=== PATIENT | female | born 1965 | race Caucasian/White ===

== ENCOUNTER 2019-11-21 16:14 | Emergency (ER) | payer OTHER, SELFPAY ==
[2019-11-21 16:34] VITALS: BP 125/73; PULSE 86; RESP 19; TEMP 37.4; O2SAT 100
[2019-11-21 17:02] LABS: Basophils Percent Auto 0.5 % (0.2-1.2); Eosinophils Absolute Auto 0.1 K/mm3 (0-0.3); Eosinophils Percent Auto 1.5 % (0-4.4); Hematocrit 43.3 % (37.0-47.0); Hemoglobin 13.9 g/dL (12.0-15.0); Immature Granulocyte Absolute 0.03 K/mm3 (0.00-0.031); Immature Granulocyte Percent A 0.4 % (0-0.5); Lymphocytes Absolute Auto 2.52 K/mm3 (0.9-3.2); Lymphocytes Percent Auto 33.6 % (18.3-44.2); Mean Corpuscular HGB Conc 32.1 g/dl (32-36); Mean Corpuscular Hemoglobin 29.7 pg (26-34); Mean Corpuscular Volume 92.5 fl (80-100); Mean Platelet Volume 11.5 fl (7.4-10.4); Monocytes Absolute Auto 0.5 K/mm3 (0.1-0.6); Monocytes Percent Auto 6.4 % (2.6-8.5); Neutrophils Absolute Auto 4.3 K/mm3 (1.3-6.7); Neutrophils Percent Auto 57.6 % (45.5-73.1); Platelet Count Result 196 k/mm3 (150-375); Red Blood Count 4.68 M/mm3 (4.2-5.4); White Blood Count 7.5 K/mm3 (4.5-10.0)
--- NOTE | 2019-11-21 17:03 | PC.NURSE ---
Patient left waiting room to smoke outside of ER
[2019-11-21 17:12] LABS: Alanine Aminotransferase 20 U/L (4-35); Albumin Level 4.5 g/dL (3.5-5.1); Alkaline Phosphatase 100 U/L (38-126); Aspartate Amino Transferase 26 U/L (14-36); Bilirubin,Total 0.3 mg/dL (0.2-1.3); Blood Urea Nitrogen 12 mg/dL (7-17); Calcium 9.4 mg/dL (8.4-10.2); Carbon Dioxide 20 mmol/L (22-30); Chloride 106 mmol/L (98-107); Estimated Glomerular Filt Rate > 60; Glucose 88 mg/dL (65-105); Lipase 314 U/L (23-300); Potassium 3.8 mmol/L (3.4-5.0); Sodium 142 mmol/L (137-145)
--- NOTE | 2019-11-21 17:54 | PC.NURSE ---
patient was called for vitals, no answer x 2
== END 2019-11-21 18:01 | disposition left against medical advice (07) ==
LOC: ANHED 17:59
PROVIDERS: Emergency Provider Emergency Medicine; PCP Family Medicine
DX: R51 Headache (principal)
CPT/HCPCS: 36415; 80053; 83690; 85025; 99199

== ENCOUNTER 2020-06-29 13:04 | Outpatient (CLI) | payer OTHER, SELFPAY ==
--- NOTE | 2020-06-29 14:04 | ECG_ITS ---
Measurements Intervals [place] Rate: 79 P: 70 IA: 135 QRS: 78 QRSD: 86 T: 51 QT: 369 QTc: 424 Interpretive Statements SINUS RHYTHM NORMAL ECG Electronically Signed On 06-29-2020 14:27:05 CDT by Sabas Longo D.O.
[2020-06-29 14:25] LABS: Anion Gap 7 mmol/L (8-16); Blood Urea Nitrogen 12 mg/dL (7-17); Calcium 9.2 mg/dL (8.4-10.2); Carbon Dioxide 28 mmol/L (22-30); Chloride 104 mmol/L (98-107); Estimated Glomerular Filt Rate > 60; Glucose 99 mg/dL (65-105); Potassium 3.6 mmol/L (3.4-5.0); Sodium 139 mmol/L (137-145)
== END 2020-06-29 13:05 | disposition home or self-care (01) ==
DX: Z01.818 Encounter for other preprocedural examination (principal)
CPT/HCPCS: 36415; 80048; 93005

== ENCOUNTER 2020-12-18 14:38 | Outpatient (CLI) | payer OTHER, SELFPAY | END 2020-12-18 14:39 | disposition home or self-care (01) | LOC: ANHCOVIDVC 14:38 | DX: Z23 Encounter for immunization (principal) | CPT/HCPCS: 0001A; 91300 ==

== ENCOUNTER 2021-01-08 14:15 | Outpatient (CLI) | payer OTHER, SELFPAY | END 2021-01-08 14:16 | disposition home or self-care (01) | LOC: ANHCOVIDVC 14:15 | DX: Z23 Encounter for immunization (principal) | CPT/HCPCS: 0002A; 91300 ==

== ENCOUNTER 2021-02-24 12:21 | Outpatient (CLI) | payer OTHER, SELFPAY ==
--- NOTE | ~2021-02-24 | MM_ITS ---
EXAMINATION: MM screening [facility] BI w anthony HISTORY: Screening TECHNIQUE: Craniocaudal and mediolateral oblique 3-D tomosynthesis images were obtained and synthetic 2-D images were generated. CAD analysis was submitted and interpreted. COMPARISON: Comparison to multiple prior studies sequentially, with oldest reviewed study dated 12/06. BREAST PARENCHYMAL COMPOSITION: There are scattered areas of fibroglandular density. FINDINGS: There is no evidence of suspicious mass, calcification, or architectural distortion to sugg est malignancy in either breast. There has been no suspicious interval change. IMPRESSION: 1. No mammographic evidence of malignancy. 2. Recommend routine screening mammography in one year. BI-RADS Category 1: Negative Reviewed, dictated and finalized at location A.
== END 2021-02-24 12:22 | disposition home or self-care (01) ==
LOC: ANHIMG 12:23
PROVIDERS: PCP Family Medicine; Visit Provider Advanced Practice Midwife
DX: Z12.31 Encounter for screening mammogram for malignant neoplasm of breast (principal); Z78.0 Asymptomatic menopausal state
CPT/HCPCS: 77063; 77067

== ENCOUNTER 2021-08-25 23:36 | Emergency (ER) | payer OTHER, SELFPAY ==
--- NOTE | ~2021-08-25 | XR_ITS ---
EXAMINATION: XR ribs RT 2V w CXR 2V DATE: 08/26/2021 00:36 INDICATION: Right anterior lower rib pain. Fall. TECHNIQUE: Frontal and lateral views of the chest and 2 views on 3 radiographs of the right ribs were obtained. COMPARISON: Chest single view 08/22/2017, chest CT 08/24/2018 FINDINGS: CHEST TWO VIEWS: There is a moderate-sized right pneumothorax. There is mild atelectasis in the lower lung zones. There is a trace right pleural effusion. The heart size is normal. There is a compressio n fracture of T9. Surgical clips in the right upper quadrant are likely from cholecystectomy. RIGHT RIBS: There are fractures of right fourth-eighth ribs. IMPRESSION: 1. Moderate-sized right pneumothorax. 2. Acute fractures of right fourth-eighth ribs. 3. Age-indeterminate compression fracture of T9. Reviewed, dictated and finalized at location A. 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
--- NOTE | ~2021-08-25 | XR_ITS ---
EXAMINATION: XR chest-chest tube insert/pos DATE: 08/26/2021 02:31 INDICATION: Right pneumothorax status post chest tube placement. TECHNIQUE: A single frontal view of the chest was obtained. COMPARISON: Chest 2 views 08/26/2021 FINDINGS: There is a moderate-sized right pneumothorax. A chest tube overlies right upper lung zone. There is soft tissue gas in right chest wall and axilla. There are airspace opacities in right perihi lar region and right lower lung zone, likely atelectasis. No pleural effusion. The heart size is norm al. There is a fracture of right sixth rib. IMPRESSION: 1. Moderate-sized right pneumothorax with chest tube overlying right upper lung zone. 2. Acute fracture of right sixth rib. Reviewed, dictated and finalized at location A. 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
[2021-08-25 23:41] VITALS: BP 149/76; PULSE 84; RESP 24; TEMP 36.3; O2SAT 100
[2021-08-25 23:47] VITALS: O2SAT 97
[2021-08-26] VITALS (10 sets, daily range): BP systolic 125–183; BP diastolic 76–99; PULSE 79–103; RESP 14–22; O2SAT 91–100
[2021-08-26] MEDS: MORPHINE SULFATE INJ (*CRX) 10 MG/ML AMP 4 MG IM (00:08)
[2021-08-26 01:02] LABS: Basophils Absolute Auto 0.1 K/mm3 (0.0-0.1); Basophils Percent Auto 0.4 % (0.2-1.2); Eosinophils Absolute Auto 0.1 K/mm3 (0-0.3); Eosinophils Percent Auto 0.7 % (0-4.4); Hematocrit 39.6 % (37.0-47.0); Hemoglobin 13.4 g/dL (12.0-15.0); Immature Granulocyte Absolute 0.06 K/mm3 (0.00-0.031); Immature Granulocyte Percent A 0.4 % (0-0.5); Lymphocytes Absolute Auto 2.51 K/mm3 (0.9-3.2); Lymphocytes Percent Auto 18.7 % (18.3-44.2); Mean Corpuscular HGB Conc 33.8 g/dl (32-36); Mean Corpuscular Hemoglobin 31.8 pg (26-34); Mean Corpuscular Volume 93.8 fl (80-100); Mean Platelet Volume 10.9 fl (7.4-10.4); Monocytes Absolute Auto 0.6 K/mm3 (0.1-0.6); Monocytes Percent Auto 4.6 % (2.6-8.5); Neutrophils Absolute Auto 10.1 K/mm3 (1.3-6.7); Neutrophils Percent Auto 75.2 % (45.5-73.1); Platelet Count Result 198 k/mm3 (150-375); Red Blood Count 4.22 M/mm3 (4.2-5.4); White Blood Count 13.4 K/mm3 (4.5-10.0)
[2021-08-26] MEDS: MORPHINE SULFATE (*CRX) 4 MG/ML INJ IV PUSH (01:03)
[2021-08-26 01:14] LABS: Anion Gap 11 mmol/L (8-16); Blood Urea Nitrogen 19 mg/dL (7-17); Calcium 9.4 mg/dL (8.4-10.2); Carbon Dioxide 24 mmol/L (22-30); Chloride 104 mmol/L (98-107); Estimated CRCL calculation 55 ml/min; Estimated Glomerular Filt Rate > 60; Glucose 97 mg/dL (65-110); Potassium 3.4 mmol/L (3.4-5.0); Sodium 139 mmol/L (137-145)
[2021-08-26 01:15] LABS: Prothrombin Time 12.7 Seconds (11.1-14.7)
[2021-08-26] MEDS: HYDROmorphone HCL INJ (*CRX) 1 MG/ML SYR IV PUSH ×2 (01:43→03:31)
--- NOTE | 2021-08-26 01:49 | PC.NURSE ---
0145 - pt placed on 2L NC for comfort. 0147 - EDP at bedside for Chest Tube placement
--- NOTE | 2021-08-26 02:35 | ED.FALL ---
HPI - Fall General Chief Complaint: Fall Stated Complaint: rib pain Time Seen by Provider: 08/25/21 23:41 Source: patient Mode of arrival: ambulatory Limitations: no limitations History of Present Illness HPI Narrative: 56-year-old with history of migraines, here with complaints of fall. Patient states that she fell on the right side of her chest having severe pain and difficulty in breathing. She denies head and neck injuries. complaint: fall Onset (ago): hour(s) (2) Fall from: standing Fall witnessed: yes, by family Place fall occurred: home Prolonged down time: no Symptoms prior to fall: none Location of injury: chest Severity: moderate Associated symptoms (after fall): denies Related Data Allergies Allergy/AdvReac Type Severity Reaction Status Date / Time dihydroergotamine Allergy Intermediate Unknown Verified 08/25/21 23:58 codeine Allergy Mild gets red, Verified 08/25/21 23:58 hives, itchy latex Allergy Mild Unknown Verified 08/25/21 23:58 Sulfa (Sulfonamide Allergy Mild Unknown Verified 08/25/21 23:58 Antibiotics) chlorpromazine Allergy Unknown Dyspnea / Verified 08/25/21 23:58 SOB nickel Allergy Unknown Unknown Verified 08/25/21 23:58 prochlorperazine Allergy Unknown Unknown Verified 08/25/21 23:58 metoclopramide [From Reglan] AdvReac Unknown Verified 08/25/21 23:58 METOCLOPRAMIDE HCL Allergy Unknown DYSTONIC Uncoded 08/25/21 23:58 REACTION PROPRANOLOL HCL AdvReac Unknown CHEST Uncoded 08/25/21 23:58 TIGHTNESS Review of Systems Review of Systems: All systems reviewed & are unremarkable except as noted in HPI and below Constitutional: Constitutional: Reports no additional constitutional complaints Eyes: Eyes: Reports no additional eye complaints ENT: Reports system reviewed and no additional complaints, except as documented Respiratory: Respiratory: Reports as per HPI Musculoskeletal: Musculoskeletal: Reports no additional musculoskeletal complaints PMFSH Past Medical History Medical History Migraine Family History Family History Father Acute myocardial infarction Sibling Patient's sister is in good health Patient's brother is in good health Patient's sister is Mother Family history of malignant neoplasm of breast in first degree relative Patient's mother is Social History Social History Smoking status: Current every day smoker Alcohol intake: never Gender identity (if verbalized by the patient): Female Exam Narrative: GENERAL: Well-appearing, well-nourished, and in moderate distresssec to pain HEAD: Normocephalic, atraumatic. EYES: PERRLA and EOMI. NECK: Supple. CHEST: Tender on the right side of her chest no obvious bruising noted decreased air entry, left normal air entry HEART: Regular rate and rhythm. No murmur heard. Normal peripheral pulses. ABDOMEN: Soft, nontender, nondistended, normal active bowel sounds. EXTREMITIES: Normal range of motion. No edema. SKIN: Warm, dry, no rash. NEURO: No focal deficits. Alert and oriented x3. PSYCH: Normal mood and affect. Course Course Emergency Course: informed pt about her CXR finding with pt having SOB opted to place chest pain and transfer to [facility] , discussed with Dr. Marks agreed to accept pt. Vital Signs Vital signs: Vital Signs Temperature 36.3 C L 08/25/21 23:41 Pulse Rate 84 08/25/21 23:41 Respiratory Rate 24 H 08/25/21 23:41 Blood Pressure 149/76 H 08/25/21 23:41 Pulse Oximetry 100 08/25/21 23:41 Temperature 36.3 C L 08/25/21 23:41 Pulse Rate 85 08/26/21 01:31 Respiratory Rate 16 08/26/21 01:31 Blood Pressure 141/96 H 08/26/21 01:31 Pulse Oximetry 97 08/26/21 01:31 Procedures Chest Tube Chest Tube 1: Chest Tube Date: 08/26/21 Chest Tube Time: 02:41 Chest Tube Location: r
--- NOTE | 2021-08-26 03:56 | PC.NURSE ---
Procedure start: 0147 0153: Pt awake and verbalizing pain. 25mg IV Ketamine given per [facility] EDP Kanumuri. VSS. 0205: Pt awake and verbalizing pain. 50mg IV Ketamine given per [facility] EDP Kanumuri. VSS. 0210: Pt awake and verbalizing pain. 25mg IV Ketamine given per [facility] EDP Kanumuri. VSS. 202: Pt awake and verbalizing pain. 25mg IV Ketamine given per [facility] EDP Kanumuri. VSS. 0220: EDP Arzola at bedside for assist. 0227: 1mg IV Dilaudid given per [facility] EDP Arzola. Procedure end: 227
== END 2021-08-26 03:35 | disposition short-term general hospital (02) ==
PROVIDERS: Emergency Provider Family Medicine
DX: S27.0XXA Traumatic pneumothorax, initial encounter (principal); S22.41XA Multiple fractures of ribs, right side, initial encounter for closed fracture; F17.210 Nicotine dependence, cigarettes, uncomplicated; W19.XXXA Unspecified fall, initial encounter
CPT/HCPCS: 32551; 36415; 71046; 71100; 80048; 85025; 85610; 96372; 96374; 96375; 96376; 99291; C1729; J1170; J2270

== ENCOUNTER 2022-04-06 18:23 | Emergency (ER) | payer OTHER, SELFPAY ==
--- NOTE | ~2022-04-06 | XR_ITS ---
EXAMINATION: XR chest 2V Exam Date/Time: 04/06/2022 21:15 CDT HISTORY: dyspnea Comparison: None available. RESULT: Lines, tubes, and devices: None. Lungs and pleura: Minimal subsegmental bibasilar opacities and subtle bilateral lower lobe reticular opacities. Cardiomediastinal silhouette: Stable cardiomediastinal silhouette. Other: No acute osseous or upper abdominal finding. IMPRESSION: Pulmonary findings may reflect mild interstitial edema with bibasilar atelectasis. Reviewed, dictated and finalized at location K. IMPRESSION: Pulmonary findings may reflect mild interstitial edema with bibasilar atelectas is.
--- NOTE | ~2022-04-06 | CT_ITS ---
EXAMINATION: CT brain wo con DATE: 04/06/2022 21:13 INDICATION: headache, cataplexy, speech difficulty . TECHNIQUE: Computed tomography (CT) of the head was performed without intravenous contrast. The mA wa s adjusted according to patient size. Iterative reconstruction technique was employed. The dose-lengt h product was 605.33 mGy-cm. COMPARISON: 08/24/2018. FINDINGS: No acute intracranial hemorrhage or extra-axial fluid collection. No hydrocephalus, mass, or herniation. No acute ischemic infarct. Unremarkable dural venous sinus attenuation. No acute osseous abnormality. The aerated spaces are clear. Mild atrophy. Mild chronic white matter change Prominent CSF density bifrontal extra-axial spaces, un changed, likely related to atrophy with settling, or chronic bilateral subdural hematomas. IMPRESSION: No acute intracranial process. Reviewed, dictated and finalized at location K.
[2022-04-06 18:38] VITALS: BP 132/70; PULSE 76; RESP 20; TEMP 36.6; O2SAT 100
--- NOTE | 2022-04-06 20:45 | ED.GENADULT ---
HPI - General Adult General Chief complaint: Unspecified <Kayleigh Trujillo MD - Last Filed: 04/06/22 21:56> Stated complaint: cataplexy attack , headache <Kayleigh Trujillo MD - Last Filed: 04/06/22 21:56> Time Seen by Provider: 04/06/22 20:45 <Kayleigh Trujillo MD - Last Filed: 04/06/22 21:56> History of Present Illness HPI narrative: Patient is a 56-year-old female with a history of migraine headache, cataplexy following with [facility], presenting to the emergency department for evaluation of headache, shortness of breath. Patient reports that she has had difficulty breathing over the past 72 hours. She reports associated headache. Patient with a history of cataplexy, follows with neurology at [facility]. Patient denies any recent medication changes. She denies cough, hemoptysis or chest pain. No pleuritic pain. Patient reports shortness of breath at the time of assessment but oxygen saturation is 100% on room air and patient has no difficulty speaking in full sentences, no tachypnea or evidence of obvious respiratory distress. Patient without recent long car or air travel. No recent hospitalizations, immobility, or history of DVT or coagulopathy. Patient states that this headache is different than previous migraine headaches. She has had headache for approximately 3 days, no recent fall or trauma. Denies vision changes or photophobia. Reports nausea without vomiting. Patient denies neck pain. She denies unilateral weakness or numbness. She does report mild right arm pain. No difficulty moving her right upper extremity. Patient without vision changes. She has taken Tylenol and ibuprofen without much improvement in her pain. <Kayleigh Trujlilo MD - Last Filed: 04/06/22 21:56> Related Data Allergies/adverse reactions: Allergies Allergy/AdvReac Type Severity Reaction Status Date / Time dihydroergotamine Allergy Intermediate Unknown Verified 08/25/21 23:58 codeine Allergy Mild gets red, Verified 08/25/21 23:58 hives, itchy latex Allergy Mild Unknown Verified 08/25/21 23:58 Sulfa (Sulfonamide Allergy Mild Unknown Verified 08/25/21 23:58 Antibiotics) chlorpromazine Allergy Unknown Dyspnea / Verified 11/17/21 23:58 SOB nickel Allergy Unknown Unknown Verified 08/25/21 23:58 prochlorperazine Allergy Unknown Unknown Verified 08/25/21 23:58 propranolol AdvReac Unknown chest Verified 04/06/22 21:04 tightness metoclopramide [From Reglan] AdvReac Dystonic Verified 04/06/22 21:04 reaction <Kayleigh Trujillo MD - Last Filed: 04/06/22 21:56> Review of Systems Review of Systems: CONSTITUTIONAL: Denies fever, chills, or sweats. EYES: Denies visual changes, redness, or discharge. ENT: Denies rhinorrhea, congestion, sore throat, or otalgia. CARDIOVASCULAR: Denies chest pain, palpitations, or edema. RESPIRATORY: Denies cough, reports difficulty breathing GASTROINTESTINAL: Denies abdominal pain, reports nausea, no vomiting today or diarrhea GENITOURINARY: Denies dysuria or hematuria. SKIN: Denies rash or itching. MUSCULOSKELETAL: Denies back pain, joint pain, or myalgia. NEUROLOGIC: Reports headache without numbness, or weakness. <Kayleigh Trujillo MD - Last Filed: 04/06/22 21:56> [facility] Past Medical History Medical History: Medical History (Updated 04/06/22 @ 21:56 by Kayleigh Trujillo MD) Cataplexy Migraine Pneumothorax <Kayleigh Trujillo MD - Last Filed: 04/06/22 21:56> Family History Family History: Family History Father Acute myocardial infarction Sibling Patient's sister is in good health Patient's brother is in good health Patient's sister is Mother Family history of malignant neoplasm of breast in first degree relative Patient's mother is <Kayleigh Trujillo MD - Last Filed: 04/06/22 21:56> Social History Social History:
--- NOTE | 2022-04-06 20:56 | ECG_ITS ---
Measurements Intervals [place] Rate: 71 P: 56 MS: 140 QRS: 75 QRSD: 88 T: 59 QT: 405 QTc: 441 Interpretive Statements SINUS RHYTHM COMPARED TO ECG 06/29/2020 14:18:12 NO SIGNIFICANT CHANGES Electronically Signed On 04-06-2022 22:54:18 CDT by Joan Lewis M.D.
[2022-04-06 22:00] VITALS: BP 135/87; PULSE 71; RESP 13; O2SAT 99
[2022-04-06] MEDS: SODIUM CHLORIDE 0.9% IV 1,000 ML 999 ML IV CONT (22:03)
[2022-04-06 22:12] LABS: Basophils Absolute Auto 0.1 K/mm3 (0.0-0.1); Basophils Percent Auto 0.9 % (0.2-1.2); Eosinophils Absolute Auto 0.1 K/mm3 (0-0.3); Eosinophils Percent Auto 1.5 % (0-4.4); Hematocrit 39.4 % (37.0-47.0); Immature Granulocyte Absolute 0.03 K/mm3 (0.00-0.031); Immature Granulocyte Percent A 0.5 % (0-0.5); Lymphocytes Absolute Auto 2.35 K/mm3 (0.9-3.2); Lymphocytes Percent Auto 35.3 % (18.3-44.2); Mean Corpuscular Hemoglobin 30.5 pg (26-34); Mean Corpuscular Volume 92.5 fl (80-100); Mean Platelet Volume 10.8 fl (7.4-10.4); Monocytes Absolute Auto 0.4 K/mm3 (0.1-0.6); Monocytes Percent Auto 5.3 % (2.6-8.5); Neutrophils Absolute Auto 3.8 K/mm3 (1.3-6.7); Neutrophils Percent Auto 56.5 % (45.5-73.1); Platelet Count Result 191 k/mm3 (150-375); Red Blood Count 4.26 M/mm3 (4.2-5.4); Red Cell Distribution Width 13.2 % (11.5-14.5); White Blood Count 6.7 K/mm3 (4.5-10.0)
[2022-04-06] MEDS: ONDANSETRON INJ 4 MG/2 ML VIAL IV PUSH (22:12)
[2022-04-06 22:17] LABS: Alanine Aminotransferase 16 U/L (6-35); Albumin Level 4.3 g/dL (3.5-5.1); Alkaline Phosphatase 72 U/L (38-126); Anion Gap 5 mmol/L (8-16); Aspartate Amino Transferase 26 U/L (14-36); Bilirubin,Total 0.3 mg/dL (0.2-1.3); Blood Urea Nitrogen 12 mg/dL (7-17); Calcium 8.8 mg/dL (8.4-10.2); Carbon Dioxide 24 mmol/L (22-30); Chloride 107 mmol/L (98-107); Estimated CRCL calculation 54 ml/min; Estimated Glomerular Filt Rate > 60; Glucose 102 mg/dL (65-110); Lipase 128 U/L (23-300); Potassium 3.6 mmol/L (3.4-5.0); Sodium 136 mmol/L (137-145)
[2022-04-06] MEDS: KETOROLAC 15 MG/ML VIAL (*BKC) IV PUSH (22:20)
[2022-04-06] MEDS: FAMOTIDINE 20 MG/2 ML VIAL IV PUSH (22:21)
[2022-04-06] MEDS: diphenhydrAMINE HCl INJ 50 MG/ML VIAL IV PUSH (22:21)
[2022-04-06 22:24] LABS: D Dimer 0.54 ug/mL (<0.48)
[2022-04-06] MEDS: MAGNESIUM SULF 2 GM/WATER 50ML 2 GM/50 ML BAG IVPB (22:24)
[2022-04-06 22:29] LABS: NT Pro B Type Natriuretic Pept 137 pg/mL (5-100); Troponin I < 0.012 ng/mL (0.000-0.034)
[2022-04-06 22:43] LABS: SARS-CoV-2 RNA PCR Negative
[2022-04-06 22:57] LABS: Appearance Urine Clear (Clear); Bilirubin Urine Negative (Negative); Blood Urine Negative (Negative); Color Urine Yellow (Yellow); Glucose Urine UA Negative (Negative); Ketones Urine Negative (Negative); Leukocyte Esterase Ur Negative LEU/UL (Negative); Nitrate Urine Negative (Negative); Protein Urine Negative (Negative); Specific Grav Ur 1.015 (1.001-1.035); Urobilinogen Urine 0.2 mg/dL (<2.0); pH Urine 5.5 (5.0-9.0)
[2022-04-06 23:06] LABS: Bacteria Urine Trace /hpf; Mucus Urine Rare /lpf; RBC Urine 0-2 /hpf (0-2); Squamous Epithelial Cell Urine Occasional /hpf (Few); WBC Urine 0-3 /hpf
[2022-04-06 23:17] LABS: Add Urine Microscopic? NO
[2022-04-06] MEDS: FLUTICASONE PROPIONATE 0.05% NA SPR 16 GM BTL (*BKC) 1 SPRAY NASAL (23:23)
[2022-04-06 23:24] VITALS: BP 147/74; PULSE 73; RESP 19; O2SAT 99
== END 2022-04-07 03:08 | disposition home or self-care (01) ==
PROVIDERS: Emergency Provider Emergency Medicine
DX: G43.909 Migraine, unspecified, not intractable, without status migrainosus (principal); G47.411 Narcolepsy with cataplexy; Z20.822 Contact with and (suspected) exposure to COVID-19; R06.02 Shortness of breath
CPT/HCPCS: 36415; 70450; 71046; 80053; 81003; 83690; 83880; 84484; 85025; 85380; 93005; 96365; 96367; 96375; 99284; A9270; C9803; J0131; J1100; J1200; J1885; J2405; J3475; J7030; U0003; U0005

== ENCOUNTER 2022-10-22 09:12 | Emergency (ER) | payer OTHER, SELFPAY ==
[2022-10-22 09:26] VITALS: BP 155/95; PULSE 85; RESP 16; TEMP 36.3; O2SAT 99
--- NOTE | 2022-10-22 10:19 | ED.EYEPROB ---
HPI - Eye Problem General Chief complaint: Eye Problems Stated complaint: left eye pain, watery eye Time Seen by Provider: 10/22/22 10:21 Source: patient, RN notes reviewed and old records reviewed Mode of arrival: ambulatory Limitations: no limitations History of Present Illness HPI Narrative: 57-year-old female who presents to [facility] accompanied by mother with complaints left eye hurting this morning and her eye watering since this morning around 0600. Patient reports that her vision is not changed and she denies any yellowish or green drainage for her eyes or any crusting on her lashes. Patient denies any known injury to her left eye. Patient states she took Benadryl 50 mg this morning.Patient constantly dabbing at left eye with Kleenex, cautioned patient to not rub her left eye. chief complaint: eye redness Onset (ago): hour(s) (This morning at 6:00 a.m.) Severity scale (1-10): 5 Treatments Prior to Arrival: other (took Benadryl 50 mg this morning) Related Data Home Medications Medication Instructions Recorded Confirmed opulijjjot-oodfgpumuqtzh-hqjtaaev 1 tablet PO DAILY 10/22/22 10/22/22 50 mg-325 mg-40 mg tablet estradiol 2 mg tablet 2 mg PO DAILY 10/22/22 10/22/22 metoprolol succinate 100 mg 100 mg PO DAILY 10/22/22 10/22/22 tablet,extended release 24 hr progesterone micronized 100 mg 100 mg PO DAILY 10/22/22 10/22/22 capsule quetiapine 300 mg tablet 300 mg PO DAILY 10/22/22 10/22/22 rizatriptan 10 mg tablet 10 mg PO DAILY 10/22/22 10/22/22 temazepam 30 mg capsule 30 mg PO DAILY 10/22/22 10/22/22 Allergies Allergy/AdvReac Type Severity Reaction Status Date / Time dihydroergotamine Allergy Intermediate Unknown Verified 10/22/22 09:36 codeine Allergy Mild gets red, Verified 10/22/22 09:36 hives, itchy latex Allergy Mild Unknown Verified 10/22/22 09:36 Sulfa (Sulfonamide Allergy Mild Unknown Verified 10/22/22 09:36 Antibiotics) chlorpromazine Allergy Unknown Dyspnea / Verified 10/22/22 09:36 SOB nickel Allergy Unknown Unknown Verified 10/22/22 09:36 prochlorperazine Allergy Unknown Unknown Verified 10/22/22 09:36 propranolol AdvReac Unknown chest Verified 10/22/22 09:36 tightness metoclopramide [From Reglan] AdvReac Dystonic Verified 10/22/22 09:36 reaction Review of Systems Review of Systems: CONSTITUTIONAL: Denies fever, chills, or sweats. EYES: Denies visual changes. Reports redness, irritation, watery discharge. ENT: Denies rhinorrhea, congestion, sore throat, or otalgia. CARDIOVASCULAR: Denies chest pain, palpitations, or edema. RESPIRATORY: Denies cough or dyspnea. SKIN: Denies rash or itching. NEUROLOGIC: Denies headache All systems reviewed & are unremarkable except as noted in HPI and below PMFSH Past Medical History Medical History (Updated 10/22/22 @ 10:34 by Kayleigh Babb NP) Cataplexy Migraine Pneumothorax Family History Family History Father Acute myocardial infarction Sibling Patient's sister is in good health Patient's brother is in good health Patient's sister is Mother Family history of malignant neoplasm of breast in first degree relative Patient's mother is Social History Social History Smoking status: Current every day smoker Alcohol intake: never Gender identity (if verbalized by the patient): Female Comments At time of signature, agree with nursing past medical, surgical, social and family history. There is no relevant family history pertinent to the presenting complaint Exam Narrative: GENERAL: Well-appearing, well-nourished, and in no acute distress. HEAD: Normocephalic, atraumatic. EYES: PERRLA and EOMI. Upper and lower eyelids unremarkable left. No periorbital cellulitis noted. Sclera and conjunctivae injected left eye. ENT: Nares clear, no rhinorrhea or ep
== END 2022-10-22 10:42 | disposition home or self-care (01) ==
PROVIDERS: Emergency Provider Registered Nurse
DX: H10.9 Unspecified conjunctivitis (principal); F17.200 Nicotine dependence, unspecified, uncomplicated
CPT/HCPCS: 99213; G0463

== ENCOUNTER 2022-12-06 08:06 | Emergency (ER) | payer OTHER, SELFPAY ==
[2022-12-06 08:25] VITALS: BP 128/84; PULSE 105; RESP 12; TEMP 36.6; O2SAT 100
[2022-12-06 08:29] VITALS: BP 128/84; PULSE 105; RESP 12; TEMP 36.6; O2SAT 100
--- NOTE | 2022-12-06 08:33 | ED.GENADULT ---
HPI - General Adult General Chief complaint: Eye Problems Stated complaint: Eyes Irritation Time Seen by Provider: 12/06/22 08:09 Source: patient Mode of arrival: ambulatory Limitations: no limitations History of Present Illness HPI narrative: Patient presents for evaluation of left eye irritation since 0200 this morning. She reports pain, tearing, redness, and blurred vision in the left eye. She has not were glasses or contacts. Her symptoms caused her to wake from sleep. She had some ofloxacin at home that she tried once without considerable improvement in her symptoms thereafter. She is not diabetic. No additional complaints or concerns. Related Data Home Medications Medication Instructions Recorded Confirmed oaresloqzo-esfomaboqsgjf-qfcmgbfm 1 tablet PO DAILY 10/22/22 10/22/22 50 mg-325 mg-40 mg tablet estradiol 2 mg tablet 2 mg PO DAILY 10/22/22 10/22/22 metoprolol succinate 100 mg 100 mg PO DAILY 10/22/22 10/22/22 tablet,extended release 24 hr progesterone micronized 100 mg 100 mg PO DAILY 10/22/22 10/22/22 capsule quetiapine 300 mg tablet 300 mg PO DAILY 10/22/22 10/22/22 rizatriptan 10 mg tablet 10 mg PO DAILY 10/22/22 10/22/22 Allergies Allergy/AdvReac Type Severity Reaction Status Date / Time dihydroergotamine Allergy Intermediate Unknown Verified 12/06/22 08:26 codeine Allergy Mild gets red, Verified 12/06/22 08:26 hives, itchy latex Allergy Mild Unknown Verified 12/06/22 08:26 Sulfa (Sulfonamide Allergy Mild Unknown Verified 12/06/22 08:26 Antibiotics) chlorpromazine Allergy Unknown Dyspnea / Verified 12/06/22 08:26 SOB nickel Allergy Unknown Unknown Verified 12/06/22 08:26 prochlorperazine Allergy Unknown Unknown Verified 12/06/22 08:26 propranolol AdvReac Unknown chest Verified 12/06/22 08:26 tightness metoclopramide [From Reglan] AdvReac Dystonic Verified 12/06/22 08:26 reaction Review of Systems Review of Systems: CONSTITUTIONAL: Denies fever, chills, or sweats. EYES: Reports redness, tearing, irritation, pain, and blurred vision in the left eye. ENT: Denies rhinorrhea, congestion, sore throat, or otalgia. CARDIOVASCULAR: Denies chest pain, palpitations, or edema. RESPIRATORY: Denies cough or dyspnea. GASTROINTESTINAL: Denies abdominal pain, nausea, vomiting, or diarrhea. GENITOURINARY: Denies dysuria or hematuria. SKIN: Denies rash or itching. MUSCULOSKELETAL: Denies back pain, joint pain, or myalgia. NEUROLOGIC: Denies headache, numbness, dizziness, or weakness. PSYCHIATRIC: Denies anxiety or depression. PMFSH Past Medical History Medical History Cataplexy Migraine Pneumothorax Surgical History Surgical History History of History of cholecystectomy Family History Family History Father Acute myocardial infarction Sibling Patient's sister is in good health Patient's brother is in good health Patient's sister is Mother Family history of malignant neoplasm of breast in first degree relative Patient's mother is Social History Social History Smoking packs per day: 0.5 Smoking cigarettes per day: 10.0 Smoking status: Current every day smoker Alcohol intake: never Substance use: never Living arrangements: with family Gender identity (if verbalized by the patient): Female Sexual Orientation (if Verbalized by the Patient): Straight or Heterosexual Spiritual care concerns: No Exam Narrative: GENERAL: Well-appearing, well-nourished, and in no acute distress. HEAD: Normocephalic, atraumatic. EYES: PERRLA and EOMI. left conjunctival injection and tearing. There is a in area of dye uptake at the 9 o'clock position of the left eye when riddhi
== END 2022-12-06 09:05 | disposition home or self-care (01) ==
PROVIDERS: Emergency Provider Nurse Practitioner
DX: S05.02XA Injury of conjunctiva and corneal abrasion without foreign body, left eye, initial encounter (principal); F17.210 Nicotine dependence, cigarettes, uncomplicated; X58.XXXA Exposure to other specified factors, initial encounter
CPT/HCPCS: 99213; A9270; G0463

== ENCOUNTER 2023-07-12 14:55 | Outpatient (CLI) | payer OTHER, SELFPAY ==
--- NOTE | ~2023-07-12 | MM_ITS ---
EXAMINATION: MM screening [place] BI w anthony HISTORY: Screening mammogram, family history of breast cancer in her mother and sister. TECHNIQUE: Craniocaudal and mediolateral oblique 3-D tomosynthesis images were obtained and synthetic 2-D images were generated. CAD analysis was submitted and interpreted. COMPARISON: 02/24/2021, 07/03/2015, 12/06/2012 BREAST PARENCHYMAL COMPOSITION: There are scattered areas of fibroglandular density. FINDINGS: No suspicious mass, calcification, or architectural distortion are identified in either alvaro ast to suggest malignancy. There has been no suspicious interval change. IMPRESSION: 1. No mammographic evidence of malignancy. 2. Recommend routine screening mammography in one year. BI-RADS Category 1: Negative Reviewed, dictated and finalized at location A.
== END 2023-07-12 14:56 | disposition home or self-care (01) ==
LOC: ANHIMG 14:58
PROVIDERS: PCP Family Medicine; Visit Provider Obstetrics & Gynecology
DX: Z12.31 Encounter for screening mammogram for malignant neoplasm of breast (principal)
CPT/HCPCS: 77063; 77067

== ENCOUNTER 2023-10-06 09:26 | Emergency (ER) | payer OTHER, SELFPAY ==
[2023-10-06 09:39] VITALS: BP 122/83; PULSE 100; RESP 16; TEMP 37.3; O2SAT 98
--- NOTE | 2023-10-06 10:00 | ED.EYEPROB ---
HPI - Eye Problem General Chief complaint: Eye Problems Stated complaint: fell Wed. and hit left eye,decreased vision Source: patient and RN notes reviewed Mode of arrival: ambulatory Limitations: no limitations History of Present Illness HPI Narrative: 58 y/o female with hx migraines, ALLEN, cataplexy, presented for c/o right eye swelling and bruising with blurred vision after a fall 2 days ago. States she struck her head on something but unsure how. States she falls often due to her hx cataplexy. Denies neck pain, decreased ROM, numbness, tingling or weakness of the arms. Pt tested positive for COVID 4 days ago, taking paxlovid. No other complaints at this time. Related Data Home Medications Medication Instructions Recorded Confirmed [id number]-[id number]-onpnllkn 1 tablet PO DAILY 10/22/22 10/06/23 50 mg-325 mg-40 mg tablet estradiol 2 mg tablet 2 mg PO DAILY 10/22/22 10/06/23 metoprolol succinate 100 mg 100 mg PO DAILY 10/22/22 10/06/23 tablet,extended release 24 hr progesterone micronized 100 mg 100 mg PO DAILY 10/22/22 10/06/23 capsule quetiapine 300 mg tablet 300 mg PO DAILY 10/22/22 10/06/23 rizatriptan 10 mg tablet 10 mg PO DAILY 10/22/22 10/06/23 alprazolam 0.25 mg tablet 0.25 mg PO DAILY 05/17/23 10/06/23 fluoxetine 40 mg capsule 40 mg PO DAILY 05/17/23 10/06/23 temazepam 30 mg capsule 30 mg PO QHS 05/17/23 10/06/23 Allergies Allergy/AdvReac Type Severity Reaction Status Date / Time dihydroergotamine Allergy Intermediate Unknown Verified 10/06/23 11:14 codeine Allergy Mild gets red, Verified 10/06/23 11:14 hives, itchy latex Allergy Mild Unknown Verified 10/06/23 11:14 Sulfa (Sulfonamide Allergy Mild Unknown Verified 10/06/23 11:14 Antibiotics) chlorpromazine Allergy Unknown Dyspnea / Verified 10/06/23 11:14 SOB nickel Allergy Unknown Unknown Verified 10/06/23 11:14 prochlorperazine Allergy Unknown Unknown Verified 10/06/23 11:14 propranolol AdvReac Unknown chest Verified 10/06/23 11:14 tightness metoclopramide [From Reglan] AdvReac Dystonic Verified 10/06/23 11:14 reaction Review of Systems Review of Systems: CONSTITUTIONAL: Denies body aches, fever, chills, or sweats. EYES: reports right eye visual changes, swelling, bruising ENT: Denies rhinorrhea, congestion, epistaxis CARDIOVASCULAR: Denies chest pain, palpitations, or edema. RESPIRATORY: Denies cough or dyspnea. SKIN: Denies rash, itching, or wounds. MUSCULOSKELETAL: Denies back pain, joint pain, or myalgia. NEUROLOGIC: Endorses mild headache, denies numbness, tingling, or weakness, dizziness All systems reviewed & are unremarkable except as noted in HPI and below PMFSH Past Medical History Medical History Cataplexy IBS (irritable bowel syndrome) Migraine Pneumothorax Positive colorectal cancer screening using Cologuard test Sleep apnea Surgical History Surgical History History of History of cholecystectomy Family History Family History Father Acute myocardial infarction Sibling Patient's sister is in good health Patient's brother is in good health Patient's sister is Mother Family history of malignant neoplasm of breast in first degree relative Patient's mother is Social History Social History Smoking packs per day: 0.5 Smoking cigarettes per day: 10.0 Smoking status: Current every day smoker Alcohol intake: never Substance use: never Lack of Transportation: No Lack of Food: Never True Current Housing: I Have Housing Concerned About Future Housing: No Difficulty Paying Gas/Electric Bills: No Difficulty Paying for Meds: No Currently Unemployed: No Education: Trade/Vocational Certificate Dif
== END 2023-10-06 10:31 | disposition short-term general hospital (02) ==
PROVIDERS: Emergency Provider Nurse Practitioner Family; PCP Nurse Practitioner Family
DX: S05.11XA Contusion of eyeball and orbital tissues, right eye, initial encounter (principal); W19.XXXA Unspecified fall, initial encounter; F17.210 Nicotine dependence, cigarettes, uncomplicated; G47.419 Narcolepsy without cataplexy
CPT/HCPCS: 99212; G0463

== ENCOUNTER 2023-10-06 10:57 | Emergency (ER) | payer OTHER, SELFPAY ==
--- NOTE | ~2023-10-06 | CT_ITS ---
EXAMINATION: CT facial & cervical spine wo DATE: 10/06/2023 11:48 INDICATION: Head injury. TECHNIQUE: Computed tomography (CT) of the maxillofacial region and cervical spine was performed with out intravenous contrast. Automated exposure control and iterative reconstruction technique were empl oyed. The dose-length product was 192.26 mGy-cm. COMPARISON: CT cervical spine 08/24/2018 FINDINGS: MAXILLOFACIAL CT: There is right periorbital soft tissue swelling. The orbits are normal. There is mild mucosal thicken ing in the paranasal sinuses. There is leftward deviation of the nasal septum. There is extensive den lor disease. There are fracture deformities of the nasal bones. CERVICAL SPINE CT: There is mild emphysema. There is mild kyphosis of cervical spine. Vertebral body heights are normal. There is severely decreased disc height at C3-C4 and C4-C5 and moderately decreased disc height at C 5-C6. The following disc levels are specifically discussed: C2-C3: There is no uncovertebral joint osteoarthritis. There is severe left facet joint osteoarthriti s. There is mild left neural foraminal stenosis. There is no central canal stenosis. C3-C4: There is mild bilateral uncovertebral joint osteoarthritis. There is no facet joint osteoarthr itis. There is no neural foraminal stenosis. There is no central canal stenosis. C4-C5: There is moderate bilateral uncovertebral joint osteoarthritis. There is no facet joint osteoa rthritis. There is mild left neural foraminal stenosis. There is no central canal stenosis. C5-C6: There is mild bilateral uncovertebral joint osteoarthritis. There is no facet joint osteoarthr itis. There is no neural foraminal stenosis. There is no central canal stenosis. C6-C7: There is no uncovertebral joint osteoarthritis. There is no facet joint osteoarthritis. There is no neural foraminal stenosis. There is no central canal stenosis. C7-T1: There is no uncovertebral joint osteoarthritis. There is moderate right and severe left facet joint osteoarthritis. There is no neural foraminal stenosis. There is no central canal stenosis. IMPRESSION: 1. Age-indeterminate fracture deformities of the nasal bones. 2. Moderate cervical spondylosis. Reviewed, dictated and finalized at location A. HER HAND
--- NOTE | ~2023-10-06 | CT_ITS ---
EXAMINATION: CT brain wo con DATE: 10/06/2023 11:48 INDICATION: Head injury. TECHNIQUE: Computed tomography (CT) of the head was performed without intravenous contrast. The mA wa s adjusted according to patient size. Iterative reconstruction technique was employed. The dose-lengt h product was 605.33 mGy-cm. COMPARISON: Head CT 04/06/2022 FINDINGS: There is no intracranial hemorrhage, acute infarction, or abnormal intracranial mass lesion . There are scattered areas of low attenuation in the cerebral white matter, which is within normal l imits for the patient's age. The ventricles are normal in size. There is right periorbital soft tissu e swelling. The orbits are normal. The mastoid air cells are normal. There is mild mucosal thickening in the paranasal sinuses. IMPRESSION: 1. Normal aging brain. Reviewed, dictated and finalized at location A. CASER IMPRESSION: 1. Normal aging brain.
--- NOTE | ~2023-10-06 | XR_ITS ---
XR hand LT min 3V 10/06/2023 11:51 INDICATION: Left hand pain after fall PROCEDURE: 3 views left hand COMPARISON: No prior studies for comparison. FINDINGS: Fracture, dislocation or subluxation is not identified. The soft tissues appear within norm al limits. No foreign bodies are identified. IMPRESSION: 1: NO ACUTE BONE OR JOINT ABNORMALITY IDENTIFIED. Reviewed, dictated and finalized at location A. HT ENGINEER
[2023-10-06 11:01] VITALS: BP 157/97; PULSE 97; RESP 20; TEMP 37.1; O2SAT 100
--- NOTE | 2023-10-06 11:31 | ED.GENADULT ---
HPI - General Adult General Chief complaint: Trauma Stated complaint: sent from for right eye injury Time Seen by Provider: 10/06/23 11:07 History of Present Illness HPI narrative: 58-year-old female presenting to emergency department for evaluation after having a ground level fall approximately 2 days ago. Patient did strike her right eye does have ecchymosis and swelling to the right eye. Patient states she does have some blurred vision out of that right eye but this could be secondary to her inability to fully open the eye. The patient also complains of left thumb pain. Patient is COVID positive per the patient. Related Data Home Medications Medication Instructions Recorded Confirmed zxauoswzqp-uiuuibvjvfvdo-wmtjqprv 1 tablet PO DAILY 10/22/22 10/06/23 50 mg-325 mg-40 mg tablet estradiol 2 mg tablet 2 mg PO DAILY 10/22/22 10/06/23 metoprolol succinate 100 mg 100 mg PO DAILY 10/22/22 10/06/23 tablet,extended release 24 hr progesterone micronized 100 mg 100 mg PO DAILY 10/22/22 10/06/23 capsule quetiapine 300 mg tablet 300 mg PO DAILY 10/22/22 10/06/23 rizatriptan 10 mg tablet 10 mg PO DAILY 10/22/22 10/06/23 alprazolam 0.25 mg tablet 0.25 mg PO DAILY 05/17/23 10/06/23 fluoxetine 40 mg capsule 40 mg PO DAILY 05/17/23 10/06/23 temazepam 30 mg capsule 30 mg PO QHS 05/17/23 10/06/23 Allergies Allergy/AdvReac Type Severity Reaction Status Date / Time dihydroergotamine Allergy Intermediate Unknown Verified 10/06/23 11:14 codeine Allergy Mild gets red, Verified 10/06/23 11:14 hives, itchy latex Allergy Mild Unknown Verified 10/06/23 11:14 Sulfa (Sulfonamide Allergy Mild Unknown Verified 10/06/23 11:14 Antibiotics) chlorpromazine Allergy Unknown Dyspnea / Verified 10/06/23 11:14 SOB nickel Allergy Unknown Unknown Verified 10/06/23 11:14 prochlorperazine Allergy Unknown Unknown Verified 10/06/23 11:14 propranolol AdvReac Unknown chest Verified 10/06/23 11:14 tightness metoclopramide [From Reglan] AdvReac Dystonic Verified 10/06/23 11:14 reaction Review of Systems Review of Systems: All systems reviewed & are unremarkable except as noted in HPI and below PMFSH Past Medical History Medical History Cataplexy IBS (irritable bowel syndrome) Migraine Pneumothorax Positive colorectal cancer screening using Cologuard test Sleep apnea Surgical History Surgical History History of History of cholecystectomy Family History Family History Father Acute myocardial infarction Sibling Patient's sister is in good health Patient's brother is in good health Patient's sister is Mother Family history of malignant neoplasm of breast in first degree relative Patient's mother is Social History Social History Smoking packs per day: 0.5 Smoking cigarettes per day: 10.0 Smoking status: Current every day smoker Alcohol intake: never Substance use: never Lack of Transportation: No Lack of Food: Never True Current Housing: I Have Housing Concerned About Future Housing: No Difficulty Paying Gas/Electric Bills: No Difficulty Paying for Meds: No Currently Unemployed: No Education: Trade/Vocational Certificate Difficulty w/ Childcare or Family Care: No Living arrangements: with family Gender identity (if verbalized by the patient): Female Sexual Orientation (if Verbalized by the Patient): Straight or Heterosexual Spiritual care concerns: No Exam Narrative: APPEARANCE: Well appearing, no pain, no distress, well-nourished. HEAD: normocephalic, ecchymosis to right eye and right side of face. EYES: PERRLA/EOMI, conjunctivae clear. Normal visual gonzalez of the eyes bilaterally, normal bilateral
[2023-10-06 12:00] VITALS: BP 148/98; PULSE 86; RESP 16; TEMP 36.6; O2SAT 100
[2023-10-06 12:41] LABS: Influenza A QL RT-PCR Negative (Negative); Influenza B QL RT-PCR Negative (Negative); RSV RNA, RT-PCR Negative (Negative); SARS-CoV-2 RNA PCR Positive (Negative)
[2023-10-06 12:43] LABS: Basophils Percent Auto 0.7 % (0.2-1.2); Hematocrit 42.6 % (37.0-47.0); Hemoglobin 13.2 g/dL (12.0-15.0); Immature Granulocyte Absolute 0.02 K/mm3 (0.00-0.031); Immature Granulocyte Percent A 0.5 % (0-0.5); Immature Platelet Fraction Pct 8.2 % (0.9-11.2); Lymphocytes Absolute Auto 1.44 K/mm3 (0.9-3.2); Mean Corpuscular Hemoglobin 30.1 pg (26-34); Mean Corpuscular Volume 97.3 fl (80-100); Mean Platelet Volume 11.1 fl (7.4-10.4); Monocytes Absolute Auto 0.4 K/mm3 (0.1-0.6); Monocytes Percent Auto 9.2 % (2.6-8.5); Neutrophils Absolute Auto 2.2 K/mm3 (1.3-6.7); Neutrophils Percent Auto 53.6 % (45.5-73.1); Platelet Count Result 79 k/mm3 (150-375); Red Blood Count 4.38 M/mm3 (4.2-5.4); Red Cell Distribution Width 14.1 % (11.5-14.5); White Blood Count 4.1 K/mm3 (4.5-10.0)
[2023-10-06 12:52] LABS: Alanine Aminotransferase 53 U/L (6-35); Albumin Level 4.1 g/dL (3.5-5.1); Alkaline Phosphatase 92 U/L (38-126); Anion Gap 7 mmol/L (8-16); Aspartate Amino Transferase 67 U/L (14-36); Bilirubin,Total 0.4 mg/dL (0.2-1.3); Blood Urea Nitrogen 18 mg/dL (7-17); Calcium 8.5 mg/dL (8.4-10.2); Carbon Dioxide 25 mmol/L (22-30); Chloride 108 mmol/L (98-107); Estimated CRCL calculation 47 ml/min; Estimated Glomerular Filt Rate > 60; Glucose 92 mg/dL (65-110); Potassium 3.4 mmol/L (3.4-5.0); Sodium 140 mmol/L (137-145)
[2023-10-06 12:55] LABS: INR 0.9; Prothrombin Time 12.2 Seconds (11.1-14.7)
[2023-10-06 12:56] LABS: Partial Thromboplastin Time 23.7 SECONDS (22.3-36.8)
[2023-10-06 12:59] VITALS: BP 145/79; PULSE 77; RESP 16; TEMP 36.6; O2SAT 98
[2023-10-06 13:00] LABS: Platelet Estimate Decreased (Adequate); Schistocytes None Seen (NORMAL)
== END 2023-10-06 13:01 | disposition home or self-care (01) ==
PROVIDERS: Emergency Provider Emergency Medicine; PCP Nurse Practitioner Family
DX: S05.11XA Contusion of eyeball and orbital tissues, right eye, initial encounter (principal); M79.645 Pain in left finger(s); U07.1 COVID-19; K58.9 Irritable bowel syndrome, unspecified; G47.30 Sleep apnea, unspecified; Z90.49 Acquired absence of other specified parts of digestive tract; F17.210 Nicotine dependence, cigarettes, uncomplicated; M47.812 Spondylosis without myelopathy or radiculopathy, cervical region; W19.XXXA Unspecified fall, initial encounter
CPT/HCPCS: 36415; 70450; 70486; 72125; 73130; 80053; 85025; 85055; 85610; 85730; 87637; 99284

== ENCOUNTER 2024-01-01 14:16 | Outpatient (CLI) | payer OTHER, SELFPAY ==
--- NOTE | ~2024-01-01 | XR_ITS ---
EXAMINATION: XR ribs BI 3V w CXR 2V DATE: 01/01/2024 14:28 INDICATION: Chest pain. Fall. TECHNIQUE: Frontal and lateral views of the chest and 2 views on 3 radiographs of the right ribs and 2 views on 3 radiographs of the left ribs were obtained. COMPARISON: Chest 2 views 04/06/2022 FINDINGS: CHEST TWO VIEWS: There is no pneumonia, pleural effusion, or pneumothorax. The heart size is normal. There is a chronic compression fracture in mid thoracic spine. BILATERAL RIBS: There are old healed bilateral rib fractures. Surgical clips in the right upper quadr ant are likely from cholecystectomy. IMPRESSION: 1. No acute rib fracture. Reviewed, dictated and finalized at location E. IMPRESSION: 1. No acute rib fracture.
== END 2024-01-01 14:17 ==
PROVIDERS: PCP Family Medicine; Visit Provider Family Medicine
DX: R07.89 Other chest pain (principal); S29.8XXA Other specified injuries of thorax, initial encounter
CPT/HCPCS: 71046; 71110

== ENCOUNTER 2025-02-20 22:05 | Emergency (ER) | payer OTHER, SELFPAY ==
--- OUTSIDE RECORDS SUMMARY | 2025-02-20 22:13 | XMS_ITS | Clinical Summary ---
Author Organization [facility] Address [address] [place] [address] Phone Care Team Providers Care Rug Weaver Name Role Phone Unavailable Primary Care Provider Unavailabl e Allergies Active Allergy Reactions Criticality Noted Date Comments Adhesive Tape-Silicones Rash Low 12/08/2014 Chlorpromazine Anaphylaxis High 02/06/2016 Codeine Rash Low 01/15/2016 Dhe Shortness of Breath/Wheezing High 12/08/2014 Latex Rash Low 12/08/2014 Metoclopramide Hcl Other (See Comments) 015 Dystonic reaction Propranolol Shortness of Breath/Wheezing High 12/08/2014 Sulfa (Sulfonamide Antibiotics) Rash Low 12/08/2014 Medications ZOLMitriptan (ZOMIG) Fourmile, Non-Aerosol 1 Fourmile 2 times daily as needed for Migraine may repeat in 2 hours; max dose 10mg in 24 hours . Active ketorolac (TORADOL) 60 mg/2 mL Solution Inject 60 mg by intramuscular injection every 6 hours as needed (No more then 3 doses per week.). Active amitriptyline (ELAVIL) 50 mg tablet Take 50 mg by mouth daily at bedtime. Active topiramate (TOPAMAX) 100 mg tablet Take 100 mg by mouth daily. Active metoprolol succinate (TOPROL XL) 50 mg Extended Release 24 hour tablet Take 50 mg by mouth daily. Active PARoxetine HCl (PAXIL) 40 mg tablet Take 40 mg by mouth daily. Active clonazePAM (KLONOPIN) 0.5 mg Tablet Take 0.5 mg by mouth daily at bedtime. Active clonazePAM (KLONOPIN) 0.5 mg Tablet Take 0.25 mg by mouth daily rn obgyn. Active ondansetron (ZOFRAN) 4 mg Tablet Take 4 mg by mouth every 8 hours as needed for Nausea/Emesis. Active QUEtiapine (SEROQUEL) 200 mg tablet Take 200 mg by mouth 2 times daily. Active rizatriptan (MAXALT) 10 mg Tablet Take 10 mg by mouth every 2 hours as needed for Migraine may repeat in 2 hours; max dose 30mg in 24 hours . Active butalbital-cod -acetaminop-ca f (FIORICET #3) 61-88-913-40 mg capsule Take 1 Capsule by mouth every 4 hours as needed for Migraine. Active oxyCODONE-acet aminophen (PERCOCET) 5-325 mg tablet Take 1 Tablet by mouth every 4 hours as needed for Pain, Moderate. Max Daily Amount: 6 Tablet 20 Tablet None 6 Active ondansetron (ZOFRAN ODT) 4 mg Tablet, Rapid Dissolve Place 1 Tablet (4 mg) under tongue every 6 hours as needed for Nausea/Emesis. 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 Gender Identity Not on file Sexual Orientation Not on file Last Filed Vital Signs Vital Sign Reading Time Taken Comments Blood Pressure 133/77 02/06/2016 3:00 PM CDT Pulse 83 02/06/2016 3:00 PM CDT Temperature 36.7 C (98 F) 02/06/2016 1:37 PM CDT Respiratory Rate 18 02/06/2016 3:00 PM CDT Oxygen Saturation 97% 02/06/2016 3:00 PM CDT Inhaled Oxygen Concentration - - Weight 68 kg (150 lb) 02/06/2016 1:20 PM CDT Height 157.5 cm (5' 2 ) 02/06/2016 1:20 PM CDT Body Mass Index 27.44 02/06/2016 1:20 PM CDT Plan of Treatment Health Maintenance Due Date Last Done Comments DTAP/TDAP/TD VACCINES (1 - Tdap) 1984 HEPATITIS B VACCINES (1 of 3 - 19+ 3-dose series) 04/10 HPV/Cotest (21-29) 1986 CERVICAL CANCER SCREENING 1995 HPV/Cotest (30-65) 1995 PAP SMEAR 1995 BREAST CANCER SCREENING 2005 COLORECTAL SCREENING 2010 Colorectal Cancer Screening 2010 FIT-DNA Q 3 years 2010 FIT/FOBT Q 1 year 2010 Flex Sig/CT Colonography Q 5 years 2010 ZOSTER VACCINE (1 of 2) 2015 INFLUENZA VACCINE (#1) 2024
--- OUTSIDE RECORDS SUMMARY | 2025-02-20 22:13 | XMS_ITS | Clinical Summary ---
Author Organization [facility] Address [facility] [place] [address] Care Team Providers Care Production Recorder Name Role Phone None, Provider MD Primary Care Provider Unavaila ble Allergies Active Allergy Reactions Criticality Noted Date Comments Aspirin Nausea and Vomiting Low 03/26/2019 *FIORINAL* Chlorpromazine Anaphylaxis,Swelling , Unknown High 09/25/2015 I can' breathe Swelling Codeine Rash Low 11/15/2019 Dhea Anaphylaxis,Shortnes s of Breath,Unknown High 09/02/2014 Dihydroergotamine Chest pressure,Shortness of Breath High 01/27/2015 Chest pain Chest pain Breathing Difficulty Ergotamine Unknown 09/02/2014 Latex Rash Low 11/15/2019 Nickel Rash,Swelling Medium 11/01/2015 Phenylpropanolamine Unknown 02/21/2024 Promethazine Unknown 12/28/2022 Propranolol Anaphylaxis,Other (see comment),Shortness of Breath High 09/02/2014 Chest pain Chest pain Breathing Difficulty Metoclopramide Other (see comment) High 11/15/2019 Her jaw shifts to one side and cannot talk Sulfa Antibiotics Rash Low 09/02/2014 Yellow Dye Unknown 12/04/2019 Medications metoprolol succinate ER 100 MG Capsule ER 24 Hour Sprinkle 24 hr sprinkle capsule TK 1 T PO QD 09/21/2019 Active QUEtiapine 200 MG tablet Take 200 mg by mouth daily. 01/26/2018 Active fluoxetine 40 MG capsule 10/23/2019 Active aspirin-caffein e-butalbital 50-325-40 MG Cap capsule Take 1 capsule by mouth. 10/25/2019 Active ondansetron 4 MG tablet TAKE 1 TABLET BY MOUTH EVERY 8 HOURS NEEDED FOR NAUSEA 03/05/2015 Active ALPRAZolam 0.25 MG tablet Hasn't taken any recently 10/23/2019 Active aspirin-acetami nophen-caffeine (EXCEDRIN MIGRAINE) 250-250-65 MG tablet take 1 tablet by oral route every day 06/20/2016 Active frovatriptan 2.5 MG tablet Hasn't taken in months 07/15/2019 Active rizatriptan 10 MG tablet TAKE 1 TABLET BY MOUTH ONCE NEEDED FOR MIGRAINE; MAY REPEAT IN 2 HOURS. DO NOT EXCEED 3 TABLETS IN 24 HOURS 02/06/2015 Active temazepam 15 MG capsule Take 15 mg by mouth daily. 09/30/2019 Active pantoprazole EC (PROTONIX) 40 MG tablet Take 1 tablet (40 mg total) by mouth daily. 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[employer] Gender Identity Not on file Sexual Orientation Not on file Last Filed Vital Signs Vital Sign Reading Time Taken Comments Blood Pressure 175/89 02/21/2024 9:30 PM CDT Pulse 82 02/21/2024 9:30 PM CDT Temperature 36.6 C (97.9 F) 02/21/2024 8:13 PM CDT Respiratory Rate 23 02/21/2024 9:30 PM CDT Oxygen Saturation 98% 02/21/2024 9:30 PM CDT Inhaled Oxygen Concentration - - Weight 58.1 kg (128 lb) 02/21/2024 8:13 PM CDT Height 157.5 cm (5' 2 ) 02/21/2024 8:13 PM CDT Body Mass Index 23.41 02/21/2024 8:13 PM CDT Plan of Treatment Health Maintenance Due Date Last Done Comments Colorectal Cancer Screening Colonoscopy (10 Years) 1965 Annual Physical 1968 Hepatitis C 1983 DTaP, Tdap and Td Vaccines ( 1 - Tdap) 1984 Pneumococcal Vaccine: 50+ Years (1 of 2 - PCV) 1984 Cervical Cancer Screening Pa p with HPV Testing (Age 30 to 64) Every 5 Years 1995 Mammogram Screening 2005 Zoster Vaccines (1 of 2) 2015 COVID-19 Vaccine (3 - 2023-2 5 season) 2024 01/08/2021, 12/18/2020 Cervical Cancer Screening Pa p Smear (Age 30 to 64) Every 3 Years 03/28/2025 03/28/2022 Cervical Cancer Screening wi th HPV 03/28/2025 Meningococcal B Vaccine Aged Out No l onger eligible based on patient's age to complete this topic Meningococcal Vaccine Aged Out No galileo sabi eligible based on patient's age to complete this topic RSV Immunizations Under 20 Months Aged Out No longer eligible b ased on patient's age to complete this topic Additional Health Concerns Infection Onset Date Last Indicated 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
--- OUTSIDE RECORDS SUMMARY | 2025-02-20 22:14 | XMS_ITS | Data Portability ---
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 Lab noninvasiv e colorectal cancer DNA + occult blood screening, stool 2020 021 [facility] (Cologuard Orders Only), [address], [address], [place], [address], 06:51:14 lipid panel, serum 2018 019 [facility], [address], [address], [place], [address], 9 12:23:45 CMP, serum or plasma 2018 019 [facility], [address], [address], [place], [address], 9 12:23:45 TSH, ultra-sens itive, serum 2018 019 [facility], [address], [address], [place], [address], 9 12:23:29 Referral colonoscop y referral 2018 019 ivonne Cabrera MD, [address], [address], [place], [address], 9 17:37:14 Procedures None recorded. Surgeries None recorded. Imaging MAMMO, screening, bilateral 2019 [facility], [address], [address], [place], [address], 1 14:06:55 US, duplex, abdomen, complete 2019 [facility] ([facility]), [address], [place], [address], 0 13:25:27 MAMMO, screening, bilateral 2018 019 [facility], [address], [address], [place], [address], 9 17:45:13 Medication Orders metoprolol succinate ER 100 mg tablet,ext ended release 24 hr 2020 021 [id number], [address], [place], [place], [phone], 1 11:28:56 metoprolol succinate ER 100 mg tablet,ext ended release 24 hr 2018 019 [id number], [address], [place], [place], [phone], 9 12:23:36 Patient TargetsNo targets recorded. Patient Instructions Encounter Date Encounter Id Patient Instructions Last Modified By Organization Details Last Modified Time 02/06/2019 [id number] heart valve disease: care instructions [email or web address] Not available 02/06/2019 12:23:27 mitral valve prolapse: care instructions [email or web address] Not available 02/06/2019 12:23:28 mammogram: about this test [email or web address] Not available 02/06/2019 12:26:22 learning about high blood pressure [email or web address] Not available 02/06/2019 12:23:28 09/02/2020 [id number] mammogram: about this test [email or web address] Not available 09/02/2020 15:03:37 abdominal pain: care instructions [email or web address] Not available 09/02/2020 14:52:43 broken ankle: care instructions [email or web address] Not available 09/06/2020 00:30:11 03/17/2021 [id number] learning about high blood pressure [email or web address] Not available 03/17/2021 11:28:50 Reason for Referral Colonoscopy Referral for Scr eening colonoscopy Referring Physician: Jazzy Finch, Family Medicine, Encounter Date: 02/06/2019 Results Created Date Observation Date Name Description Value Unit Range Abnormal Flag Note LastModifiedBy Organization Detail LastModifiedTime 03/17/20 22 03/17/2022 COLOG UARD cologuard result Cancel led - Order d not applic able Not Available [facility] (Cologuard Orders Only) [address], [place], [address], 03/17/2022 06:51:14 02/25/20 21 02/24/2021 MAMMO , scree chapin, bilat eral No observ ation record ed. [email or web address] [facility] [address], [place], [address], 03/22/2021 00:36:41 Result Notes None recorded. Problems Name Problem SNOMED Code Status Onset Date Resolution Date Notes Provider Name and Address Organization Details Recorded Time Hypertensive disorder 23700464 Active 2019 Daphney Ordonez RN null, [facility] 0 14:38:38 Problem Notes None recorded. Procedures Surgical History Date Name Laterality Status Provider Name and Address Organization Details Recorded Time delivery completed Aure Aguirre MA [facility] 02/06/2019 11:52:04 cholecystectomy completed Aure Aguirre MA [facility] 02/06/2019 11:52:14 procedure on ankle completed Wally Ordonez RN [facility] 09/02/2020 14:40:13 Imaging Results Imaging Date Name Status LastModified by Organiz ation Details LastModified Time 02/24/2021 MAMMO, screening, bilateral completed [address], [place], [address], 03/22/2021 00:36:41 Procedure Notes None recorded. Medical Equipment None Reported. Allergies Allergen ID Allergen Name Allergen Category Reaction Reaction Severity Criticality Documentation Date Start Date Code Code System Note Provider Name and Address Organization Details Recorded Time 957993 Substance with sulfonami de structure and antibacte rial mechanism of action (substanc e) medicatio n Not available Not available Not available 02/06/2019 41645 8003 SNOMED JOVITA Swain, [facility] 9 11:44:58 [id number] Reglan medicatio n Not available Not available Not available 02/06/2019 9230 RxNorm JOVITA Swain, [facility] 9 11:45:10 695856 latex environme nt,medica tion Not available Not available Not available 02/06/2019 00476 91 RxNorm JuniorJOVITA Bradshaw, [facility] 9 11:45:19 Medications Name Sig Start Date Stop Date Status Note LastModified by Organization Details LastModified Time fluoxetine 40 mg capsule TAKE 1 CAPSULE BY MOUTH EVERY MORNING active Not Available Not Available No t Available amoxicillin 500 mg capsule TAKE ONE CAPSULE BY MOUTH THREE TIMES DAILY UNTIL ALL TAKEN active Not Available Not Available No t Available butalbital- acetaminoph en-caffeine 50 mg-325 mg-40 mg capsule 02/06 completed Not Available Not Available Not Available quetiapine 300 mg tablet TAKE 1 TABLET BY MOUTH EVERY DAY AT BEDTIME active Not Available Not Available No t Available ibuprofen 800 mg tablet Take 1 tablet 3 times a day by oral route as needed for 30 days. active Not Available Not Available No t Available fluconazole 150 mg tablet TAKE 1 TABLET BY MOUTH ONCE FOR 1 DOSE active Not Available Not Available No t Available hydrocodone 5 mg-acetamin ophen 325 mg tablet 02/06 completed Not Available Not Available Not Available meloxicam 15 mg tablet 09/02 completed Not Available Not Available Not Available ondansetron HCl 4 mg tablet TK 1 T PO Q 6 H PRF NAUSEA 09/02 completed Not Available Not Available Not Available rizatriptan 10 mg tablet active Not Available Not Available Not Available metoprolol succinate ER 100 mg tablet,exte nded release 24 hr TAKE 1 TABLET BY MOUTH EVERY DAY active Not Available Not Available No t Available quetiapine 200 mg tablet TAKE 1 TABLET BY MOUTH AT BEDTIME 03/17 completed Not Available Not Available Not Available tramadol 50 mg tablet TK 1 T Q 6 H PRN P 09/02 completed Not Available Not Available Not Available butalbital- acetaminoph en-caffeine 50 mg-325 mg-40 mg tablet TAKE 1 TABLET BY MOUTH EVERY 6 HOURS NEEDED FOR HEADACHE active Not Available Not Available No t Available ketorolac 10 mg tablet active Not Available Not Available Not Available alprazolam 0.5 mg tablet TAKE 1 TABLET BY MOUTH AT NIGHT active Not Available Not Available No t Available amoxicillin 875 mg tablet Take 1 tablet every 12 hours by oral route for 10 days. active Not Available Not Available No t Available alprazolam 0.25 mg tablet TAKE 1 TABLET BY MOUTH EVERY DAY NEEDED FOR ANXIETY active Not Available Not Available No t Available estradiol 1 mg tablet TAKE 1 TABLET BY MOUTH EVERY DAY 03/17 completed Not Available Not Available Not Available temazepam 15 mg capsule TAKE 2 CAPSULES BY MOUTH EVERY NIGHT AT BEDTIME active Not Available Not Available No t Available temazepam 30 mg capsule 09/02 completed Not Available Not Available Not Available cephalexin 500 mg capsule 09/02 completed Not Available Not Available Not Available paroxetine 30 mg tablet 02/06 completed Not Available Not Available Not Available paroxetine 20 mg tablet 02/06 completed Not Available Not Available Not Available pantoprazol e 40 mg tablet,hawa yed release 09/02 completed Not Available Not Available Not Available fluoxetine 20 mg tablet Take 1 tablet every day by oral route. active Not Available Not Available No t Available clotrimazol e-betametha sone 1 %-0.05 % topical cream APPLY TOPICALLY TO THE AFFECTED AND SURROUNDI NG AREAS TWICE DAILY IN THE MORNING AND IN THE EVENING FOR 2 WEEKS active Not Available Not Available No t Available frovatripta n 2.5 mg tablet 03/17 completed Not Available Not Available Not Available butalbital- aspirin-caf feine 50 mg-325 mg-40 mg capsule 09/02 completed Not Available Not Available Not Available estradiol 2 mg tablet TAKE 1 TABLET BY MOUTH EVERY DAY active Not Available Not Available No t Available nadolol 40 mg tablet 02/09 completed Not Available Not Available Not Available gabapentin 100 mg capsule 09/02 completed Not Available Not Available Not Available estradiol 0.01% (0.1 mg/gram) vaginal cream INSERT 1 GRAM VAGINALLY EVERY DAY AT BEDTIME active Not Available Not Available No t Available ondansetron 4 mg disintegrat ing tablet 09/02 completed Not Available Not Available Not Available fluoxetine 20 mg capsule TAKE 1 CAPSULE BY MOUTH EVERY MORNING 03/17 completed Not Available Not Available Not Available progesteron e micronized 100 mg capsule TAKE 1 CAPSULE BY MOUTH EVERY DAY active Not Available Not Available No t Available quetiapine 50 mg tablet TAKE 1 TABLET BY MOUTH AT BEDTIME 03/17 completed Not Available Not Available Not Available Viibryd 20 mg tablet 09/02 completed Not Available Not Available Not Available fluoxetine 60 mg tablet Take 1 tablet every day by oral route. active Not Available Not Available No t Available Rexulti 0.5 mg tablet 02/06 completed Not Available Not Available Not Available Vitals Date Recorded Body weight Body height Body mass index (BMI) Oxygen saturation Oxygen saturation in Arterial blood by Pulse oximetry Heart rate Body temperature Systolic blood pressure Diastolic blood pressure Provider Name and Address Organization Details Last Updated DateTime 9 11043.6 6 g 157.48 cm 27.5 kg/m2 97 % 97 % 83 /min 98.2 [degF] 148 mm[Hg] 90 mm[Hg] Aure Aguirre MA [facility] 9 12:04:24 Date Recorded Body weight Oxygen saturation Oxygen saturation in Arterial blood by Pulse oximetry Heart rate Body temperature Systolic blood pressure Diastolic blood pressure Provider Name and Address Organization Details Last Updated DateTime 1 341790. 04 g 97 % 97 % 81 /min 97.2 [degF] 132 mm[Hg] 82 mm[Hg] Daphney Ordonez RN [facility] 1 11:10:23 Social History Question Answer Notes LastModified by Organizat ion Details LastModified Time Tobacco Smoking Status Current Every Day Smoker Aure Aguirre MA null, [facility] 02/06/2019 11:50:01 Do You Have An Advance Directive? No Information not available 03/17/2021 Are You Blind Or Do You Have Difficulty Seeing? No Information not available 03/17/2021 What Is Your Level Of Caffeine Consumption? Occasional Information not available 03/17/2021 In The 14 Days Before Symptom Onset, Have You Had Close Contact With A Laboratory-confir med COVID-19 While That Case Was Ill? No Information not available 03/17/2021 In The 14 Days Before Symptom Onset, Have You Had Close Contact With A Person Who Is Under Investigation For COVID-19 While That Person Was Ill? No Information not available 03/17/2021 Have You Been To An Area Known To Be High Risk For COVID-19? No Information not available 03/17/2021 Are You Deaf Or Do You Have Serious Difficulty Hearing? No Information not available 03/17/2021 What Type Of Diet Are You Following? REGULAR Information not available 03/17/2021 Are There Any Guns Present In Your Home? No Information not available 03/17/2021 What Was The Date Of Your Most Recent Tobacco Screening? 02/06/2019 Information not available 05/02/2019 Do You Use Protection During Sex? Always Information not available 03/17/2021 What Is Your Relationship Status? Information not available 03/17/2021 Do You Use Your Seat Belt Or Car Seat Routinely? Yes Information not available 03/17/2021 Are You Sexually Active? Yes Information not available 03/17/2021 Do You Have Smoke And Carbon Monoxide Detectors In Your Home? Yes Information not available 03/17/2021 At What Age Did You Start Smoking Tobacco? 20 Information not available 03/17/2021 Are You Passively Exposed To Smoke? Yes Information no t available 03/17/2021 How Much Tobacco Do You Smoke? 0.5 PPD Information not available 02/06/2019 Do You Use Sunscreen Routinely? Yes Information not available 03/17/2021 Has Tobacco Cessation Counseling Been Provided? Yes Information not available 03/17/2021 On What Date Was Tobacco Cessation Counseling Provided? 03/17/2021 Information not available 03/17/2021 How Many Years Have You Smoked Tobacco? 20 Information not available 02/06/2019 Sex: Unknown Functional Status Question Answer Note LastModified by Organizat ion Details LastModified Time Do you use any illicit or recreational drugs? No Information not available 03/17/2021 Do you or have you ever used any other forms of tobacco or nicotine? No Information not available 03/17/2021 What is your level of alcohol consumption? None Information not available 03/17/2021 Are you currently employed? No Information not available 03/17/2021 Are you able to care for yourself? Yes Information n ot available 03/17/2021 What is your exercise level? Occasional Information not available 03/17/2021 Mental Status Question Answer Note LastModified by Organization D etails LastModified Time Do you feel stressed (tense, restless, nervous, or anxious, or unable to sleep at night)? [id number] Information not available 03/17/2021 Family History Relationship Description Onset Age of this Age Resolved Age Notes LastModified by Organization Details LastModified Time Father Harmful pattern of use of alcohol [email or web address] Not available 10/2018 11:49:17 Father Heart disease [email or web address] Not available 10/2018 11:49:55 Mother Malignant tumor of breast [email or web address] Not available 10/2018 11:49:30 Mother Diabetes mellitus [email or web address] Not available 10/2018 11:49:44 Brother Diabetes mellitus [email or web address] Not available 10/2018 11:49:44 Medical History Condition Response Coronary Artery Disease N Other Y High Blood Pressure N Atrial Fibrillation N Kidney or Bladder Problems N Thyroid Problems N GI Problems N Depression Y COPD N Blood Clots N Skin Problems Y Anemia N Heart Attack (MA) N Anxiety Disorder Y Diabetes N Muscle, Joint, or Bone Problems N Seizures/Epilepsy N Acid Reflux (GERD) N Cancer N Stroke N Asthma N Allergies Y High Cholesterol N Hepatitis N Liver Disease N Headaches Y Heart Failure N Osteoporosis N Gynecological History Statement/Question Response Date of LMP Obstetrics History GPAL:G 1 P 1 0 0 1 Type Value Multiple Births 0 Full Term 1 Induced 0 Spontaneous 0 Premature 0 Living 1 Ectopics 0 Total 1 Immunizations Vaccine Type Date Status Note Provider Nam e and Address Organization Details Recorded Time COVID-19, mRNA, LNP-S, PF, 100 mcg/0.5mL dose or 50 mcg/0.25mL dose 12/18/2020 completed Daphney Ordonez RN null, [facility] 03/17/2021 11:14:24 COVID-19, mRNA, LNP-S, PF, 100 mcg/0.5mL dose or 50 mcg/0.25mL dose 01/08/2021 completed Daphney Ordonez RN null, [facility] 03/17/2021 11:14:50 Past Encounters Encounter ID Performer Location Encounter Start Date Encounter Closed Date Diagnosis/Indication Diagnosis SNOMED-CT Code Diagnosis ICD10 Code Diagnosis Note [id number] Jazzy Finch MD [facility] [address] [place] [address] 02/06/2019 11:23:16 02/11/2019 09:14:41 Migraine 77194390 G43.909 sees neurologis t for cataplexy and narcolepsy ; takes botox for migraines- -Purnima Patel at [place]. Moderate r ecurrent major depression 50283665 F33.[address]; takes seroquel, viibryd, and prozac. Goes to [place].- -Ely Solorio Essential hypertension 56227106 I10 Patient advised to limit salt and caffeine intake to maintain good blood pressure. Will switch from nadolol to metoprolol . Hyperlipid emia screening 391292736 Z13.220 discussed low fat, low carb diet, and encouraged exercise. Mitral valve prolapse 40 8869051 I34.1 Lipoma of lateral chest wall 650089764 D17.1 2x3 cm soft tissue mass posterior and inferior to the right axilla. Looks and feels like a lipoma. Screening mammography 24 954514 Z12.31 Screening colonoscopy [address] Cabrera for colonoscop y in 2002 [id number] Jazzy Finch MD [facility] [address] [place] [address] 09/02/2020 14:33:38 09/07/2020 06:39:16 Abdominal pain 04076900 R10.9 GB is out. Crampy midline abdominal pain for 2 weeks, no NVADC, no gross melena or hematuria. no fever, but constant pain in the epigastriu m. Screening mammography 24 863886 Z12.31 Fracture of ankle 062766 01 S82.90XG broken ankle in 2 places--hua d to have plates and screws put in--[facility] Doing better now and using walking boot for support. Moderate r ecurrent major depression 80010823 F33.[address]; takes seroquel, viibryd, and prozac. Goes to [place].- -Ely Solorio [id number] Jazzy Finch MD [facility] [address] [place] [address] 03/17/2021 10:55:13 03/23/2021 13:25:20 Essential hypertension 20134517 I10 Patient advised to limit salt and caffeine intake to maintain good blood pressure. Will continue metoprolol . Screening for malignant neoplasm of colon 701802142 Z12.11 Patient preferred to avoid a colonoscop y at this time; she is aware she will need a colonoscop y if the cologuard test shows blood. Moderate r ecurrent major depression 22059644 F33.1 continue current medication s. Health Concerns Section Related Observation LastModified by Organization Detai ls LastModified Time None Recorded Concern Status LastModified by Organization Details LastModified Time None Recorded Advance Directives Directive N: Payers Encounter Date Sequence Insurance Name Policy Number Policy [place] Covered Member ID [place] Member ID Guarantor Name 02/06/2019 1 [facility] (PPO) [id number] Don T Lefty [id number] Monica Joaquinymer 09/02/2020 1 [facility] (PPO) [id number] Don T Lefty [id number] Monica Olea 03/17/2021 1 [facility] [id number] Monica Ferrarier [id number] Monica Olea Notes Date Note Type Note Provider Name and Address Organization Details Recorded Time 9 text/html Hypertension F/UReported bypatient.Associated Symptoms:no dizziness; no lightheadedness; no chest pain; no shortness of breath; no edema; no calf pain with exertion;palpitations; Patient has a history of mitral valve prolapse, for which she takes metoprolol succinate. Lifestyle:regular exercise; limiting/avoiding salt Medications:taking medications as directed; no side effects from medication Jazzy Finch MD Attn: Accounting,[address] [address], [place], [address], [facility] 02/10/2019 00:05:43 0 text/html Abdominal PainReported bypatient.Location:epigastr ic Quality:bloating;cramping;s harp;stabbing;fullness;tend er Severity:moderate Duration:2 weeks ago Onset/Timing:wax/wane Context:has had cholecystectomy Modifying Factors:eating; drinking; moving bowels; sleep Associated Symptoms:no fever; no blood in the urine; GB is out. Crampy midline abdominal pain for 2 weeks, no NVADC, no gross melena or hematuria. no fever, but constant pain in the epigastrium. Other:denies possible pregnancyAnkleReported bypatient.Quality:aching; frequent; improving Severity:moderate Timing:acute Alleviating Factors:sitting; lying down; position change; heat; rest; elevation; limited weight bearing; NSAIDs; brace Aggravating Factors:standing; walking; lifting; carrying; bending/squatting; weightbearing; exercise; getting out of bed; going from sit to stand; upstairs; downstairs; cold weather; damp weather Associated Symptoms:no drainage; no fever; no chills; no weight loss; no change in bowel/bladder habits;weakness;swelling;re dness;catching/locking;jean-pierre ing/clicking;buckling;grind ing;instability Previous Surgery:surgical procedure:Notes:broken ankle in 2 places--had to have plates and screws put in--[facility] Jazzy Finch MD Attn: Accounting,[address] [facility], [place], [address], [facility] 09/06/2020 00:30:50 text/html Anxiety/DepressionReported bypatient.Quality:symptoms improved Severity:denies suicidal ideations; does not interfere with activities of daily living Duration:stablizing Onset/Timing:gradual Context:family problems;trouble at work Modifying Factors:counselling; medications as directed Associated Symptoms:denies homicidal ideations; mood good; no crying spells; sleeping wellHypertension F/UReported bypatient.Associated Symptoms:no dizziness; no lightheadedness; no chest pain; no shortness of breath; no palpitations; no edema; no calf pain with exertion Lifestyle:regular exercise; limiting/avoiding salt Medications:taking medications as directed; no side effects from medicationNotes:continue metoprolol 100 mg daily. Jazzy Finch MD Attn: Accounting,[address] [facility], [place], [address], [facility] 03/22/2021 00:42:24 OBGyn Episode No OBEpisode recorded.
--- OUTSIDE RECORDS SUMMARY | 2025-02-20 22:14 | XMS_ITS | Clinical Summary ---
Author Organization [facility] [place] [address] Address [address] [place] [address] Care Team Providers Care District Court Administrator Name Role Phone MidlandSary han Kelly SCALDER Primary Care Provider + Allergies Active Allergy Reactions Criticality Noted Date Comments Adhesive Other (See comments) Low Reaction: Adhesive Tape-Silicones Rash Medium 12/08/2014 Aspirin Nausea & Vomiting,Nausea And Vomiting Low 03/26/2019 *FIORINAL* Calcium Carbonate Unknown Calcium Phosphate,Dibasic Unknown Chlorpheniramine Unknown Chlorpromazine Unknown,Swelling, Anaphylaxis High 09/25/2015 Swelling Codeine Unknown,Rash Medium 01/27/2015 Rash Prasterone (Dhea) Anaphylaxis,Unkno wn High 09/25/2015 Dihydroergotamine Chest tightness,Shortne ss of breath,Other (See comments) High 01/27/2015 Chest pain Breathing Difficulty Chest pain Chest pain Breathing Difficulty Ergotamine Unknown 09/02/2014 Latex Unknown,Rash,Othe r (See comments),Hives Medium 12/08/2014 Reaction: Hives Metoclopramide Unknown,Other (See comments),Swellin g Medium 01/27/2015 Pushes side of face over. Cant swallow or talk Swelling Metoclopramide Hcl Other (See comments) Low 12/08/2014 Dystonic reaction Nickel Rash,Swelling Medium 11/01/2015 Promethazine Unknown 12/28/2022 Phenylephrine Unknown Phenylpropanolamine Unknown Prochlorperazine Swelling Medium 02/11/2017 Swelling Propranolol Shortness of breath,Other (See comments),Anaphyl axis High 12/08/2014 Chest pain Breathing Difficulty Sulfa (Sulfonamide Antibiotics) Unknown,Other (See comments),Rash Medium 12/08/2014 Reaction: Sulfamethoxazole-Trimethopr im Rash Medium 12/04/2019 Unclassified Drug Rash,Unknown Medium 09/02/2014 Yellow Dye Unknown 12/04/2019 Medications acetaminophen-a spirin-caffeine (EXCEDRIN MIGRAINE) 250-250-65 mg per tablet take 1 tablet by oral route every day 0 0 06/20/20 16 Active QUEtiapine (SEROquel) 200 mg tablet Take 1 tablet (200 mg total) by mouth nightly. 30 tablet 01/27/20 18 Active Additional Information Patient taking differently:200 mg oral Nightly,Pt taking 300mg at hs, Reported on 02/10/2025 progesterone (PROMETRIUM) 100 mg capsule progesterone micronized 100 mg capsule TAKE 1 CAPSULE BY MOUTH EVERY DAY Active estradioL (ESTRACE) 2 mg tablet 12/27/19 23 Active metoprolol XL (TOPROL-XL) 100 mg 24 hr tablet TAKE 1 TABLET(100 MG) BY MOUTH DAILY 30 tablet 11 09/12/20 24 Active butalbital-acet aminophen-caffe ine (ESGIC) 50-325-40 mg per tablet TAKE 1 TABLET BY MOUTH EVERY 4 HOURS NEEDED FOR HEADACHE. NO MORE THAN 5 TABLETS PER DAY, 10 TABLETS PER WEEK, AND 40 TABLETS PER MONTH 40 tablet 10/30/19 25 Active rizatriptan (MAXALT) 10 mg tabletIndicatio ns:Chronic migraine without aura with status migrainosus, not intractable Take 1 tablet (10 mg total) by mouth once as needed for migraine for up to 1 dose May repeat in 2 hours if unresolved. Do not exceed 30 mg in 24 hours. 9 tablet 10/31/19 25 Active sertraline (ZOLOFT) 50 mg tablet Take 1 tablet (50 mg total) by mouth daily Active ALPRAZolam (XANAX) 0.25 mg tablet Take 1 tablet (0.25 mg total) by mouth daily 02/04/20 25 Active ALPRAZolam (XANAX) 0.5 mg tablet Take 1 tablet (0.5 mg total) by mouth 2 (two) times a day 02/04/20 25 Active temazepam (RESTORIL) 30 mg capsule Take 1 capsule (30 mg total) by mouth nightly as needed for sleep 30 capsule 5 02/20/20 25 Active temazepam (RESTORIL) 30 mg capsule TAKE 1 CAPSULE(30 MG) BY MOUTH EVERY NIGHT NEEDED FOR SLEEP 30 capsule 5 09/30/20 24 025 Discontin ued(Reord er) Active Problems Problem Noted Date Diagnosed Date Obstructive sleep apnea 01/31/2023 Fall 08/26/2021 Head trauma 03/10/2021 Mental disorder 12/03/2020 Generalized anxiety disorder 12/03/2020 Hypertensive disorder 09/02/2020 Vivid dream 12/05/2019 Depressive disorder 07/26/2017 Overview (12/28/2022): Depression Heart murmur 07/05/2017 Palpitations 07/05/2017 Persistent disorder of initiating or maintaining sleep 10/12/2016 Cataplexy 06/20/2016 Overview (03/07/2024): She was diagnosed with cataplexy, but this diagnosis is questionable 1) no trigger. It may happen anytime anywhere 2) she does not have recollection of the event 03/07/2024 Luqi Chi Mood insomnia 06/20/2016 Overview (01/12/2017): Insomnia due to anxiety and fear Dilaudid use disorder, moderate 02/06/2016 At risk for elopement from healthcare setting Mitral valve prolapse 12/31/2015 Migraine 12/31/2015 Opiate dependence 03/17/2015 Intractable chronic migraine without aura and with status migrainosus 01/27/2015 Overview (12/05/2019): Intractable migraine without aura and without status migrainosus Myofascial pain syndrome 01/27/2015 Medication overuse headache 01/27/2015 Drug-seeking behavior 10/10/2014 Overview (12/28/2022): Overview: Patient insists that only Dilaudid helps her headaches. She has no confidence in her neurologist and works at [employer] and lives in [place]. She denies being on Percocet currently and doesn't want to try steroids. Her drug screen is positive for opiates. Lisa Villatoro MD Patient insists that only Dilaudid helps her headaches. She has no confidence in her neurologist and works at [employer] and lives in [place]. She denies being on Percocet currently and doesn't want to try steroids. Her drug screen is positive for opiates. Lisa Villatoro MD Closed Colles' fracture 11/04/2010 Encounters Date Type Department Care Team Description 02/10/2025 9:30 AM CDT Office Visit [facility] Neurology at [address] [place] [address] Ting Andre, Intractable chronic migraine without aura and with status migrainosus (Primary Dx); Mood insomnia 01/28/2025 Orders Only [facility] [address] [place] [address] Ting Andre DO Obstructive sleep apnea (Primary Dx); Cataplexy 01/27/2025 Telephone [facility] at [place] [address] [place] [address] Ting Andre, Narcolepsy 12/12/2024 10:30 AM BUILD MASTER Procedure visit [facility] [address] [place] [address] Intractable chronic migraine without aura and with status migrainosus (Primary Dx) from Last 3 Months Immunizations Immunization Administration Dates Next Due Influenza, Quadrivalent, Spl it, Preservative Free, Intramuscular 08/28/2021 Surgical History Surgery Date Site/Laterality Comments SECTION CHOLECYSTECTOMY gall bladder surgery Medical History Medical History Date Comments Hx Other Medical Anxiety Hx Other Medical Headache, migra ine Depression Depression Panic attack Cataplexy Family History Medical History Relation Name Comments Heart attack Father Myocardial infa rction; Hypertension Father Hypertension; Bone cancer Mother Cancer, bone; Breast cancer Mother Cancer, breast ; Diabetes Mother Diabetes mellit us; Hypertension Mother Hypertension; Headache Other sibling Headaches; Relation Name Status Comments Father Mother Other sibling Social History Tobacco Use Types Packs/Day Years Used Date Smoking Tobacco: Heavy Smoker Smokeless Tobacco: Never Tobacco Cessation:Ready to Q uit: Not Asked; Counseling Given: Not Answered Comments:Smoking History Packs/day: Half aPacks Alcohol Use Standard Drinks/Week Comments No 0 (1 standard drink = 0.6 oz pur e alcohol) AUDIT-C Answer Date Recorded Q1: How often do you have a drink containing alcohol? Never 02/10/2025 Q2: How many drinks containi ng alcohol do you have on a typical day when you are drinking? Patient does not drink Q3: How often do you have si x or more drinks on one occasion? Never 02/10/2025 Comments No Sex and Gender Information Value Date Recorded Sex Assigned at Not on file Legal Sex Female 11:32 PM BUILD MASTER Gender Identity Not on file Sexual Orientation Not on file Obstetrics History Last Filed Vital Signs Vital Sign Reading Time Taken Comments Blood Pressure 138/74 03/07/2024 9:21 AM CDT Pulse 76 03/07/2024 9:21 AM CDT Temperature 36.2 C (97.2 F) 03/07/2024 9:21 AM CDT Respiratory Rate 12 12/28/2022 2:17 PM CDT Oxygen Saturation 98% 03/07/2024 9:21 AM CDT Inhaled Oxygen Concentration - - Weight 60.6 kg (133 lb 9.6 oz) 02/10/2025 9:27 A M CDT Height 157.5 cm (5' 2 ) 02/10/2025 9:27 AM CDT Body Mass Index 24.44 02/10/2025 9:27 AM CDT Plan of Treatment Health Maintenance Due Date Last Done Comments Cervical Cancer Screening 1965 Colon Cancer Screening-Colonoscopy 1965 Depression Screening 1965 Hepatitis C Screening 1965 DTaP/Tdap/Td Vaccine (1 - Tdap) 1976 Hepatitis B Screening 1983 Regular Well Visit/Exam 18-64 1983 Pneumococcal vaccine <65 (1 of 2 - PCV) 1984 Zoster Vaccine (1 of 2) 2015 Breast Cancer Screening-Mammogram 07/12/2024 023, 02/24/2021 Influenza Vaccine (Season Ended) 2025 08/28/20 21, 07/23/2012 Insurance [facility]PPO Address: [place] [address] [facility]PPO Address: [place] [address] [facility]/PPO Address: [facility] [id number] [place] [id number] Advance Directives For more information, please contact: [phone] * Full Code (Latest Code Status on File) Date Activated Date Inactivated Comments 08/26/2021 5:38 PM 08/28/2021 7:[address] Administrator Relationship Specialty Start Date End Date Sary Leon NP [address] [place] [address] [address] PCP - General Nurse Practitioner 11/21/23
--- OUTSIDE RECORDS SUMMARY | 2025-02-20 22:14 | XMS_ITS | Patient Health Record ---
Author Organization [facility] Address [address] [place] [address] Care Team Providers Care Time Clock Repairer Name Role Phone Ashley Stringer Primary Care Provider [phone] [facility], Adult MATT Unavailabl e [phone] Saturnino, Madisyn Unavailable [phone] Allergies Allergen (clinical drug ingredient) Drug/Non Drug Allergy documented on EMR Reaction Allergy Type Onset Date Status codeine Codeine Sulfate rash Drug Allergy A ctive propranolol Inderal LA anaphylaxis Drug Allergy Ac tive metoclopramide Reglan unk. Drug Allergy Ac tive Thorazine anaphylaxis Drug Allergy Activ e propranolol Inderal XL anaphylaxis Drug Allergy Ac tive SULFA rash Drug Allergy Active Latex rash Drug Allergy Active Reason For Referral No Information Medications Medication SIG (Take, Route, Frequency, Duration) Notes Start Date End Date Status Metoprolol Succinate ER 100 MG Oral for 30 Days Active Atorvastatin Calcium 10 MG 1 tablet Oral ly Once a day Active ALPRAZolam 0.5 MG 1 tablet Orally Twic e a day for 30 days 12/06/2024 Active ALPRAZolam 0.25 MG 1 tablet Orally once a day for 30 days 12/06/2024 Active SEROquel 300 MG 1 tablet at bedtime Orally Once a day for 30 days Active Temazepam 30 MG Oral for 30 Days Active Sertraline HCl 100 MG 1 tablet Orally On ce a day for 30 days 04/16/2024 Active Social History Tobacco Use: Social History Observation Description Date Details (start date - stop date) Current Smoker NA - NA Sex Assigned At : Social History Observation Description Sex Assigned At Female Dont use, Tobacco Use/Smoking Question Answer Notes Are you a current smoker How often do you smoke cigarettes? every day How many cigarettes a day do you smoke? 11-20 Alcohol Screen (Audit-C) Question Answer Notes Did you have a drink containing alcohol in the p ast year? 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.2) Active confirmed Problem 71082401 Tobacco dependen cy (F17.200) Active confirmed Problem 70281310 Depression (F32.9) Active confirmed Problem 19866733 Anxiety (F41.9) Active confirmed Encounters Encounter Location Date Provider Diagnosis [facility] [address] [place] [address] 04/16/2024 Ashley Stringer Major depressive disorder, recurrent severe without psychotic features F33.2 and Anxiety F41.[address] [address] 06/14/2024 Ashley Stringer Major depressive disorder, recurrent severe without psychotic features F33.2 ; Anxiety F41.9 and Nicotine dependence, unspecified, uncomplicated F17.200 [facility] [address] [address] [place] [address] 09/12/2024 Ashley Stringer Major depressive disorder, recurrent severe without psychotic features F33.2 ; Anxiety F41.9 and Nicotine dependence, unspecified, uncomplicated F17.[address] [place] [address] 12/06/2024 Ashley Stringer Major depressive disorder, recurrent severe without psychotic features F33.2 and Anxiety F41.9 [facility] [address] [place] [address] 02/22/2024 Ashley Stirnger Major depressive disorder, recurrent severe without psychotic features F33.2 [facility] [address] [place] [address] 02/07/2025 Ashley Stringer Anxiety F41.9 Assessments Encounter Date Diagnosis (ICD Code) Assessment Notes Treatment Notes Treatment Clinical Notes Section Notes 02/07/2025 Anxiety (ICD-10 - F41.9) 09/12/2024 Major depressive disorder, 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-10 - F33.2) Continue current medications. Reviewed Prescription Monitoring program. Continue services as scheduled. Labs completed recently. May self-administer medications or be administered own oral medications per [facility] protocols. Provided informed consent with understanding of side effects, adverse effects, risks and benefits as well as alternative treatments as previously discussed and with the above recommended medications & other aspects of the treatment program. Agrees to return sooner if symptoms worsen or suicidal or homicidal ideations occur. 06/14/2024 Major depressive disorder, 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-10 - F33.2) Continue current medications. Continue services as scheduled. Labs completed recently. May self-administer medications or be administered own oral medications per [facility] protocols. Provided informed consent with understanding of side effects, adverse effects, risks and benefits as well as alternative treatments as previously discussed and with the above recommended medications & other aspects of the treatment program. Agrees to return sooner if symptoms worsen or suicidal or homicidal ideations occur. 04/16/2024 Major depressive disorder, 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-10 - F33.2) Continue current medications. Continue services as scheduled. Labs completed recently. May self-administer medications or be administered own oral medications per [facility] protocols. Provided informed consent with understanding of side effects, adverse effects, risks and benefits as well as alternative treatments as previously discussed and with the above recommended medications & other aspects of the treatment program. Agrees to return sooner if symptoms worsen or suicidal or homicidal ideations occur. 12/06/2024 Major depressive disorder, 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-10 - F33.2) 02/22/2024 Major depressive disorder, 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-10 - F33.2) 12/06/2024 Anxiety (ICD-10 - F41.9) 04/16/2024 Anxiety (ICD-10 - F41.9) 06/14/2024 Anxiety (ICD-10 - F41.9) 09/12/2024 Anxiety (ICD-10 - F41.9) 06/14/2024 Nicotine dependence, unspecified, uncomplicated (ICD-10 - F17.200) 09/12/2024 Nicotine dependence, unspecified, uncomplicated (ICD-10 - F17.200) 12/06/2024 Other Continue curren t medications. Reviewed Prescription Monitoring program. Continue services as scheduled. Labs completed recently. May self-administer medications or be administered own oral medications per [facility] protocols. Provided informed consent with understanding of side effects, adverse effects, risks and benefits as well as alternative treatments as previously discussed and with the above recommended medications & other aspects of the treatment program. Agrees to return sooner if symptoms worsen or suicidal or homicidal ideations occur. Plan Of Treatment Pending Test Test Name Order Date Pap IG HPV Age Gdln ACOG +CtNg 5 Future Test Test Name Order Date Urinalysis In-House, Routine 03/25/2016 Hemoglobin A1c* 03/25/2016 Vitamin B12* 03/25/2016 CBC With Differential/Platelet* 03/25/20 16 Vitamin D, 25-Hydroxy* 03/25/2016 CMP13 03/25/2016 Lipid Panel* 03/25/2016 TSH reflex to T4F 03/25/2016 Next Appt Details Provider Name:Ashley vaughan, 03/05/2025 10:40:00 AM, [address], [place], [address], Insurance Providers Payer Name Payer Address Payer Phone Subscriber Number Group Number Insured Name Patient Relationship to Insured Coverage Start Date Coverage End Date R [address] [address] [place] [address] [id number] Monica Olea Self - patient is the insured 3 3 [facility] [address] [place] [address] [id number] [phone] Monica Olea Self - patient is the insured 6 1 [facility] [address] [address] [place] [address] [id number] Monica Olea Self - patient is the insured 1 1 JAIME [address] [place] [address] [id number] Davidson Self - patient is the insured 1 2 Medical (General) History Medical History History ICD Code Migraines MVP Depression Panic Attacks cataplexy high cholesterol HTN Surgical History Surgery Date(Month/Year) 1993 cholyecystectomy 2002 Hospitalization History Reason Date(Month/Year) [facility] (I&D) 10/2015
--- OUTSIDE RECORDS SUMMARY | 2025-02-20 22:14 | XMS_ITS | Clinical Summary ---
Author Organization [facility] Address [address] [place] [address] Care Team Providers Care Granite Sandblaster Apprentice Name Role Phone Hector Sylvester MD Primary Care Provider [phone] [facility],non-owned Affiliates and Associated Physician Practices is amultiple site organization consisting of ambulatory clinics and hospital sitesin [place], [place], [place] and [place]. This disclosure is being madepursuant to the Care Everywhere program and may not contain all information available regarding this patient. Last updated 18.[facility] Allergies Active Allergy Reactions Criticality Noted Date Comments Codeine Rash Medium 10/03/2014 Dhea Shortness of Breath,Anaphylaxis High 09/02/2014 Dihydroergotamine 01/27/2015 Chest pain Ergotamine 09/02/2014 Propranolol Anaphylaxis,Shortnes s of Breath High 09/02/2014 Latex Rash Low 09/02/2014 Nickel Rash,Swelling Medium 11/01/2015 Metoclopramide Numbness 09/02/2014 Sulfa Drugs Rash Low 09/02/2014 Chlorpromazine 02/06/2016 I can' breathe Medications * Be aware that medications may not be up to date on this document. Alwaysverify current medications with the patient. PARoxetine (PAXIL) 40 MG tablet Take 40 mg by mouth once daily. Active rizatriptan (MAXALT) 10 MG tablet Take 10 mg by mouth 2 times daily as needed for Migraine Active nadolol (CORGARD) 40 MG tablet Take 40 mg by mouth once daily Active METHYLPREDNISOL ONE, LILIBETH, PO Active ALPRAZolam (XANAX) 0.5 MG tablet Take by mouth 2 times daily Active Butalbital-APAP -Caffeine (FIORICET PO) Active aspirin-acetami nophen-caffeine 250-250-65 MG tablet Take 2 Tabs by mouth every 4 hours as needed for Headache Active QUEtiapine (SEROQUEL) 200 MG tablet Take 200 mg by mouth at bedtime Active temazepam (RESTORIL) 15 MG capsule Take 15 mg by mouth nightly as needed for Insomnia Active Active Problems Problem Noted Date Diagnosed Date Insomnia 10/12/2016 At risk for elopement from healthcare setting Dilaudid use disorder, moderate 02/06/2016 Drug-seeking behavior 10/10/2014 Overview (10/10/2014): Patient insists that only Dilaudid helps her headaches. She has no confidence in her neurologist and works at [employer] and lives in [place]. She denies being on Percocet currently and doesn't want to try steroids. Her drug screen is positive for opiates. Lisa Villatoro MD Family History Medical History Relation Name Comments Diabetes Brother [place] Father Breast Cancer after age 50 or unknown Mother Cancer - Other Mother Bone High Blood Pressure Mother Relation Name Status Comments Brother Alive Father Mother Social History Tobacco Use Types Packs/Day Years Used Date Smoking Tobacco: Every Day Cigarettes 0.3 30 Smokeless Tobacco: Never Alcohol Use Standard Drinks/Week Comments No 0 (1 standard drink = 0.6 oz pur e alcohol) Comments No Sex and Gender Information Value Date Recorded Sex Assigned at Not on file Legal Sex Female 6:52 AM CLIENT SERVICE COORDINATOR Gender Identity Not on file Sexual Orientation Not on file Occupation Industry Job Start Date Job End Date unemployed Not on file Not on file Not on file Last Filed Vital Signs Vital Sign Reading Time Taken Comments Blood Pressure 129/77 01/24/2018 1:15 AM CDT Pulse 62 01/24/2018 1:15 AM CDT Temperature 36.7 C (98 F) 01/23/2018 6:37 PM CDT Respiratory Rate 16 01/24/2018 1:15 AM CDT Oxygen Saturation 100% 01/24/2018 1:15 AM CDT Inhaled Oxygen Concentration - - Weight 68 kg (150 lb) 01/23/2018 4:25 PM CDT Height 157.5 cm (5' 2 ) 01/23/2018 4:25 PM CDT Body Mass Index 27.44 01/23/2018 4:25 PM CDT Plan of Treatment Health Maintenance Due Date Last Done Comments COLOGUARD (AGES 45-75) - COL ON CA SCREENING 1965 COLON MONITORING 1965 COLONOSCOPY - COLON CA SCREENING 1965 CT COLONOGRAPHY - COLON CA SCREENING 1965 Colorectal Cancer Screening 1965 FIT - COLON CA SCREENING 1965 FLEX SIG - COLON CA SCREENING 1965 LIPID TESTING 1965 MAMMOGRAM 1965 HIV SCREENING 1980 HEPATITIS C SCREENING 05/04/1983 DTAP/TDAP/TD VACCINES (1 - Tdap) 1984 HEPATITIS B VACCINE (1 of 3 - 19+ 3-dose series) 1984 PNEUMOCOCCAL VACCINE 50+ (1 of 2 - PCV) 1984 ZOSTER VACCINE (1 of 2) 2015 COVID-19 VACCINE (1 - 2023-2 5 season) 2024 DEPRESSION SCREENING 10/09/2024 INFLUENZA VACCINE (Season Ended) 2025 HIB VACCINE Aged Out No longer eligi ble based on patient's age to complete this topic HPV VACCINE Aged Out No longer eligi ble based on patient's age to complete this topic MENINGOCOCCAL (Group B) VACC INE SHARED DECISION-MAKING Aged Out No longer eligibl e based on patient's age to complete this topic MENINGOCOCCAL GROUPS A/C/Y/W VACCINE Aged Out No longer eligible b ased on patient's age to complete this topic Insurance [facility] [employer] [facility] Member Subscriber Plan / Payer (Ef fective 2015-Present) Name:Ely Olea Member ID:Not on file Relation to Subscriber:Spouse Name:Lefty Ely Date of :1961 (Home) [address]: [address] [place] [id number] Payer ID:Not on file Type:PPO Address: [address] [place] [id number] [place] [address] Care Teams Granite Sandblaster Apprentice Relationship Specialty Start Date End Date Hector Sylvester MD [address] [place] [address] PCP - General Family Medicine 01/23/18
--- OUTSIDE RECORDS SUMMARY | 2025-02-20 22:14 | XMS_ITS | Encounter Summary ---
Author Organization [facility] Address Formerly [facility] [place] [address] Care Team Providers Care Fleet Coordinator Name Role Phone None, Provider Primary Care Provider Unavaila ble None, Provider Primary Care Provider Unavaila ble Encounter Details Date Type Department Care Team (Late st Contact Info) Description 03/16/2019 Abstract SFL CONVERSION [address] [place] [address] , Generic Conversion, Social History Tobacco Use Types Packs/Day Years Used Date Smoking Tobacco: Never Assessed Comments Unknown Sex and Gender Information Value Date Recorded Sex Assigned at Not on file Legal Sex Female 9:19 AM [employer]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
--- OUTSIDE RECORDS SUMMARY | 2025-02-20 22:14 | XMS_ITS | Clinical Summary ---
Author Organization [facility] Address [address] [place] [address] Phone Care Team Providers Care Heel Sewer Name Role Phone Jennifer Vaca MD Primary Care Provider [phone] Allergies Active Allergy Reactions Criticality Noted Date Comments Codeine Rash 09/25/2015 Dhea Anaphylaxis 09/25/2015 Propranolol Shortness of Breath 09/25/2015 Latex Rash 09/25/2015 Nickel Rash,Swelling 11/01/2015 Metoclopramide Hcl Other (see Comments) 015 Pushes side of face over. Cant swallow or talk Sulfa Antibiotics Rash 09/25/2015 Chlorpromazine Swelling 09/25/2015 Medications ketorolac (TORADOL) 60 MG/2ML SolutionIndica tions:Migraine 60 mg by Intramuscular route three times a week. Indications: Migraine Headache Active SUMAtriptan (IMITREX) 100 MG Tablet Take 100 mg by mouth daily as needed for Migraine. Use as directed. May repeat dose in 2 hours if headache recurs. Active oxyCODONE-acet aminophen (PERCOCET) 5-325 MG Tablet Take 1 Tab by mouth every 6 hours as needed for Pain. Active metoprolol Succinate (TOPROL XL) 50 MG TABLET SR 24 HR Take 50 mg by mouth daily. Active PARoxetine (PAXIL) 40 MG Tablet Take 40 mg by mouth daily. Active QUEtiapine Fumarate (SEROQUEL) 400 MG Tablet Take 400 mg by mouth nightly. Active carBAMazepine (TEGRETOL) 200 MG Tablet Take 200 mg by mouth 2 times daily (with meals). Active clonazePAM (KLONOPIN) 0.5 MG Tablet Take 0.5 mg by mouth 3 times daily. Active ondansetron (ZOFRAN) 4 MG Tablet Take 1 Tab by mouth every 8 hours as needed for Nausea. 10 Tab 0 5 Active Rizatriptan Benzoate (MAXALT) 10 MG TabletIndicati ons:MAY REPEAT IN 2 HOURS ONE TIME Take 10 mg by mouth once as needed for Headaches. May repeat in 2 hours in needed Indications: MAY REPEAT IN 2 HOURS ONE TIME Active ALPRAZolam (XANAX) 0.5 MG Tablet Take 0.5 mg by mouth 2 times daily as needed. Active butalbital-radha taminophen-caf feine (FIORICET, ESGIC) 50-325-40 MG Tablet Take 1 Tab by mouth 2 times daily as needed for Headaches. Active Social History Tobacco Use Types Packs/Day Years Used Date Smoking Tobacco: Every Day Cigarettes Smokeless Tobacco: Never Alcohol Use Standard Drinks/Week Comments No 0 (1 standard drink = 0.6 oz pur e alcohol) Comments No Sex and Gender Information Value Date Recorded Sex Assigned at Not on file Legal Sex Female 8:04 PM CDT Gender Identity Not on file Sexual Orientation Not on file Last Filed Vital Signs Vital Sign Reading Time Taken Comments Blood Pressure 127/98 01/24/2016 4:49 PM CDT Pulse 115 01/24/2016 4:49 PM CDT Temperature 37.8 C (100 F) 01/24/2016 4:49 PM CDT Respiratory Rate 16 01/24/2016 4:49 PM CDT Oxygen Saturation 96% 01/24/2016 4:49 PM CDT Inhaled Oxygen Concentration - - Weight 68 kg (150 lb) 01/24/2016 4:49 PM CDT Height 157.5 cm (5' 2 ) 01/24/2016 4:49 PM CDT Body Mass Index 27.44 01/24/2016 4:49 PM CDT Plan of Treatment Not on file Care Teams Heel Sewer Relationship Specialty Start Date End Date Jennifer Vaca MD [address] [place] [address] PCP - General Family Medicine 09/25/15
--- OUTSIDE RECORDS SUMMARY | 2025-02-20 22:14 | XMS_ITS | Data Portability ---
Author Organization [facility] Address [address] [place] [address] Assessment Encounter Date Assessment Date Assessment LastModified by Organization Details LastModified Time 03/28/2022 03/28/2022 Annual gynecological exam performed. Patient will come back in a year unless there are new symptoms. Not available 03/28/2022 11:13:04 12/17/2024 12/17/2024 Annual gynecological exam performed. Patient will come back in a year unless there are new symptoms. [email or web address] Not available 11/28/2024 12:53:43 Plan of Treatment Reminders Order Date Submit Date Provider Last Modified By Organization Details Last Modified Time Details Appointments None recorded. Lab pap, IG + HR HPV - HPV regardless but if HPV is positive need subtyping 16,18/45 2024 025 [facility] (Lab), [address], [place], [address], 5 11:45:57 CBC w/ auto diff 2021 022 [facility] (Lab), [address], [place], [address], 2 04:11:46 CMP, serum or plasma 2021 022 [facility] (Lab), [address], [place], [address], 2 04:11:45 lipid panel, blood 2021 022 [facility] (Lab), [address] [facility], [place], [address], 2 04:11:44 TSH, serum or plasma 2021 022 [facility] (Lab), [address] [facility], [place], [address], 2 04:11:45 vitamin D, 25-hydroxy, total, serum 2021 022 [facility] (Lab), [address] [facility], [place], [address], 2 04:11:46 pap, LB + HR HPV 2020 021 [facility] (Centralized Electronic Ordering - All Locations), Patient Can Go To The Location Of Their Choice, [address] 09:01:51 Referral None recorded. Procedures None recorded. Surgeries None recorded. Imaging MAMMO, screening, digital, bilateral 2024 025 [facility], [address], [place], [address], 5 04:09:58 DEXA, axial skeleton + vertebral fracture assessment 2024 025 [facility], [address], [place], [address], 5 04:09:58 bone density 2020 021 [facility], [address], [place], [address], 18:16:04 Medication Orders estradiol 2 mg tablet 2024 025 [facility], [address], [place], [place], [id number], 5 11:24:04 progesteron e micronized 100 mg capsule 2024 025 [email or web address] [facility] #08477, [address], [place], [place], [id number], 5 11:24:04 estradiol 2 mg tablet 2021 022 [facility] #90044, [address], [place], [place], [id number], 2 11:46:44 progesteron e micronized 100 mg capsule 2021 022 [facility] #99614, [address], [place], [place], [id number], 2 11:46:51 triamcinolo ne acetonide 0.5 % topical cream [email or web address] [facility] #55241, [address], [place], [place], [id number], 5 10:57:48 estradiol 2 mg tablet 2020 021 [facility], [address], [place], [place], [id number], 1 16:24:35 estradiol 1 mg tablet 2020 021 [facility] #53269, [address], [place], [place], [id number], 2 11:16:22 Prometrium 100 mg capsule 2020 021 [facility], [address], [place], [place], [id number], 1 12:57:52 estradiol 0.01% (0.1 mg/gram) vaginal cream [email or web address] [place] [address] [facility], [address], [place], [place], [id number], 5 10:56:35 Patient TargetsNo targets recorded. Patient InstructionsNo instructions recorded. Reason for Referral None Reported. Results Created Date Observation Date Name Description Value Unit Range Abnormal Flag Note LastModifiedBy Organization Detail LastModifiedTime 03/28/20 22 03/28/2022 LIPID PANEL ,AMA (LDL- CALC) total cholesterol 241 mg/dL 0-199 high Not Available [facility] (Lab) [address] [facility], [place], [address], 03/29/2022 04:11:44 03/28/20 22 03/28/2022 LIPID PANEL ,AMA (LDL- CALC) triglyceride s 86 mg/dL 0.00-1 50.00 NCEP Refer ence Value s for Trigl yceri adair: Nadja l: <150 mg/dL Borde rline High: 150 - 199 mg/dL High: 200 - 499 mg/dL Very High: >/= 500 mg/dL Not Available [facility] (Lab) [address] [facility], [place], [address], 03/29/2022 04:11:44 03/28/20 22 03/28/2022 LIPID PANEL ,AMA (LDL- CALC) HDL cholesterol 55 mg/dL >40 Not Available [facility] (Lab) [address] [place], [address], 03/29/2022 04:11:44 03/28/20 22 03/28/2022 LIPID PANEL ,AMA (LDL- CALC) LDL cholesterol 169 mg/dL 0-99 high Cutof f value s recom michelle d by the Natio nal [employer] st[employer]ca tion Progr am: MOE ABLE: Genesis stero l <200 mg/dL LDL <100 mg/dL BORDE RLINE : Genesis stero l 200-2 39 mg/dL LDL 101-1 59 mg/dL HIGHE R RISK: Genesis stero l >240 mg/dL LDL >160 mg/dL , HDL <40 mg/dL Not Available [facility] (Lab) [address] [facility], [place], [address], 03/29/2022 04:11:44 03/28/20 22 03/28/2022 LIPID PANEL ,AMA (LDL- CALC) non-HDL cholesterol 186 mg/dL no refere nce range A reaso nable goal for non-H DL genesis stero l is one that is 30 mg/dL highe r than the LDL genesis stero l goal. Not Available [facility] (Lab) [address] [facility], [place], [address], 03/29/2022 04:11:44 03/28/20 22 03/28/2022 LIPID PANEL ,AMA (LDL- CALC) chol/HDL ratio 4.4 . 0.0-5. 0 Not Available [facility] (Lab) [address] [facility], [place], [address], 03/29/2022 04:11:44 03/28/20 22 03/28/2022 CMP(C OMPRE HENSI VE METAB OLIC PANEL ) sodium 140 mmol/ L 133-14 6 Not Available [facility] (Lab) [address] [facility], [place], [address], 03/29/2022 04:11:45 03/28/20 22 03/28/2022 CMP(C OMPRE HENSI VE METAB OLIC PANEL ) potassium 3.8 mmol/ L 3.5-5. 1 Not Available [facility] (Lab) [address] [place], [address], 03/29/2022 04:11:45 03/28/20 22 03/28/2022 CMP(C OMPRE HENSI VE METAB OLIC PANEL ) chloride 106 mmol/ L 98-107 Not Available [facility] (Lab) [address] [place], [address], 03/29/2022 04:11:45 03/28/20 22 03/28/2022 CMP(C OMPRE HENSI VE METAB OLIC PANEL ) carbon dioxide 24 mmol/ L 21-31 Not Available [facility] (Lab) [address] [facility], [place], [address], 03/29/2022 04:11:45 03/28/20 22 03/28/2022 CMP(C OMPRE HENSI VE METAB OLIC PANEL ) anion gap 10 mmol/ L 4-13 Not Available [facility] (Lab) [address] [facility], [place], [address], 03/29/2022 04:11:45 03/28/20 22 03/28/2022 CMP(C OMPRE HENSI VE METAB OLIC PANEL ) blood urea nitrogen 16 mg/dL 7-25 Not Available [facility] (Lab) [address] [facility], [place], [address], 03/29/2022 04:11:45 03/28/20 22 03/28/2022 CMP(C OMPRE HENSI VE METAB OLIC PANEL ) creatinine 0.79 mg/dL 0.60-1 .30 Not Available [facility] (Lab) [address] [facility], [place], [address], 03/29/2022 04:11:45 03/28/20 22 03/28/2022 CMP(C OMPRE HENSI VE METAB OLIC PANEL ) egfrcr (CKD-epi 2020) 88 mL/mi n/1.7 3_m2 >=60 Not Available [facility] (Lab) [address] [facility], [place], [address], 03/29/2022 04:11:45 03/28/20 22 03/28/2022 CMP(C OMPRE HENSI VE METAB OLIC PANEL ) calcium 9.3 mg/dL 8.3-10 .5 Not Available [facility] (Lab) [address] [facility], [place], [address], 03/29/2022 04:11:45 03/28/20 22 03/28/2022 CMP(C OMPRE HENSI VE METAB OLIC PANEL ) glucose 79 mg/dL 70-100 Not Available [facility] (Lab) [address] [facility], [place], [address], 03/29/2022 04:11:45 03/28/20 22 03/28/2022 CMP(C OMPRE HENSI VE METAB OLIC PANEL ) protein, total 7.1 g/dL 6.4-8. 3 Not Available [facility] (Lab) [address] [facility], [place], [address], 03/29/2022 04:11:45 03/28/20 22 03/28/2022 CMP(C OMPRE HENSI VE METAB OLIC PANEL ) albumin 4.2 g/dL 3.5-5. 0 Not Available [facility] (Lab) [address] [facility], [place], [address], 03/29/2022 04:11:45 03/28/20 22 03/28/2022 CMP(C OMPRE HENSI VE METAB OLIC PANEL ) ALT 10 units /L 9-43 Not Available [facility] (Lab) [address] [facility], [place], [address], 03/29/2022 04:11:45 03/28/20 22 03/28/2022 CMP(C OMPRE HENSI VE METAB OLIC PANEL ) alkaline phosphatase 58 units /L 34-104 Not Available [facility] (Lab) [address] [facility], [place], [address], 03/29/2022 04:11:45 03/28/20 22 03/28/2022 CMP(C OMPRE HENSI VE METAB OLIC PANEL ) AST 15 units /L 13-39 Not Available [facility] (Lab) [address] [facility], [place], [address], 03/29/2022 04:11:45 03/28/20 22 03/28/2022 CMP(C OMPRE HENSI VE METAB OLIC PANEL ) bilirubin, total 0.4 mg/dL 0.2-1. 2 Not Available [facility] (Lab) [address] [place], [address], 03/29/2022 04:11:45 03/28/20 22 03/28/2022 TSH, REFLE X FREE T4 TSH 1.49 uIU/m L 0.30-5 .33 Not Available [facility] (Lab) [address], [place], [address], 03/29/2022 04:11:45 03/28/20 22 03/28/2022 CBC W/DIF F WBC 7.0 10'3/ uL 3.6-10 .2 Not Available [facility] (Lab) [address] [facility], [place], [address], 03/29/2022 04:11:46 03/28/20 22 03/28/2022 CBC W/DIF F RBC 4.20 10'6/ uL (based on docume nted legal sex) 4.10-5 .30 Not Available [facility] (Lab) [address] [facility], [place], [address], 03/29/2022 04:11:46 03/28/20 22 03/28/2022 CBC W/DIF F HGB 13.4 g/dL (based on docume nted legal sex) 11.9-1 5.8 Not Available [facility] (Lab) [address] [facility], [place], [address], 03/29/2022 04:11:46 03/28/20 22 03/28/2022 CBC W/DIF F HCT 40.3 % (based on docume nted legal sex) 37.4-4 8.3 Not Available [facility] (Lab) [address] [facility], [place], [address], 03/29/2022 04:11:46 03/28/20 22 03/28/2022 CBC W/DIF F MCV 96.0 fL 82.0-9 9.0 Not Available [facility] (Lab) [address] [facility], [place], [address], 03/29/2022 04:11:46 03/28/20 22 03/28/2022 CBC W/DIF F MCH 32.0 pg 27.0-3 3.0 Not Available [facility] (Lab) [address], [place], [address], 03/29/2022 04:11:46 03/28/20 22 03/28/2022 CBC W/DIF F MCHC 33.0 g/dL 32.0-3 6.0 Not Available [facility] (Lab) [address], [place], [address], 03/29/2022 04:11:46 03/28/20 22 03/28/2022 CBC W/DIF F RDW 14.0 % 11.0-1 5.0 Not Available [facility] (Lab) [address], [place], [address], 03/29/2022 04:11:46 03/28/20 22 03/28/2022 CBC W/DIF F plt 177 10'3/ uL 150-45 0 Not Available [facility] (Lab) [address], [place], [address], 03/29/2022 04:11:46 03/28/20 22 03/28/2022 CBC W/DIF F MPV 11.8 fL 9.8-12 .7 Not Available [facility] (Lab) [address], [place], [address], 03/29/2022 04:11:46 03/28/20 22 03/28/2022 CBC W/DIF F NRBC's 0.00 % 0 Not Available [facility] (Lab) [address], [place], [address], 03/29/2022 04:11:46 03/28/20 22 03/28/2022 CBC W/DIF F absolute NRBCs 0.0 10'3/ uL 0 Not Available [facility] (Lab) [address], [place], [address], 03/29/2022 04:11:46 03/28/20 22 03/28/2022 CBC W/DIF F neutrophils 67.0 % 37.0-7 2.0 Not Available [facility] (Lab) [address] [place], [address], 03/29/2022 04:11:46 03/28/20 22 03/28/2022 CBC W/DIF F lymphocytes 24.0 % 16.0-4 8.0 Not Available [facility] (Lab) [address] [facility], [place], [address], 03/29/2022 04:11:46 03/28/20 22 03/28/2022 CBC W/DIF F monocytes 6.0 % 4.0-14 .0 Not Available [facility] (Lab) [address], [place], [address], 03/29/2022 04:11:46 03/28/20 22 03/28/2022 CBC W/DIF F eosinophils 2.0 % 0.0-9. 0 Not Available [facility] (Lab) [address] [facility], [place], [address], 03/29/2022 04:11:46 03/28/20 22 03/28/2022 CBC W/DIF F basophils 1.0 % 0.0-2. 0 Not Available [facility] (Lab) [address] [place], [address], 03/29/2022 04:11:46 03/28/20 22 03/28/2022 CBC W/DIF F immature granulocytes 0.0 % no define d refere nce range Not Available [facility] (Lab) [address] [place], [address], 03/29/2022 04:11:46 03/28/20 22 03/28/2022 CBC W/DIF F absolute neutrophils 4.7 10'3/ uL 1.1-6. 0 Not Available [facility] (Lab) [address] [place], [address], 03/29/2022 04:11:46 03/28/20 22 03/28/2022 CBC W/DIF F absolute lymphocytes 1.7 10'3/ uL 0.7-3. 4 Not Available [facility] (Lab) [address] [facility], [place], [address], 03/29/2022 04:11:46 03/28/20 22 03/28/2022 CBC W/DIF F absolute monocytes 0.4 10'3/ uL 0.3-1. 0 Not Available [facility] (Lab) [address] [facility], [place], [address], 03/29/2022 04:11:46 03/28/20 22 03/28/2022 CBC W/DIF F absolute eosinophils 0.1 10'3/ uL 0.0-0. 6 Not Available [facility] (Lab) [address] [facility], [place], [address], 03/29/2022 04:11:46 03/28/20 22 03/28/2022 CBC W/DIF F absolute basophils 0.1 10'3/ uL 0.0-0. 1 Not Available [facility] (Lab) [address] [facility], [place], [address], 03/29/2022 04:11:46 03/28/20 22 03/28/2022 CBC W/DIF F absolute immature granulocytes 0.00 10'3/ uL 0.00-0 .10 2021 2:05 AM: P indic ates parti al resul ts on a panel have been relea sed. Addit ional resul ts will follo w. 2021 2:05 AM: This resul t has been final verif ied. No addit ional or reese ed resul ts are expec keisha. Not Available [facility] (Lab) [address] [facility], [place], [address], 03/29/2022 04:11:46 03/28/20 22 03/28/2022 VITAM IN D, 25-OH (TOTA L D2/D3 ) vitamin D, 25-hydroxy, total 38.6 NG/mL 30-80 NOTE: Defic iency : <20 ng/mL Insuf ficie ncy: 20-29 ng/mL Optim um Level : 30-80 ng/mL Possi ble Toxic ity: >80 ng/mL Most patie nts with toxic ity have level s >150 ng/mL . Not Available [facility] (Lab) [address] [facility], [place], [address], 03/29/2022 04:11:46 03/28/20 22 03/28/2022 IMAGE GUIDE D PAP AND HPV REGAR DLESS image guided Pap, HPV regardless of Pap result SEE RESULT S BELOW CASE REPOR T: Cytol ogy Gynec ologi aniya Repor t Case: [id number] Autho jareth g Provi shaw: Donell Root MD Colle cted: 03/28 1348 Order ing Locat ion: [place] [facility] Recei julia: 03/29 0132 First Scree n: Boone Carrion , [place] Rescr een: Isauro Ferguson Speci men: Scree chapin Pap - Image d, Cervi x STATE MENT OF ADEQU ACY: Satis facto ry for evalu ation Trans forma tion zone compo nent absen t. The absen ce of an endoc ervic al compo nent was confi rmed by an addit ional scree ner. FINAL DIAGN OSIS: Negat aurora for Intra epith elial Erin zarate or Flora mathias (NIL) . Elect marielle etienne echo d by Isauro Ferguson on 2021 at 12:08 PM ----- ----- ----- ----- ----- ----- ----- ----- ----- ----- ----- ----- ----- ----- ----- ----- ----- ---- HPV RESUL TS: HPV mRNA E6/E7 : No HPV mRNA Detec keisha NOTE: This high risk HPV mRNA assay detec ts fourt een high- risk HPV types (16, 18, 31, 33, 35, 39, 45, 51, 52, 56, 58, 59, 66, 68) witho ut diffe renti ation . COMME NT: Note: This speci men was revie wed by a Cytot echno logis t and/o r Patho logis t (as indic ated in this repor t) after evalu ation using the Thinp rep Imagi ng Syste m. CLINI ANIYA INFOR MATIO N: Menst rual Statu s: LMP (if appli cable ): Clini aniya Histo ry/Pr eviou s Pap: Type of Neopl pretty (if appli cable ): Signi fican t Clini aniya Findi ngs: Other Histo ry: Hormo joss (if appli cable ): PAP EDUCA DANNIE L NOTE: The Pap Test is a scree chapin test with an inher ent false negat aurora rate. Liqui d-bas ed sampl ing may decre ase, but will not elimi franklin, false negat aurora resul ts. A negat aurora resul t does not precl ude the prese nce and/o r devel opmen t of disea se, since the prese nce of abnor mal cells in the sampl e depen ds on the locat ion of the lesio n and sampl ing techn ique. Rosemarie nued regul ar scree chapin is the best metho d of cance r preve ntion . If repor keisha cytol ogic findi ng do not corre late with physi aniya and/o r histo rical findi ngs, furth er inves tigat ion is recom michelle d, as clini hari mejia nted. Not Available [facility] (Lab) [address], [place], [address], 03/31/2022 13:11:04 12/18/19 25 12/17/2024 IMAGE GUIDE D PAP AND HPV REGAR DLESS image guided Pap, HPV regardless of Pap result SEE RESULT S BELOW CASE REPOR T: Cytol ogy Gynec ologi aniya Repor t Case: [id number] Autho rizin g Provi shaw: Dermo dy, Rima , ANP, RESIDENCE MANAGER Colle cted: 12/17 1321 Order ing Locat ion: [place] Patho leonel Recei julia: 12/18 0751 First Navae n: Renetta Hurtado, CT Speci men: Jeannie samson Pap - Image d, Cervi x STATE MENT OF ADEQU ACY: Satis facto ry for evalu ation Trans forma tion zone compo nent prese nt ----- ----- ----- ----- ----- ----- ----- ----- ----- ----- ----- ----- ----- ----- ----- ----- ----- ---- FINAL DIAGN OSIS: Negat aurora for Intra epith elial Erin zarate or Flora mathias (NIL) . Elect marielle red by Renetta Hurtado , CT on 2024 at 1040 CDT ----- ----- ----- ----- ----- ----- ----- ----- ----- ----- ----- ----- ----- ----- ----- ----- ----- ---- HPV RESUL TS: HPV mRNA E6/E7 : No HPV mRNA Detec keisha NOTE: This high risk HPV mRNA assay detec ts fourt een high- risk HPV types (16, 18, 31, 33, 35, 39, 45, 51, 52, 56, 58, 59, 66, 68) witho ut diffe renti ation . COMME NT: This speci men was revie wed by a Cytot echno logis t and/o r Patho logis t (as indic ated in this repor t) after evalu ation using the Thinp rep Imagi ng Syste m. CLINI ANIYA INFOR MATIO N: Menst rual Statu s: LMP (if appli cable ): Clini aniya Histo ry/Pr eviou s Pap: Type of Neopl pretty (if appli cable ): Signi fican t Clini aniya Findi ngs: Other Histo ry: Hormo joss (if appli cable ): PAP EDUCA DANNIE L NOTE: The Pap Test is a scree chapin test with an inher ent false negat aurora rate. Liqui d-bas ed sampl ing may decre ase, but will not elimi franklin, false negat aurora resul ts. A negat aurora resul t does not precl ude the prese nce and/o r devel opmen t of disea se, since the prese nce of abnor mal cells in the sampl e depen ds on the locat ion of the lesio n and sampl ing techn ique. Rosemarie nued regul ar scree chapin is the best metho d of cance r preve ntion . If repor keisha cytol ogic findi ng do not corre late with physi aniya and/o r histo rical findi ngs, furth er inves tigat ion is recom michelle d, as clini hari warra nted. Not Available [facility] (Lab) [address] [facility], [place], [address], 12/20/2024 11:45:57 02/25/20 21 02/24/2021 MAMMO , scree chapin, bilat eral No observ ation record ed. [address], [place], [address], 03/01/2021 16:30:21 07/12/20 23 07/12/2023 MAMMO , scree chapin, bilat eral No observ ation record ed. [place] [id number] [facility] [address], [place], [address], 07/13/2023 11:20:32 Result Notes None recorded. Problems Name Problem SNOMED Code Status Onset Date Resolution Date Notes Provider Name and Address Organization Details Recorded Time Insomnia 022650231 Active 2020 Lynette kemp [place] - [facility] 15:13:49 Depressive disorder 44203345 Active 2020 Lynette Mirza [facility] 15:13:54 Generalized anxiety disorder 82557847 Active 2020 Lynette Mirza [facility] 15:13:57 Cataplexy 77595529 Active 2020 Lynette Mirza [facility] 15:14:05 Migraine 61477086 Active 2020 Lynetteda Mirza [facility] 15:14:21 Heart murmur 79833869 Active 2020 Lynetteda Mirza [facility] 15:14:56 Hypertensive disorder 58998545 Active 2020 Lynetteda Mirza [facility] 15:17:18 Mental disorder 36791686 Active 2020 Lynette Mirza [facility] 15:17:25 Notes:hbp and mvp for palpit ations Problem Notes None recorded. Procedures Surgical History Date Name Laterality Status Provider Name and Address Organization Details Recorded Time 07/12/20 23 Date of Last Mammogram completed [facility] 08/19/2024 11:24:59 06/06/20 23 Date of Last Colonoscopy completed [facility] 12/25/2024 10:54:22 03/28/20 22 Date of Last Pap Smear completed [facility] 08/19/2024 11:25:19 10/09/19 03 cholecystectomy completed [facility] 12/03/2020 15:17:57 10/09/18 94 section completed Lynette Mirza [facility] 12/03/2020 15:18:08 Other completed [facility] 01/07/2021 12:26:09 Colonoscopy completed [facility] 01/07/2021 12:26:09 Caesarean Section completed [facility] 01/07/2021 12:26:09 Orthopedic Surgery completed [facility] 01/07/2021 12:26:09 Imaging Results Imaging Date Name Status LastModified by Organiz ation Details LastModified Time 02/24/2021 MAMMO, screening, bilateral completed [address] [place] [address], [address], 03/01/2021 16:30:21 07/12/2023 MAMMO, screening, bilateral completed [address] [place] [address], [address], 07/13/2023 11:20:32 Procedure Notes None recorded. Medical Equipment None Reported. Allergies Allergen ID Allergen Name Allergen Category Reaction Reaction Severity Criticality Documentation Date Start Date Code Code System Note Provider Name and Address Organization Details Recorded Time 38148 Substance with sulfonami de structure and antibacte rial mechanism of action (substanc e) medicatio n Not available Not available Not available 12/03/2020 34570 8003 SNOMED Lynette Mirza [facility] 15:10:27 02628 codeine medicatio n Not available Not available Not available 12/03/2020 2670 RxNorm Lynette Mirza [facility] 15:10:33 57788 latex environme nt,medica tion Not available Not available Not available 12/03/2020 56841 91 RxNorm Lynette Mirza [facility] 15:11:17 56014 nickel environme nt Not available Not available Not available 12/03/2020 08826 29 RxNorm Lynette Mirza justo [facility] 1 15:11:22 07444 yellow dye medicatio n Not available Not available Not available 12/03/2020 16587 UNK Lynette Mirza justo [facility] 1 15:12:07 Medications Name Sig Start Date Stop Date Status Note LastModified by Organization Details LastModified Time fluoxetine 40 mg capsule TAKE 2 CAPSULES BY MOUTH DAILY 12/17 completed Not Available Not Available Not Available amoxicilli n 500 mg capsule TAKE ONE CAPSULE BY MOUTH THREE TIMES DAILY 11/28 completed Not Available Not Available Not Available venlafaxin e ER 75 mg capsule,ex tended release 24 hr 12/17 completed Not Available Not Available Not Available quetiapine 300 mg tablet TAKE 1 TABLET BY MOUTH DAILY AT BEDTIME 2024 active Not Available Not Available Not Avai lable triamcinol one acetonide 0.5 % topical cream APPLY THIN LAYER TOPICALL Y TO THE AFFECTED AREA TWICE DAILY 12/17 completed Not Available Not Available Not Available atorvastat in 10 mg tablet TAKE 1 TABLET BY MOUTH EVERY DAY AT BEDTIME active Not Available Not Available No t Available ofloxacin 0.3 % eye drops 12/17 completed Not Available Not Available Not Available fluconazol e 150 mg tablet TAKE 1 TABLET BY MOUTH ONCE FOR 1 DOSE 03/28 completed Not Available Not Available Not Available hydrocodon e 5 mg-acetami nophen 325 mg tablet TAKE 1 TABLET BY MOUTH EVERY 8 HOURS NEEDED FOR PAIN active Not Available Not Available No t Available meloxicam 15 mg tablet 01/07 completed Not Available Not Available Not Available ondansetro n HCl 4 mg tablet TK 1 T PO Q 6 H PRF NAUSEA 01/07 completed Not Available Not Available Not Available rizatripta n 10 mg tablet TAKE 1 TABLET BY MOUTH NEEDED FOR MIGRAINE . MAY REPEAT IN 2 HOURS IF UNRESOLV ED 12/17 completed Not Available Not Available Not Available metoprolol succinate ER 100 mg tablet,ext ended release 24 hr TAKE 1 TABLET BY MOUTH EVERY DAY active Not Available Not Available No t Available quetiapine 200 mg tablet TAKE 1 TABLET BY MOUTH AT BEDTIME 03/28 completed Not Available Not Available Not Available tramadol 50 mg tablet TAKE 1 TABLET BY MOUTH EVERY 6 HOURS NEEDED FOR PAIN 12/17 completed Not Available Not Available Not Available butalbital -acetamino phen-caffe ine 50 mg-325 mg-40 mg tablet TAKE 1 TABLET BY MOUTH EVERY 6 HOURS NEEDED FOR HEADACHE . MAX OF 10 EVERY WEEK active Not Available Not Available No t Available amoxicilli n 500 mg tablet TAKE 1 TABLET BY MOUTH EVERY 8 HOURS 11/28 completed Not Available Not Available Not Available ketorolac 10 mg tablet TK 1 T PO Q 6 H UPTO 5 DAYS AFTER SURGERY 01/07 completed Not Available Not Available Not Available oxycodone- acetaminop hen 5 mg-325 mg tablet TAKE 1 TABLET BY MOUTH EVERY 6 HOURS 12/17 completed Not Available Not Available Not Available alprazolam 0.5 mg tablet TAKE 1 TABLET BY MOUTH TWICE DAILY active Not Available Not Available No t Available amoxicilli n 875 mg tablet TAKE 1 TABLET BY MOUTH EVERY 12 HOURS 08/19 completed Not Available Not Available Not Available alprazolam 0.25 mg tablet TAKE 1 [id number]||2025-02-20 23:31:00|CT_ITS|ELZIMMILIZ|Imaging|[id number]|"CT brain wo con Ordering provider: Shoaib Mendosa MD History: 59 years Female with . cataplexy . Comparison: October 06, 2023 Technique: CT of the head without contrast. Radiation reduction technique utilized.The dose-length product was 605.33 mGy-cm. FINDINGS: BRAIN PARENCHYMA AND CSF SPACES: Mild leukoaraiosis and diffuse cortical atrophy. Mild atheromatous d isease. No midline shift, mass effect or hemorrhage. The brain parenchyma and CSF spaces are otherwi se normal. VISUALIZED PARANASAL SINUSES: Well aerated. MASTOIDS: Well aerated. BONES: The bones appear intact. SOFT TISSUES: Visualized nasopharynx is normal. Superficial soft tissues are normal. IMPRESSION: No acute intracranial findings. Reviewed, dictated and finalized at location A. IMPRESSION: No acute intracranial findings. "
--- OUTSIDE RECORDS SUMMARY | 2025-02-20 22:14 | XMS_ITS | Referral Summary ---
Author Organization [facility] [address] Address [address] [place] [address] Care Team Providers Care Senior Commissions Analyst Name Role Phone Sary Leon NP Primary Care Provider + Encounters Date Type Department Care Team Description 02/10/2025 9:30 AM CDT Office Visit [facility] Neurology [address] [address] Ting Andre DO Intractable chronic migraine without aura and with status migrainosus (Primary Dx); Mood insomnia 01/28/2025 Orders Only [facility] Neurology [facility] at [address] [address] Ting Andre DO Obstructive sleep apnea (Primary Dx); Cataplexy 01/27/2025 Telephone [facility] Neurology [address] [address] Ting Andre DO Narcolepsy 12/12/2024 10:30 AM CONFIDENTIAL 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 Do not exceed 30 mg in 24 hours. 9 tablet 11 10/31/19 25 Active sertraline (ZOLOFT) 50 mg [...] confidence in her neurologist and works at [employer] and lives in [place]. She denies being on Percocet currently and doesn't want to try steroids. Her drug screen is positive for opiates. Lisa Villatoro MD Patient insists that only Dilaudid helps her headaches. She has no confidence in her neurologist and works at [employer] and lives in [place]. She denies being on Percocet currently and doesn't want to try steroids. Her drug screen is positive for opiates. 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 Gender Identity Not on file Sexual Orientation [...] 02/10/2025 9:27 AM CDT Plan of Treatment Not on file Insurance [facility] [place] [place] [address] [facility] [place] [address] [address] Advance Directives For more information, please contact: [phone] * Full Code (Latest Code Status on File) Date Activated Date Inactivated Comments 08/26/2021 5:38 PM 08/28/2021 7:25 PM Care Teams Senior Commissions Analyst Relationship Specialty Start Date End Date Sary Leon NP [address] [place] [address] [place] [address] PCP - General Nurse Practitioner 11/21/23
--- OUTSIDE RECORDS SUMMARY | 2025-02-20 22:15 | XMS_ITS ---
Author Organization [facility] Address [address] [place] [address] Care Team Providers Care Medical Staff Coordinator Name Role Phone Ashley Stringer Primary Care Provider [phone] [facility], SR Adult MATT Unavailabl e [phone] Madisyn Matamoros Unavailable [phone] REASON FOR VISIT Schedule error-mlr 3 Month Psych F/U & Med Refill Medications Medication SIG (Take, Route, Frequency, Duration) Notes Start Date End Date Status ALPRAZolam 0.5 MG 1 tablet Orally Twic e a day for 30 days 09/12/2024 Active Sertraline HCl 50 MG 1 tablet Orally Onc e a day for 30 days 04/16/2024 Active SEROquel 300 MG 1 tablet at bedtime Orally Once a day for 30 days Active ALPRAZolam 0.25 MG 1 tablet Orally once a day for 30 days 09/12/2024 Active Temazepam 30 MG Oral for 30 Days Active Atorvastatin Calcium 10 MG 1 tablet Oral ly Once a day Active Metoprolol Succinate ER 100 MG Oral for 30 Days Active Social History Sex Assigned At : Social History Observation Description Sex Assigned At Female Encounters Encounter Location Date Provider Diagnosis [facility] [address] [place] [address] 12/02/2024 Madisyn Matamoros Plan Of Treatment Next Appt Details Provider Name:Ashley vaughan, 03/05/2025 10:40:00 AM, [address], [place], [address], Progress Notes * German OLEA:1965 (59 yo F)Acc No.[id number]:12/02/2024 UNLOCKED PROGRESS NOTE Patient: Monica MCCARTHY Provider: KAYLEIGH Davis :1965 A ge:59 Y S ex:Female Date:12/02/2024 Address:[address] [place], [place] [address] Pcp:Ashley Stringer Subjective: * Chief Complaints: * [...] * Electronic signature of Madisyn Matamoros , [id number] on 02/20/2025 at 10:14 PM CDT Sign off status: Pending * Provider: KAYLEIGH Davis Date: 12/02/2024 Generated for Carola cotton/Clark/Doris on: 02/20/2025 10:14 PM CDT
[2025-02-20 22:57] VITALS: BP 178/83; PULSE 70; RESP 16; TEMP 36.6; O2SAT 96
--- NOTE | 2025-02-20 23:46 | PC.NURSE ---
Called pt's name in waiting room 2x and no answer. gut snatcher notified.
[2025-02-20 23:58] VITALS: BP 154/82; BP 155/84; PULSE 66
[2025-02-21] VITALS: BP 159/83; PULSE 70
[2025-02-21 00:26] VITALS: BP 165/82; PULSE 65; RESP 14; O2SAT 100
[2025-02-21 00:30] LABS: Add Urine Microscopic? YES; Appearance Urine Turbid (Clear); Bacteria Urine 1+ /hpf; Bilirubin Urine Negative (Negative); Blood Urine Negative (Negative); Color Urine Yellow (Yellow); Glucose Urine UA Negative (Negative); Ketones Urine Negative (Negative); Leukocyte Esterase Ur Negative LEU/UL (Negative); Nitrate Urine Negative (Negative); Non Pathogenic Casts 0-2; Protein Urine Negative (Negative); RBC Urine 0-2 /hpf (0-2); Squamous Epithelial Cell Urine Occasional /hpf (Few); Urobilinogen Urine 0.2 mg/dL (<2.0); WBC Urine 0-5 /hpf (0-3); pH Urine 6.5 (5.0-9.0)
[2025-02-21 00:30] LABS: Basophils Absolute Auto 0.1 K/mm3 (0.0-0.1); Basophils Percent Auto 0.8 % (0.2-1.2); Eosinophils Absolute Auto 0.2 K/mm3 (0-0.3); Eosinophils Percent Auto 2.6 % (0-4.4); Hematocrit 41.7 % (37.0-47.0); Hemoglobin 13.1 g/dL (12.0-15.0); Immature Granulocyte Absolute 0.03 K/mm3 (0.00-0.031); Immature Granulocyte Percent A 0.4 % (0-0.5); Lymphocytes Absolute Auto 2.19 K/mm3 (0.9-3.2); Lymphocytes Percent Auto 29.4 % (18.3-44.2); Mean Corpuscular HGB Conc 31.4 g/dl (32-36); Mean Corpuscular Hemoglobin 29.8 pg (26-34); Mean Platelet Volume 11.5 fl (7.4-10.4); Monocytes Absolute Auto 0.6 K/mm3 (0.1-0.6); Monocytes Percent Auto 7.5 % (2.6-8.5); Neutrophils Absolute Auto 4.4 K/mm3 (1.3-6.7); Neutrophils Percent Auto 59.3 % (45.5-73.1); Platelet Count Result 176 k/mm3 (150-375); Red Blood Count 4.39 M/mm3 (4.2-5.4); Red Cell Distribution Width 13.5 % (11.5-14.5); White Blood Count 7.5 K/mm3 (4.5-10.0)
[2025-02-21 00:31] LABS: Alanine Aminotransferase 16 U/L (6-35); Albumin Level 4.4 g/dL (3.5-5.1); Alkaline Phosphatase 77 U/L (38-126); Anion Gap 10 mmol/L (4-12); Aspartate Amino Transferase 22 U/L (14-36); Bilirubin,Total 0.3 mg/dL (0.2-1.3); Blood Urea Nitrogen 15 mg/dL (7-17); Calcium 8.9 mg/dL (8.4-10.2); Carbon Dioxide 23 mmol/L (22-30); Chloride 106 mmol/L (98-107); Estimated CRCL calculation 58 ml/min; Estimated Glomerular Filt Rate > 60; Glucose 94 mg/dL (65-110); Lipase 181 U/L (23-300); Potassium 3.4 mmol/L (3.4-5.0); Sodium 139 mmol/L (137-145)
--- OUTSIDE RECORDS SUMMARY | 2025-02-21 00:59 | XMS_ITS | Clinical Summary ---
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 Advance Directives Documents on File Type Date Recorded Patient Patch Setter Expl anation Advance Directives and Living Will 09/20/2012 12:00 AM ADVANCED DIRECTIVES Care Teams Diamond Sawer Relationship Specialty Start Date End Date None, Provider, MD PCP - General UNKNOWN PHYSICIAN SPECIALTY 02/21/24
--- OUTSIDE RECORDS SUMMARY | 2025-02-21 00:59 | XMS_ITS | Clinical Summary ---
Author Organization [facility] Address [address] [place] [address] Phone Care Team Providers Care Agency Appointments Supervisor Name Role Phone Unavailable Primary Care Provider Unavailabl e Allergies Active Allergy Reactions Criticality Noted Date Comments Adhesive Tape-Silicones Rash Low 12/08/2014 Chlorpromazine Anaphylaxis High 02/06/2016 Codeine Rash Low 01/15/2016 Dhe Shortness of Breath/Wheezing High 12/08/2014 Latex Rash Low 12/08/2014 Metoclopramide Hcl Other (See Comments) 015 Dystonic reaction Propranolol Shortness of Breath/Wheezing High 12/08/2014 Sulfa (Sulfonamide Antibiotics) Rash Low 12/08/2014 Medications ZOLMitriptan (ZOMIG) [place], Non-Aerosol 1 [place] 2 times daily as needed for Migraine [...] Tablet Take 0.25 mg by mouth daily 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 Active ondansetron (ZOFRAN) 4 mg Tablet Take [...] . Active butalbital-cod -acetaminop-ca f (FIORICET #3) 95-27-369-40 mg capsule Take 1 Capsule by mouth [...] on file Legal Sex Female 11:12 AM DEXTRINE MIXER Gender Identity Not on file Sexual Orientation [...]
--- OUTSIDE RECORDS SUMMARY | 2025-02-21 01:00 | XMS_ITS | Encounter Summary ---
Author Organization [facility] Address [facility] [place] [address] Care Team Providers Care Global Expansion Sales Director Name Role Phone None, Provider Primary Care Provider Unavaila ble None, Provider Primary Care Provider Unavaila ble Encounter Details Date Type Department Care Team (Late st Contact Info) Description 03/16/2019 Abstract [facility] CONVERSION [address] [place] [address] , Generic Conversion, Social History Tobacco Use Types Packs/Day Years Used Date Smoking Tobacco: Never Assessed Comments Unknown Sex and Gender Information Value Date Recorded Sex Assigned at Not on file Legal Sex Female 9:19 AM PARALEGAL INTERNSHIP Gender Identity Not on file Sexual Orientation Not on file documented as of this encounter Plan of Treatment Not on file documented as of this encounter Visit Diagnoses Not on filedocumented in this encounter Additional Health Concerns Infection Onset Date Last Indicated Resolved Time MRSA 05/17/2017 05/17/2017 documented as of this encounter Care Teams Global Expansion Sales Director Relationship Specialty Start Date End Date None, ProviderMD PCP - General 11/15/19 02/20/24 None, ProviderMD PCP - General UNKNOWN PHYSICIAN SPECIALTY 02/21/24 documented as of this encounter
--- OUTSIDE RECORDS SUMMARY | 2025-02-21 01:00 | XMS_ITS | Patient Health Record ---
[facility] Organization [facility] Address [address] [place] [address] Care Team Providers Care Assistant Shift Supervisor Name Role Phone Ashley Stringer Primary Care Provider [employer], Adult MATT Unavailabl e [phone] Saturnino, Madisyn Unavailable [phone] Allergies Allergen (clinical drug ingredient) Drug/Non Drug [...] W/U Status Risk Notes Problem Tobacco user (716353552) Nicotine dependence, unspecified, uncomplicated (F17.200) Active confirmed Problem 21984303 Major depressive disorder, recurrent severe without psychotic features (F33.2) Active confirmed Problem 60771377 Tobacco dependen cy (F17.200) Active confirmed Problem 40438479 Depression (F32.9) Active confirmed Problem 53300573 Anxiety (F41.9) Active confirmed Encounters Encounter Location Date Provider Diagnosis [facility] [address] [facility] [place] [address] 04/16/2024 Ashley Stringer Major depressive disorder, recurrent severe without psychotic features F33.2 and Anxiety F41.[address] [address] 06/14/2024 Ashley Stringer Major depressive disorder, recurrent severe without psychotic features F33.2 ; Anxiety F41.9 and Nicotine dependence, unspecified, uncomplicated F17.200 [facility] [address] [address] 09/12/2024 Ashley Stringer Major depressive disorder, recurrent severe without psychotic features F33.2 ; Anxiety F41.9 and Nicotine dependence, unspecified, uncomplicated F17.[address] [place] [address] 12/06/2024 Ashley Stringer Major depressive disorder, recurrent severe without psychotic features F33.2 and Anxiety F41.9 [facility] [address] [place] [address] 02/22/2024 Ashley Stringer Major depressive disorder, recurrent severe without psychotic features F33.2 [facility] [address] [place] [address] 02/07/2025 Ashley Stringer Anxiety F41.9 Assessments Encounter Date Diagnosis (ICD Code) Assessment Notes Treatment Notes Treatment Clinical Notes Section Notes 02/07/2025 Anxiety (ICD-10 - F41.9) 06/14/2024 Major depressive disorder, 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-10 - F33.2) Continue current medications. Continue services as scheduled. Labs completed recently. May self-administer medications or be administered own oral medications per [facility] protocols. Provided informed consent with understanding of [...] or be administered own oral medications per [facility] protocols. Provided informed consent with understanding of side effects, adverse effects, risks and benefits as well as alternative treatments as previously discussed and with the above recommended medications & other aspects of the treatment program. Agrees to return sooner if symptoms worsen or suicidal or homicidal ideations occur. 02/22/2024 Major depressive disorder, 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-10 - F33.2) 12/06/2024 Major depressive disorder, 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-10 - F33.2) 09/12/2024 Major depressive disorder, 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-10 - F33.2) Continue current medications. Reviewed Prescription Monitoring program. Continue services as scheduled. Labs completed recently. May self-administer medications or be administered own oral medications per [facility] protocols. Provided informed consent with understanding of side effects, adverse effects, risks and benefits as well as alternative treatments as previously discussed and with the above recommended medications & other aspects of the treatment program. Agrees to return sooner if symptoms worsen or suicidal or homicidal ideations occur. 09/12/2024 Anxiety (ICD-10 - F41.9) 12/06/2024 Anxiety (ICD-10 - F41.9) 04/16/2024 Anxiety (ICD-10 - F41.9) 06/14/2024 Anxiety (ICD-10 - F41.9) 06/14/2024 Nicotine dependence, unspecified, uncomplicated (ICD-10 - F17.200) 09/12/2024 Nicotine dependence, unspecified, uncomplicated (ICD-10 - F17.200) 12/06/2024 Other Continue curren t medications. Reviewed Prescription Monitoring program. Continue services as scheduled. Labs completed recently. May self-administer medications or be administered own oral medications per [facility] protocols. Provided informed consent with understanding of [...] Details Provider Name:Ashley vaughan, 03/05/2025 10:40:00 AM, [address], [place], [address], Insurance Providers Payer Name Payer Address Payer Phone Subscriber Number Group Number Insured Name Patient Relationship to Insured Coverage Start Date Coverage End Date R [address] [address] [place] [address] [id number] Monica Olea Self - patient is the insured 3 3 [facility] [address] [place] [address] [id number] [phone] Monica Olea Self - patient is the insured 6 1 [facility] [address] [address] [place] [address] [id number] Monica Olea Self - patient is the insured 1 1 [employer] [address] [place] [phone] [id number] Davidson Self - patient is the insured 1 2 Medical (General) History Medical History History ICD Code Migraines MVP Depression Panic Attacks cataplexy high cholesterol HTN Surgical History Surgery Date(Month/Year) 1993 cholyecystectomy 2002 Hospitalization History Reason Date(Month/Year) [facility] ([facility]&D) 10/2015
--- OUTSIDE RECORDS SUMMARY | 2025-02-21 01:00 | XMS_ITS | Clinical Summary ---
Author Organization [facility] [address] Address [address] [place] [address] Care Team Providers Care Balance Sheet Analyst Name Role Phone AlzadaSary han Kelly FLOOR COVERING PRINTER ASSISTANT Primary Care Provider + Allergies Active Allergy [...] confidence in her neurologist and works at [employer] and lives in [place]. She denies being on Percocet currently and doesn't want to try steroids. Her drug screen is positive for opiates. Lisa Villatoro MD Patient insists that only Dilaudid helps her headaches. She has no confidence in her neurologist and works at [employer] and lives in [place]. She denies being on Percocet currently and doesn't want to try steroids. Her drug screen is positive for opiates. Lisa Villatoro MD Closed Colles' fracture 11/04/2010 Encounters Date Type Department Care Team Description 02/10/2025 9:30 AM CDT Office Visit [facility] Neurology at [address] [place] [address] Ting Andre, Intractable chronic migraine without aura and with status migrainosus (Primary Dx); Mood insomnia 01/28/2025 Orders Only 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 [address] [facility] [address] [place] [address] Intractable chronic migraine without aura and with [...] on file Legal Sex Female 11:32 PM EXECUTIVE MEETING MANAGER Gender Identity Not on file Sexual Orientation [...] (Season Ended) 2025 08/28/20 21, 07/23/2012 Insurance [facility] Advance Directives For more information, please contact: [phone] * Full Code (Latest Code Status on File) Date Activated Date Inactivated Comments 08/26/2021 5:38 PM 08/28/2021 7:25 PM Care Teams Balance Sheet Analyst Relationship Specialty Start Date End Date Sary Leon NP [address] [place] [address] [address] PCP - General Nurse Practitioner 11/21/23
--- OUTSIDE RECORDS SUMMARY | 2025-02-21 01:00 | XMS_ITS | Clinical Summary ---
Author Organization [facility] Address [address] [facility] [place] [address] Care Team Providers Care Mold Sprayer Name Role Phone Hector Sylvester MD Primary Care Provider [phone] Source Comments [facility],non-owned Affiliates and Associated Physician Practices is amultiple site organization consisting of ambulatory clinics and hospital sitesin [place], [place], [place] and [place]. This disclosure is being madepursuant to the Care Everywhere program and may not contain all information available regarding this patient. Last updated 18.[facility] Allergies Active Allergy Reactions Criticality Noted Date [...] confidence in her neurologist and works at [employer] and lives in [place]. She denies being on Percocet currently and doesn't want to try steroids. Her drug screen is positive for opiates. 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 Gender Identity Not on file Sexual Orientation [...] patient's age to complete this topic Insurance [facility] [employer]ETNA [facility] Member Subscriber Plan / Payer (Ef fective 2015-Present) Name:Ely Olea Member ID:Not on file Relation to Subscriber:Spouse Name:Lefty Ely Date of :1961 (Home) [address]: [address] [place] [address] Payer ID:Not on file Type:PPO Address: [address] [place] [id number] [place] [address] Care Teams Mold Sprayer Relationship Specialty Start Date End Date Hector Sylvester MD [address] [place] [address] PCP - General Family Medicine 01/23/18
--- OUTSIDE RECORDS SUMMARY | 2025-02-21 01:00 | XMS_ITS | Clinical Summary ---
Author Organization [facility] Address [address] [place] [address] Phone Care Team Providers Care Electrical Contacts Adjuster Name Role Phone Jennifer Vaca MD Primary Care Provider [phone] Allergies Active Allergy Reactions Criticality Noted Date [...] of Treatment Not on file Care Teams Electrical Contacts Adjuster Relationship Specialty Start Date End Date Jennifer Vaca MD [address] [place] [address] PCP - General Family Medicine 09/25/15
--- OUTSIDE RECORDS SUMMARY | 2025-02-21 01:00 | XMS_ITS ---
Author Organization [facility] Address [address] [place] [address] Care Team Providers Care Certified Flight Instructor Name Role Phone Ashley Stringer Primary Care Provider [facility], SR Adult MATT Unavailabl e [phone] Madisyn Matamoros Unavailable [phone] REASON FOR VISIT Schedule error-mlr 3 Month [...] Female Encounters Encounter Location Date Provider Diagnosis [facility] [address] [place] [address] 12/02/2024 Madisyn Matamoros Plan Of Treatment Next Appt Details Provider Name:Ashley vaughan, 03/05/2025 10:40:00 AM, [address], [place], [address], Progress Notes * German OLEA:1965 (59 yo F)Acc No.[id number]:12/02/2024 UNLOCKED PROGRESS NOTE Patient: Monica MCCARTHY Provider: KAYLEIGH Davis :1965 A ge:59 Y S ex:Female Date:12/02/2024 Address:[address] [place], [place] [address] Pcp:Ashley Stringer Subjective: * Chief Complaints: * [...] * Electronic signature of Madisyn Matamoros , [id number] on 02/21/2025 at 01:00 AM CDT Sign off status: Pending * Provider: KAYLEIGH Davis Date: 12/02/2024 Generated for Carola cotton/Clark/Doris on: 02/21/2025 01:00 AM CDT
--- OUTSIDE RECORDS SUMMARY | 2025-02-21 01:00 | XMS_ITS | Referral Summary ---
Author Organization [facility] [place] [address] Address [address] [place] [address] Care Team Providers Care Frit Burner Name Role Phone Sary Leon NP Primary Care Provider + Encounters Date Type Department Care Team Description 02/10/2025 9:30 AM CDT Office Visit [facility] Medical [facility] Neurology [address] [phone] Ting Andre DO Intractable chronic migraine without aura and with status migrainosus (Primary Dx); Mood insomnia 01/28/2025 Orders Only [facility] Neurology [facility] at [address] [phone] Ting Andre DO Obstructive sleep apnea (Primary Dx); Cataplexy 01/27/2025 Telephone [facility] Neurology [address] [phone] Ting Andre DO Narcolepsy 12/12/2024 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 She denies being on Percocet currently and doesn't want to try steroids. Her drug screen is positive for opiates. Lisa Villatoro MD Patient insists that only Dilaudid helps her headaches. She has no confidence in her neurologist and works at [employer] and lives in [place]. 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 [place] [address] [place] [id number] PCP - General Nurse Practitioner 11/21/23
[2025-02-21] MEDS: dexAMETHasone SOD PHOS INJ 10 MG/ML 1 ML VIAL (01:38)
[2025-02-21] MEDS: KETOROLAC 15 MG/ML VIAL (*BKC) (01:38)
[2025-02-21] MEDS: diphenhydrAMINE HCl INJ 50 MG/ML VIAL (01:38)
[2025-02-21] MEDS: PROCHLORPERAZINE EDISYLATE 10 MG/2 ML VIAL (01:38)
[2025-02-21] MEDS: SODIUM CHLORIDE 0.9% IV 1,000 ML 999 ML (01:38)
[2025-02-21 02:52] LABS: BEDSIDEPREGUCG Negative (Negative)
[2025-02-21 04:00] VITALS: BP 147/79; PULSE 68; RESP 19; O2SAT 98
--- NOTE | 2025-02-21 12:00 | ED_ITS ---
HPI - Headache General Chief Complaint: Nausea/Vomiting/Diarrhea Stated Complaint: N/V- Cataplexy -headache, vomiting blood Time Seen by Provider: 02/21/25 00:57 History of Present Illness HPI Narrative: Pt is a 59-year-old female who presents to the ER with a migraine headache. She reports she has a history of cataplexy and migraines, for which she has been receiving Botox injections over the past 2-3 years. Pt reports today her migraine became so bad she started experiencing photophobia, increasing symptoms of her cataplexy, nausea and vomiting. She also endorses some spots of blood in her vomit. Pt reports she has a neurologist who follows her for her chronic conditions. She denies any recent fevers, neck stiffness, thunderclap headache, congestion, numbness/tingling, or cough. Related Data Home Medications Medication Instructions Recorded Confirmed Last Taken Type estradiol 2 mg tablet 2 mg PO DAILY 10/22/22 02/22/25 Unknown History metoprolol succinate 100 mg 100 mg PO DAILY 10/22/22 02/22/25 Unknown History tablet,extended release 24 hr progesterone micronized 100 mg 100 mg PO DAILY 10/22/22 02/22/25 Unknown History capsule quetiapine 300 mg tablet 300 mg PO DAILY 10/22/22 02/22/25 Unknown History rizatriptan 10 mg tablet 10 mg PO DAILY 10/22/22 02/22/25 Unknown History alprazolam 0.25 mg tablet 0.25 mg PO DAILY 05/17/23 02/22/25 Unknown History temazepam 30 mg capsule 30 mg PO QHS 05/17/23 02/22/25 Unknown History rcpwhevnnk-ijetbbbslzkzn-txxctvnq 1 tablet PO DAILY PRN pain 01/01/24 02/22/25 Unknown History 50 mg-325 mg-40 mg tablet fluoxetine 60 mg tablet 60 mg PO DAILY 01/01/24 02/22/25 Unknown History Allergies Allergy/AdvReac Type Severity Reaction Status Date / Time dihydroergotamine Allergy Intermediate Unknown Verified 02/22/25 14:40 codeine Allergy Mild gets red, Verified 02/22/25 14:40 hives, itchy latex Allergy Mild Unknown Verified 02/22/25 14:40 Sulfa (Sulfonamide Allergy Mild Unknown Verified 02/22/25 14:40 Antibiotics) chlorpromazine Allergy Unknown Dyspnea / Verified 02/22/25 14:40 SOB nickel Allergy Unknown Unknown Verified 02/22/25 14:40 prochlorperazine Allergy Unknown Unknown Verified 02/22/25 14:40 propranolol AdvReac Unknown chest Verified 02/22/25 14:40 tightness metoclopramide (From Reglan) AdvReac Dystonic Verified 02/22/25 14:40 reaction PMFSH Past Medical History Medical History Hyperlipidemia, unspecified Positive colorectal cancer screening using Cologuard test Sleep apnea IBS (irritable bowel syndrome) Pneumothorax Cataplexy Migraine Surgical History Surgical History History of cholecystectomy History of Family History Family History Father Acute myocardial infarction Sibling Patient's sister is in good health Patient's brother is in good health Patient's sister is Mother Family history of malignant neoplasm of breast in first degree relative Patient's mother is Social History Social History Smoking packs per day: 0.5 Smoking cigarettes per day: 10.0 Smoking status: Current every day smoker Alcohol intake: never Substance use: never Lack of Transportation: No Lack of Food: Never True Current Housing: I Have Housing Concerned About Future Housing: No Difficulty Paying Gas/Electric Bills: No Difficulty Paying for Meds: No Currently Unemployed: No Education: Trade/Vocational Certificate Difficulty w/ Childcare or Family Care: No Living arrangements: with family Gender identity (if verbalized by the patient): Female Sexual Orientation (if Verbalized by the Patient): Straight or Heterosexual Spiritual care concerns: No Exam 2 Narrative: GENERAL: Well appearing, well-nourished, non-toxic, in no acute distress. HEAD: Normocephalic, atraumatic NECK: Supple. No adenopathy, no masses. RESPIRATORY: Airway patent, respirations nonlabored. Clear to auscultation bilaterally, no rales, rhonchi, wheezing. CARDIOVASCULAR: Regular rate and rhythm without murmurs, rubs, or gallops. Peripheral pulses 2+ and equal bilaterally. ABDOMINAL: Soft, nontender, nondistended, no hepatosplenomegaly. Normoactive BS. MUSCULOSKELETAL: Moves all extremities. Strength/ROM intact without gross deformities. SKIN: Warm, dry, normal color. No rashes. NEURO: A&O X3. Speech clear but slow. Cranial nerves II-XII intact. PSYCHIATRIC: Flat affect. Normal interaction. Course Vital Signs Vital signs: Vital Signs Temperature 36.6 C 02/20/25 22:57 Pulse Rate 70 02/20/25 22:57 Respiratory Rate 16 02/20/25 22:57 Blood Pressure 178/83 H 02/20/25 22:57 Pulse Oximetry 96 02/20/25 22:57 Oxygen Delivery Room Air 02/20/25 22:57 Temperature 36.6 C 02/20/25 22:57 Pulse Rate 68 02/21/25 04:00 Respiratory Rate 19 02/21/25 04:00 Blood Pressure 147/79 H 02/21/25 04:00 Pulse Oximetry 98 02/21/25 04:00 Oxygen Delivery Room Air 02/20/25 22:57 MDM - Headache MDM Narrative Medical decision making narrative: Pt is a 59-year-old female who presents to the ER with a migraine headache. She reports she has a history of cataplexy and migraines, for which she has been receiving Botox injections over the past 2-3 years. Pt reports today her migraine became so bad she started experiencing photophobia, increasing symptoms of her cataplexy, nausea and vomiting. She also endorses some spots of blood in her vomit. Pt reports she has a neurologist who follows her for her chronic conditions. She denies any recent fevers, neck stiffness, thunderclap headache, congestion, numbness/tingling, or cough. Labs: CBC, CMP, UA Imaging: head CT scan Medications given: Benadryl IV, Compazine IV, Decadron IV, 1L NS IV bolus, Zofran IV Results: CT scan indicates No acute intracranial findings. Pt's hgb and hct are stable, which is reassuring regarding pt's report for vomiting blood prior to arrival.. Shared MDM/Plan: Pt verbalizes relief of symptoms following medication administration. She had no episodes of emesis during her ER visit. Results of CT scan shared with pt. She verbalizes understanding and is in agreement with plan for discharge. Pt should follow-up with her neurologist as soon as possible. She will not be discharged home with any new prescriptions. All questions answered. Vital signs stable at time of discharge. Strict return precautions advised. Differential Diagnosis Differential diagnosis: Likely migraine, tension headache and headache Lab Data Attestation: I reviewed the patient's lab results. 02/20/25 23:57 02/20/25 23:57 Labs: Lab Results 02/20/25 02/21/25 Range/Units 23:57 00:11 WBC 7.5 (4.5-10.0) K/mm3 RBC 4.39 (4.2-5.4) M/mm3 Hgb 13.1 (12.0-15.0) g/dL Hct 41.7 (37.0-47.0) % MCV 95.0 (80-100) fl MCH 29.8 (26-34) pg MCHC 31.4 L (32-36) g/dl RDW 13.5 (11.5-14.5) % Plt Count 176 D (150-375) k/mm3 MPV 11.5 H (7.4-10.4) fl Immature Gran % (Auto) 0.4 (0-0.5) % Neut % (Auto) 59.3 (45.5-73.1) % Lymph % (Auto) 29.4 (18.3-44.2) % Richardson % (Auto) 7.5 (2.6-8.5) % Eos % (Auto) 2.6 (0-4.4) % Baso % (Auto) 0.8 (0.2-1.2) % Lymph # (Auto) 2.19 (0.9-3.2) K/mm3 Richardson # (Auto) 0.6 (0.1-0.6) K/mm3 Eos # (Auto) 0.2 (0-0.3) K/mm3 Baso # (Auto) 0.1 (0.0-0.1) K/mm3 Abs Immat Gran (auto) 0.03 (0.00-0.031) K/mm3 Absolute Neuts (auto) 4.4 (1.3-6.7) K/mm3 Absolute Nucleated RBC 0.000 (0.0-0.012) K/mm3 Nucleated RBC % 0.0 (0.0-0.2) % Sodium 139 (137-145) mmol/L Potassium 3.4 (3.4-5.0) mmol/L Chloride 106 (98-107) mmol/L Carbon Dioxide 23 (22-30) mmol/L Anion Gap 10 (4-12) mmol/L BUN 15 (7-17) mg/dL Creatinine 0.71 (0.7-1.0) mg/dL Estim Creat Clear Calc 58 ml/min Estimated GFR > 60 (59 - ) Glucose 94 (65-110) mg/dL Calcium 8.9 (8.4-10.2) mg/dL Total Bilirubin 0.3 (0.2-1.3) mg/dL AST 22 (14-36) U/L ALT 16 (6-35) U/L Alkaline Phosphatase 77 (38-126) U/L Total Protein 8.0 (6.3-8.2) g/dL Albumin 4.4 (3.5-5.1) g/dL Lipase 181 (23-300) U/L Urine Color Yellow (Yellow) Urine Appearance Turbid H (Clear) Urine pH 6.5 (5.0-9.0) Ur Specific [place] 1.020 (1.001-1.035) Urine Protein Negative (Negative) mg/dL Urine Glucose (UA) Negative (Negative) mg/dL Urine Ketones Negative (Negative) mg/dL Ur Blood (Man) Negative (Negative) Urine Nitrate Negative (Negative) Urine Bilirubin Negative (Negative) Urine Urobilinogen 0.2 (<2.0) mg/dL Leukocyte Esterase Rfl Negative (Negative) LUIZ/UL Urine RBC 0-2 (0-2) /hpf Urine WBC 0-5 (0-3) /hpf Ur Squamous Epith Cells Occasional (Few) /hpf Urine Bacteria 1+ H /hpf Urine Casts 0-2 POC Urine HCG, Qual Negative (Negative) Imaging Data Attestation: I personally reviewed and interpreted this imaging study as follows: Radiologist's impression: CT scan indicates No acute intracranial findings. Discharge Plan Discharge Clinical Impression: Migraine, Cataplexy, Nausea & vomiting Patient Disposition: Home Condition: Improved Instructions: Antibiotic Form, Acute Nausea and Vomiting (ED) Additional Instructions: Please return to the ER with any worsening symptoms. Follow-up with your primary care provider and/or neurologist tomorrow. Please take all regularly scheduled medications as prescribed. Patient Language: French Prescriptions: No Action quetiapine 300 mg tablet 300 mg PO DAILY rizatriptan 10 mg tablet 10 mg PO DAILY metoprolol succinate 100 mg tablet extended release 24 hr 100 mg PO DAILY estradiol 2 mg tablet 2 mg PO DAILY progesterone micronized 100 mg capsule 100 mg PO DAILY ociniqipjz-iazssnwzaviio-xaqa 50-325-40 mg tablet 1 tablet PO DAILY PRN (Reason: pain) atorvastatin 10 mg tablet 10 mg PO QHS Qty: 90 0RF alprazolam 0.25 mg tablet 0.25 mg PO DAILY temazepam 30 mg capsule 30 mg PO QHS fluoxetine 60 mg tablet 60 mg PO DAILY tramadol 50 mg tablet 50 mg PO Q6H PRN (Reason: pain) Qty: 20 0RF Follow-up/Referrals: Sheng Kruger MD [Primary Care Provider] - Time of Disposition: 19:17
== END 2025-02-21 04:00 | disposition home or self-care (01) ==
PROVIDERS: Student in an Organized Health Care Education/Training Program; Emergency Provider Registered Nurse; PCP Family Medicine
DX: G43.909 Migraine, unspecified, not intractable, without status migrainosus (principal); G47.411 Narcolepsy with cataplexy; R11.2 Nausea with vomiting, unspecified; E78.5 Hyperlipidemia, unspecified; K58.9 Irritable bowel syndrome, unspecified; G47.30 Sleep apnea, unspecified; F17.210 Nicotine dependence, cigarettes, uncomplicated; Z90.49 Acquired absence of other specified parts of digestive tract
CPT/HCPCS: 36415; 70450; 80053; 81001; 81025; 83690; 85025; 96374; 96375; 99284; J0780; J1100; J1200; J1885; J7030

== ENCOUNTER 2025-02-22 14:11 | Emergency (ER) | payer OTHER, SELFPAY ==
[2025-02-22 14:15] VITALS: BP 154/80; PULSE 92; RESP 12; TEMP 37.1; O2SAT 98
--- NOTE | 2025-02-22 15:00 | ED.UPPEXIN ---
HPI - Extremity Injury (Upper) General Chief Complaint: Extremity Injury, Upper Stated Complaint: Right Shoulder/Arm Pain Source: patient, RN notes reviewed and old records reviewed Related Data Home Medications Medication Instructions Recorded Confirmed Last Taken Type estradiol 2 mg tablet 2 mg PO DAILY 10/22/22 02/22/25 Unknown History metoprolol succinate 100 mg 100 mg PO DAILY 10/22/22 02/22/25 Unknown History tablet,extended release 24 hr progesterone micronized 100 mg 100 mg PO DAILY 10/22/22 02/22/25 Unknown History capsule quetiapine 300 mg tablet 300 mg PO DAILY 10/22/22 02/22/25 Unknown History rizatriptan 10 mg tablet 10 mg PO DAILY 10/22/22 02/22/25 Unknown History alprazolam 0.25 mg tablet 0.25 mg PO DAILY 05/17/23 02/22/25 Unknown History temazepam 30 mg capsule 30 mg PO QHS 05/17/23 02/22/25 Unknown History ugdzghsjdy-werqtwrcjicvw-ikajumoy 1 tablet PO DAILY PRN pain 01/01/24 02/22/25 Unknown History 50 mg-325 mg-40 mg tablet fluoxetine 60 mg tablet 60 mg PO DAILY 01/01/24 02/22/25 Unknown History Allergies Allergy/AdvReac Type Severity Reaction Status Date / Time dihydroergotamine Allergy Intermediate Unknown Verified 02/22/25 14:40 codeine Allergy Mild gets red, Verified 02/22/25 14:40 hives, itchy latex Allergy Mild Unknown Verified 02/22/25 14:40 Sulfa (Sulfonamide Allergy Mild Unknown Verified 02/22/25 14:40 Antibiotics) chlorpromazine Allergy Unknown Dyspnea / Verified 02/22/25 14:40 SOB nickel Allergy Unknown Unknown Verified 02/22/25 14:40 prochlorperazine Allergy Unknown Unknown Verified 02/22/25 14:40 propranolol AdvReac Unknown chest Verified 02/22/25 14:40 tightness metoclopramide (From Reglan) AdvReac Dystonic Verified 02/22/25 14:40 reaction PMFSH Past Medical History Medical History Cataplexy Hyperlipidemia, unspecified IBS (irritable bowel syndrome) Migraine Pneumothorax Positive colorectal cancer screening using Cologuard test Sleep apnea Surgical History Surgical History History of History of cholecystectomy Family History Family History Father Acute myocardial infarction Sibling Patient's sister is in good health Patient's brother is in good health Patient's sister is Mother Family history of malignant neoplasm of breast in first degree relative Patient's mother is Social History Social History Smoking packs per day: 0.5 Smoking cigarettes per day: 10.0 Smoking status: Current every day smoker Alcohol intake: never Substance use: never Lack of Transportation: No Lack of Food: Never True Current Housing: I Have Housing Concerned About Future Housing: No Difficulty Paying Gas/Electric Bills: No Difficulty Paying for Meds: No Currently Unemployed: No Education: Trade/Vocational Certificate Difficulty w/ Childcare or Family Care: No Living arrangements: with family Gender identity (if verbalized by the patient): Female Sexual Orientation (if Verbalized by the Patient): Straight or Heterosexual Spiritual care concerns: No Discharge Plan Discharge Patient Language: Belarusian Prescriptions: No Action quetiapine 300 mg tablet 300 mg PO DAILY rizatriptan 10 mg tablet 10 mg PO DAILY metoprolol succinate 100 mg tablet extended release 24 hr 100 mg PO DAILY estradiol 2 mg tablet 2 mg PO DAILY progesterone micronized 100 mg capsule 100 mg PO DAILY ozndfrhlne-hqqcxxogkqnfr-yvqp 50-325-40 mg tablet 1 tablet PO DAILY PRN (Reason: pain) atorvastatin 10 mg tablet 10 mg PO QHS Qty: 90 0RF alprazolam 0.25 mg tablet 0.25 mg PO DAILY temazepam 30 mg capsule 30 mg PO QHS fluoxetine 60 mg tablet 60 mg PO DAILY tramadol 50 mg tablet 50 mg PO Q6H PRN (Reason: pain) Qty: 20 0RF Follow-up/Referrals: Sheng Kruger MD [Primary Care Provider] -
--- NOTE | 2025-02-22 15:20 | ED.GENADULT ---
HPI - General Adult General Chief complaint: Extremity Problem,Nontraumatic Stated complaint: Right Shoulder/Arm Pain Source: patient, RN notes reviewed and old records reviewed Related Data Home Medications Medication Instructions Recorded Confirmed Last Taken Type estradiol 2 mg tablet 2 mg PO DAILY 10/22/22 02/22/25 Unknown History metoprolol succinate 100 mg 100 mg PO DAILY 10/22/22 02/22/25 Unknown History tablet,extended release 24 hr progesterone micronized 100 mg 100 mg PO DAILY 10/22/22 02/22/25 Unknown History capsule quetiapine 300 mg tablet 300 mg PO DAILY 10/22/22 02/22/25 Unknown History rizatriptan 10 mg tablet 10 mg PO DAILY 10/22/22 02/22/25 Unknown History alprazolam 0.25 mg tablet 0.25 mg PO DAILY 05/17/23 02/22/25 Unknown History temazepam 30 mg capsule 30 mg PO QHS 05/17/23 02/22/25 Unknown History duxeaqjozg-pzpbcwgwtkilb-xmssknaw 1 tablet PO DAILY PRN pain 01/01/24 02/22/25 Unknown History 50 mg-325 mg-40 mg tablet fluoxetine 60 mg tablet 60 mg PO DAILY 01/01/24 02/22/25 Unknown History Allergies Allergy/AdvReac Type Severity Reaction Status Date / Time dihydroergotamine Allergy Intermediate Unknown Verified 02/22/25 14:40 codeine Allergy Mild gets red, Verified 02/22/25 14:40 hives, itchy latex Allergy Mild Unknown Verified 02/22/25 14:40 Sulfa (Sulfonamide Allergy Mild Unknown Verified 02/22/25 14:40 Antibiotics) chlorpromazine Allergy Unknown Dyspnea / Verified 02/22/25 14:40 SOB nickel Allergy Unknown Unknown Verified 02/22/25 14:40 prochlorperazine Allergy Unknown Unknown Verified 02/22/25 14:40 propranolol AdvReac Unknown chest Verified 02/22/25 14:40 tightness metoclopramide (From Reglan) AdvReac Dystonic Verified 02/22/25 14:40 reaction PMFSH Past Medical History Medical History Cataplexy Hyperlipidemia, unspecified IBS (irritable bowel syndrome) Migraine Pneumothorax Positive colorectal cancer screening using Cologuard test Sleep apnea Surgical History Surgical History History of History of cholecystectomy Family History Family History Father Acute myocardial infarction Sibling Patient's sister is in good health Patient's brother is in good health Patient's sister is Mother Family history of malignant neoplasm of breast in first degree relative Patient's mother is Social History Social History Smoking packs per day: 0.5 Smoking cigarettes per day: 10.0 Smoking status: Current every day smoker Alcohol intake: never Substance use: never Lack of Transportation: No Lack of Food: Never True Current Housing: I Have Housing Concerned About Future Housing: No Difficulty Paying Gas/Electric Bills: No Difficulty Paying for Meds: No Currently Unemployed: No Education: Trade/Vocational Certificate Difficulty w/ Childcare or Family Care: No Living arrangements: with family Gender identity (if verbalized by the patient): Female Sexual Orientation (if Verbalized by the Patient): Straight or Heterosexual Spiritual care concerns: No Course Course Level of Care: Express Care Visit Vital Signs Vital signs: Vital Signs Temperature 37.1 C 02/22/25 14:15 Pulse Rate 92 02/22/25 14:15 Respiratory Rate 02/22/25 14:15 Blood Pressure 154/80 H 02/22/25 14:15 Pulse Oximetry 98 02/22/25 14:15 Temperature 37.1 C 02/22/25 14:15 Pulse Rate 92 02/22/25 14:15 Respiratory Rate 12 02/22/25 14:15 Blood Pressure 154/80 H 02/22/25 14:15 Pulse Oximetry 98 02/22/25 14:15 Medical Decision Making Vital Signs Vital Signs: Vital Signs Temperature 37.1 C 02/22/25 14:15 Pulse Rate 92 02/22/25 14:15 Respiratory Rate 12 02/22/25 14:15 Blood Pressure 154/80 H 02/22/25 14:15 Pulse Oximetry 98 02/22/25 14:15 Temperature 37.1 C 02/22/25 14:15 Pulse Rate 92 02/22/25 14:15 Respiratory Rate 12 02/22/25 14:15 Blood Pressure 154/80 H 02/22/25 14:15 Pulse Oximetry 98 02/22/25 14:15 Discharge Plan Discharge Patient Language: Kinyarwanda Prescriptions: No Action quetiapine 300 mg tablet 300 mg PO DAILY rizatriptan 10 mg tablet 10 mg PO DAILY metoprolol succinate 100 mg tablet extended release 24 hr 100 mg PO DAILY estradiol 2 mg tablet 2 mg PO DAILY progesterone micronized 100 mg capsule 100 mg PO DAILY cypvjmyvao-qpwlgoymvtmgn-ghgd 50-325-40 mg tablet 1 tablet PO DAILY PRN (Reason: pain) atorvastatin 10 mg tablet 10 mg PO QHS Qty: 90 0RF alprazolam 0.25 mg tablet 0.25 mg PO DAILY temazepam 30 mg capsule 30 mg PO QHS fluoxetine 60 mg tablet 60 mg PO DAILY tramadol 50 mg tablet 50 mg PO Q6H PRN (Reason: pain) Qty: 20 0RF Follow-up/Referrals: Sheng Kruger MD [Primary Care Provider] -
--- NOTE | 2025-02-22 17:37 | ED.EXTPRO ---
HPI - Extremity Problem General Chief complaint: Extremity Problem,Nontraumatic Stated complaint: Right Shoulder/Arm Pain Time Seen by Provider: 02/22/25 14:26 Source: patient, RN notes reviewed and old records reviewed Mode of arrival: ambulatory Limitations: no limitations History of Present Illness HPI Narrative: 59 year old female presents to express care with complaints of right shoulder and arm pain since early Monday morning with no known injury. Patient reports that she is unaware of a fall or injury. Patient reports she has taken Tramadol and Ibuprofen and Tylenol and used ice to her shoulder and arm without decrease in her pain.Patient reports that her pain is severe to her right shoulder and arm. Patient reports that she has history of migraine headaches for which she receives Botox injection about every 3 months. Patient reports history of Cataplexy and reports that he does not recall any injury or fall that would of injured her arm. holding her right arm with the left states she can't move her right arm due to pain,will send to ED for further evaluation, patient wants to go to [facility] ED. Patient reports that she went to [place] ED Th night because of nausea and vomiting having some bloody emesis. Patient's speech slurred and she is very anxious but is alert and oriented X3. Patient reports that she follows with neurologist at [facility]. Complaint: extremity pain Onset (ago): day(s) (early monday morning.) Severity scale (1-10): 10 Quality: sharp and constant Exacerbating factors: other (movement) Related Data Home Medications Medication Instructions Recorded Confirmed Last Taken Type estradiol 2 mg tablet 2 mg PO DAILY 10/22/22 02/22/25 Unknown History metoprolol succinate 100 mg 100 mg PO DAILY 10/22/22 02/22/25 Unknown History tablet,extended release 24 hr progesterone micronized 100 mg 100 mg PO DAILY 10/22/22 02/22/25 Unknown History capsule quetiapine 300 mg tablet 300 mg PO DAILY 10/22/22 02/22/25 Unknown History rizatriptan 10 mg tablet 10 mg PO DAILY 10/22/22 02/22/25 Unknown History alprazolam 0.25 mg tablet 0.25 mg PO DAILY 05/17/23 02/22/25 Unknown History temazepam 30 mg capsule 30 mg PO QHS 05/17/23 02/22/25 Unknown History ysityyvwrl-oofxivwluyyia-qpltazdn 1 tablet PO DAILY PRN pain 01/01/24 02/22/25 Unknown History 50 mg-325 mg-40 mg tablet fluoxetine 60 mg tablet 60 mg PO DAILY 01/01/24 02/22/25 Unknown History Allergies Allergy/AdvReac Type Severity Reaction Status Date / Time dihydroergotamine Allergy Intermediate Unknown Verified 02/22/25 14:40 codeine Allergy Mild gets red, Verified 02/22/25 14:40 hives, itchy latex Allergy Mild Unknown Verified 02/22/25 14:40 Sulfa (Sulfonamide Allergy Mild Unknown Verified 02/22/25 14:40 Antibiotics) chlorpromazine Allergy Unknown Dyspnea / Verified 02/22/25 14:40 SOB nickel Allergy Unknown Unknown Verified 02/22/25 14:40 prochlorperazine Allergy Unknown Unknown Verified 02/22/25 14:40 propranolol AdvReac Unknown chest Verified 02/22/25 14:40 tightness metoclopramide (From Reglan) AdvReac Dystonic Verified 02/22/25 14:40 reaction Review of Systems Review of Systems: CONSTITUTIONAL: Denies fever, chills, or sweats. EYES: Denies visual changes, redness, or discharge. ENT: Denies rhinorrhea, congestion, sore throat, or otalgia. CARDIOVASCULAR: Denies chest pain, palpitations, or edema. RESPIRATORY: Denies cough or dyspnea. GASTROINTESTINAL: Denies abdominal pain, nausea, vomiting, or diarrhea. GENITOURINARY: Denies dysuria or hematuria. SKIN: Denies rash or itching. MUSCULOSKELETAL: Denies back pain, positive for right shoulder pain into upper arm and radiating pain down arm or myalgia. NEUROLOGIC: Denies present headache, numbness, or weakness. PSYCHIATRIC: Reports anxiety or depression. All systems reviewed & are unremarkable except as noted in HPI and below PMFSH Past Medical History Medical History Hyperlipidemia, unspecified Positive colorectal cancer screening using Cologuard test Sleep apnea IBS (irritable bowel syndrome) Pneumothorax Cataplexy Migraine Surgical History Surgical History History of cholecystectomy History of Family History Family History Father Acute myocardial infarction Sibling Patient's sister is in good health Patient's brother is in good health Patient's sister is Mother Family history of malignant neoplasm of breast in first degree relative Patient's mother is Social History Social History Smoking packs per day: 0.5 Smoking cigarettes per day: 10.0 Smoking status: Current every day smoker Alcohol intake: never Substance use: never Lack of Transportation: No Lack of Food: Never True Current Housing: I Have Housing Concerned About Future Housing: No Difficulty Paying Gas/Electric Bills: No Difficulty Paying for Meds: No Currently Unemployed: No Education: Trade/Vocational Certificate Difficulty w/ Childcare or Family Care: No Living arrangements: with family Gender identity (if verbalized by the patient): Female Sexual Orientation (if Verbalized by the Patient): Straight or Heterosexual Spiritual care concerns: No Comments At time of signature, agree with nursing past medical, surgical, social and family history. There is no relevant family history pertinent to the presenting complaint Exam Narrative: GENERAL:chronic ill-appearing, well-nourished, and in no acute distress. HEAD: Normocephalic, atraumatic. EYES: PERRLA and EOMI.poor dentition ENT: Nares clear, no rhinorrhea or epistaxis. Mucous membranes moist.TM's normal with good light reflex, throat pink with no lesions NECK: Supple. moves on own power CHEST: Clear to auscultation. No respiratory distress. SAO2 98% on room air HEART: Regular rate and rhythm. No murmur heard. Normal peripheral pulses. ABDOMEN: Soft, nontender, nondistended, normal active bowel sounds. EXTREMITIES: Normal range of motion. No edema. Patient reports severe pain to her righ sholeder into upper arm which then radiates down arm, strong pulses right arm, denies any known injury to her right arm, reports started 0500 early Monday morning. SKIN: Warm, dry, no rash. NEURO: No focal deficits. Alert and oriented x3. Course Course Emergency Course: Patient is aware of diagnosis, understands and agrees to treatment plan. Anticipatory guidance given. Patient agrees to follow-up as directed and is aware of reasons to seek care at the emergency department. Portions of this record may have been created with voice recognition software Level of Care: Express Care Visit Vital Signs Vital signs: Vital Signs Temperature 37.1 C 02/22/25 14:15 Pulse Rate 92 02/22/25 14:15 Respiratory Rate 12 02/22/25 14:15 Blood Pressure 154/80 H 02/22/25 14:15 Pulse Oximetry 98 02/22/25 14:15 Temperature 37.1 C 02/22/25 14:15 Pulse Rate 92 02/22/25 14:15 Respiratory Rate 12 02/22/25 14:15 Blood Pressure 154/80 H 02/22/25 14:15 Pulse Oximetry 98 02/22/25 14:15 Reviewed Transfer Transfered to: Other ([facility]) Transportation: Other (per privae car with spouse) Transfer rationale: Patient having severe pain to right arm and shoulder, no x-ray available at out clinic today and patient may require pain control which is not available in express care. Accepting physician: Sherly Transfer comments: per private car with spouse to ED at [facility] MDM - Extremity (Nontraumatic) MDM Narrative Medical decision making narrative: 1515 Report call to [facility] ED with VS, Condition update and past medical history reviewed with charge nurse Candy with Dr Dubois accepting physician. Differential Diagnosis Differential diagnosis: Likely other (right arm pain, right shoulder strain, injury right arm that patient does not recall) Medical Records Attestation: I reviewed the patient's medical records. Critical Care Time Critical Care Time Critical Care Time: No Discharge Plan Discharge Clinical Impression: Acute pain of right shoulder, Pain of right arm, Pain without known injury Patient Disposition: Acute Care Hospital Condition: Stable Patient Language: Kuwaiti Prescriptions: No Action quetiapine 300 mg tablet 300 mg PO DAILY rizatriptan 10 mg tablet 10 mg PO DAILY metoprolol succinate 100 mg tablet extended release 24 hr 100 mg PO DAILY estradiol 2 mg tablet 2 mg PO DAILY progesterone micronized 100 mg capsule 100 mg PO DAILY mgufedwruv-jujqseaoyrwpc-sfan 50-325-40 mg tablet 1 tablet PO DAILY PRN (Reason: pain) atorvastatin 10 mg tablet 10 mg PO QHS Qty: 90 0RF alprazolam 0.25 mg tablet 0.25 mg PO DAILY temazepam 30 mg capsule 30 mg PO QHS fluoxetine 60 mg tablet 60 mg PO DAILY tramadol 50 mg tablet 50 mg PO Q6H PRN (Reason: pain) Qty: 20 0RF Follow-up/Referrals: Sheng Kruger MD [Primary Care Provider] -
== END 2025-02-22 15:12 | disposition short-term general hospital (02) ==
PROVIDERS: Emergency Provider Registered Nurse; PCP Family Medicine
DX: M25.511 Pain in right shoulder (principal); M79.621 Pain in right upper arm; F17.210 Nicotine dependence, cigarettes, uncomplicated; E78.5 Hyperlipidemia, unspecified
CPT/HCPCS: 99212; G0463

== ENCOUNTER 2025-03-13 08:44 | Outpatient (CLI) | payer OTHER, SELFPAY ==
--- NOTE | ~2025-03-13 | MR_ITS ---
MRI of the right shoulder Technique: Axial proton-density fat-sat images, coronal proton density fat-sat and T2 fat-sat images, and sagittal T1-weighted and T2 fat-sat images were acquired. Clinical History: Pain Findings: There is mild AC joint degenerative change. Coracoclavicular, coracoacromial, and coracohum eral ligaments are probably intact. There is complete, full-thickness tear of the entire supraspinatus tendon. Fluid-filled gap measures approximately 4.0 x 3.5 cm in extent. Infraspinatus tendon is probably intact. Subscapularis tendon i s intact. Tendon of the long head of the biceps is intact. Possible focal tear at the anteroinferior labrum. There is probable degenerative attenuation of the s uperior labrum. Humeral head is somewhat high riding. There is extensive marrow edema with impaction deformity at the posterior superior aspect of the humeral head, compatible with acute Hill-Sachs impaction injury. Inferior glenohumeral ligament is intact. There is a small glenohumeral joint effusion with fluid pas sing through the rotator cuff defect into the subacromial/subdeltoid bursa. No definite muscle atroph y. There is mild edematous change of the supraspinatus muscle belly, nonspecific. There is moderate c hondromalacia the upper aspect of the glenoid. Impression: Large acute Hill-Sachs impaction deformity/fracture deformities of the humeral head, as detailed abov e. This suggests recent shoulder dislocation, versus possibly direct impaction injury. Complete, full-thickness tear of the entire supraspinatus tendon, as detailed above. Possible focal tear of the anteroinferior labrum, which could reflect banker lesion. Minimal edematous change of the supraspinatus muscle belly, which could be posttraumatic in nature. Mild degenerative changes AC joint and glenohumeral joint, as above. Reviewed, dictated and finalized at location . Impression: Large acute Hill-Sachs impaction deformity/fracture deformities of the humeral head, as detailed above. This suggests recent shoulder dislocation, versus poss ibly direct impaction injury. Complete, full-thickness tear of the entire supraspinatus tendon, as detailed a torrey. Possible focal tear of the anteroinferior labrum, which could reflect banker le sulaiman. Minimal edematous change of the supraspinatus muscle belly, which could be post traumatic in nature. Mild degenerative changes AC joint and glenohumeral joint, as above.
== END 2025-03-13 08:45 | disposition home or self-care (01) ==
LOC: GOSHIMG 08:45
PROVIDERS: PCP Family Medicine; Visit Provider Orthopaedic Surgery
DX: S42.291A Other displaced fracture of upper end of right humerus, initial encounter for closed fracture (principal); S46.811A Strain of other muscles, fascia and tendons at shoulder and upper arm level, right arm, initial encounter; X58.XXXA Exposure to other specified factors, initial encounter; M19.011 Primary osteoarthritis, right shoulder
CPT/HCPCS: 73221

== ENCOUNTER 2025-04-04 00:37 | Outpatient (CLI) | payer OTHER, SELFPAY ==
--- NOTE | 2025-04-04 12:50 | ECG_ITS ---
Test Date: 2025-04-04 13:13:00 Measurements Intervals [place] Rate: 76 P: 48 CO: 133 QRS: 57 QRSD: 90 T: 28 QT: 385 QTc: 434 Interpretive Statements SINUS RHYTHM MINIMAL Q WAVES- INFERIOR LEADS BASELINE ARTIFACT- I, II, III, AVR, AVL, AVF BORDERLINE ECG No previous ECG available for comparison Electronically Signed On 04-04-2025 13:24:22 CDT by Sabas Longo D.O.
[2025-04-04 13:48] LABS: CRP. < 0.5 mg/dL (<1.0)
[2025-04-04 14:50] LABS: MRSA (PCR) NOT DETECTED (NOT DETECTE)
== END 2025-04-04 00:38 | disposition home or self-care (01) ==
PROVIDERS: PCP Family Medicine; Visit Provider Orthopaedic Surgery
DX: Z01.818 Encounter for other preprocedural examination (principal); M25.511 Pain in right shoulder; S46.001A Unspecified injury of muscle(s) and tendon(s) of the rotator cuff of right shoulder, initial encounter; X58.XXXA Exposure to other specified factors, initial encounter
CPT/HCPCS: 36415; 86140; 87641; 93005

== ENCOUNTER 2025-04-10 01:22 | Day surgery (SDC) | payer OTHER, SELFPAY ==
[2025-04-04 12:18] VITALS: BP 155/83; PULSE 82; RESP 16; TEMP 36.8; O2SAT 98; BMI 24.6
--- NOTE | 2025-04-04 12:33 | PC.NURSE ---
Addendum entered by Ely Dunn RN 04/04/25 12:49: Per Dr Ang, pt is able to take ibuprofen as needed for pain in the preop setting, no need to hold. Pt aware JRRN Original Note: Report to the Outpatient Waiting Room, entrance under the green pavilion located off [facility], at time __06:00am on date __04/10/25 . Planned Procedure Time: ___07:30am .? Time changes happen often and if your time is changed the preop area will call you the afternoon before. - You and your visitor will be asked to self-screen and do not enter if you have any COVID symptoms. Please call surgeon if you need to reschedule. - A mask is optional within the hospital at this time. Patients may have clear liquids (water, carbonated beverages, clear teas, apple juice) until 3 hours prior to surgery with a maximum of 20 ounces. - No food from midnight until time of surgery and no smoking, or chewing tobacco (or any form of nicotine). No chewing gum, candy or mints. (04:30am) - Take only the following medications with a SIP of water on the morning of surgery: Alprazolam, Metoprolol, Sertraline, and Tylenol if needed DO NOT STOP ANY OF YOUR OTHER PRESCRIPTION MEDICATIONS PRIOR TO SURGERY EXCEPT THE FOLLOWING: Hold all vitamins and supplements for 3 days per anesthesiologist. Medications to discontinue per physician ____NSAIDS, MOTRIN, ALEVE all [address] Ang Date to take last dose__04/02/25 Please no make-up, nail turkish, hairspray, perfume, deodorant, or body powder the day of surgery.? No jewelry (including any body piercings) or valuables the day of surgery, leave them at home.? Please take a shower or bath the night before, or the morning of, surgery with an antibacterial soap.? Wear comfortable, loose fitting clothing.? HIBICLEANSE PREP - Jewelry must be removed prior to entering the operating room.? Rings and piercings that are not removed may be cut off. - The hospital will not accept responsibility for valuables.? - Please leave all valuables, including medications, at home the day of surgery. If you are going home after surgery, a licensed entry level truck driver must drive you home.? - NO public transportation without another adult if you receive anesthesia. - We recommend that an adult stay with you for 24 hours following discharge. - We also recommend that you do not drive, make important decision, drink alcoholic beverages, or take any drugs that were not prescribed by your health care provider for at least 24 hours after your discharge time. Follow any additional instructions given to you from your surgeon. Telephone instructions given to __Patient and asked if any additional questions and then verbalized understanding. Patient advised to call surgeon office or pre surgery nurse liaison [phone] if any additional questions.
[2025-04-10] VITALS (9 sets, daily range): BP systolic 86–164; BP diastolic 59–96; PULSE 57–81; RESP 9–19; TEMP 36.1–36.8; O2SAT 100; BMI 24.3
--- OUTSIDE RECORDS SUMMARY | 2025-04-10 01:25 | XMS_ITS | Clinical Summary ---
Author Organization [facility] Address [facility] [place] [address] Care Team Providers Care Food Handler Name Role Phone Kailee Kruger MD Primary Care Provider Allergies Active Allergy Reactions Criticality Noted Date [...] sprinkle capsule TK 1 T PO QD 09/21/20 19 Active QUEtiapine 200 MG tablet Take 200 mg by mouth daily. 01/27/20 18 Active fluoxetine 40 MG capsule 10/23/19 20 Active uhznxpe-hjxibdxm-f utalbital 50-325-40 MG Cap capsule Take 1 capsule by mouth. 10/25/19 20 Active ondansetron 4 MG tablet TAKE 1 TABLET BY MOUTH EVERY 8 HOURS NEEDED FOR NAUSEA 03/05/20 15 Active ALPRAZolam 0.25 MG tablet Hasn't taken any recently 10/23/19 20 Active frovatriptan 2.5 MG tablet Hasn't taken in months 07/15/20 19 Active rizatriptan 10 MG tablet TAKE 1 TABLET BY MOUTH ONCE NEEDED FOR MIGRAINE; MAY REPEAT IN 2 HOURS. DO NOT EXCEED 3 TABLETS IN 24 HOURS 02/07/20 15 Active temazepam 15 MG capsule Take 15 mg by mouth daily. 09/30/20 19 Active pantoprazole EC (PROTONIX) 40 MG tablet Take 1 tablet (40 mg total) by mouth daily. 14 tablet 11/28/19 20 Active naloxone (NARCAN) 4 MG/0.1ML nasal spray 1 spray by Nasal route as needed for Opioid reversal. may repeat every 2 to 3 minutes in alternating nostrils until medical assistance becomes available 1 each 02/23/20 25 026 Active ondansetron (ZOFRAN-ODT) 4 MG disintegrating tablet Take 1 tablet (4 mg total) by mouth every 8 (eight) hours as needed for Nausea. 20 tablet 03/07/20 25 Active HYDROcodone-acetam inophen (NORCO) 5-325 MG tabletIndications: Acute Pain < 3 Day Supply Take 1 tablet by mouth every 6 (six) hours as needed for Pain. Indications: Acute Pain < 3 Day Supply 10 tablet 04/04/20 25 Active aspirin-acetaminop hen-caffeine (EXCEDRIN MIGRAINE) 250-250-65 MG tablet take 1 tablet by oral route every day 06/20/20 16 025 Discontin ued(Formu marilin change) HYDROcodone-acetam inophen (NORCO) 5-325 MG tabletIndications: Acute Pain < 7 Day Supply Take 1 tablet by mouth every 6 (six) hours as needed for Pain. Indications: Acute Pain < 7 Day Supply 15 tablet 03/07/20 25 025 Discontin ued(Formu marilin change) Encounters Date Type Department Care Team Description 04/04/2025 6:29 PM CDT - 04/04/2025 7:33 PM CDT Emergency [facility] Emergency Room [address] [place] [address] Jeffry Linares MD Shoulder Pain Discharge Disposition: Home or Self Care (Routine Discharge) 04/04/2025 Travel 03/07/2025 3:32 PM CDT - 03/07/2025 7:26 PM CDT Emergency [facility] Emergency Room [address] [place] [id number] Nj Grier MD Shoulder Pain Discharge Disposition: Home or Self Care (Routine Discharge) 03/07/2025 Travel 02/22/2025 3:46 PM CDT - 02/22/2025 7:09 PM CDT Emergency [facility] Emergency Room [address] [place] [id number] Kalpana Dubois MD Shoulder Pain Discharge Disposition: Home or Self Care (Routine Discharge) 02/22/2025 Travel from Last 3 Months Family History Medical History Relation Comments Heart [...] Information Value Date Recorded Sex Assigned at Female 04/04/2025 7:31 PM CDT 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 Gender Identity Female 04/04/2025 7:31 PM CDT Sexual Orientation Straight 04/04/2025 7: 31 PM CDT Last Filed Vital Signs Vital Sign Reading Time Taken Comments Blood Pressure 130/96 04/04/2025 7:32 PM CDT Pulse 74 04/04/2025 7:32 PM CDT Temperature 36.7 C (98.1 F) 04/04/2025 7:32 PM CDT Respiratory Rate 18 04/04/2025 7:32 PM CDT Oxygen Saturation 100% 04/04/2025 7:32 PM CDT Inhaled Oxygen Concentration - - Weight 60.3 kg (133 lb) 04/04/2025 6:23 PM CDT Height 157.5 cm (5' 2) 04/04/2025 6:23 PM CDT Body Mass Index 24.33 04/04/2025 6:23 PM CDT Plan of Treatment Health Maintenance [...] (Age 30 to 64) Every 3 Years 12/18/2027 12/17/2024, 03/28/2022 Cervical Cancer Screening wi th HPV 12/18/2027 Meningococcal B Vaccine Aged Out No l onger eligible based on patient's age to complete this topic Meningococcal Vaccine Aged Out No galileo sabi eligible based on patient's age to complete this topic RSV Immunizations Under 20 Months Aged Out No longer eligible b ased on patient's age to complete this topic Procedures Procedure Name Priority Date/Time Associated Diagnosis Comments XR SHOULDER RT 3V STAT 04/04/2025 6:5 7 PM CDT XR SHOULDER RT 3V STAT 03/07/2025 6:1 2 PM CDT LIPASE STAT 03/07/2025 5:40 PM CDT COMPREHENSIVE METABOLIC PANEL STAT 03/07/2025 5:40 PM CDT CBC W/DIFF AUTOMATED STAT 03/07/2025 5:40 PM CDT ECG 12-LEAD STAT 03/07/2025 5:32 PM CDT XR SHOULDER RT 3V STAT 02/22/2025 6:1 4 PM CDT ORTHOPEDIC INJURY TREATMENT Routine 02/22/2025 5:25 PM CDT PROCEDURAL SEDATION Routine 02/22/2025 5 :22 PM CDT XR SHOULDER RT 3V STAT 02/22/2025 4:3 9 PM CDT from Last 3 Months Results * XR SHOULDER RT 3V (04/04/2025 6:57 PM CDT) Only the most recent of4 resultswithin the time period is included. Anatomical Region Laterality Modality Shoulder Radiographic Ainsley ging 04/04/2025 7:02 PM CDT Impressions 04/04/2025 7:08 PM CDT IMPRESSION: Stable exam with Hill-Sachs lesion of the humeral head. Referred By: Interpreted By: Ameya Shelton MD, 04/04/2025 7:02 PM Narrative 04/04/2025 7:[address] [place] [address] EXAMINATION: XR SHOULDER RT 3V HISTORY: Pain after fall DATE: 04/04/2025 6:38 PM COMPARISON: March 07, 2025 TECHNIQUE: AP internal rotation, AP external rotation and scapular Y views right shoulder. 3 images. FINDINGS: Stable Hill-Sachs deformity of the humeral head. No new/acute fracture identified. No dislocation. Mild AC joint degenerative change. Procedure Note Ameya Shelton MD - 04/04/2025 [place] [id number] [facility] [place] [address] EXAMINATION: XR SHOULDER RT 3V HISTORY: Pain after fall DATE: 04/04/2025 6:38 PM COMPARISON: March 07, 2025 TECHNIQUE: AP internal rotation, AP external rotation and scapular Y viewsright shoulder. 3 images. FINDINGS: Stable Hill-Sachs deformity of the humeral head. No new/acutefracture identified. No dislocation. Mild AC joint degenerativechange. IMPRESSION: Stable exam with Hill-Sachs lesion of the humeral head. Referred By: Interpreted By: Ameya Shelton MD, 04/04/2025 7:02 PM us Jeffry Linares MD GENERAL IMAGING Final Result * (ABNORMAL) COMPREHENSIVE METABOLIC PANEL (03/07/2025 5:40 PM CDT) GLUCOSE 84 70 - 99 MG/DL 03/07/2025 5:56 PM CDT [facility] BUN 17 7 - 18 MG/DL 03/07/2025 5:56 PM CDT [facility] CREATININE S/P/B 0.80 0.55 - 1.02 MG/DL 03/07/2025 5:56 PM CDT [facility] SODIUM S/P/B 141 136 - 145 MMOL/L 03/07/2025 5:56 PM CDT [facility] POTASSIUM S/P/B 3.5 3.5 - 5.1 MMOL/L 03/07/2025 5:56 PM CDT [facility] CHLORIDE S/P/B 105 100 - 108 MMOL/L 03/07/2025 5:56 PM CDT [facility] CO2 27.1 21 - 32 MMOL/L 03/07/2025 5:56 PM CDT [facility] CALCIUM S/P/B 8.7 8.5 - 10.1 MG/DL 03/07/2025 5:56 PM CDT [facility] BILIRUBIN TOTAL S/P/B 0.3 0.2 - 1.2 MG/DL 03/07/2025 5:56 PM CDT [facility] TOTAL PROTEIN S/P/B 7.3 6.4 - 8.2 G/DL 03/07/2025 5:56 PM CDT [facility] ALBUMIN S/P/B 3.8 3.4 - 5.0 G/DL 03/07/2025 5:56 PM CDT [facility] AST 14(L) 15 - 37 U/L 03/07/2025 5:56 PM CDT [facility] ALT 14 14 - 55 U/L 03/07/2025 5:56 PM CDT [facility] ALKALINE PHOSPHATASE S/P/B 94 50 - 136 U/L 03/07/2025 5:56 PM CDT [facility] ANION GAP 8.9 5 - 15 MMOL/L 03/07/2025 5:56 PM CDT [facility] BUN CREATININE RATIO 21.2 6 - 26 03/07/2025 5:56 PM T [facility] A/G RATIO 1.1 1.0 - 2.0 RATIO 03/07/2025 5:56 PM T [facility] GFR ESTIMATE 85(L) >90 ML/MIN/1.7 3 M2 03/07/2025 5:56 PM CDT [facility] Comment: NOTE: eGFR is not calculated for patients <18 years of age. This is an estimated GFR calculation using the new CKD EPI creatinine equation without race and so does not require a correction factor for race. This estimated GFR should not be used for calculating drug doses. 03/07/2025 5:40 PM CDT Nj Grier MD LABORATORY Final R esult [facility] [address] [place] [address], [place] [phone] * (ABNORMAL) CBC W/DIFF AUTOMATED (03/07/2025 5:40 PM CDT) WBC 8.08 4.4 - 11.0 x10'3/uL 03/07/2025 5:43 PM CDT [facility] RBC 4.25(L) 4.50 - 5.10 x10'6/uL 03/07/2025 5:43 PM CDT [facility] HGB 13.1 12.3 - 15.3 G/DL 03/07/2025 5:43 PM CDT [facility] HCT 39.1 35.9 - 44.6 % 03/07/2025 5:43 PM CDT [facility] MCV 92.0 80.0 - 96.0 FL 03/07/2025 5:43 PM CDT [facility] MCH 30.8 25.3 - 30.9 PG 03/07/2025 5:43 PM CDT [facility] MCHC 33.5 31.0 - 34.1 G/DL 03/07/2025 5:43 PM T [facility] RDW 14.2 12.4 - 15.1 % 03/07/2025 5:43 PM T [facility] PLT 166 151 - 353 x10'3/uL 03/07/2025 5:43 PM T [facility] MPV 11.0 9.6 - 12.0 FL 03/07/2025 5:43 PM T [facility] RBC MORPHOLOGY NORMAL 03/07/2025 5:43 PM T [facility] PLT MORPH. NORMAL 03/07/2025 5:43 PM T [facility] WBC MORPHOLOGY NORMAL 03/07/2025 5:43 PM CDT [facility] LYMPHOCYTES % 23.8 15.8 - 45.0 % 03/07/2025 5:43 PM CDT [facility] NEUTROPHILS % 68.0 42.1 - 71.9 % 03/07/2025 5:43 PM CDT [facility] MONOCYTES % 5.8 5.7 - 12.5 % 03/07/2025 5:43 PM CDT [facility] EOSINOPHILS 1.4 0.0 - 5.6 % 03/07/2025 5:43 PM CDT [facility] BASOPHILS 0.6 0.0 - 1.3 % 03/07/2025 5:43 PM CDT [facility] ABS. NEUTROPHILS 5.50 1.40 - 6.00 x10'3/uL 03/07/2025 5:43 PM CDT [facility] IMMATURE GRANS % 0.4 0.0 - 0.5 % 03/07/2025 5:43 PM CDT [facility] ABS. LYMPHOCYTES 1.92 0.80 - 4.70 x10'3/uL 03/07/2025 5:43 PM CDT [facility] 03/07/2025 5:40 PM CDT Nj Grier MD LABORATORY Final R esult [facility] [address] [place] [address], [place] [phone] * (ABNORMAL) LIPASE (03/07/2025 5:40 PM CDT) LIPASE 89(H) 16 - 77 UNITS/L 03/07/2025 5:56 PM CDT [facility] 03/07/2025 5:40 PM CDT Nj Grier MD LABORATORY Final R esult [facility] [address] [place] [address], [place] [phone] * ECG 12 lead (03/07/2025 5:32 PM CDT) 03/07/2025 5:32 PM CDT Narrative [facility] - 03/08/2025 4:[address] 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1965 Requested By: NJ GRIER Order Number: [id number] Reading : Shelton Velazquez Measurements Intervals Chrisman Rate: 71 P: 57 NV: 148 QRS: 60 QRSD: 87 T: 43 QT: 396 QTc: 432 Interpretive Statements SINUS RHYTHM Compared to ECG 02/21/2024 20:15:47 No significant changes us Nj Grier MD ECG ORDERABLES Final R esult [facility] * Orthopedic Injury (02/22/2025 5:25 PM CDT) Narrative Kalpana Dubois MD - 02/22/2025 5:25 PM CDT Kalpana Dubois MD 02/22/2025 6:49 PM Orthopedic Injury Date/Time: 02/22/2025 5:25 PM Performed by: Kalpana Dubois MD Authorized by: Kalpana Dubois MD Consent: Consent obtained: Written Injury: Injury location: Shoulder (dislocation) Shoulder injury location: R shoulder Hill-Sachs deformity: yes Pre-procedure details: Distal neurologic exam: Normal Distal perfusion: distal pulses strong Range of motion: reduced Sedation: Sedation type: Moderate sedation Procedure details: Manipulation performed: yes X-ray confirmed reduction: yes Immobilization: Sling Post-procedure details: Distal neurologic exam: Normal Distal perfusion: distal pulses strong Range of motion: improved Procedure completion: Tolerated well, no immediate complications us Kalpana Dubois MD PROCEDURE/MINOR SURGICAL O RDERABLES Final Result * Procedural Sedation (02/22/2025 5:22 PM CDT) Kalpana Lerma MD - 02/22/2025 5:22 PM CDT Kalpana Dubois MD 02/22/2025 6:49 PM Procedural Sedation Date/Time: 02/22/2025 5:22 PM Performed by: Kalpana Dubois MD Authorized by: Kalpana Dubois MD Consent: Consent obtained: Written Consent given by: Patient Risks discussed: Respiratory compromise necessitating ventilatory assistance and intubation, inadequate sedation and prolonged hypoxia resulting in organ damage Alternatives discussed: Analgesia without sedation, anxiolysis and regional anesthesia Indications: Procedure performed: Dislocation reduction Procedure necessitating sedation performed by: Physician performing sedation Pre-sedation assessment: NPO status caution: urgency dictates proceeding with non-ideal NPO status ASA classification ([place] Society of Anesthesiologists Classification Aug 04, 2018): Class 2-Pt with mild systemic disease Sedation Plan: Moderate (conscious sedation) Mouth openin or more finger widths Mallampati: II-soft palate, fauces, potion of uvula TM Distance: >3 FB Neck ROM: Normal Pre-sedation assessments completed and reviewed: airway patency, cardiovascular function, mental status and respiratory function History of difficult intubation: no Immediate pre-procedure details: Reassessment: Patient reassessed immediately prior to procedure Reviewed: vital signs Verified: bag valve mask available, emergency equipment available, intubation equipment available, IV patency confirmed, oxygen available and suction available Procedure details (see MAR for exact dosages): Preoxygenation: Room air Sedation: Ketamine and propofol Intra-procedure monitoring: Continuous capnometry, diagnostic cardiac sonographer, continuous pulse oximetry, frequent LOC assessments and frequent vital sign checks Total sedation time (minutes): 10 Post-Sedation Exam:: Recovery: Patient returned to pre-procedure baseline Post-sedation assessments completed and reviewed: airway patency, cardiovascular function, mental status and respiratory function Mental Status AVPU:: Alert Vitals: Vitals: vitals reviewed & stable Post-procedure details: Patient is stable for discharge or admission: yes Patient tolerance: Tolerated well, no immediate complications Sedation Complications: Sedation Complications:: no complications Kalpana Dubois MD PROCEDURE/MINOR SURGICAL O RDERABLES Final Result from Last 3 Months Additional Health Concerns Infection Onset Date Last Indicated MRSA 05/17/2017 05/17/[address] 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
--- OUTSIDE RECORDS SUMMARY | 2025-04-10 01:25 | XMS_ITS | Encounter Summary ---
Author Organization [facility] Address [facility] [place] [address] Care Team Providers Care City Comptroller Name Role Phone None, Provider Primary Care Provider Unavaila ble None, Provider Primary Care Provider Unavaila ble Kailee Kruger MD Primary Care Provider Encounter Details Date Type Department Care Team (Late st Contact Info) Description 03/16/2019 Abstract [facility] CONVERSION [address] [place] [address] , Generic Conversion, Social History Tobacco Use Types Packs/Day Years Used Date Smoking Tobacco: Never Assessed Comments Unknown Sex and Gender Information Value Date Recorded Sex Assigned at Female 04/04/2025 7:31 PM CDT 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 Gender Identity Female 04/04/2025 7:31 PM CDT Sexual Orientation Straight 04/04/2025 7: 31 PM CDT documented as of this encounter Plan of Treatment Not on file documented as of this encounter Visit Diagnoses Not on filedocumented in this encounter Additional Health Concerns Infection Onset Date Last Indicated Resolved Time MRSA 05/17/2017 05/17/2017 documented as of this encounter Care Teams City Comptroller Relationship Specialty Start Date End Date None, ProviderMD PCP - General 11/15/19 02/20/24 None, ProviderMD PCP - General UNKNOWN PHYSICIAN SPECIALTY 02/21/24 02/21/25 Kailee Kruger MD [address] [facility] [address] [place] [address] PCP - General FAMILY PRACTICE 02/22/25 documented as of this encounter
--- OUTSIDE RECORDS SUMMARY | 2025-04-10 01:25 | XMS_ITS | Clinical Summary ---
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.] Tablet 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 Active ondansetron (ZOFRAN) 4 mg Tablet Take [...] . 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
--- OUTSIDE RECORDS SUMMARY | 2025-04-10 01:26 | XMS_ITS | Data Portability ---
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 Lab noninvasiv e colorectal cancer DNA + occult blood screening, stool 2020 021 [facility] (Cologuard Orders Only), [address], [address], [place], [address], 2 06:51:14 lipid panel, serum 2018 019 [facility], [address] [facility], [address], [place], [address], 9 12:23:45 CMP, serum or plasma 2018 019 [facility], [address] [facility], [address], [place], [address], 9 12:23:45 TSH, ultra-sens itive, serum 2018 019 [facility], [address] [facility], [address], [place], [address], 9 12:23:29 Referral colonoscop y referral 2018 019 ivonne Cabrera MD, [address] [facility] [address], [address], [place], [address], 9 17:37:14 Procedures None recorded. Surgeries None recorded. Imaging MAMMO, screening, bilateral 2019 [facility], [address], [address], [place], [address], 1 14:06:55 US, duplex, abdomen, complete 2019 020 [facility] (Imaging), [address] [facility] [address], [place], [address], 0 13:25:27 MAMMO, screening, bilateral 2018 019 [facility], [address], [address], [place], [address], 9 17:45:13 Medication Orders metoprolol succinate ER 100 mg tablet,ext ended release 24 hr 2020 021 [id number], [address], [place], [place], [id number], 1 11:28:56 metoprolol succinate ER 100 mg tablet,ext ended release 24 hr 2018 019 [id number], [address], [place], [place], [id number], 9 12:23:36 Patient TargetsNo targets recorded. Patient Instructions Encounter Date Encounter Id Patient Instructions Last Modified By Organization Details Last Modified Time 02/06/2019 [id number] heart valve disease: care instructions [email or web address] Not available 02/06/2019 12:23:27 mitral valve prolapse: care instructions [email or web address] Not available 02/06/2019 12:23:28 mammogram: about this test [email or web address] Not available 02/06/2019 12:26:22 learning about high blood pressure Not available 02/06/2019 12:23:28 09/02/2020 [id number] mammogram: about this test [email or web address] Not available 09/02/2020 15:03:37 abdominal pain: care instructions [email or web address] Not available 09/02/2020 14:52:43 broken ankle: care instructions [email or web address] Not available 09/06/2020 00:30:11 03/17/2021 [id number] learning about high blood pressure [email or web address] Not available 03/17/2021 11:28:50 Reason for Referral Colonoscopy Referral for Scr eening colonoscopy Referring Physician: Jazzy Finch, Family Medicine, Encounter Date: 02/06/2019 Results Created Date Observation Date Name Description Value Unit Range Abnormal Flag Note LastModifiedBy Organization Detail LastModifiedTime 03/17/20 22 03/17/2022 COLOG UARD cologuard result Cancel led - Order d not applic able Not Available [email or web address] (Cologuard Orders Only) [address], [place], [address], 03/17/2022 06:51:14 02/25/20 21 02/24/2021 MAMMO , scree chapin, bilat eral No observ ation record ed. [email or web address] [facility] [address] [facility] [address], [place], [address], 03/22/2021 00:36:41 Result Notes None recorded. Problems Name Problem SNOMED Code Status Onset Date Resolution Date Notes Provider Name and Address Organization Details Recorded Time Hypertensive disorder 23731433 Active 2019 Daphney Ordonez RN null, [facility] 0 14:38:38 Problem Notes None recorded. Procedures Surgical History Date Name Laterality Status Provider Name and Address Organization Details Recorded Time delivery completed Aure Aguirre MA [facility] 02/06/2019 11:52:04 cholecystectomy completed Aure Aguirre MA [facility] 02/06/2019 11:52:14 procedure on ankle completed Wally Ordonez RN [facility] 09/02/2020 14:40:13 Imaging Results None recorded. Procedure Notes None recorded. Medical Equipment None Reported. Allergies Allergen ID Allergen Name Allergen Category Reaction Reaction Severity Criticality Documentation Date Start Date Code Code System Note Provider Name and Address Organization Details Recorded Time 034489 Substance with sulfonami de structure and antibacte rial mechanism of action (substanc e) medicatio n Not available Not available Not available 02/06/2019 02325 8003 SNOMED JOVITA Swain, [facility] 9 11:44:58 648992 Reglan medicatio n Not available Not available Not available 02/06/2019 9230 RxNorm JOVITA Swain, [facility] 9 11:45:10 441307 latex environme nt,medica tion Not available Not available Not available 02/06/2019 58640 91 RxNorm JOVITA Swain, [facility] 9 11:45:19 Medications Name Sig Start Date [...] Address Organization Details Last Updated DateTime 9 11475.6 6 g 157.48 cm 27.5 kg/m2 97 % 97 % 83 /min 98.2 [degF] 148 mm[Hg] 90 mm[Hg] Aure Aguirre MA [facility] 9 12:04:24 Date Recorded Body weight Oxygen saturation Oxygen saturation in Arterial blood by Pulse oximetry Heart rate Body temperature Systolic blood pressure Diastolic blood pressure Provider Name and Address Organization Details Last Updated DateTime 1 344234. 04 g 97 % 97 % 81 /min 97.2 [degF] 132 mm[Hg] 82 mm[Hg] Daphney Ordonez RN [facility] 1 11:10:23 Social History Question Answer Notes LastModified by Organizat ion Details LastModified Time Tobacco Smoking Status Current Every Day Smoker Aure Aguirre MA [facility], [facility] 02/06/2019 11:50:01 Do You Have An Advance [...] anxious, or unable to sleep at night)? [id number] Information not available 03/17/2021 Family History Relationship [...] Response Coronary Artery Disease N Other Y Atrial Fibrillation N High Blood Pressure N Thyroid Problems N Kidney or Bladder Problems N Depression Y COPD N Blood Clots N GI Problems N Skin Problems Y Anemia N Heart Attack (OK) N Diabetes N Anxiety Disorder Y Muscle, Joint, or Bone Problems N Seizures/Epilepsy N Acid Reflux (GERD) N Cancer N Stroke N Allergies Y Asthma N High Cholesterol N Hepatitis N Liver Disease N Headaches Y Osteoporosis N Heart Failure N Gynecological History Statement/Question Response Date of [...] dose or 50 mcg/0.25mL dose 12/18/2020 completed YASH Diaz, [facility] 03/17/2021 11:14:24 COVID-19, mRNA, LNP-S, PF, 100 mcg/0.5mL dose or 50 mcg/0.25mL dose 01/08/2021 completed Daphney Ordonez RN null, [facility] 03/17/2021 11:14:50 Past Encounters Encounter ID Performer Location Encounter Start Date Encounter Closed Date Diagnosis/Indication Diagnosis SNOMED-CT Code Diagnosis ICD10 Code Diagnosis Note [id number] Jazzy Finch MD [facility] [address] [place] [address] 02/06/2019 11:23:16 02/11/2019 09:14:41 Migraine 07616988 G43.909 sees neurologis t for cataplexy and narcolepsy ; takes botox for migraines- -Purnima Patel at [place]. Moderate r ecurrent major depression 18806209 F33.[address]; takes seroquel, viibryd, and prozac. Goes to [place].- -Ely Solorio Essential hypertension 56571847 I10 Patient advised to limit salt and caffeine intake to maintain good blood pressure. Will switch from nadolol to metoprolol . Hyperlipid emia screening 646287168 Z13.220 discussed low fat, low carb diet, and encouraged exercise. Mitral valve prolapse 40 5919709 I34.1 Lipoma of lateral chest wall 671901290 D17.1 2x3 cm soft tissue mass posterior and inferior to the right axilla. Looks and feels like a lipoma. Screening mammography 24 728416 Z12.31 Screening colonoscopy [address] Cabrera for colonoscop y in 2002 [id number] Jazzy Finch MD [facility] [address] [place] [address] 09/02/2020 14:33:38 09/07/2020 06:39:16 Abdominal pain 46279116 R10.9 GB is out. Crampy midline abdominal pain for 2 weeks, no NVADC, no gross melena or hematuria. no fever, but constant pain in the epigastriu m. Screening mammography 24 714410 Z12.31 Fracture of ankle 760634 01 S82.90XG broken ankle in 2 places--hua d to have plates and screws put in--Signat ure Orthopedic s. Doing better now and using walking boot for support. Moderate r ecurrent major depression 19981894 F33.[address]; takes seroquel, viibryd, and prozac. Goes to [place].- -Ely Solorio [id number] Jazzy Finch MD [facility] [address] [place] [address] 03/17/2021 10:55:13 03/23/2021 13:25:20 Essential hypertension 91567687 I10 Patient advised to limit salt and caffeine intake to maintain good blood pressure. Will continue metoprolol . Screening for malignant neoplasm of colon 135399401 Z12.11 Patient preferred to avoid a colonoscop y at this time; she is aware she will need a colonoscop y if the cologuard test shows blood. Moderate r ecurrent major depression 37248508 F33.1 continue current medication s. Health Concerns Section Related Observation LastModified by Organization Detai ls LastModified Time None Recorded Concern Status LastModified by Organization Details LastModified Time None Recorded Advance Directives Directive N: Payers Insurance Date Sequence Insurance Name Policy Number Policy Machado Covered Member ID Machado Member ID Guarantor Name 03/23/2021 1 [employer] [id number] Monica Joaquinymer [id number] Monica Joaquinymer 06/21/2021 1 [facility] m-spatial (PPO) [id number] Don T Olustee [id number] Monica Joaquinymer 02/18/2019 1 [facility] (PPO) [id number] Don T Lefty [id number] Monica Olea Notes Date Note Type Note [...] from medication Jazzy Finch MD Attn: Accounting,[address] [place] [address], [address], [facility] 02/10/2019 00:05:43 0 text/html Abdominal PainReported bypatient.Location:epigastr [...] in--[facility] Jazzy Finch MD Attn: Accounting,[address] [place] [address], [address], [facility] 09/06/2020 00:30:50 1 text/html Anxiety/DepressionReported bypatient.Quality:symptoms improved Severity:denies suicidal ideations; [...] daily. Jazzy Finch MD Attn: Accounting,[address] [place], [address], [facility] 03/22/2021 00:42:24 OBGyn Episode No OBEpisode recorded.
--- OUTSIDE RECORDS SUMMARY | 2025-04-10 01:26 | XMS_ITS | Patient Health Record ---
Author Organization [facility] Address [address] [place] [address] Care Team Providers Care Professor Of Literature Name Role Phone Ashley Stringer Primary Care Provider [phone] [place], Adult MATT Unavailabl e [phone] Saturnino, Madisyn Unavailable [phone] Allergies Allergen (clinical drug ingredient) Drug/Non Drug [...] Duration) Notes Start Date End Date Status SEROquel 300 MG 1 tablet at bedtime Orally Once a day; Duration: 30 days Active Sertraline HCl 100 MG 1 tablet Orally On ce a day; Duration: 30 days 04/16/2024 Active Temazepam 30 MG Oral; Duration: 30 Days Active ALPRAZolam 0.5 MG 1 tablet Orally Twic e a day; Duration: 30 days 03/05/2025 Active Metoprolol Succinate ER 100 MG Oral; Duration: 30 Days Acti ve ALPRAZolam 0.25 MG 1 tablet Orally once a day; Duration: 30 days 03/05/2025 Active Atorvastatin Calcium 10 MG 1 tablet Oral ly Once a day Active Social History Tobacco Use: Social History Observation Description Date Details (start date - stop date) Current Smoker NA - NA Sex Assigned At : Social History Observation Description Sex Assigned At Female Alcohol Screen (Audit-C) Question Answer Notes Did you have a drink containing alcohol in the p ast year? No Points 0 Interpretation Negative Tobacco Control (Standard) Question Answer Notes Tobacco use: Current smoker How often do you smoke cigarettes? Every day How many cigarettes a day do you smoke? 11-20 Problems Problem Type SNOMED Code ICD Code Onset Dates Problem Status W/U Status Risk Notes Problem Tobacco user (670324187) Nicotine dependence, unspecified, uncomplicated (F17.200) Active confirmed Problem Severe recurrent major depression without psychotic features (06760224) Major depressive disorder, recurrent severe without psychotic features (F33.2) Active confirmed Problem Tobacco dependency (F17.200) Active confirmed Problem Depression (F32.9) Active confirmed Problem Anxiety (36963742) Anxiety (F41.9) Active confirmed Encounters Encounter Location Date Provider Diagnosis [facility] [address] [place] [address] 04/16/2024 Ashley Stringer Major depressive disorder, recurrent severe without psychotic features F33.2 and Anxiety F41.[address] [place] [address] 06/14/2024 Ashley Stringer Major depressive disorder, recurrent severe without psychotic features F33.2 ; Anxiety F41.9 and Nicotine dependence, unspecified, uncomplicated F17.200 [facility] [place] [place] [address] 09/12/2024 Ashley Stringer Major depressive disorder, recurrent severe without psychotic features F33.2 ; Anxiety F41.9 and Nicotine dependence, unspecified, uncomplicated F17.[address] [place] [address] 12/06/2024 Ashley Stringer Major depressive disorder, recurrent severe without psychotic features F33.2 and Anxiety F41.9 [place] [address] [place] [address] 03/05/2025 Ashley Stringer Major depressive disorder, recurrent severe without psychotic features F33.2 and Anxiety F41.[address] [address] 02/07/2025 Ashley Stringer Anxiety F41.9 Assessments Encounter Date Diagnosis (ICD Code) Assessment Notes Treatment Notes Treatment Clinical Notes Section Notes 04/16/2024 Major depressive disorder, 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-10 - F33.2) Continue current medications. Continue services as scheduled. Labs completed recently. May self-administer medications or be administered own oral medications per [facility] protocols. Provided informed consent with understanding of [...] or be administered own oral medications per [facility] protocols. Provided informed consent with understanding of side effects, adverse effects, risks and benefits as well as alternative treatments as previously discussed and with the above recommended medications & other aspects of the treatment program. Agrees to return sooner if symptoms worsen or suicidal or homicidal ideations occur. 09/12/2024 Major depressive disorder, 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-10 - F33.2) Continue current medications. Reviewed Prescription Monitoring program. Continue services as scheduled. Labs completed recently. May self-administer medications or be administered own oral medications per [facility] protocols. Provided informed consent with understanding of side effects, adverse effects, risks and benefits as well as alternative treatments as previously discussed and with the above recommended medications & other aspects of the treatment program. Agrees to return sooner if symptoms worsen or suicidal or homicidal ideations occur. 12/06/2024 Major depressive disorder, 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-10 - F33.2) 02/07/2025 Anxiety (ICD-10 - F41.9) 03/05/2025 Major depressive disorder, 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-10 - F33.2) Continue current medications. Reviewed Prescription Monitoring program. Continue services as scheduled. Labs completed recently. May self-administer medications or be administered own oral medications per [facility] protocols. Provided informed consent with understanding of side effects, adverse effects, risks and benefits as well as alternative treatments as previously discussed and with the above recommended medications & other aspects of the treatment program. Agrees to return sooner if symptoms worsen or suicidal or homicidal ideations occur. 03/05/2025 Anxiety (ICD-10 - F41.9) 12/06/2024 Anxiety (ICD-10 - F41.9) 09/12/2024 Anxiety (ICD-10 - F41.9) 06/14/2024 Anxiety (ICD-10 - F41.9) 04/16/2024 Anxiety (ICD-10 - F41.9) 06/14/2024 Nicotine dependence, unspecified, uncomplicated (ICD-10 - F17.200) 09/12/2024 Nicotine dependence, unspecified, uncomplicated (ICD-10 - F17.200) 12/06/2024 Other Continue curren t medications. Reviewed Prescription Monitoring program. Continue services as scheduled. Labs completed recently. May self-administer medications or be administered own oral medications per [facility] protocols. Provided informed consent with understanding of [...] Panel* 03/25/2016 TSH reflex to T4F 03/25/2016 Insurance Providers Payer Name Payer Address Payer Phone Subscriber Number Group Number Insured Name Patient Relationship to Insured Coverage Start Date Coverage End Date [facility] [address] [address] [place] [address] [id number] Monica Olea Self - patient is the insured 3 3 [employer] [employer] [facility] [address] [place] [address] [phone] [id number] [phone] Monica Olea Self - patient is the insured 6 1 [facility] [address] [address] [place] [address] [id number] Monica Olea Self - patient is the insured 1 1 JAIME [address] [place] [address] [id number] Monica Olea Self - patient is the insured 1 2 Medical (General) History Medical History History ICD Code Migraines MVP Depression Panic Attacks cataplexy high cholesterol HTN Rotator cuff tear Surgical History Surgery Date(Month/Year) 1994 cholyecystectomy 2002 Hospitalization History Reason Date(Month/Year) [facility] (I&D) 10/2015
--- OUTSIDE RECORDS SUMMARY | 2025-04-10 01:26 | XMS_ITS ---
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 Name Role Phone Myke Ashley Primary Care Provider [facility], [facility] Adult MATT Unavailabl e [phone] Madisyn Matamoros Unavailable [phone] REASON FOR VISIT Schedule error-mlr 3 Month [...] Female Encounters Encounter Location Date Provider Diagnosis [facility] [address] [place] [address] 12/02/2024 Madisyn Matamoros Plan Of Treatment No Information Progress Notes * Monica OLEADOB:1965 (59 yo F)Acc No.[id number]:12/02/2024 UNLOCKED PROGRESS NOTE Patient: Monica MCCARTHY Provider: KAYLEIGH Davis :1965 A ge:59 Y S ex:Female Date:12/02/2024 Address:[address] [place], [place] [phone] Pcp:Ashley Stringer Subjective: * Chief Complaints: * [...] * Electronic signature of Madisyn Matamoros , [id number] on 04/10/2025 at 01:25 AM CDT Sign off status: Pending * Provider: KAYLEIGH Davis Date: 12/02/2024 Generated for Carola cotton/Clark/Doris on: 04/10/2025 01:25 AM CDT
--- OUTSIDE RECORDS SUMMARY | 2025-04-10 01:26 | XMS_ITS | Clinical Summary ---
Author Organization [facility] Address [address] [place] [address] Phone Care Team Providers Care Brick Maker Name Role Phone Jennifer Vaca MD Primary Care Provider [phone] Allergies Active Allergy Reactions Criticality Noted Date [...] 4:49 PM CDT Height 157.5 cm (5' 2) 01/24/2016 4:49 PM CDT Body Mass Index 27.44 01/24/2016 4:49 PM CDT Plan of Treatment Not on file Care Teams Brick Maker Relationship Specialty Start Date End Date Jennifer Vaca MD [address] [place] [address] PCP - General Family Medicine 09/25/15
[2025-04-10] MEDS: LACTATED RINGERS 1,000 ML 30 ML IV CONT ×2 (06:40→08:42)
--- NOTE | 2025-04-10 06:57 | P.PNAN_ITS ---
Anes - Initial Pre Proc Eval Procedure: Operation Date: 04/10/25 07:30 Proposed Procedures p Right Shoulder Arthroscopy with Rotator Cuff Repair - Willie Ang MD Date/Time: 04/10/25 06:57 Surgeon: Willie Ang MD Pre Op Diagnosis: Right Shoulder Pain Patient Data Age: 59 Gender: F Height: 1.57 m Weight: 60.2 kg Last Vital Signs Temp 36.8 C 04/04/25 12:18 Pulse 82 04/04/25 12:18 Resp 16 04/04/25 12:18 BP 155/83 H 04/04/25 12:18 Pulse Ox 98 04/04/25 12:18 O2 Del Method Room Air 04/04/25 12:18 Allergies Allergy/AdvReac Type Severity Reaction Status Date / Time dihydroergotamine Allergy Intermediate Unknown Verified 04/04/25 12:14 codeine Allergy Mild gets red, Verified 04/04/25 12:14 hives, itchy latex Allergy Mild Unknown Verified 04/04/25 12:14 Sulfa (Sulfonamide Allergy Mild Unknown Verified 04/04/25 12:14 Antibiotics) chlorpromazine Allergy Unknown Dyspnea / Verified 04/04/25 12:14 SOB nickel Allergy Unknown Unknown Verified 04/04/25 12:14 prochlorperazine Allergy Unknown Unknown Verified 04/04/25 12:14 propranolol AdvReac Unknown chest Verified 04/04/25 12:14 tightness metoclopramide (From Reglan) AdvReac Dystonic Verified 04/04/25 12:14 reaction Home Medications ?Medication ?Instructions ?Recorded ?Confirmed ?Type estradiol 2 mg tablet 2 mg PO DAILY 10/22/22 04/10/25 History metoprolol succinate 100 mg 100 mg PO DAILY 10/22/22 04/10/25 History tablet,extended release 24 hr progesterone micronized 100 mg 100 mg PO DAILY 10/22/22 04/04/25 History capsule quetiapine 300 mg tablet 300 mg PO DAILY 10/22/22 04/10/25 History rizatriptan 10 mg tablet 10 mg PO DAILY 10/22/22 04/10/25 History alprazolam 0.25 mg tablet 0.25 mg PO DAILY 05/17/23 04/10/25 History temazepam 30 mg capsule 30 mg PO QHS 05/17/23 04/10/25 History qlmstufrrq-kektjipocnrft-qudrtfuz 1 tablet PO DAILY PRN pain 01/01/24 04/04/25 History 50 mg-325 mg-40 mg tablet atorvastatin 10 mg tablet 10 mg PO QHS #90 tabs 02/29/24 04/10/25 Rx sertraline 100 mg tablet 100 mg PO DAILY 04/03/25 04/10/25 History tramadol 50 mg tablet 50 mg PO Q8H PRN pain #15 tabs 04/07/25 Rx Patient hx anesthesia problems: none Family hx anesthesia problems: none Results Review: All pre-operative results and documents have been reviewed as part of the pre- operative evaluation. 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, b/l hands and RLE History of ankle surgery (~2014) ORIF right ankle fracture History of chest tube placement (~08/2021) right pneumothorax History of cholecystectomy (~2002) History of (~1993) Family History Family History Father Acute myocardial infarction Sibling Patient's sister is in good health Patient's brother is in good health Patient's sister is Mother Family history of malignant neoplasm of breast in first degree relative Patient's mother is Social History Social History Smoking packs per day: 0.5 Smoking cigarettes per day: 10.0 Years smoked: 41 Smoking pack-years: 20.50 Smoking status: Current every day smoker Tobacco type: cigarettes Alcohol intake: never Substance use: never Lack of Transportation: No Lack of Food: Never True Current Housing: I Have Housing Concerned About Future Housing: No Difficulty Paying Gas/Electric Bills: No Difficulty Paying for Meds: No Currently Unemployed: No Education: Trade/Vocational Certificate Difficulty w/ Childcare or Family Care: No Living arrangements: with family Additional living arrangements comments: Gender identity (if verbalized by the patient): Female Sexual Orientation (if Verbalized by the Patient): Straight or Heterosexual Spiritual care concerns: No Anes - Eval Final PreProcedure Day of Procedure 04/10/25 06:57 Patient weight: normal Heart: regular rate and rhythm Lungs: decreased breath sounds Airway: Mallampati scale class II Neurological: alert and oriented Last oral intake: >/= 8 hours ASA classification: III Emergent: no Anesthetic plan: proceed Anesthesia type and monitoring: general ETT and standard monitoring Results Review: All pre-operative results and documents have been reviewed as part of the pre- operative evaluation. Informed Consent: The patient's anesthetic plan and its attendant risks and benefits were discussed with the patient/family/POA. Questions were solicited and answers provided to the satisfaction of the patient/family/POA.
[2025-04-10] MEDS: ACETAMINOPHEN 500 MG TABLET 1000 MG PO (07:03)
[2025-04-10] MEDS: KETOROLAC 15 MG/ML VIAL (*BKC) IV PUSH (07:05)
[2025-04-10] MEDS: VANCOMYCIN 1,000 MG/NS 250 ML 1,000 MG/250 ML BAG 250 MG IVPB (07:06)
--- NOTE | 2025-04-10 07:19 | PM.IMHP ---
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, b/l hands and RLE History of ankle surgery (~2014) ORIF right ankle fracture History of chest tube placement (~08/2021) right pneumothorax History of cholecystectomy (~2002) History of (~1993) Family History Family History Father Acute myocardial infarction Sibling Patient's sister is in good health Patient's brother is in good health Patient's sister is Mother Family history of malignant neoplasm of breast in first degree relative Patient's mother is Social History Social History Smoking packs per day: 0.5 Smoking cigarettes per day: 10.0 Years smoked: 41 Smoking pack-years: 20.50 Smoking status: Current every day smoker Tobacco type: cigarettes Alcohol intake: never Substance use: never Lack of Transportation: No Lack of Food: Never True Current Housing: I Have Housing Concerned About Future Housing: No Difficulty Paying Gas/Electric Bills: No Difficulty Paying for Meds: No Currently Unemployed: No Education: Trade/Vocational Certificate Difficulty w/ Childcare or Family Care: No Living arrangements: with family Additional living arrangements comments: Gender identity (if verbalized by the patient): Female Sexual Orientation (if Verbalized by the Patient): Straight or Heterosexual Spiritual care concerns: No Meds Home Medications and Allergies Home Medications ?Medication ?Instructions ?Recorded ?Confirmed ?Type estradiol 2 mg tablet 2 mg PO DAILY 10/22/22 04/10/25 History metoprolol succinate 100 mg 100 mg PO DAILY 10/22/22 04/10/25 History tablet,extended release 24 hr progesterone micronized 100 mg 100 mg PO DAILY 10/22/22 04/04/25 History capsule quetiapine 300 mg tablet 300 mg PO DAILY 10/22/22 04/10/25 History rizatriptan 10 mg tablet 10 mg PO DAILY 10/22/22 04/10/25 History alprazolam 0.25 mg tablet 0.25 mg PO DAILY 05/17/23 04/10/25 History temazepam 30 mg capsule 30 mg PO QHS 05/17/23 04/10/25 History gflptdvevm-xdaklblubjwxx-tekdajbe 1 tablet PO DAILY PRN pain 01/01/24 04/04/25 History 50 mg-325 mg-40 mg tablet atorvastatin 10 mg tablet 10 mg PO QHS #90 tabs 02/29/24 04/10/25 Rx sertraline 100 mg tablet 100 mg PO DAILY 04/03/25 04/10/25 History tramadol 50 mg tablet 50 mg PO Q8H PRN pain #15 tabs 04/07/25 Rx Allergies Allergy/AdvReac Type Severity Reaction Status Date / Time dihydroergotamine Allergy Intermediate Unknown Verified 04/04/25 12:14 codeine Allergy Mild gets red, Verified 04/04/25 12:14 hives, itchy latex Allergy Mild Unknown Verified 04/04/25 12:14 Sulfa (Sulfonamide Allergy Mild Unknown Verified 04/04/25 12:14 Antibiotics) chlorpromazine Allergy Unknown Dyspnea / Verified 04/04/25 12:14 SOB nickel Allergy Unknown Unknown Verified 04/04/25 12:14 prochlorperazine Allergy Unknown Unknown Verified 04/04/25 12:14 propranolol AdvReac Unknown chest Verified 04/04/25 12:14 tightness metoclopramide (From Reglan) AdvReac Dystonic Verified 04/04/25 12:14 reaction Vital Signs Vital Signs - 24 hr 04/10/25 06:05 Temperature 36.8 C Pulse Rate 77 Respiratory Rate 18 Blood Pressure 138/77 Pulse Oximetry 100 Oxygen Delivery Room Air Exam Narrative: Right Shoulder with 4/5 ER strength, rom with 80 deg abduction and 70 deg flexion. - negative abdominal compression testing - no ac joint tenderness Assessment and Plan Assessment and plan (1) Right rotator cuff tear: Code(s): M75.101 - Unspecified rotator cuff tear or rupture of right shoulder, not specified as traumatic Status: Acute Plan 59 yr old female with Full Thickness Right Shoulder Rotator Cuff Tear - plan Arthroscopic Rotator Cuff Repair -risks benefits alternatives complications discussed patient include but are limited to infection nerve vessel injury and she agree to proceed
--- NOTE | 2025-04-10 07:25 | WPDHPUPDATE1 ---
History and Physical Update Update Date/Time: 04/10/25 07:25 History and Physical has been reviewed, including an updated exam of the patient. There are NO changes in the patient's condition. Risks, benefits, and alternatives have been discussed and questions answered. Patient agrees to proceed with procedure. 59 yr old female with Full Thickness Right Shoulder Rotator Cuff Tear - plan Arthroscopic Rotator Cuff Repair -risks benefits alternatives complications discussed patient include but are limited to infection nerve vessel injury and she agree to proceed
[2025-04-10] MEDS: ceFAZolin 2 GM/D5W 50 ML 2 GM/50 ML BAG IVPB (07:30)
[2025-04-10] MEDS: LIDO 1%/EPINEPHRINE 1:100,000 20 ML VIAL 30 ML INFILTRATE (08:13)
--- NOTE | 2025-04-10 08:56 | P.OP_ITS ---
Procedure Note - Detailed Date of Procedure 04/10/25 Pre-op Diagnosis Right Shoulder Pain with Rotator Cuff Tear Post-op Diagnosis Other (Right Shoulder Non-repairable Rotator Cuff Tear, Biceps Tendonitis, Subacromial Burstitis) Procedure Performed 1. Right Shoulder Biceps Tenotomy 2. Right Shoulder Extensive debridement of subacromial space with complete bursectomy Surgeon Willie Ang MD Anesthesia General Indications The patient is a 59-year-old female presented to my office after a right shoulder dislocation patient has a significant and the wound history of cataplexy with multiple falls in the past and multiple fractures. Patient stated that prior to her dislocation she did not have any significant right shoulder pain. She also had normal use of the shoulder prior to her fall. Ultrasound evaluation the patient has right shoulder showed a retracted full- thickness rotator cuff tear. Findings Massive right shoulder rotator cuff tear with retraction to beyond the glenoid as well as significant biceps tendinitis and subacromial bursitis Description of Procedure After obtaining consent and marking the correct shoulder which is the right shoulder the patient was then brought to the operating room placed in the supine position which time she underwent general anesthesia. She was then placed in a modified beach chair position. Right shoulder was then prepped and draped in standard sterile fashion. Time-out was performed in order to verify correct patient correct side surgery and correct surgery as well as 2 g of Ancef being administered within 1 hour of the procedure. Standard 3 arthroscopic portals were made of her center into the glenohumeral joint space at which time identified a very large rotator cuff tear that was retracted to beyond the level of the glenoid supraspinatus and infraspinatus. The biceps tendon was subluxating secondary to partial tear of the subscapularis. I then elected to perform a biceps tenotomy using a arthroscopic scissors. This was thoroughly debrided. I then entered into the subacromial space and the noted exuberant subacromial bursitis I then performed a complete bursectomy with an arthroscopic shaver an extensive debridement of the suba cromial space. Extensive debridement was performed over the top of the retracted rotator cuff as well as over the inferior aspect of the rotator cuff tendon in order to attempt to mobilize the tendon. I was barely able to get the tendon to lower the glenohumeral joint. I did extensive debridement anteriorly as well as posteriorly there was significant scar tissue which I released and even despite doing this the rotator cuff tendon was not mobile enough to do even a partial repair. at this point that it was determined that this was a non repairable rotator cuff tear. The right shoulder joint was then completed who was then irrigated copiously and injected 80 mg of lidocaine into the right shoulder. Then closed the arthroscopic portal sites using Monocryl suture and Steri-Strips. The patient was then transferred to the recovery room in stable condition. Estimated Blood Loss 20 Drains No Packing No Pathology None sent Complications None Condition Stable Disposition PACU
[2025-04-10] MEDS: fentaNYL CITRATE INJ (*CRX) 100 MCG/2 ML VIAL 25 MCG IV PUSH ×6 (09:12→09:35)
== END 2025-04-10 10:40 | disposition home or self-care (01) ==
PROVIDERS: PCP Family Medicine; Visit Provider Orthopaedic Surgery
PROC: (CPT 29805; principal; 2025-04-10 07:30)
DX: M75.101 Unspecified rotator cuff tear or rupture of right shoulder, not specified as traumatic (principal); M75.21 Bicipital tendinitis, right shoulder; M75.51 Bursitis of right shoulder; F17.210 Nicotine dependence, cigarettes, uncomplicated
CPT/HCPCS: 29823; A9270; J0690; J1100; J1885; J2004; J2250; J2371; J2405; J2704; J3010; J3301; J3370; J7120

== ENCOUNTER 2025-05-21 02:45 | Day surgery (SDC) | payer OTHER, MEDICARE, SELFPAY ==
--- NOTE | 2025-05-16 16:48 | PC.NURSE ---
Report to the Outpatient Waiting Room, entrance under the green pavilion located off [facility], at time on date . Planned Procedure Time: .? Time changes happen often and if your time is changed the preop area will call you the afternoon before. - You and your visitor will be asked to self-screen and do not enter if you have any COVID symptoms. Please call surgeon if you need to reschedule. - A mask is optional within the hospital at this time. Patients may have clear liquids (water, carbonated beverages, clear teas, apple juice) until 3 hours prior to surgery with a maximum of 20 ounces. - No food from midnight until time of surgery and no smoking, or chewing tobacco (or any form of nicotine). No chewing gum, candy or mints. - Infants may have breast milk until 4 hours before surgery, infant formula 6 hours prior to surgery. - Children will be allowed to drink immediately following surgery.? If applicable, please bring a bottle or sippy cup to assist with drinking. Juice, water, soda, and popsicles are readily available.? For infants on formula, please bring formula the day of surgery.? Pacifiers are allowed. Take only the following medications with a SIP of water on the morning of surgery: none DO NOT STOP ANY OF YOUR OTHER PRESCRIPTION MEDICATIONS PRIOR TO SURGERY EXCEPT THE FOLLOWING Hold all vitamins and supplements for 3 days per anesthesiologist. Medications to discontinue per physician n/a Date to take last dose n/a Please no make-up, nail turkmen, hairspray, perfume, deodorant, or body powder the day of surgery.? No jewelry (including any body piercings) or valuables the day of surgery, leave them at home.? Please take a shower or bath the night before, or the morning of, surgery with an antibacterial soap.? Wear comfortable, loose fitting clothing.? Children are encouraged to wear pajamas. - Jewelry must be removed prior to entering the operating room.? Rings and piercings that are not removed may be cut off. - The hospital will not accept responsibility for valuables.? - Please leave all valuables, including medications, at home the day of surgery. If you are going home after surgery, a licensed wagon driver must drive you home.? - NO public transportation without another adult if you receive anesthesia. - We recommend that an adult stay with you for 24 hours following discharge. - We also recommend that you do not drive, make important decision, drink alcoholic beverages, or take any drugs that were not prescribed by your health care provider for at least 24 hours after your discharge time. For Pediatric surgeries, we recommend two adults accompany the child home. Follow any additional instructions given to you from your surgeon. Telephone instructions given to Patient- Monica Olea and asked if any additional questions and then verbalized understanding. Patient advised to call surgeon office or pre surgery nurse liaison [phone] if any additional questions.
[2025-05-16 16:52] VITALS: BMI 24.7
--- OUTSIDE RECORDS SUMMARY | 2025-05-21 02:49 | XMS_ITS | Clinical Summary ---
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 Active ondansetron (ZOFRAN) 4 mg Tablet Take [...] . 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
--- OUTSIDE RECORDS SUMMARY | 2025-05-21 02:49 | XMS_ITS | Clinical Summary ---
Author Organization [facility] Address [facility] [place] [address] Care Team Providers Care Toe Former Name Role Phone Kailee Kruger MD Primary [...] sprinkle capsule TK 1 T PO QD 019 Active QUEtiapine 200 MG tablet Take 200 mg by mouth daily. 018 Active fluoxetine 40 MG capsule 020 Active aspirin-caffeine- butalbital 50-325-40 MG Cap capsule Take 1 capsule by mouth. 020 Active ondansetron 4 MG tablet TAKE 1 TABLET BY MOUTH EVERY 8 HOURS NEEDED FOR NAUSEA Active ALPRAZolam 0.25 MG tablet Hasn't taken any recently Active frovatriptan 2.5 MG tablet Hasn't taken in months Active rizatriptan 10 MG tablet TAKE 1 TABLET BY MOUTH ONCE NEEDED FOR MIGRAINE; MAY REPEAT IN 2 HOURS. DO NOT EXCEED 3 TABLETS IN 24 HOURS Active temazepam 15 MG capsule Take 15 mg by mouth daily. Active naloxone (NARCAN) 4 MG/0.1ML nasal spray 1 spray by Nasal route as needed for Opioid reversal. may repeat every 2 to 3 minutes in alternating nostrils until medical assistance becomes available 1 each 2025 Active ondansetron (ZOFRAN-ODT) 4 MG disintegrating tablet Take 1 tablet (4 mg total) by mouth every 8 (eight) hours as needed for Nausea. 20 tablet Active pantoprazole EC (PROTONIX) 40 MG tablet Take 1 tablet (40 mg total) by mouth daily. 14 tablet 020 2024 Discontinued ondansetron (ZOFRAN-ODT) 4 MG disintegrating tablet Take 1 tablet (4 mg total) by mouth every 8 (eight) hours as needed for Nausea. 20 tablet 2024 Discontinued HYDROcodone-aceta minophen (NORCO) 5-325 MG tabletIndications :Acute Pain < 3 Day Supply Take 1 tablet by mouth every 6 (six) hours as needed for Pain. Indications: Acute Pain < 3 Day Supply 10 tablet 025 2024 Discontinued Encounters Date Type Department Care Team Description 05/06/2025 4:24 PM CDT - 05/06/2025 6:32 PM CDT Emergency [facility] Emergency Services [address] [place] [address] [place] [address] Harley Albarran MD Vomiting; Shoulder Pain (R shoulder pain from fall ); Fall Discharge Disposition: Home or Self Care (Routine Discharge) 05/06/2025 Travel 04/26/2025 3:51 PM CDT - 04/26/2025 4:59 PM CDT Emergency [facility] Emergency Room [address] [place] [address] Kalpana Dubois MD Shoulder Pain Discharge Disposition: Home or Self Care (Routine Discharge) 04/26/2025 Travel 04/04/2025 6:29 PM CDT - 04/04/2025 7:33 PM CDT Emergency [facility] Emergency Room [address] [place] [address] Jeffry Linares MD Shoulder Pain Discharge Disposition: Home or Self Care (Routine Discharge) 04/04/2025 Travel 03/07/2025 3:32 PM CDT - 03/07/2025 7:26 PM CDT Emergency [facility] Emergency Room [address] [place] [address] Nj Grier MD Shoulder Pain Discharge Disposition: Home or Self Care (Routine Discharge) 03/07/2025 Travel 02/22/2025 3:46 PM CDT - 02/22/2025 7:09 PM CDT Emergency [facility] Emergency Room [address] [place] [address] Kalpana Dubois MD Shoulder Pain Discharge Disposition: [...] PM CDT 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 Gender Identity Female 04/04/2025 7:31 PM CDT Sexual Orientation Straight 04/04/2025 7: 31 PM CDT Last Filed Vital Signs Vital Sign Reading Time Taken Comments Blood Pressure 143/77 05/06/2025 6:20 PM CDT Pulse 80 05/06/2025 4:30 PM CDT Temperature 36.6 C (97.8 F) 05/06/2025 4:30 PM CDT Respiratory Rate 18 05/06/2025 4:30 PM CDT Oxygen Saturation 100% 05/06/2025 6:20 PM CDT Inhaled Oxygen Concentration - - Weight 60.3 kg (133 lb) 05/06/2025 4:30 PM CDT Height 157.5 cm (5' 2) 05/06/2025 4:30 PM CDT Body Mass Index 24.33 05/06/2025 4:30 PM CDT Plan of Treatment Health Maintenance [...] Cervical Cancer Screening wi th HPV 12/18/2027 RSV Immunization or 60+ Years (1 - 1-dose 75+ series) 2040 Meningococcal B Vaccine Aged Out No l [...] Diagnosis Comments XR SHOULDER RT 3V STAT 05/06/2025 5:1 5 PM CDT COMPREHENSIVE METABOLIC PANEL STAT 05/06/2025 5:00 PM CDT CBC W/DIFF AUTOMATED STAT 05/06/2025 5:00 PM CDT XR SHOULDER RT 3V STAT 04/26/2025 4:1 5 PM CDT XR SHOULDER RT 3V STAT 04/04/2025 6:5 [...] Months Results * XR SHOULDER RT 3V (05/06/2025 5:15 PM CDT) Only the most recent of6 resultswithin the time period is included. Anatomical Region Laterality Modality Shoulder Computed Tomogra phy 05/06/2025 5:23 PM CDT Impressions 05/06/2025 5:29 PM CDT IMPRESSION: 1. No evidence of acute fracture or dislocation. 2. 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 Stable mild degenerative narrowing acromioclavicular joint. Referred By: Interpreted By: Nasra Ren DO, 05/06/2025 5:23 PM Narrative 05/06/2025 5:[address] PM [address] [place] [address] CLINICAL INDICATION: 59-year-old female. Reason for examination: Fall, history of Hill-Sachs deformity. 05/06/2025 5:16 PM, Paulette Seymour: patient states she had shoulder surgery earlier this month. multiple falls. fell on right shoulder today TECHNIQUE: Three-view survey right shoulder COMPARISON: Three-view survey right shoulder 04/26/2025 and 04/04/2025 and 03/07/2025 and 02/22/2025 Right shoulder radiographs pre and Post reduction 02/22/2025 FINDINGS: No evidence of acute fracture or dislocation. Stable old Hill-Sachs fracture.. Stable sclerosis without enlargement of the indentation posterior superior portion of the humeral head. No Bankart lesion. Stable mild narrowing of the acromioclavicular joint due to degenerative change. Normal acromiohumeral distance. Included right ribs intact. Right lung is clear. Soft tissues unremarkable Procedure Note Nasra Ren MD - 05/06/[address] [place] [address] CLINICAL INDICATION: 59-year-old female. Reason for examination: Fall, history of Hill-Sachs deformity. 05/06/2025 5:16 PM, Paulette Seymour: patient states she had shouldersurgery earlier this month. multiple falls. fell on right shoulder today TECHNIQUE: Three-view survey right shoulder COMPARISON: Three-view survey right shoulder 04/26/2025 and 04/04/2025 and 03/07/2025 and02/22/2025 Right shoulder radiographs pre and Post reduction 02/22/2025 FINDINGS: No evidence of acute fracture or dislocation. Stable old Hill-Sachsfracture.. Stable sclerosis without enlargement of the indentationposterior superior portion of the humeral head. No Bankart lesion.Stable mild narrowing of the acromioclavicular joint due to degenerativechange. Normal acromiohumeral distance. Included right ribs intact. Right lung is clear. Soft tissues unremarkable IMPRESSION: 1. No evidence of acute fracture or dislocation. 2. 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 Stable mild degenerative narrowing acromioclavicular joint. Referred By: Interpreted By: Nasra Ren DO, 05/06/2025 5:23 PM us Harley Albarran MD GENERAL IMAGING Final Result * (ABNORMAL) COMPREHENSIVE METABOLIC PANEL (05/06/2025 5:00 PM CDT) Only the most recent of2 resultswithin the time period is included. [facility] GLUCOSE 106(H) 70 - 99 MG/DL 05/06/2025 5:28 PM CDT [facility] BUN 13 7 - 18 MG/DL 05/06/2025 5:28 PM CDT [facility] CREATININE S/P/B 0.74 0.50 - 1.20 MG/DL 05/06/2025 5:28 PM CDT [facility] SODIUM S/P/B 137 136 - 145 MMOL/L 05/06/2025 5:28 PM CDT [facility] POTASSIUM S/P/B 3.9 3.5 - 5.1 MMOL/L 05/06/2025 5:28 PM CDT [facility] CHLORIDE S/P/B 104 100 - 108 MMOL/L 05/06/2025 5:28 PM CDT [facility] CO2 23.9 21.0 - 32.0 MMOL/L 05/06/2025 5:28 PM CDT [facility] CALCIUM S/P/B 8.6 8.5 - 10.1 MG/DL 05/06/2025 5:28 PM CDT [facility] BILIRUBIN TOTAL S/P/B 0.4 0.2 - 1.2 MG/DL 05/06/2025 5:28 PM CDT [facility] Comment: THIS ASSAY IS NOT RECOMMENDED FOR PATIENTS UNDERGOING TREATMENT WITH ELTROMBOPAG DUE TO THE POTENTIAL FOR FALSELY ELEVATED RESULTS. TOTAL PROTEIN S/P/B 7.7 6.4 - 8.2 G/DL 05/06/2025 5:28 PM CDT [facility] ALBUMIN S/P/B 4.1 3.4 - 5.0 G/DL 05/06/2025 5:28 PM CDT [facility] AST 20 15 - 37 U/L 05/06/2025 5:28 PM CDT [facility] ALT 51 14 - 55 U/L 05/06/2025 5:28 PM CDT [facility] ALKALINE PHOSPHATASE S/P/B 83 50 - 136 U/L 05/06/2025 5:28 PM CDT [facility] ANION GAP 9.1 5.0 - 15.0 MMOL/L 05/06/2025 5:28 PM CDT [facility] BUN CREATININE RATIO 17.6 6 - 26 05/06/2025 5:28 PM CDT [facility] A/G RATIO 1.1 1.0 - 2.5 RATIO 05/06/2025 5:28 PM CDT [facility] GFR ESTIMATE >90 >90 ML/MIN/1.7 3 M2 05/06/2025 5:28 PM CDT [facility] Comment: NOTE: eGFR is not calculated for patients <18 years of age. This is an estimated GFR calculation using the new CKD EPI creatinine equation without race and so does not require a correction factor for race. This estimated GFR should not be used for calculating drug doses. 05/06/2025 5:00 PM CDT us Harley Albarran MD LABORATORY Final Result [address] [place] [address], * CBC W/DIFF AUTOMATED (05/06/2025 5:00 PM CDT) Only the most recent of2 resultswithin the time period is included. WBC 5.82 4.50 - 11.00 x10'3/uL 05/06/2025 5:14 PM CDT [facility] RBC 4.75 4.00 - 5.20 x10'6/uL 05/06/2025 5:14 PM CDT [facility] HGB 14.5 12.0 - 16.0 G/DL 05/06/2025 5:14 PM CDT [facility] HCT 43.2 38.0 - 48.0 % 05/06/2025 5:14 PM CDT [facility] MCV 90.9 80.0 - 100.0 FL 05/06/2025 5:14 PM CDT [facility] MCH 30.5 26.0 - 34.0 PG 05/06/2025 5:14 PM CDT [facility] MCHC 33.6 31.0 - 37.0 G/DL 05/06/2025 5:14 PM CDT [facility] RDW 13.8 11.6 - 14.8 % 05/06/2025 5:14 PM CDT [facility] PLT 162 130 - 400 x10'3/uL 05/06/2025 5:14 PM CDT [facility] MPV 11.0 7.0 - 12.0 FL 05/06/2025 5:14 PM CDT [facility] CBC COMMENT AUTOMATED RBC MORPHOLOGY AND PLATELET EVALUATION NORMAL 05/06/2025 5:14 PM CDT [facility] NEUTROPHILS % 54.3 40.0 - 74.0 % 05/06/2025 5:14 PM CDT [facility] LYMPHOCYTES % 36.1 14.0 - 46.0 % 05/06/2025 5:14 PM CDT [facility] MONOCYTES % 6.9 4.0 - 13.0 % 05/06/2025 5:14 PM CDT [facility] EOSINOPHILS 1.5 0.0 - 7.0 % 05/06/2025 5:14 PM CDT [facility] BASOPHILS 0.9 0.0 - 3.0 % 05/06/2025 5:14 PM CDT [facility] IMMATURE GRANS % 0.3 0.0 - 0.43 % 05/06/2025 5:14 PM CDT [facility] NRBC % 0.0 % 05/06/2025 5:14 PM CDT [facility] ABS. NEUTROPHILS TOTAL 3.16 1.69 - 7.81 x10'3/uL 05/06/2025 5:14 PM CDT [facility] ABS. LYMPHOCYTES 2.10 0.21 - 5.42 x10'3/uL 05/06/2025 5:14 PM CDT [facility] ABS. MONOCYTES 0.40 0.04 - 1.37 x10'3/uL 05/06/2025 5:14 PM CDT [facility] ABS. EOSINOPHILS 0.09 0.00 - 0.68 x10'3/uL 05/06/2025 5:14 PM CDT [facility] ABS. BASOPHILS 0.05 0.00 - 0.08 x10'3/uL 05/06/2025 5:14 PM CDT [facility] ABS. IMMATURE GRANULOCYTES 0.02 0.00 - 0.06 x10'3/uL 05/06/2025 5:14 PM CDT [facility] ABS. NUCLEATED RBC'S 0.00 0.00 - 0.01 x10'3/uL 05/06/2025 5:14 PM CDT [facility] 05/06/2025 5:00 PM CDT us Harley Albarran MD LABORATORY Final Result [address] [place] [address], * (ABNORMAL) LIPASE (03/07/2025 5:40 PM CDT) LIPASE 89(H) 16 - 77 UNITS/L 03/07/2025 5:56 PM CDT [facility] 03/07/2025 5:40 PM CDT Nj Grier MD LABORATORY Final R esult [facility] [address] [place] [address], * ECG 12 lead (03/07/2025 5:32 PM CDT) 03/07/2025 5:32 PM CDT Narrative [facility] RAD - 03/08/2025 4:58 PM CDT [facility] Test Date: 2025-03-07 Pat Name: ARIANA OLEA Department: 85 Room: EXAM 404 Gender: Female 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: : 1965 Requested By: NJ GRIER Order Number: [id number] Asim BELTRAN: Shelton Velazquez Measurements Intervals Kimberly Rate: 71 P: 57 AZ: 148 QRS: 60 QRSD: 87 T: 43 QT: 396 QTc: 432 Interpretive Statements SINUS RHYTHM Compared to ECG 02/21/2024 20:15:47 No significant changes Procedure Note Shelton Velazquez MD - 03/08/2025 [facility] Test Date: 2025-03-07 Pat Name: ARIANA LEI Department: 85 Room: EXAM 404 Gender: Female 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: : 1965 Requested By: NJ GRIER Order Number: [id number] Asim BELTRAN: Shelton Velazquez Measurements Intervals Kimberly Rate: 71 P: 57 AZ: 148 QRS: 60 QRSD: 87 T: 43 QT: 396 QTc: 432 Interpretive Statements SINUS RHYTHM Compared to ECG 02/21/2024 20:15:47 No significant changes us Nj Grier MD ECG ORDERABLES Final R esult [facility] * Orthopedic Injury (02/22/2025 5:25 PM CDT) Kalpana Lerma MD - 02/22/2025 5:25 PM CDT Kalpana [...] proceeding with non-ideal NPO status ASA classification (Swiss Society of Anesthesiologists Classification Aug 04, 2018): [...] Ketamine and propofol Intra-procedure monitoring: Continuous capnometry, weight guesser, continuous pulse oximetry, frequent LOC assessments and [...] Date Last Indicated MRSA 05/17/2017 05/17/2017 Insurance [facility] Advance Directives Documents on File Type Date 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
--- OUTSIDE RECORDS SUMMARY | 2025-05-21 02:49 | XMS_ITS | Clinical Summary ---
Author Organization [facility] Address [address] [place] [address] Phone Care Team Providers Care Spring Assembler Name Role Phone Jennifer Vaca MD Primary Care Provider [phone] Allergies Active Allergy Reactions Criticality Noted Date [...] of Treatment Not on file Care Teams Spring Assembler Relationship Specialty Start Date End Date Jennifer Vaca MD [address] [place] [address] PCP - General Family Medicine 09/25/15
--- OUTSIDE RECORDS SUMMARY | 2025-05-21 02:49 | XMS_ITS | Encounter Summary ---
Author Organization [facility] Address [address] [place] [address] Care Team Providers Care Stoneworking Belt Sander Name Role Phone None, Provider Primary Care Provider Unavaila ble None, Provider Primary Care Provider Unavaila ble Kailee Kruger MD Primary Care Provider Encounter Details Date Type Department Care Team (Late st Contact Info) Description 03/16/2019 Abstract [facility] CONVERSION [address] [place] [address] , Generic Conversion, Social History Tobacco Use Types Packs/Day Years Used Date Smoking Tobacco: Never Assessed Comments Unknown Sex and Gender Information Value Date Recorded Sex Assigned at Female 04/04/2025 7:31 PM CDT 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 Gender Identity Female 04/04/2025 7:31 PM CDT Sexual Orientation Straight 04/04/2025 7: 31 PM CDT documented as of this encounter Plan of Treatment Not on file documented as of this encounter Visit Diagnoses Not on filedocumented in this encounter Additional Health Concerns Infection Onset Date Last Indicated Resolved Time MRSA 05/17/2017 05/17/2017 documented as of this encounter Care Teams Stoneworking Belt Sander Relationship Specialty Start Date End Date None, ProviderMD PCP - General 11/15/19 02/20/24 None, ProviderMD PCP - General UNKNOWN PHYSICIAN SPECIALTY 02/21/24 02/21/25 Kailee Kruger MD [address] [facility] [address] [place] [address] PCP - General FAMILY PRACTICE 02/22/25 documented as of this encounter
--- OUTSIDE RECORDS SUMMARY | 2025-05-21 02:49 | XMS_ITS ---
Author Organization [facility] Address [address] [place] [address] Care Team Providers Care Hospice Executive Director Name Role Phone Myke Ashley Primary Care Provider [facility], SR Adult MATT Unavailabl e [phone] Madisyn Matamoros Unavailable [phone] REASON FOR VISIT Schedule error-mlr 3 Month [...] Female Encounters Encounter Location Date Provider Diagnosis [facility] [address] [place] [address] 12/02/2024 Madisyn Matamoros Plan Of Treatment No Information Progress Notes * Monica OLEADOB:1965 (60 yo F)Acc No.[id number]:12/02/2024 UNLOCKED PROGRESS NOTE Patient: Monica MCCARTHY Provider: KAYLEIGH Davis :1965 A ge:59 Y S ex:Female Date:12/02/2024 Address:[address] [place], [place] [address] Pcp:Ashley Stringer Subjective: * Chief Complaints: * [...] * Electronic signature of Madisyn Matamoros , [id number] on 05/21/2025 at 02:49 AM CDT Sign off status: Pending * Provider: KAYLEIGH Davis Date: 12/02/2024 Generated for Carola cotton/Clark/Doris on: 05/21/2025 02:49 AM CDT
--- OUTSIDE RECORDS SUMMARY | 2025-05-21 02:49 | XMS_ITS | Patient Health Record ---
Author Organization [facility] Address [address] [place] [address] Care Team Providers Care It Desktop Support Specialist Name Role Phone Ashley Stringer Primary Care Provider [facility], Adult MATT Unavailabl e [phone] Lutts, Madisyn Unavailable [phone] Allergies Allergen (clinical drug ingredient) Drug/Non Drug [...] W/U Status Risk Notes Problem Tobacco user (086604578) Nicotine dependence, unspecified, uncomplicated (F17.200) Active confirmed Problem Severe recurrent major depression without psychotic features (32531378) Major depressive disorder, recurrent severe without psychotic features (F33.2) Active confirmed Problem Tobacco dependency (F17.200) Active confirmed Problem Depression (F32.9) Active confirmed Problem Anxiety (64954842) Anxiety (F41.9) Active confirmed Encounters Encounter Location Date Provider Diagnosis [address] [place] [address] 06/14/2024 Ashley Stringer Major depressive disorder, recurrent severe without psychotic features F33.2 ; Anxiety F41.9 and Nicotine dependence, unspecified, uncomplicated F17.200 [address] [place] [address] 09/12/2024 Ashley Stringer Major depressive disorder, recurrent severe without psychotic features F33.2 ; Anxiety F41.9 and Nicotine dependence, unspecified, uncomplicated F17.[address] [place] [address] 12/06/2024 Ashley Stringer Major depressive disorder, recurrent severe without psychotic features F33.2 and Anxiety F41.9 [place] [address] [place] [address] 03/05/2025 Ashley Stringer Major depressive disorder, recurrent severe without psychotic features F33.2 and Anxiety F41.[address] [address] 02/07/2025 Ashley Stringer Anxiety F41.9 Assessments Encounter Date Diagnosis (ICD Code) Assessment Notes Treatment Notes Treatment Clinical Notes Section Notes 06/14/2024 Major depressive disorder, 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-10 - F33.2) Continue current medications. Continue services as scheduled. Labs completed recently. May self-administer medications or be administered own oral medications per [place] protocols. Provided informed consent with understanding of [...] or be administered own oral medications per [place] protocols. Provided informed consent with understanding of [...] or be administered own oral medications per [place] protocols. Provided informed consent with understanding of [...] or be administered own oral medications per [place] protocols. Provided informed consent with understanding of [...] Insured Coverage Start Date Coverage End Date [facility] [address] [address] [place] [address] [id number] Monica Olea Self - patient is the insured 3 3 [facility] [address] [place] [address] [id number] [phone] Monica Olea Self - patient is the insured 6 1 [employer] [facility] [address] [address] [place] [address] [id number] Monica Olea Self - patient is the insured 1 1 [facility] [address] [place] [address] [id number] Monica Olea Self - patient is the insured 1 2 Medical (General) History Medical History History ICD Code Migraines MVP Depression Panic Attacks cataplexy high cholesterol HTN Rotator cuff tear Surgical History Surgery Date(Month/Year) 1993 cholyecystectomy 2002 Hospitalization History Reason Date(Month/Year) [facility] 10/2015
[2025-05-21 07:40] VITALS: BP 160/73; PULSE 65; RESP 20; TEMP 36.2; O2SAT 99
[2025-05-21] MEDS: LACTATED RINGERS 1,000 ML 30 ML IV CONT (08:20)
--- NOTE | 2025-05-21 09:18 | PM.IMHP ---
H&P: HPI History of Present Illness Date/Time: 05/21/25 09:18 Chief Complaint: Postmenopausal bleeding Narrative: This patient is a 6-year-old female with postmenopausal bleeding and endometrial lesion. We have agreed to perform hysteroscopy D and C with possible polypectomy. She understands the risks, benefits, and alternatives. She has completed informed consent process is ready to proceed. The patient understands the details of the procedure. The procedure has been explained in detail. She understands the risks. She understands that injuries may occur that result in hospitalization, more surgery, and severe illness. She understands risk of hemorrhage and infection. She denies any chest pain or shortness of breath. She denies any nausea, vomiting, fever, chills. Review of Systems Review of Systems: All systems reviewed & are unremarkable except as noted in HPI and below Constitutional: Constitutional: Denies chills, Denies fatigue, Denies fever(s) and Denies weakness Eyes: Eyes: Denies blurry vision, Denies change in vision, Denies loss of peripheral vision, Denies loss of vision, Denies other visual disturbances and Denies eye pain ENT: Denies vertigo, Denies dizziness, Denies hearing loss, Denies mouth pain, Denies nasal obstruction, Denies neck mass and Denies neck pain Cardiovascular: Cardiovascular: Denies chest pain, Denies diaphoresis, Denies syncope, Denies leg edema and Denies dyspnea Respiratory: Respiratory: Denies chest congestion, Denies cough, Denies hemoptysis, Denies dyspnea and Denies wheezing Gastrointestinal: Gastrointestinal: Denies abdominal pain, Denies constipation, Denies diarrhea, Denies nausea and Denies vomiting Genitourinary: Genitourinary: Denies hematuria, Denies change in libido, Denies nocturia, Denies genital lesions, Denies flank pain and Denies urinary urgency Musculoskeletal: Musculoskeletal: Denies abnormal gait, Denies back pain, Denies myalgias, Denies arthralgias, Denies joint swelling, Denies muscle weakness and Denies neck pain Integumentary/Breasts: Skin/Breast: Denies swelling, Denies breast pain, Denies breast mass, Denies dry skin, Denies nipple discharge, Denies unusual bruising and Denies jaundice Neurologic: Denies Neuro-related abnormal movements, Denies Abnormal speech present, Denies abnormal gait, Denies behavioral changes, Denies confusion, Denies vertigo, Denies dizziness, Denies syncope, Denies loss of vision, Denies memory loss, Denies convulsions and Denies weakness Psychiatric: Psychiatric: Denies abnormal sleep pattern, Denies behavioral changes, Denies change in libido, Denies confusion, Denies depression, Denies anhedonia and Denies memory loss Endocrine: Endocrine: Reports no additional endocrine complaints, Denies change in libido and Denies fatigue Hematologic/Lymphatic: Hematologic/Lymphatic: Reports no additional hematologic/lymphatic complaints Allergic/Immunologic: Allergic/Immunologic: Reports no additional allergic/immunologic complaints and Denies wheezing PMFSH Past Medical History Medical History Dislocation of right shoulder joint (~02/2025) Essential (primary) hypertension Depression with anxiety Multiple fractures of ribs of right side (~08/2021) Hyperlipidemia, unspecified Positive colorectal cancer screening using Cologuard test IBS (irritable bowel syndrome) Pneumothorax (~08/2021) Cataplexy Migraine Surgical History Surgical History Status post incision and drainage (~2004) 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, b/l hands and RLE History of ankle surgery (~2014) ORIF right ankle fracture History of chest tube placement (~08/2021) right pneumothorax History of cholecystectomy (~2002) History of (~1993) Family History Family History Father Acute myocardial infarction Sibling Patient's sister is in good health Patient's brother is in good health Patient's sister is Mother Family history of malignant neoplasm of breast in first degree relative Patient's mother is Social History Social History Smoking packs per day: 0.5 Smoking cigarettes per day: 10.0 Years smoked: 40 Smoking pack-years: 20.00 Smoking status: Current every day smoker Tobacco type: cigarettes Alcohol intake: never Substance use: never Lack of Transportation: No Lack of Food: Never True Current Housing: I Have Housing Concerned About Future Housing: No Difficulty Paying Gas/Electric Bills: No Difficulty Paying for Meds: No Currently Unemployed: No Education: Trade/Vocational Certificate Difficulty w/ Childcare or Family Care: No Living arrangements: with family Additional living arrangements comments: Gender identity (if verbalized by the patient): Female Sexual Orientation (if Verbalized by the Patient): Straight or Heterosexual Spiritual care concerns: No Meds Home Medications and Allergies Home Medications ?Medication ?Instructions ?Recorded ?Confirmed ?Type estradiol 2 mg tablet 2 mg PO HS 10/22/22 05/21/25 History metoprolol succinate 100 mg 100 mg PO HS 10/22/22 05/21/25 History tablet,extended release 24 hr progesterone micronized 100 mg 100 mg PO HS 10/22/22 05/21/25 History capsule quetiapine 300 mg tablet 300 mg PO HS 10/22/22 05/21/25 History rizatriptan 10 mg tablet 10 mg PO DAILY PRN migraine 10/22/22 05/16/25 History headache alprazolam 0.25 mg tablet 0.25 mg PO DAILY PRN anxiety 05/17/23 05/16/25 History temazepam 30 mg capsule 30 mg PO QHS 05/17/23 05/21/25 History wefroqvwnh-joxjsipaikpik-iueeevps 1 tablet PO DAILY PRN pain 01/01/24 05/16/25 History 50 mg-325 mg-40 mg tablet atorvastatin 10 mg tablet 10 mg PO QHS #90 tabs 02/29/24 05/21/25 Rx sertraline 100 mg tablet 100 mg PO HS 04/03/25 05/21/25 History Allergies Allergy/AdvReac Type Severity Reaction Status Date / Time dihydroergotamine Allergy Intermediate Unknown Verified 05/21/25 07:46 codeine Allergy Mild gets red, Verified 05/21/25 07:46 hives, itchy latex Allergy Mild Unknown Verified 05/21/25 07:46 Sulfa (Sulfonamide Allergy Mild Unknown Verified 05/21/25 07:46 Antibiotics) chlorpromazine Allergy Unknown Dyspnea / Verified 05/21/25 07:46 SOB nickel Allergy Unknown Unknown Verified 05/21/25 07:46 prochlorperazine Allergy Unknown Unknown Verified 05/21/25 07:46 propranolol AdvReac Unknown chest Verified 05/21/25 07:46 tightness metoclopramide (From Reglan) AdvReac Dystonic Verified 05/21/25 07:46 reaction Vital Signs Vital Signs - 24 hr 05/21/25 07:40 Temperature 97.1 F L Pulse Rate 65 Respiratory Rate 20 Blood Pressure 160/73 H Pulse Oximetry 99 Oxygen Delivery Room Air Exam Const: General: cooperative, healthy appearing, comfortable and no acute distress Orientation/consciousness: oriented to person, oriented to place and oriented to time HENMT: Head: normal to inspection Ears: external ears normal Face/Nose/Sinus: Normal external nose present and normal facial exam Face and sinus: normal facial exam Eyes: General: appearance normal, both eyes and all related structures Neck: Neck: normal visual inspection, trachea midline and supple Resp: Auscultation: clear to auscultation bilaterally, no crackles, no rales, no rhonchi and no wheezes Cardio: Rate: regular rate Rhythm: regular rhythm Heart sounds: no click, no murmurs and no rubs GI: GI Palp: No abdominal tenderness, No Soft to palpation, No Tenderness to palpation present (GI) and No Palpable mass present Auscultation: normal bowel sounds Skin: General skin exam: normal color and no rashes or lesions noted Neuro: General: oriented to person, oriented to place and oriented to time Extrem: General: normal to inspection, no joint enlargement, no clubbing, cyanosis or edema, no pedal edema and no calf tenderness Psych: Appearance: grossly normal Mental Status: mental status grossly normal Speech and movement: Normal speech and movement present Assessment and Plan Assessment and plan (1) Postmenopausal bleeding: Code(s): N95.0 - Postmenopausal bleeding Status: Acute Plan This patient is a 6-year-old female with postmenopausal bleeding and endometrial lesion. We have agreed to perform hysteroscopy D and C with possible polypectomy. She understands the risks, benefits, and alternatives. She has completed informed consent process is ready to proceed.
--- NOTE | 2025-05-21 09:20 | WPDHPUPDATE1 ---
History and Physical Update Update Date/Time: 05/21/25 09:20 History and Physical has been reviewed, including an updated exam of the patient. There are NO changes in the patient's condition. Risks, benefits, and alternatives have been discussed and questions answered. Patient agrees to proceed with procedure.
--- NOTE | 2025-05-21 09:27 | P.PNAN_ITS ---
Anes - Initial Pre Proc Eval Procedure: Operation Date: 05/21/25 09:30 Proposed Procedures p Hysteroscopy with Biopsy Endometrium and /or Polypectomy - Guillermo Root MD Date/Time: 05/21/25 09:27 Surgeon: Guillermo Root MD Pre Op Diagnosis: post menopausal bleeding Patient Data Age: 60 Gender: F Height: 1.57 m Weight: 60.9 kg Last Vital Signs Temp 97.1 F L 05/21/25 07:40 Pulse 65 05/21/25 07:40 Resp 20 05/21/25 07:40 BP 160/73 H 05/21/25 07:40 Pulse Ox 99 05/21/25 07:40 O2 Del Method Room Air 05/21/25 07:40 Allergies Allergy/AdvReac Type Severity Reaction Status Date / Time dihydroergotamine Allergy Intermediate Unknown Verified 05/21/25 07:46 codeine Allergy Mild gets red, Verified 05/21/25 07:46 hives, itchy latex Allergy Mild Unknown Verified 05/21/25 07:46 Sulfa (Sulfonamide Allergy Mild Unknown Verified 05/21/25 07:46 Antibiotics) chlorpromazine Allergy Unknown Dyspnea / Verified 05/21/25 07:46 SOB nickel Allergy Unknown Unknown Verified 05/21/25 07:46 prochlorperazine Allergy Unknown Unknown Verified 05/21/25 07:46 propranolol AdvReac Unknown chest Verified 05/21/25 07:46 tightness metoclopramide (From Reglan) AdvReac Dystonic Verified 05/21/25 07:46 reaction Home Medications ?Medication ?Instructions ?Recorded ?Confirmed ?Type estradiol 2 mg tablet 2 mg PO HS 10/22/22 05/21/25 History metoprolol succinate 100 mg 100 mg PO HS 10/22/22 05/21/25 History tablet,extended release 24 hr progesterone micronized 100 mg 100 mg PO HS 10/22/22 05/21/25 History capsule quetiapine 300 mg tablet 300 mg PO HS 10/22/22 05/21/25 History rizatriptan 10 mg tablet 10 mg PO DAILY PRN migraine 10/22/22 05/16/25 History headache alprazolam 0.25 mg tablet 0.25 mg PO DAILY PRN anxiety 05/17/23 05/16/25 History temazepam 30 mg capsule 30 mg PO QHS 05/17/23 05/21/25 History iossmbdaxg-joetuhhssdvzy-ychqwuue 1 tablet PO DAILY PRN pain 01/01/24 05/16/25 History 50 mg-325 mg-40 mg tablet atorvastatin 10 mg tablet 10 mg PO QHS #90 tabs 02/29/24 05/21/25 Rx sertraline 100 mg tablet 100 mg PO HS 04/03/25 05/21/25 History Patient hx anesthesia problems: none Family hx anesthesia problems: none Results Review: All pre-operative results and documents have been reviewed as part of the pre- operative evaluation. 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, b/l hands and RLE History of ankle surgery (~2014) ORIF right ankle fracture History of chest tube placement (~08/2021) right pneumothorax History of cholecystectomy (~2002) History of (~1993) Family History Family History Father Acute myocardial infarction Sibling Patient's sister is in good health Patient's brother is in good health Patient's sister is Mother Family history of malignant neoplasm of breast in first degree relative Patient's mother is Social History Social History Smoking packs per day: 0.5 Smoking cigarettes per day: 10.0 Years smoked: 40 Smoking pack-years: 20.00 Smoking status: Current every day smoker Tobacco type: cigarettes Alcohol intake: never Substance use: never Lack of Transportation: No Lack of Food: Never True Current Housing: I Have Housing Concerned About Future Housing: No Difficulty Paying Gas/Electric Bills: No Difficulty Paying for Meds: No Currently Unemployed: No Education: Trade/Vocational Certificate Difficulty w/ Childcare or Family Care: No Living arrangements: with family Additional living arrangements comments: Gender identity (if verbalized by the patient): Female Sexual Orientation (if Verbalized by the Patient): Straight or Heterosexual Spiritual care concerns: No Anes - Eval Final PreProcedure Day of Procedure 05/21/25 09:27 Patient weight: normal Lungs: normal air movement Airway: Mallampati scale class II and special considerations (Teeth in poor repair, none loose. ) poor dentition Neurological: alert and oriented Last oral intake: >/= 8 hours ASA classification: III Emergent: no Anesthetic plan: proceed Anesthesia type and monitoring: general GIVS and standard monitoring Results Review: All pre-operative results and documents have been reviewed as part of the pre- operative evaluation. HTN, hyperlipidemia, smoker 1/2 ppd, anxiety/depression. Pt states that she can walk 1-2 fos, no cp but mild dyspnea. Informed Consent: The patient's anesthetic plan and its attendant risks and benefits were discussed with the patient/family/POA. Questions were solicited and answers provided to the satisfaction of the patient/family/POA.
--- NOTE | 2025-05-21 09:53 | S_PTH ---
PATIENT: Monica Olea LOC: [facility] U#:[id number] AGE/SX: 60/F ROOM: RE05/21/[address]: Guillermo Root MD : 1965 BED: DIS: 05/21/2025 SPEC #: [id number] RECD: 05/21/25 10:34 STATUS: PADDY REQ #: [id number] SOHAM: 05/21/25 09:[address]: Guillermo Root DEPT: [facility] Surgical RECD BY: Laura Valera ENTERED: 05/21/25 10:34 SP TYPE: Surgical OTHR DR: Kailee Kruger MD Tissues: A - Endometrial Curettings Procedures: Hematoxylin and Eosin Stain Gross and Microscopic Level 4
[2025-05-21 10:01] VITALS: BP 130/99; PULSE 71; RESP 16; O2SAT 97
--- NOTE | 2025-05-21 10:03 | W.PM.PROC2 ---
Procedure Note - Detailed Date of Procedure 05/21/25 Pre-op Diagnosis post menopausal bleeding Post-op Diagnosis Same (With endometrial polyp) Procedure Performed Hysteroscopy D&C with polypectomy Surgeon Giullermo Root MD Anesthesia MAC Indications abnormal uterine bleeding Findings 1 cm endometrial polyp-right cornua. Normal vulva, vagina, cervix Description of Procedure the patient was taken the operating room. She was prepped and draped in the dorsal lithotomy position after induction of mac anesthesia. A speculum was placed in the vagina. The cervix was grasped with a tenaculum. The cervix was dilated about 1 cm. The hysteroscope was inserted. The intrauterine cavity and endocervix were evaluated. Hysteroscope was withdrawn. A medium-size curette was used to curettage all the surfaces were within the endometrial cavity. the sample was collected on Telfa and sent to pathology. The hysteroscope was reinserted and the above findings were noted. Rotational blade was then used to resect the polyp in the right cornua. Patient tolerated the procedure well. The speculum and tenaculum were removed. She was taken recovery room in stable condition. Sponge lap and needle counts were correct x2. Estimated Blood Loss 40 Drains No Packing No Pathology Yes Complications No immediate complications Condition Stable Disposition PACU
[2025-05-21 10:25] VITALS: BP 184/72; PULSE 64; RESP 18; O2SAT 100
== END 2025-05-21 10:31 | disposition home or self-care (01) ==
PROVIDERS: PCP Family Medicine; Visit Provider Obstetrics & Gynecology
PROC: 0U5B8ZZ Destruction of Endometrium, Via Natural or Artificial Opening Endoscopic (ICD-10-PCS; CPT 58563; principal; 2025-05-21 09:30)
DX: N95.0 Postmenopausal bleeding (principal); E78.5 Hyperlipidemia, unspecified; I10 Essential (primary) hypertension; K58.9 Irritable bowel syndrome, unspecified; F41.8 Other specified anxiety disorders; F17.210 Nicotine dependence, cigarettes, uncomplicated; Z98.890 Other specified postprocedural states; Z90.49 Acquired absence of other specified parts of digestive tract; Z80.3 Family history of malignant neoplasm of breast; Z82.49 Family history of ischemic heart disease and other diseases of the circulatory system
CPT/HCPCS: 58558; 88305; J2003; J2250; J2405; J2704; J3010; J7120

== ENCOUNTER 2025-06-12 10:37 | Outpatient (CLI) | payer MEDICARE, SELFPAY ==
--- NOTE | ~2025-06-12 | XR_ITS ---
XR facial bones min 3V 06/12/2025 12:14 Indication: History of falling. ORBIT pain. Procedure: 4 views of the orbits Comparison: No prior studies for comparison. Findings: Orbits intact. Paranasal sinuses are pneumatized. Mastoids are pneumatized. No acute fracture is identified. There is mild-moderate cervical spondylosis. Impression: 1: No acute abnormality of the facial bones. Reviewed, dictated and finalized at location O. Impression: 1: No acute abnormality of the facial bones.
== END 2025-06-12 10:38 | disposition home or self-care (01) ==
PROVIDERS: PCP Family Medicine; Visit Provider Family Medicine
DX: S00.11XA Contusion of right eyelid and periocular area, initial encounter (principal); Z91.81 History of falling; J34.89 Other specified disorders of nose and nasal sinuses
CPT/HCPCS: 70150

== ENCOUNTER 2025-07-07 09:48 | Emergency (ER) | payer MEDICARE, SELFPAY ==
--- OUTSIDE RECORDS SUMMARY | 2024-12-02 08:00 | XMS_ITS ---
Author Organization [facility] Address [address] [place] [address] Care Team Providers Care Central Service Tech Name Role Phone Ashley Stringer Primary Care Provider [phone] [facility], Adult MATT Unavailabl e [phone] Madisyn Matamoros Unavailable [phone] REASON FOR VISIT Schedule error-mlr 3 Month Psych F/U & Med Refill Medications Medication SIG (Take, Route, Frequency, Duration) Notes Start Date End Date Status ALPRAZolam 0.5 MG 1 tablet Orally Twic e a day; Duration: 30 days 09/12/2024 Active Sertraline HCl 50 MG 1 tablet Orally Onc e a day; Duration: 30 days 04/16/2024 Active SEROquel 300 MG 1 tablet at bedtime Orally Once a day; Duration: 30 days Active ALPRAZolam 0.25 MG 1 tablet Orally once a day; Duration: 30 days 09/12/2024 Active Temazepam 30 MG Oral; Duration: 30 Days Active Atorvastatin Calcium 10 MG 1 tablet Oral ly Once a day Active Metoprolol Succinate ER 100 MG Oral; Duration: 30 Days Acti ve Social History Sex Assigned At : Social History Observation Description Sex Assigned At Female Encounters Encounter Location Date Provider Diagnosis [facility] [address] [place] [address] 12/02/2024 Madisyn Matamoros Plan Of Treatment No Information Progress Notes * Monica OLEADOB:1965 (60 yo F)Acc No.[id number]:12/02/2024 UNLOCKED PROGRESS NOTE Patient: Monica MCCARTHY Provider: KAYLEIGH Davis :1965 A ge:59 Y S ex:Female Date:12/02/2024 Address:[address] [place] [address] [id number] Pcp:Ashley Stringer Subjective: * Chief Complaints: * 1 . Schedule error-mlr 3 Month Psych F/U & Med Refill. * Medical History: * Medications: T aking Atorvastatin Calcium 10 MG Tablet 1 tablet Orally Once a day , Taking Metoprolol Succinate ER 100 MG Tablet Extended Release 24 Hour Oral , Taking Temazepam 30 MG Capsule Oral , Taking SEROquel 300 MG Tablet 1 tablet at bedtime Orally Once a day , Taking ALPRAZolam 0.25 MG Tablet 1 tablet Orally once a day , Taking ALPRAZolam 0.5 MG Tablet 1 tablet Orally Twice a day , Taking Sertraline HCl 50 MG Tablet 1 tablet Orally Once a day Objective: * Vitals: Assessment: Plan: * Treatment: * * Electronic signature of Madisyn Matamoros , [id number] on 07/07/2025 at 10:24 AM CDT Sign off status: Pending * Provider: KAYLEIGH Davis Date: 12/02/2024 Generated for Carola cotton/Clark/Doris on: 07/07/2025 10:24 AM CDT
[2025-07-07] VITALS (49 sets, daily range): BP systolic 114–171; BP diastolic 67–148; PULSE 85–102; RESP 7–24; TEMP 36.4–37.1; O2SAT 91–100
--- NOTE | ~2025-07-07 | XR_ITS ---
EXAMINATION: XR shoulder RT min 2V DATE: 07/07/2025 12:00 INDICATION: Postreduction right glenohumeral dislocation. TECHNIQUE: AP and transscapular Y views of the right shoulder were obtained. COMPARISON: Right shoulder radiographs dated 07/07/2025 at 10:42 AM, right shoulder MRI dated 03/13/2025 and right rib radiographs dated 01/01/2024 FINDINGS: Successful reduction to prior anterior dislocation of the right glenohumeral joint. Alignment is now normal. There is a large chronic Hill-Sachs fracture deformity at the posterolateral aspect of the humeral head as was seen on prior MRI dated 03/13/25. There are a few old healed right rib fracture deformities as can be seen on rib radiographs dated 01/01/2024. There is a displaced fracture of the posterior right third rib which appears new since the the prior rib radiographs, potentially acute. Mild right glenohumeral and acromioclavicular osteoarthritis. Visualized portions of the right lung are clear. No evident pleural effusion or pneumothorax. IMPRESSION: 1. Successful reduction to normal alignment of the previously dislocated right humeral joint. 2. Chronic large Hill-Sachs fracture at the posterolateral aspect of the humeral head which was present on MRI dated 03/13/2025. 3. Multiple old healed rib fractures and additional displaced fractures of the posterior right third rib, the latter which is not evident on study from 01/01/2024, potentially acute. Correlate for point tenderness at this location. Reviewed, dictated and finalized at location A. IMPRESSION: 1. Successful reduction to normal alignment of the previously dislocated right humeral joint. 2. Chronic large Hill-Sachs fracture at the posterolateral aspect of the icra l head which was present on MRI dated 03/13/2025. 3. Multiple old healed rib fractures and additional displaced fractures of the posterior right third rib, the latter which is not evident on study from , potentially acute. Correlate for point tenderness at this location.
--- NOTE | ~2025-07-07 | XR_ITS ---
EXAMINATION: XR shoulder RT min 2V, 07/07/2025 10:40 CDT HISTORY: deformity LMT VIEWS DUE TO PAIN COMPARISON: No comparisons available. Findings: The humeral head is dislocated anteriorly and inferiorly. There is a nondisplaced fracture suspected of the bony glenoid. There are Sachs fracture suspected of the humeral head No significant degenerative changes. Soft tissues unremarkable. Impression: Dislocation detailed above Reviewed, dictated and finalized at location P. Impression: Dislocation detailed above
[2025-07-07] MEDS: ONDANSETRON INJ 4 MG/2 ML VIAL IV PUSH (10:17)
[2025-07-07] MEDS: MORPHINE SULFATE (*CRX) 4 MG/ML INJ IV PUSH ×2 (10:17→13:53)
--- OUTSIDE RECORDS SUMMARY | 2025-07-07 10:24 | XMS_ITS | Clinical Summary ---
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 30 tablet 8 Active Additional Information Patient taking differently:200 mg oral Nightly,Pt taking 300mg at hs, Reported on 02/10/2025 progesterone (PROMETRIUM) 100 mg capsule progesterone micronized 100 mg capsule TAKE 1 CAPSULE BY MOUTH EVERY DAY Active estradioL (ESTRACE) 2 mg tablet 3 Active metoprolol XL (TOPROL-XL) 100 mg 24 hr tablet TAKE 1 TABLET(100 MG) BY MOUTH DAILY 30 tablet 11 4 Active rizatriptan (MAXALT) 10 mg tabletIndicatio ns:Chronic migraine without aura with status migrainosus, not intractable Take 1 tablet (10 mg total) by mouth once as needed for migraine for up to 1 dose May repeat in 2 hours if unresolved. Do not exceed 30 mg in 24 hours. 9 tablet 5 Active sertraline (ZOLOFT) 50 mg tablet Take 1 tablet (50 mg total) by mouth daily Active ALPRAZolam (XANAX) 0.25 mg tablet Take 1 tablet (0.25 mg total) by mouth daily 5 Active ALPRAZolam (XANAX) 0.5 mg tablet Take 1 tablet (0.5 mg total) by mouth 2 (two) times a day 5 Active butalbital-acet aminophen-caffe ine (ESGIC) 50-325-40 mg per tablet TAKE 1 TABLET BY MOUTH EVERY 4 HOURS NEEDED FOR HEADACHE. NO MORE THAN 5 TABLETS PER DAY, 10 TABLETS PER WEEK, AND 40 TABLETS PER MONTH 40 tablet 5 Active temazepam (RESTORIL) 30 mg capsule Take 1 capsule (30 mg total) by mouth nightly as needed for sleep 30 capsule 5 5 Active Active Problems Problem Noted Date Diagnosed [...] confidence in her neurologist and works at [employer] and lives in [place]. She denies being on Percocet currently and doesn't want to try steroids. Her drug screen is positive for opiates. Lisa Villatoro MD Patient insists that only Dilaudid helps her headaches. She has no confidence in her neurologist and works at [employer] and lives in [place]. She denies being on Percocet currently and doesn't want to try steroids. Her drug screen is positive for opiates. Lisa Villatoro MD Closed Colles' fracture 11/04/2010 Encounters Date Type Department Care Team Description 06/24/2025 11:30 AM CDT Office Visit [facility] Neurology at [address] [place] [address] Purnima Lyons PA Intractable chronic migraine without aura and with status migrainosus (Primary Dx) 06/05/2025 Telephone [facility] Medical [facility] Neurology at [address] [address] Ting Andre, Med Management 05/07/2025 Telephone [facility] Neurology at [address] [address] Ting Andre DO Pt having an attack 05/07/2025 Telephone [facility] Medical [facility] Neurology at [address] [address] Ting Andre DO 05/05/2025 Telephone [facility] Neurology at [address] [address] Ting Andre DO Med Refill from Last 3 Months Immunizations Immunization Administration [...] on file 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 Gender Identity Not on file Sexual Orientation [...] A M CDT Height 157.5 cm (5' 2) 02/10/2025 9:27 AM CDT Body Mass Index 24.44 02/10/2025 9:27 AM CDT Plan of Treatment Health Maintenance Due Date Last Done Comments Cervical Cancer Screening 1965 Colon Cancer Screening-Colonoscopy 1965 Depression Screening 1965 Hepatitis C Screening 1965 Hepatitis B Screening 1983 Regular Well Visit/Exam 18-64 1983 Pneumococcal vaccine <65 (1 of 2 - PCV) 1984 DTaP/Tdap/Td Vaccine (1 - Tdap) 08/09/1997 7 Zoster Vaccine (1 of 2) 2015 Breast Cancer Screening-Mammogram 07/12/2024 023, 02/24/2021 Covid-19 Vaccine (3 - 2024-2 6 season) 2025 01/08/2021, 01/08/2021, 12/18/2020, Additional history exists Influenza Vaccine (#1) 2025 , 07/23/2012, 10/27/2006, Additional history exists Insurance [facility] Address: [place] [address] [facility] Address: [address] [address] R [facility] Address[facility] [address] [place] [address] [facility] MEDICARE ADVANTAGE [facility] Address: [facility] [address] [address] [place] [address] Advance Directives For more information, please contact: [phone] * Full Code (Latest Code Status on File) Date Activated Date Inactivated Comments 08/26/2021 5:38 PM 08/28/2021 7:25 PM Care Teams Bead Maker Relationship Specialty Start Date End Date Sary Leon NP [address] [place] [address] [place] [id number] PCP - General Nurse Practitioner 11/21/23
--- OUTSIDE RECORDS SUMMARY | 2025-07-07 10:24 | XMS_ITS | Clinical Summary ---
Author Organization [facility] Address [address] [place] [address] Phone Care Team Providers Care Accounts Payables Clerk Name Role Phone Jennifer Vaca MD Primary Care Provider [phone] Allergies Active Allergy Reactions Criticality Noted Date [...] of Treatment Not on file Care Teams Accounts Payables Clerk Relationship Specialty Start Date End Date Jennifer Vaca MD [address] [place] [address] PCP - General Family Medicine 09/25/15
--- OUTSIDE RECORDS SUMMARY | 2025-07-07 10:24 | XMS_ITS | Clinical Summary ---
Author Organization [facility] Address [address] [place] [address] Phone Care Team Providers Care Director Multimedia Name Role Phone Unavailable Primary Care Provider Unavailabl e Allergies Active Allergy Reactions Criticality Noted Date Comments Adhesive Tape-Silicones Rash Low 12/08/2014 Chlorpromazine Anaphylaxis High 02/06/2016 Codeine Rash Low 01/15/2016 Dhe Shortness of Breath/Wheezing High 12/08/2014 Latex Rash Low 12/08/2014 Metoclopramide Hcl Other (See Comments) 015 Dystonic reaction Propranolol Shortness of Breath/Wheezing High 12/08/2014 Sulfa (Sulfonamide Antibiotics) Rash Low 12/08/2014 Medications ZOLMitriptan (ZOMIG) [place], Non-Aerosol 1 [place] 2 times daily as needed for Migraine [...] Tablet Take 0.25 mg by mouth daily deposition operator. Active ondansetron (ZOFRAN) 4 mg Tablet Take [...] . 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
--- OUTSIDE RECORDS SUMMARY | 2025-07-07 10:24 | XMS_ITS | Data Portability ---
Author Organization [facility] Address [address] [place] [address] Assessment No assessment recorded. Plan of Treatment Reminders Order Date Submit Date Provider Last Modified By Organization Details Last Modified Time Details Appointments None recorded. Lab None recorded. Referral None recorded. Procedures None recorded. Surgeries hysteroscop y, surgical, with biopsy of endometrium and/or polypectomy (SURG) 2024 025 [facility], [address], [place], [address], 13:01:39 Imaging US, pelvis 2024 [address], [address], [place], [address], 23:34:31 US, transvagina l [address]24 [address], [address], [place], [address], 23:34:31 Medication Orders hydrocodone 5 mg-acetamin ophen 325 mg tablet 2024 025 [id number], [address], [place], [place], [id number], 12:39:06 Patient TargetsNo targets recorded. Patient InstructionsNo instructions recorded. Reason for Referral None Reported. Results Created Date Observation Date Name Description Value Unit Range Abnormal Flag Note LastModifiedBy Organization Detail LastModifiedTime 04/25/2004/25/2025 US, pelvi s No observ ation record ed. [facility] [address], [place], [address], 04/25/2025 17:49:57 04/25/2004/25/2025 US, trans vagin al No observ ation record ed. [facility] [address], [place], [address], 04/25/2025 17:50:07 04/25/2004/25/2025 US, pelvi s No observ ation record ed. [email or web address], [place], [address], 05/05/2025 12:51:50 Result Notes None recorded. Problems Name Problem SNOMED Code Status Onset Date Resolution Date Notes Provider Name and Address Organization Details Recorded Time Insomnia 542062984 Active 2020 Lynette kemp, [facility] 15:13:49 Depressive disorder 09713366 Active 2020 Lynette kemp, [facility] 15:13:54 Generalized anxiety disorder 57594430 Active 2020 Lynette Mirza [facility], [facility] 15:13:57 Cataplexy 06464304 Active 2020 Lynette kemp, [facility] 15:14:05 Migraine 72170170 Active 2020 Lynette kemp, [facility] 15:14:21 Heart murmur 35515694 Active 2020 Lynette kemp, [facility] 15:14:56 Hypertensive disorder 41188601 Active [address] [facility] 15:17:18 Mental disorder 90057006 Active 2020 Lynette kemp [facility] 15:17:25 Notes:hbp and mvp for palpit ations Problem Notes None recorded. Procedures Surgical History Date Name Laterality Status Provider Name and Address Organization Details Recorded Time 025 HYSTEROSCOPY, SURGICAL, WITH BIOPSY OF ENDOMETRIUM AND/OR POLYPECTOMY (SURG) completed Not Available [facility] 05/21[facility]20 13:01:39 025 repair of musculotendinous cuff of shoulder completed MAIKEL DENNEY NP [address], [place], [address], [facility] 04/24/2025 11:27:50 025 Date of Last Pap Smear completed [facility] 04/24/2025 11:22:48 023 Date of Last Mammogram completed [facility] 08/19/2024 11:24:59 023 Date of Last Colonoscopy completed [facility] 12/25/2024 10:54:22 003 cholecystectomy completed Lynette Whiteside [facility] 12/03/2020 15:17:57 994 [facility] 12/03/2020 15:18:08 Other completed [facility] 01/07/2021 12:26:09 Colonoscopy completed [facility] 01/07/2021 12:26:09 Caesarean Section completed [facility] 01/07/2021 12:26:09 Orthopedic Surgery completed Princess Lemons [facility] 01/07/2021 12:26:09 Imaging Results None recorded. Procedure Notes None recorded. Medical Equipment None Reported. Allergies Allergen ID Allergen Name Allergen Category Reaction Reaction Severity Criticality Documentation Date Start Date Code Code System Note Provider Name and Address Organization Details Recorded Time 68824 Substance with sulfonami de structure and antibacte rial mechanism of action (substanc e) medicatio n Not available Not available Not available 12/03/2020 25316 8003 [facility] 15:10:27 19202 codeine medicatio n Not available Not available Not available 12/03/2020 2670 RxNorm [facility] 15:10:33 65340 latex environme nt,medica tion Not available Not available Not available 12/03/2020 75574 91 RxNorm Lynette kemp, [facility] 15:11:17 18338 nickel environme nt Not available Not available Not available 12/03/2020 54973 29 RxNorm Lynette kemp, [facility] 15:11:22 48660 yellow dye medicatio n Not available Not available Not available 12/03/2020 [facility] 15:12:07 Medications Name Sig Start Date Stop [...] 1 TABLET BY MOUTH DAILY AT BEDTIME 04/24 completed Not Available Not Available Not Available triamcinol one acetonide 0.5 % topical cream APPLY THIN LAYER TOPICALL Y TO THE AFFECTED AREA TWICE DAILY active Not Available Not Available No t Available atorvastat in 10 mg tablet TAKE [...] 1 TABLET BY MOUTH EVERY 6 HOURS active Not Available Not Available No t [...] REPEAT IN 2 HOURS IF UNRESOLV ED active Not Available Not Available No t Available metoprolol succinate ER 100 mg tablet,ext ended release 24 hr TAKE 1 TABLET BY MOUTH EVERY DAY active Not Available Not Available No t Available sertraline 100 mg tablet TAKE 1 TABLET BY MOUTH DAILY active Not Available Not Available No t Available quetiapine 200 mg tablet TAKE 1 TABLET BY MOUTH AT BEDTIME 03/28 completed Not Available Not Available Not Available hydrocodon e 10 mg-acetami nophen 325 mg tablet TAKE 1 TABLET BY MOUTH EVERY 6 HOURS NEEDED FOR PAIN active Not Available Not Available No t Available tramadol 50 mg tablet TAKE 1 TABLET BY MOUTH EVERY 8 HOURS NEEDED FOR PAIN 04/24 completed Not Available Not Available Not Available [...] Available Not Available ketorolac 10 mg tablet TAKE 1 TABLET BY MOUTH EVERY 6 HOURS NEEDED 04/24 completed Not Available Not Available Not Available [...] tablet TAKE 1 TABLET BY MOUTH DAILY active Not Available Not Available No t Available estradiol 1 mg tablet TAKE 1 TABLET BY MOUTH EVERY DAY 03/28 completed Not Available Not Available Not Available temazepam 15 mg capsule TAKE 2 CAPSULES BY MOUTH EVERY NIGHT AT BEDTIME 12/17 completed Not Available Not Available Not Available temazepam 30 mg capsule active Not Available Not Available Not Available diazepam 2 mg tablet TAKE 2 TABLETS BY MOUTH 1 HOUR BEFORE EXAM 04/24 completed Not Available Not Available Not Available cephalexin 500 mg capsule TK 1 C PO Q 6 H 01/07 completed Not Available Not Available Not Available erythromyc in 5 mg/gram (0.5 %) eye ointment APPLY 1 THIN LAYER IN LEFT EYE EVERY 4 HOURS 12/17 completed Not Available Not Available Not Available fluoxetine 20 mg tablet TAKE 3 TABLETS BY MOUTH EVERY DAY 12/17 completed Not Available Not Available Not Available clotrimazo le-betamet hasone 1 %-0.05 % topical cream APPLY TOPICALL Y TO THE AFFECTED AND SURROUND ING AREAS TWICE DAILY IN THE MORNING AND IN THE EVENING FOR 2 WEEKS 03/28 completed Not Available Not Available Not Available butalbital -aspirin-c affeine 50 mg-325 mg-40 mg capsule TAKE 1 CAPSULE BY MOUTH,EV EDYTA 4 HOUR NEEDED 12/17 completed Not Available Not Available Not Available gabapentin 300 mg capsule 03/28 completed Not Available Not Available Not Available estradiol 2 mg tablet TAKE 1 TABLET BY MOUTH EVERY DAY active Not Available Not Available No t Available gabapentin 100 mg capsule TK ONE C PO QHS FOR THE FIRST 10 DAYS POST-OPE RATIVELY 01/07 completed Not Available Not Available Not Available lorazepam 1 mg tablet TAKE 1 TABLET BY MOUTH TWICE DAILY NEEDED 12/17 completed Not Available Not Available Not Available estradiol 0.01% (0.1 mg/gram) vaginal cream INSERT 1 GRAM VAGINALL Y EVERY DAY AT BEDTIME 12/17 completed Not Available Not Available Not Available ondansetro n 4 mg disintegra ting tablet active Not Available Not Available Not Available fluoxetine 20 mg capsule TAKE 1 CAPSULE BY MOUTH EVERY MORNING 12/17 completed Not Available Not Available Not Available sertraline 50 mg tablet TAKE 1 TABLET BY MOUTH DAILY 04/24 completed Not Available Not Available Not Available progestero ne micronized 100 mg capsule TAKE 1 CAPSULE BY MOUTH EVERY DAY active Not Available Not Available No t Available oxycodone 5 mg tablet TAKE 1 TABLET BY MOUTH EVERY 6 HOURS NEEDED active Not Available Not Available No t Available cyclobenza diamond 5 mg tablet 03/28 completed Not Available Not Available Not Available Seroquel 12/17 completed Not Available Not Available Not Available alprazolam 01/07 completed Not Available Not Available Not Available Prozac 12/17 completed Not Available Not Available Not Available Maxalt active Not Available Not Availa ble Not Available temazepam 12/17 completed Not Available Not Available Not Available Botox 12/17 completed Every 3 months Not Available Not Available Not Available quetiapine 50 mg tablet TAKE 1 TABLET BY MOUTH AT BEDTIME 03/28 completed Not Available Not Available Not Available quetiapine ER 300 mg tablet,ext ended release 24 hr TAKE 1 TABLET BY MOUTH AT BEDTIME 12/17 completed Not Available Not Available Not Available carisoprod ol 250 mg tablet TAKE 1 TABLET BY MOUTH THREE TIMES DAILY 04/24 completed Not Available Not Available Not Available oxycodone 10 mg tablet 03/28 completed Not Available Not Available Not Available Paxlovid 300 mg (150 mg x 2)-100 mg tablets in a dose pack TAKE 2 TABLETS (NIRMATR CHARLETTE) AND TAKE 1 TABLET (RITONAV IR) BY MOUTH TWICE A DAY FOR 5 DAYS 08/19 completed Not Available Not Available Not Available Vitals Date Recorded Body height Body mass index (BMI) Body weight Systolic And Diastolic Provider Name and Address Organization Details Last Updated DateTime 04/24/2025 165.1 cm 22.3 kg/m2 20776.66 g 148/83 mm[Hg] Patricia Tao [facility] 04/24/2025 11:21:00 Date Recorded Body height Body mass index (BMI) Body weight Systolic And Diastolic Provider Name and Address Organization Details Last Updated DateTime 05/02/2025 165.1 cm 22.5 kg/m2 40635.97 g 169/89 mm[Hg] Aliyah Dave [facility] 05/02/2025 12:13:12 Date Recorded Body height Body mass index (BMI) Body weight Systolic And Diastolic Provider Name and Address Organization Details Last Updated DateTime 05/28/2025 165.1 cm 22.5 kg/m2 12930.97 g 141/85 mm[Hg] Patricia Tao [facility] 05/28/2025 14:18:17 Social History Question Answer Notes LastModified by Organizat ion Details LastModified Time Tobacco Smoking Status Current Every Day Smoker Princess Lemons justo [facility] 01/07/2021 12:26:05 Do You Have An Advance Directive? No Information n ot available 01/07/2021 Are You Blind Or Do You Have Difficulty Seeing? No Information n ot available 01/07/2021 How Much Tobacco Do You Chew? None Information not available 01/07/2021 In The 14 Days Before Symptom Onset, Have You Had Close Contact With A Laboratory-confirm ed COVID-19 While That Case Was Ill? No Information n ot available 01/07/2021 In The 14 Days Before Symptom Onset, Have You Had Close Contact With A Person Who Is Under Investigation For COVID-19 While That Person Was Ill? No Information not available 01/07/2021 Have You Been To An Area Known To Be High Risk For COVID-19? No Information not available 01/07/2021 Are You Deaf Or Do You Have Serious Difficulty Hearing? No Information not available 01/07/2021 What Type Of Diet Are You Following? REGULAR Information n ot available 01/07/2021 What Is The Highest Grade Or Level Of School You Have Completed Or The Highest Degree You Have Received? [id number] Information not available 01/07/2021 Are There Any Guns Present In Your Home? No Information not available 01/07/2021 Do You Use Protection During Sex? Always Information not available 01/07/2021 Do You Use Your Seat Belt Or Car Seat Routinely? Yes Information not available 01/07/2021 Do You Have Smoke And Carbon Monoxide Detectors In Your Home? Yes Information not available 01/07/2021 At What Age Did You Start Smoking Tobacco? 20 Information not available 01/07/2021 How Much Tobacco Do You Smoke? 1 PPD Information not available 01/07/2021 Do You Use Sunscreen Routinely? Yes Information not available 01/07/2021 How Many Years Have You Smoked Tobacco? 35 Information not available 01/07/2021 Have You Used IV Drugs? No Information not available 01/07/2021 Sex: Unknown Functional Status Question Answer Note LastModified by Organizat ion Details LastModified Time Do you use any illicit or recreational drugs? No Information not available 01/07/2021 What is your level of alcohol consumption? None Information not available 01/07/2021 Are you able to walk independently without assistance or assistive devices? NOINITWALK Information not available 01/07/2021 What is your exercise level? Occasional Information not available 01/07/2021 Mental Status Question Answer Note LastModified by Organization D etails LastModified Time Do you feel stressed (tense, restless, nervous, or anxious, or unable to sleep at night)? [id number] Information not available 01/07/2021 Family History Relationship Description Onset Age of this Age Resolved Age Notes LastModified by Organization Details LastModified Time Mother Malignant tumor of breast [email or web address] Not available 2020 15:16:19 Mother Heart disease Not available 2020 15:16:29 Mother Diabetes mellitus [email or web address] Not available 2020 15:16:42 Mother Hypertensive disorder [email or web address] Not available 2020 15:17:02 Father Heart disease Not available 2020 15:16:29 Father Hypertensive disorder [email or web address] Not available 2020 15:17:02 Brother Diabetes mellitus [email or web address] Not available 2020 15:16:42 Brother Heart disease [email or web address] Not available 2020 15:16:48 Brother Hypertensive disorder [email or web address] Not available 2020 15:17:02 Sister Malignant tumor of breast 60 BRCA neg - sister [email or web address] Not available 05/28/2025 14:15:12 Sister Malignant tumor of breast [email or web address] Not available 2024 11:12:26 Medical History Condition Response Allergies (Food, seasonal, environmental ) N Other Y Breast Cancer N Drug/Latex Allergies/Reactions Y Blood Transfusion N Dermatologic Disorders N Lung Disease N Defects or Inherited Disease N Breast Problem N Gestational Diabetes N Hematologic disorders N Anesthesia Complications N History of STI N Deep Vein Thrombosis N Polycystic ovary syndrome N Anxiety Disorder Y Autoimmune disease N Arthritis N Infertility N Polyps N Acid Reflux (GERD) N History of abnormal pap N Cancer N Stroke N Varicosities N Neurologic/Epilepsy N Endometriosis N High Cholesterol N Headaches Y Fibromyalgia N Kidney Disease N Heart Problems Y Kidney or Bladder Problems N Thyroid Problems N GI Problems N Eating Disorder N Anemia N Art (IVF or FET) N Psychiatric Illness N Ovarian Cancer N Diabetes N Pulmonary (TB, Asthma) N Hepatitis/Liver Disease N No Past Medical History N Eczema Y Urinary Tract Infection N Abuse/Domestic Violence N Asthma N Trauma/Violence N Depression/ depression Y Heart Disease N Pre-Eclampsia N Hypertension N Osteoporosis N Thrombophilias N Gynecological History Statement/Question Response Flow Moderate Date of Last Mammogram 07/12/2023 Date of LMP 04/22/2025 N On BCP's at Conception? N STIs/STDs N Was last menstrual period normal N HPV Vaccine N Current Control Method Menopause Age at First Child 29 If Post Menopausal, Age at Menopause 50 Are cycles usually normal N Date of Last Colonoscopy 06/06/2023 Sexually Active? Y None Menses Monthly N Age of first menstrual cycle 12 Date of Last Pap Smear 12/17/2024 Sexual Problems? Y LMP Definite Desired Control Method None N Obstetrics History GPAL:G 1 P 1 0 0 1 Type Value Full Term 1 Living 1 Total 1 Past Encounters Encounter ID Performer Location Encounter Start Date Encounter Closed Date Diagnosis/Indication Diagnosis SNOMED-CT Code Diagnosis ICD10 Code Diagnosis IMO Codes Diagnosis Note [id number] Bindu Jimenez CNM [facility] [address] [address] 12/03/2020 15:07:50 12/04/2020 15:37:18 Gynecologic examination 96606246 Z01.419 Take Calcium with Vitamin D 12-1500mg daily. Do monthly self breast exams. It is advised to get annual flu shot in the fall and she could obtain at [facility] or [facility]. If you haven't received the Tdap vaccine in the last 10 years you should obtain one as well. Have mammogram yearly, bone density every 2-3 years and colonoscop y every 5-10 years depending on findings and history. Engage in daily exercise of low impact aerobic exercise 45-60 minutes 4-5 times weekly. Avoid tobacco and illicit drugs as well as using moderation with alcohol intake less than 1-2 8 oz beverages daily. This lifestyle behavior pattern will lead to less health conditions and longer life span. If BMI greater than 25 weight watchers or dietary consult advised. Questions have been answered. Patient appears to understand instructio ns, but if you have any further questions call or respond to this email. Menopausal and postmenopausal disorders 690639157 N95.9 Pt has a very complicate d medical history and medication list. Her menopausal symptoms have definitely intensifie d. I would like her to schedule a consult with Dr Root to discuss options. Dyspareunia [id number] N94 .10 Consult to be scheduled with Dr Root. [id number] Guillermo Root MD [facility] [address] [address] 01/07/2021 12:10:16 01/07/2021 13:10:58 Menopausal symptom 94527215 N95.1 this patient reports severe symptoms of menopause. She has some severe dyspareuni a and vaginal dryness that she would like treated effectivel y and quickly. We agreed to vaginal estradiol and systemic estradiol. She also take oral Prometrium . The vaginal she will be continued after about a month. She return in 1 month. [id number] Guillermo Root MD [facility] [address] [address] 02/04/2021 15:24:32 02/04/2021 16:40:37 Menopausal symptom 06403259 N95.1 This patient is a 55-year-ol d female who presents for follow-up on hormone replacemen t therapy and vaginal estrogen. We discussed her migraines. We talked about possible risk associated with a trial and migraine with aura. She does not have migraine with aura. She has no visual symptoms. She has no paralysis or neurologic symptoms other than headache. She is treated with Botox. She is noticed a marked improvemen t with the hormone replacemen t therapy and the vaginal estrogen cream. She says that sex is much improved. She will follow-up in 6 months. [id number] Guillermo Root MD [facility] [address] [address] 03/28/2022 10:56:09 03/28/2022 17:15:14 Eczema 62314189 L30.9 Gynecologi c examination 61589142 Z01.419 Annual gynecologi aniya exam performed. Patient will come back in a year unless there are new symptoms. Suggest Calcium with Vitamin D if not eating in diet. Patient advised to get annual flu shot. Recommend yearly physicals and preform monthly breast exams. Genetic testing is available for patients with family history of cancer. Engage in safe sexual practices, use condoms. Encouraged to have daily exercise. Avoid tobacco and illicit drugs, moderation of alcohol. If BMI greater than 25 dietary consult advised. If you have any questions please call or email. Mammogram - ordered Colonoscop y - cologuard Bone Density - na Cholestero l - ordered Pap - today Menopausal symptom 48252 002 N95.1 [id number] Guillermo Root MD [facility] [address] [address] 12/17/2024 10:45:36 12/17/2024 11:38:52 Gynecologic examination 57665203 Z01.419 Annual gynecologi aniya exam performed. Patient will come back in a year unless there are new symptoms. Suggest Calcium with Vitamin D if not eating in diet. Patient advised to get annual flu shot. Recommend yearly physicals and perform monthly breast exams. Genetic testing is available for patients with family history of cancer. Engage in safe sexual practices, use condoms. Encouraged to have daily exercise. Avoid tobacco and illicit drugs, moderation of alcohol. If BMI greater than 25 dietary consult advised. If you have any questions please call or email. mammogram- order given, pt to schedule colon cancer screening - due; cologuard ordered DEXA scan- recommende d baseline bone density scan at age 60 y/o; ordered Dexa scan Pap smear- pap w/ HPV collected laboratory evaluation - PCP STI testing - declined Screening mammography 24 021576 Z12.31 Screening for osteoporosis 610544435 Z13.820 Menopausal symptom 82983 002 N95.1 Counseled on the following: Females >10yrs past menopause (& age 60yo+) are generally not good candidates for starting (1st use) systemic HT. Decisions to continue systemic HT > a decade past menopause (or past age 60yo) requires balancing R/B's; & individual ized needs. Non-hormon al options may be more appropriat e for females >10yrs past menopause. Encouraged smoking cessation. Discussed that her risk of CVD can be increased with certain risk factors, such as tobacco use, hypertensi on, hyperlipid emia, and diabetes mellitus. Patient verbalizes understand ing.Patien t aware of risks/bene fits/AEs of HRT and wishes to continue. [id number] Guillermo Root MD [facility] [address] [address] 04/24/2025 11:07:12 04/24/2025 12:09:27 Postmenopausal bleeding 05310435 N95.0 30486 The patient and I discussed the various causes of abnormal uterine bleeding, including polyps, fibroids, hyperplasi a, atypia, anovulatio n, etc.We reviewed the typical evaluation with pelvic US and possible endometria l biopsy.Jenigerson pearce discussed the options available for treatment (depending on the results of evaluation ). Pap smear UTD - NILM, HPV negative 12/17/2024. Pelvic ultrasound ordered for further evaluation .Follow-up ultrasound with possible endometria l biopsy (pending results) scheduled with . ER precaution s provided. Patient is to contact office or go to nearest ED/Urgent care if fever >/= 100.1, pain, excessive bleeding, unusual drainage or swelling in area of concern; or experienci ng worsening sx's or new onset of concerning sx's. Understand ing verbalized . All questions answered to patient satisfacti on. [id number] Guillermo Root MD [facility] [address],[place] [address] 04/25/2025 12:24:23 04/25/2025 13:56:45 Postmenopausal bleeding 86952269 N95.0 31039 [id number] Guillermo Root MD [facility] [address],[place] [address] 05/02/2025 11:56:00 05/02/2025 13:00:07 Pain in pelvis 05496860 R10.2 79738 Postmenopa usal bleeding 54752816 N95.0 39411 This patient is a 59-year-ol d female with postmenopa usal bleeding. She had an ultrasound that showed an endometria l lesion. We have agreed to evaluate and treat hysterosco pically. Patient have hysterosco py D and C with possible polypectom y. The patient understand s the procedure. The procedure was described to the patient in great detail. the patient also understand s the risks. The risks were also explained in detail. She understand s that injuries May occur during surgery. She understand s these injuries can result in hospitaliz ation, more surgery, and severe illness. She understand s there is risk of hemorrhage and infection. Patient having significan t pelvic pain with the bleeding. To manage her pain medically. . Pain meds were prescribed . She understand s the risks, benefits, and alternativ es. She is given precaution s and instructio ns. I spent over 30 minutes on her care in total. [id number] Guillermo Root MD [facility] [address],[place] [address] 05/21/2025 08:55:49 05/21/2025 13:34:29 [id number] Guillermo Root MD [facility] [address],[place] [address] 05/28/2025 14:06:13 05/28/2025 14:56:08 Postmenopausal bleeding [id number] N95.0 [id number] This patient is a 60-year-ol d female presents for a postop follow up. She had a hysterosco py D and C with polypectom y. She is recovering normally. She has no complaints . Her pathology report was benign. However, there was no evidence of any polypoid tissue. I believe the polyp was not captured and was possibly lost in the tubing or the device. I discussed this finding with the patient. Health Concerns Section Related Observation LastModified by Organization Detai ls LastModified Time None Recorded Concern Status LastModified by Organization Details LastModified Time None Recorded Advance Directives Directive N: Payers Insurance Date Sequence Insurance Name Policy Number Policy Machado Covered Member ID Machado Member ID Guarantor Name 04/24/2025 1 [facility] [id number] Nik Lefty [id number] Monica Lefty 05/28/2025 2 [place] Monica Lefty [id number] Monica Lefty 05/28/2025 2 [facility] (MEDICARE REPLACEMENT/A DVANTAGE - PPO) [id number] Monica Lefty [id number] Monica Lefty 07/19/2024 1 [employer] [id number] Nik Lefty [id number] Monica Lefty 06/02/2025 1 [facility] [id number] Stanley Adan Lefty [id number] Monica Joaquinymer Notes Date Note Type Note Provider Name and Address Organization Details Recorded Time 04/24/2025 text/html 59 y/o female presents with c/o post-menopausal bleeding.Patient states that Monday night she started having pelvic cramping and noticed dark red, thick bleeding and blood clots in underwear.Patient states that since then she has noticed light pink blood only when wiping.Patient states that she stopped menstruating nearly 15 years ago and started HRT in 2020 with oral estradiol and progesterone.Patient states that she is currently taking estradiol 2 mg and progesterone 100 mg PO daily.Patient states that she had rotator cuff repair surgery two weeks ago; no medical hx changes since then.Current everyday tobacco smoker.Patient states that lab work before surgery was WNL. MAIKEL DENNEY NP [address], [place], [address], [facility] 04/24/2025 11:58:25 05/02/2025 text/html This patient is a 59-year-old female with postmenopausal bleeding. She had an ultrasound that showed an endometrial lesion. We have agreed to evaluate and treat hysteroscopically. Patient have hysteroscopy D and C with possible polypectomy. The patient understands the procedure. The procedure was described to the patient in great detail. the patient also understands the risks. The risks were also explained in detail. She understands that injuries May occur during surgery. She understands these injuries can result in hospitalization, more surgery, and severe illness. She understands there is risk of hemorrhage and infection. Guillermo Root MD [address], [place], [address], [facility] 05/02/2025 12:54:16 05/28/2025 text/html This patient is a 60-year-old female presents for a postop follow up. She had a hysteroscopy D and C with polypectomy. She is recovering normally. She has no complaints. Her pathology report was benign. However, there was no evidence of any polypoid tissue. I believe the polyp was not captured and was possibly lost in the tubing or the device. Guillermo Root MD [address], [place], [address], [facility] 05/28/2025 14:55:24 OBGyn Episode Ob Episode Information Episode Created Date Number of Fetuses Patient Bloodtype Patient rh Status Prepregnancy Weight lbs Domestic Partner Domestic Partner Phone Father Name [employer] Intern Status 12/03/19 21 1 CLOSED Fetus Data First Name Last Name Admitted to NICU Weight (g) Sex Living Outcome Pediatric Complications Fetus ID Race Codes Race Delivery Type 3543.46 [id number] Full Term [id number] Primary Tex Calculation Initial Tex Date Initial Exam Date Initial Exam Provider Initial Ultrasound Date Last Menstrual Period Date Ultra Sound Weeks Gestation 0 Eighteen To Twenty Week Tex Update Ultra Sound Date Fundal Height At Umbil Quickening Date Ultra Sound Latest Weeks Gestation Final Tex Confirmed By Final Tex Confirmed Date Final Tex Date Ultra Sound Latest Days Gestation 0 0 Menstrual History Last Menstrual Date Menses Monthly On Bcp Conception Prior Menses Frequency Hcg Plus Date Menarche Onset Age Delivery Information Delivery Date Delivery Type Labor Anesthesia Weeks Gestation Incision Type Labor Labor Length Hrs Delivered By Post Complications Tubal Sterilization Discharge Date Comments 4 Prolapse d cord Discharge Information Feeding Method Contraceptive Method Maternal HG B and HCT Levels
--- OUTSIDE RECORDS SUMMARY | 2025-07-07 10:24 | XMS_ITS | Patient Health Record ---
Author Organization [facility] Address [address] [place] [address] Care Team Providers Care Fourth Officer Name Role Phone Ashley Stringer Primary Care Provider [phone] MATT Unavailabl e [phone] SaturninoMadisyn souza Unavailable [phone] Allergies Allergen (clinical drug ingredient) Drug/Non Drug [...] Date Status Metoprolol Succinate ER 100 MG Oral; Duration: 30 Days Acti ve Temazepam 30 MG Oral; Duration: 30 Days Active Atorvastatin Calcium 10 MG 1 tablet Oral ly Once a day Active ALPRAZolam 0.25 MG 1 tablet Orally once a day; Duration: 30 days 06/04/2025 Active ALPRAZolam 0.5 MG 1 tablet Orally Twic e a day; Duration: 30 days 06/04/2025 Active SEROquel 300 MG 1 tablet at bedtime Orally Once a day; Duration: 30 days Active Sertraline HCl 100 MG 1 tablet Orally On ce a day; Duration: 30 days 04/16/2024 Active Social History Tobacco [...] W/U Status Risk Notes Problem Tobacco user (867553995) Nicotine dependence, unspecified, uncomplicated (F17.200) Active confirmed Problem Severe recurrent major depression without psychotic features (76669530) Major depressive disorder, recurrent severe without psychotic features (F33.2) Active confirmed Problem Tobacco user (064449227) Tobacco dependency (F17.200) Active confirmed Problem Depression (454141738) Depression (F32.9) Active confirmed Problem Anxiety (39938405) Anxiety (F41.9) Active confirmed Encounters Encounter Location Date Provider Diagnosis Formerly [facility] [address] [place] [address] 09/12/2024 Ashley Stringer Major depressive disorder, recurrent severe without psychotic features F33.2 ; Anxiety F41.9 and Nicotine dependence, unspecified, uncomplicated F17.[address] [place] [address] 12/06/2024 Ashley Stringer Major depressive disorder, recurrent severe without psychotic features F33.2 and Anxiety F41.9 Former[facility] [address] [place] [address] 03/05/2025 Ashley Stringer Major depressive disorder, recurrent severe without psychotic features F33.2 and Anxiety F41.9 [facility] [address] [place] [address] 06/04/2025 Ashley Stringer Major depressive disorder, recurrent severe without psychotic features F33.2 and Anxiety F41.9 [facility] [address] [address] 02/07/2025 Ashley Stringer Anxiety F41.9 Assessments Encounter Date Diagnosis (ICD Code) Assessment Notes Treatment Notes Treatment Clinical Notes Section Notes 09/12/2024 Major depressive disorder, 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-10 - F33.2) Continue current medications. Reviewed Prescription Monitoring program. Continue services as scheduled. Labs completed recently. May self-administer medications or be administered own oral medications per [facility] protocols. Provided informed consent with understanding of [...] or be administered own oral medications per [facility] protocols. Provided informed consent with understanding of side effects, adverse effects, risks and benefits as well as alternative treatments as previously discussed and with the above recommended medications & other aspects of the treatment program. Agrees to return sooner if symptoms worsen or suicidal or homicidal ideations occur. 06/04/2025 Major depressive disorder, 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-10 - F33.2) Continue current medications. Reviewed Prescription Monitoring program. Continue services as scheduled. Labs completed recently. May self-administer medications or be administered own oral medications per [facility] protocols. Provided informed consent with understanding of side effects, adverse effects, risks and benefits as well as alternative treatments as previously discussed and with the above recommended medications & other aspects of the treatment program. Agrees to return sooner if symptoms worsen or suicidal or homicidal ideations occur. 06/04/2025 Anxiety (ICD-10 - F41.9) 03/05/2025 Anxiety (ICD-10 - F41.9) 12/06/2024 Anxiety (ICD-10 - F41.9) 09/12/2024 Anxiety (ICD-10 - F41.9) 09/12/2024 Nicotine dependence, unspecified, uncomplicated (ICD-10 - F17.200) 12/06/2024 Other Continue curren t medications. Reviewed Prescription Monitoring program. Continue services as scheduled. Labs completed recently. May self-administer medications or be administered own oral medications per [facility] protocols. Provided informed consent with understanding of [...] Insured Coverage Start Date Coverage End Date [facility] [address] [address] [place] [address] [id number] Monica Olea Self - patient is the insured 3 3 [facility] [address] [place] [address] [phone] [id number] [phone] Monica Olea Self - patient is the insured 6 1 [facility] [address] [address] [place] [address] [id number] Monica Olea Self - patient is the insured 1 1 [facility] [address] [place] [address] [id number] Monica Olea Self - patient is the insured 1 2 Medical (General) History Medical History History ICD Code Migraines MVP Depression Panic Attacks cataplexy high cholesterol HTN Rotator cuff tear Surgical History Surgery Date(Month/Year) 1993 cholyecystectomy 2002 Hospitalization History Reason Date(Month/Year) [facility] (I[facility]D) 10/2015
--- OUTSIDE RECORDS SUMMARY | 2025-07-07 10:24 | XMS_ITS | Clinical Summary ---
Author Organization [facility] Address [address] [place] [address] Care Team Providers Care Airline Stewardess Name Role Phone Hector Sylvester MD Primary Care Provider [phone] Source Comments [facility],non-owned Affiliates and Associated Physician Practices is amultiple site organization consisting of ambulatory clinics and hospital sitesin [place], [place], [place] and [place]. This disclosure is being madepursuant to the Care Everywhere program and may not contain all information available regarding this patient. 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 She denies being on Percocet currently and doesn't want to try steroids. Her drug screen is positive for opiates. Lisa Villatoro MD Family History Medical History Relation Name Comments Diabetes Brother [place] Father Breast Cancer after age 50 or [...] on file Legal Sex Female 6:52 AM [employer] Gender Identity Not on file Sexual Orientation [...] 4:25 PM CDT Height 157.5 cm (5' 2) 01/23/2018 4:25 PM CDT Body Mass Index [...] SCREENING 1965 LIPID TESTING 1965 MAMMOGRAM 1965 MEDICARE AWV 12 MONTHS 1965 HIV SCREENING 1980 HEPATITIS C SCREENING 05/04/1983 DTAP/TDAP/TD VACCINES (1 - Tdap) 1984 PNEUMOCOCCAL VACCINE 50+ (1 of 2 - PCV) 1984 PAP SMEAR 1986 ZOSTER VACCINE (1 of 2) 2015 DEPRESSION SCREENING 10/09/2024 COVID-19 VACCINE (1 - 2023-2 5 season) 2025 INFLUENZA VACCINE (#1) 2025 Respiratory Syncytial Virus (RSV) Vaccine Pt: or over 60 yrs (1 - 1-dose 75+ series) 2040 HEPATITIS B VACCINE Aged Out No longe r eligible based on patient's age to complete this topic HIB VACCINE Aged Out No longer eligi [...] patient's age to complete this topic Insurance [facility] MEDICARE SELF PAY NO INSURANCE Member Subscriber Plan / Payer (Ef fective for All Dates) Name:Ivonne Olea Member ID:Not on file Relation to Subscriber:Not on file Name:IVONNE OLEA Subscriber ID:Not on file (Home) Address: [address] [place] [id number] Payer ID:Not on file Group ID:Not on file Type:Self Pay Address: [place], [place] [facility] Care Teams Airline Stewardess Relationship Specialty Start Date End Date Hector Sylvester MD [address] [place] [id number] PCP - General Family Medicine 01/23/18
--- NOTE | 2025-07-07 10:38 | ED.UPPEXIN ---
HPI - Extremity Injury (Upper) General Chief Complaint: Extremity Injury, Upper <Rima Urbina PA-C - Last Filed: 07/07/25 14:33> Stated Complaint: fall, shoulder pain <Rima Urbina PA-C - Last Filed: 07/07/25 14:33> Time Seen by Provider: 07/07/25 10:09 <Rima Urbina PA-C - Last Filed: 07/07/25 14:33> Source: patient <DAWIT Vieira Last Filed: 07/07/25 14:33> Mode of arrival: ambulatory <Rima Urbina PA-C - Last Filed: 07/07/25 14:33> Limitations: no limitations <Rima Urbina PA-C - Last Filed: 07/07/25 14:33> History of Present Illness HPI narrative: This is a 60 year old female that presents to the ER for right shoulder pain. Reports she tripped and fell onto the shoulder. She did not hit her head or lose consciousness. Reports pain in the shoulder, decreased ROM. Reports she has dislocated this shoulder several times. <Rima Urbina PA-C - Last Filed: 07/07/25 14:33> Related Data Home Medications: Home Medications ?Medication ?Instructions ?Recorded ?Confirmed ?Last Taken ?Type estradiol 2 mg tablet 2 mg PO HS 10/22/22 07/01/25 05/20/25 History metoprolol succinate 100 mg 100 mg PO HS 10/22/22 07/01/25 05/20/25 History tablet,extended release 24 hr progesterone micronized 100 mg 100 mg PO HS 10/22/22 07/01/25 05/20/25 History capsule quetiapine 300 mg tablet 300 mg PO HS 10/22/22 07/01/25 05/20/25 History rizatriptan 10 mg tablet 10 mg PO DAILY PRN migraine 10/22/22 07/01/25 04/09/25 History headache temazepam 30 mg capsule 30 mg PO QHS 05/17/23 07/01/25 05/20/25 History ahevhqzfhe-pspckuwflnoas-ecrptimx 1 tablet PO DAILY PRN pain 01/01/24 07/01/25 Unknown History 50 mg-325 mg-40 mg tablet sertraline 100 mg tablet 100 mg PO HS 04/03/25 07/01/25 05/20/25 History alprazolam 0.5 mg tablet 0.5 mg PO BID PRN 07/01/25 07/01/25 Unknown History <Rima Urbina PA-C - Last Filed: 07/07/25 14:33> Allergies/Adverse Reactions: Allergies Allergy/AdvReac Type Severity Reaction Status Date / Time dihydroergotamine Allergy Intermediate Unknown Verified 07/07/25 10:16 codeine Allergy Mild gets red, Verified 07/07/25 10:16 hives, itchy latex Allergy Mild Unknown Verified 07/07/25 10:16 Sulfa (Sulfonamide Allergy Mild Unknown Verified 07/07/25 10:16 Antibiotics) chlorpromazine Allergy Unknown Dyspnea / Verified 07/07/25 10:16 SOB nickel Allergy Unknown Unknown Verified 07/07/25 10:16 prochlorperazine Allergy Unknown Unknown Verified 07/07/25 10:16 propranolol AdvReac Unknown chest Verified 07/07/25 10:16 tightness metoclopramide (From Reglan) AdvReac Dystonic Verified 07/07/25 10:16 reaction <Rima Urbina PA-C - Last Filed: 07/07/25 14:33> Review of Systems Review of Systems: All systems reviewed & are unremarkable except as noted in HPI and below <Rima Urbina PA-C - Last Filed: 07/07/25 14:33> [facility] Past Medical History Medical History: Medical History Recurrent dislocation, right shoulder 05/2025, 02/2025 Compression of thoracic vertebra Fracture of right third rib (~05/2025) Dislocation of right shoulder joint (~02/2025) Essential (primary) hypertension Depression with anxiety Multiple fractures of ribs of right side (~08/2021) Hyperlipidemia, unspecified Positive colorectal cancer screening using Cologuard test IBS (irritable bowel syndrome) Pneumothorax (~08/2021) Cataplexy Migraine <Rima Urbina PA-C - Last Filed: 07/07/25 14:33> Surgical History Surgical History: Surgical History History of arthroscopic surgery of shoulder Right Shoulder Biceps Tenotomy. 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, b/l hands and RLE History of ankle surgery (~2014) ORIF right ankle fracture History of chest tube placement (~08/2021) right pneumothorax History of cholecystectomy (~2002) History of (~1993) <Rima Urbina PA-C - Last Filed: 07/07/25 14:33> Family History Family History: Family History Father Acute myocardial infarction Sibling Patient's sister is in good health Patient's brother is in good health Patient's sister is Mother Family history of malignant neoplasm of breast in first degree relative Patient's mother is <Rima Urbina PA-C - Last Filed: 07/07/25 14:33> Social History Social History: Social History Smoking packs per day: 0.5 Smoking cigarettes per day: 10.0 Years smoked: 40 Smoking pack-years: 20.00 Smoking status: Current every day smoker Tobacco type: cigarettes Alcohol intake: never Substance use: never Lack of Transportation: No Lack of Food: Never True Current Housing: I Have Housing Concerned About Future Housing: No Difficulty Paying Gas/Electric Bills: No Difficulty Paying for Meds: No Currently Unemployed: No Education: Trade/Vocational Certificate Difficulty w/ Childcare or Family Care: No Living arrangements: with family Additional living arrangements comments: Gender identity (if verbalized by the patient): Female Sexual Orientation (if Verbalized by the Patient): Straight or Heterosexual Spiritual care concerns: No <Rima Urbina PA-C - Last Filed: 07/07/25 14:33> Exam Narrative: GENERAL: Well-appearing, well-nourished, and in no acute distress. HEAD: Normocephalic, atraumatic. EYES: EOMI. ENT: Nares clear, no rhinorrhea or epistaxis. Mucous membranes moist. Oropharynx without tonsillar hypertrophy exudate or other lesions. CHEST: Clear to auscultation. No respiratory distress. No wheezes rales or rhonchi HEART: Regular rate and rhythm. No murmur heard. Normal peripheral pulses. EXTREMITIES: Decreased active ROM in the right shoulder with obvious deformity. Normal radial pulse. Normal sensation SKIN: Warm, dry, no rash. NEURO: No focal deficits. Alert and oriented x3. PSYCH: Normal mood and affect <Rima Urbina PA-C - Last Filed: 07/07/25 14:33> Course Course Emergency Course: patient updated on her workup and agrees with plan of care <DAWIT Vieira Last Filed: 07/07/25 14:33> Consultations Consultation #1: Spoke with Dr. Ang, patient is to follow up in clinic <DAWIT Vieira Last Filed: 07/07/25 14:33> Vital Signs Vital signs: Vital Signs Temperature 98.8 F 07/07/25 09:53 Pulse Rate 102 H 07/07/25 09:53 Respiratory Rate 18 07/07/25 09:53 Blood Pressure 166/105 H 07/07/25 09:53 Pulse Oximetry 99 07/07/25 09:53 Oxygen Delivery Room Air 07/07/25 09:53 Temperature 97.6 F 07/07/25 12:15 Pulse Rate 93 07/07/25 13:36 Respiratory Rate 11 L 07/07/25 13:36 Blood Pressure 152/73 H 07/07/25 13:36 Pulse Oximetry 99 07/07/25 13:21 Oxygen Delivery Room Air 07/07/25 12:15 Oxygen Flow Rate 2 07/07/25 12:00 <DAWIT Vieira Last Filed: 07/07/25 14:33> Vital Signs Temperature 98.8 F 07/07/25 09:53 Pulse Rate 102 H 07/07/25 09:53 Respiratory Rate 18 07/07/25 09:53 Blood Pressure 166/105 H 07/07/25 09:53 Pulse Oximetry 99 07/07/25 09:53 Oxygen Delivery Room Air 07/07/25 09:53 Temperature 97.6 F 07/07/25 12:15 Pulse Rate 93 07/07/25 13:36 Respiratory Rate 11 L 07/07/25 13:36 Blood Pressure 152/73 H 07/07/25 13:36 Pulse Oximetry 99 07/07/25 13:21 Oxygen Delivery Room Air 07/07/25 12:15 Oxygen Flow Rate 2 07/07/25 12:00 <Susie Marte MD - Last Filed: 07/07/25 15:23> Procedures Orthopedic Joint Reduction Joint #1: Orthopedic Joint Reduction Date: 07/07/25 <Rima Urbina PA-C - Last Filed: 07/07/25 14:33> Orthopedic Joint Reduction Time: 11:45 <Susie Marte MD - Last Filed: 07/07/25 15:23> Time Out Performed: Yes <Rima Urbina PA-C - Last Filed: 07/07/25 14:33> Side: right <Rima Urbina PA-C - Last Filed: 07/07/25 14:33> Joint Reduction Location: shoulder <Rima Urbina PA-C - Last Filed: 07/07/25 14:33> Analgesia: procedural sedation <Rima Urbina PA-C - Last Filed: 07/07/25 14:33> Pre-Procedure Neuro Vascular Exam: normal <Rima Urbina PA-C - Last Filed: 07/07/25 14:33> Shoulder Technique Used (if applicable): traction/counter-traction and external rotation <Rima Urbina PA-C - Last Filed: 07/07/25 14:33> Post-reduction neuro exam: intact <Rima Urbina PA-C - Last Filed: 07/07/25 14:33> Post-reduction vascular: intact <Rima Urbina PA-C - Last Filed: 07/07/25 14:33> Post Reduction X-Ray Obtained: Yes <Rima Urbina PA-C - Last Filed: 07/07/25 14:33> Post Reduction X-Ray Results: reduced <Rima Urbina PA-C - Last Filed: 07/07/25 14:33> Splint Applied: Yes <Rima Urbina PA-C - Last Filed: 07/07/25 14:33> Patient Tolerated Procedure: well and no complications <Rima Urbina PA-C - Last Filed: 07/07/25 14:33> Procedural Sedation Procedural Sedation #1: Procedural Sedation Date: 07/07/25 <Rima Urbina PA-C - Last Filed: 07/07/25 14:33> Procedural Sedation Time: 11:45 <Rima Urbina PA-C - Last Filed: 07/07/25 14:33> Procedure: shoulder reduction <Rima Urbina PA-C - Last Filed: 07/07/25 14:33> right shoulder reduction and procedural sedation performed by Susie Marte MD and Rima LILLY <Susie Marte MD - Last Filed: 07/07/25 15:23> Provider Performed: sedation and procedure <Rima Urbina PA-C - Last Filed: 07/07/25 14:33> Informed Consent Obtained: yes <Rima Urbina PA-C - Last Filed: 07/07/25 14:33> Equipment in Room: bag and mask, capnography, firebreak cutter, crash cart, oxygen, pulse oximeter and suction <Rima Urbina PA-C - Last Filed: 07/07/25 14:33> Plan for Sedation: moderate sedation <Rima Urbina PA-C - Last Filed: 07/07/25 14:33> ASA Class: II <Rima Urbina PA-C - Last Filed: 07/07/25 14:33> Mallampati Classification: class II <Rima Urbina PA-C - Last Filed: 07/07/25 14:33> Explanation to Patient/Family: Risk/Benefits/Alternatives and Pt/Family agreed with plan <Rima Urbina PA-C - Last Filed: 07/07/25 14:33> Pt. Educated on Procedural Sedation: Yes <Rima Urbina PA-C - Last Filed: 07/07/25 14:33> Re-evaluated immediately prior: Yes <Rima Urbina PA-C - Last Filed: 07/07/25 14:33> Preparation: firebreak cutter applied, pulse oximeter, capnometry used, supplemental O2 applied, suction/airway equipment at bedside and IV secured <Rima Urbina PA-C - Last Filed: 07/07/25 14:33> IV Propofol dose (mg): 60 <Rima Urbina PA-C - Last Filed: 07/07/25 14:33> Patient Tolerated Procedure: well and no complications <Rima Urbina PA-C - Last Filed: 07/07/25 14:33> Complications: none <Rima Urbina PA-C - Last Filed: 07/07/25 14:33> none (other than some snoring) <Susie Marte MD - Last Filed: 07/07/25 15:23> Interventions: oxygen applied and airway repositioned <Rima Urbina PA-C - Last Filed: 07/07/25 14:33> oxygen applied <Susie Marte MD - Last Filed: 07/07/25 15:23> Total Sedation Time (min): 5 <Rima Urbina PA-C - Last Filed: 07/07/25 14:33> Additional Comments: Patient had some snoring so jaw thrust performed to help maintain airway and oxygenation. BVM at bedside in cause needed. <Susie Marte MD - Last Filed: 07/07/25 15:23> MDM - Extremity Injury (Upper) MDM Narrative Medical decision making narrative: Patient presents the emergency department for right shoulder pain after an injury today. She is neurovascularly intact. Right shoulder x-ray showing dislocation. This was successfully reduced, patient placed in shoulder immobilizer. Postreduction x-ray confirming normal alignment. Also shows multiple likely old, healed rib fractures. Patient is not having any rib pain at this time. Also showing chronic Hill-Sachs fracture. She is to follow up with Orthopedics. She was given to return to the ER <Rima Urbina PA-C - Last Filed: 07/07/25 14:33> Differential Diagnosis Differential diagnosis: Likely dislocation of shoulder and other (proximal humerus fracture) <Rima Urbina PA-C - Last Filed: 07/07/25 14:33> Imaging Data Radiologist's impression: ITS Impressions Shoulder X-Ray 07/07/25 10:49 Impression: Dislocation detailed above Shoulder X-Ray 07/07/25 12:10 IMPRESSION: 1. Successful reduction to normal alignment of the previously dislocated right humeral joint. 2. Chronic large Hill-Sachs fracture at the posterolateral aspect of the humeral head which was present on MRI dated 03/13/2025. 3. Multiple old healed rib fractures and additional displaced fractures of the posterior right third rib, the latter which is not evident on study from 01/01/2024, potentially acute. Correlate for point tenderness at this location. <Rima Urbina PA-C - Last Filed: 07/07/25 14:33> Critical Care Time Critical Care Time Critical Care Time: No <Rima Urbina PA-C - Last Filed: 07/07/25 14:33> Discharge Plan Discharge Clinical Impression: Dislocation of right shoulder joint Qualifiers: Encounter type: initial encounter Qualified Code(s): S43.004A - Unspecified dislocation of right shoulder joint, initial encounter <Rima Urbina PA-C - Last Filed: 07/07/25 14:33> Patient Disposition: Home <Rima Urbina PA-C - Last Filed: 07/07/25 14:33> Condition: Stable <Rima Urbina PA-C - Last Filed: 07/07/25 14:33> Instructions: Shoulder Dislocation (ED), Moderate Sedation (ED) <Rima Urbina PA-C - Last Filed: 07/07/25 14:33> Additional Instructions: Return to the ER if you experience fever, redness and swelling of your extremity, numbness or any other symptoms that are concerning to you Wear shoulder immobilizer. Ice and elevate extremity. Over the counter pain medication as needed. Prescribed pain medication as needed Follow up with your orthopedics doctor for further care. <Rima Urbina PA-C - Last Filed: 07/07/25 14:33> Patient Language: Ghanaian <Rima Urbina PA-C - Last Filed: 07/07/25 14:33> Prescriptions: New oxycodone 5 mg tablet 5 mg PO Q6H PRN (Reason: pain) Qty: 20 0RF No Action quetiapine 300 mg tablet 300 mg PO HS rizatriptan 10 mg tablet 10 mg PO DAILY PRN (Reason: migraine headache) metoprolol succinate 100 mg tablet extended release 24 hr 100 mg PO HS estradiol 2 mg tablet 2 mg PO HS progesterone micronized 100 mg capsule 100 mg PO HS jnieinjgrl-oxbbctuglpsig-zupj 50-325-40 mg tablet 1 tablet PO DAILY PRN (Reason: pain) atorvastatin 10 mg tablet 10 mg PO QHS Qty: 90 0RF temazepam 30 mg capsule 30 mg PO QHS sertraline 100 mg tablet 100 mg PO HS alprazolam 0.5 mg tablet 0.5 mg PO BID PRN amlodipine 10 mg tablet 10 mg PO DAILY Qty: 90 1RF <Rima Urbina PA-C - Last Filed: 07/07/25 14:33> Follow-up/Referrals: Sheng Kruger MD [Primary Care Provider, Family Practice] Willie Ang MD [Physician, Orthopedics] <Rima Urbina PA-C - Last Filed: 07/07/25 14:33>
[2025-07-07] MEDS: fentaNYL CITRATE INJ (*CRX) 100 MCG/2 ML VIAL 50 MCG IV PUSH (11:11)
--- OUTSIDE RECORDS SUMMARY | 2025-07-07 11:11 | XMS_ITS | Clinical Summary ---
Author Organization [facility] Address [address] [place] [address] Phone Care Team Providers Care End Packer Name Role Phone Unavailable Primary Care Provider Unavailabl e Allergies Active Allergy Reactions Criticality Noted Date Comments Adhesive Tape-Silicones Rash Low 12/08/2014 Chlorpromazine Anaphylaxis High 02/06/2016 Codeine Rash Low 01/15/2016 Dhe Shortness of Breath/Wheezing High 12/08/2014 Latex Rash Low 12/08/2014 Metoclopramide Hcl Other (See Comments) 015 Dystonic reaction Propranolol Shortness of Breath/Wheezing High 12/08/2014 Sulfa (Sulfonamide Antibiotics) Rash Low 12/08/2014 Medications ZOLMitriptan (ZOMIG) Glasco, Non-Aerosol 1 Glasco 2 times daily as needed for Migraine [...] Tablet Take 0.25 mg by mouth daily shoe shanker. Active ondansetron (ZOFRAN) 4 mg Tablet Take [...] . 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
--- OUTSIDE RECORDS SUMMARY | 2025-07-07 11:12 | XMS_ITS | Encounter Summary ---
Author Organization [facility] Address [address] [place] [address] Care Team Providers Care Bus Person Name Role Phone None, Provider Primary Care Provider Unavaila ble None, Provider Primary Care Provider Unavaila ble Kailee Kruger MD Primary Care Provider Encounter Details Date Type Department Care Team (Late st Contact Info) Description 03/16/2019 Abstract SFL CONVERSION [address] [place] [address] , Generic Conversion, Social History Tobacco Use Types Packs/Day Years Used Date Smoking Tobacco: Never Assessed Comments Unknown Sex and Gender Information Value Date Recorded Sex Assigned at Female 04/04/2025 7:31 PM CDT 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 Gender Identity Female 04/04/2025 7:31 PM CDT Sexual Orientation Straight 04/04/2025 7: 31 PM CDT documented as of this encounter Plan of Treatment Not on file documented as of this encounter Visit Diagnoses Not on filedocumented in this encounter Additional Health Concerns Infection Onset Date Last Indicated Resolved Time MRSA 05/17/2017 05/17/2017 documented as of this encounter Care Teams Bus Person Relationship Specialty Start Date End Date None, ProviderMD PCP - General 11/15/19 02/20/24 None, ProviderMD PCP - General UNKNOWN PHYSICIAN SPECIALTY 02/21/24 02/21/25 Kailee Kruger MD [address] [facility] [address] [place] [address] PCP - General FAMILY PRACTICE 02/22/25 documented as of this encounter
--- OUTSIDE RECORDS SUMMARY | 2025-07-07 11:12 | XMS_ITS ---
Interpreted By: Denilson Espinosa MD, 06/06/2025 10:34 PM Narrative 06/06/2025 10:35 PM [address]T [address] [place] [address] Single radiograph of the right shoulder Reason For Exam: post reduction Prior anterior shoulder dislocation Technique: Single AP view of the right shoulder Findings: On this single view exam the shoulder appears located. Right upper lung clear. Degenerative changes at the AC joint. Indented lesion of the humeral head consistent with prior dislocation. Procedure Note Denilson Espinosa MD - 06/06/[address] [place] [address] Single radiograph of the right shoulder Reason For Exam: post reduction Prior anterior shoulder dislocation Technique: Single AP view of the right shoulder Findings: On this single view exam the shoulder appears located. Rightupper lung clear. Degenerative changes at the AC joint. Indented lesionof the humeral head consistent with prior dislocation. Impression: 1. Shoulder alignment appears restored on this single view exam Referred By: Interpreted By: Denilson Espinosa MD, 06/06/2025 10:34 PM Harley Albarran MD GENERAL IMAGING Final Result * XR SHOULDER RT 3V (06/06/2025 7:02 PM CDT) Only the most recent of3 resultswithin the time period is included. Anatomical Region Laterality Modality Shoulder Computed Tomogra phy 06/06/2025 7:54 PM CDT Impressions 06/06/2025 7:57 PM CDT IMPRESSION: Anterior right shoulder dislocation. Ordered By: BEHZAD CORDOBA Interpreted By: Kota Suero MD, 06/06/2025 7:54 PM Narrative 06/06/2025 7:57 PM CDT [address] [place] [address] EXAMINATION: XR SHOULDER RT 3V DATE: 06/06/2025 7:02 PM HISTORY: 60 years Female. PAIN, fall COMPARISON: 05/06/2025 TECHNIQUE: 3 views of the right shoulder FINDINGS: Anterior shoulder dislocation. Chronic Hill-Sachs deformity redemonstrated. No acute osseous fracture is identified. Visualized lungs are clear. Procedure Note Kota Suero MD - 06/06/[address] [place] [address] EXAMINATION: XR SHOULDER RT 3V DATE: 06/06/2025 7:02 PM HISTORY: 60 years Female. PAIN, fall COMPARISON: 05/06/2025 TECHNIQUE: 3 views of the right shoulder FINDINGS: Anterior shoulder dislocation. Chronic Hill-Sachs deformityredemonstrated. No acute osseous fracture is identified. Visualized lungsare clear. IMPRESSION: Anterior right shoulder dislocation. 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
--- OUTSIDE RECORDS SUMMARY | 2025-07-07 11:12 | XMS_ITS | Clinical Summary ---
Author Organization [facility] Address [address] [place] [address] Phone Care Team Providers Care Spray Operator Name Role Phone Jennifer Vaca MD Primary Care Provider [phone] Allergies Active Allergy Reactions Criticality Noted Date [...] of Treatment Not on file Care Teams Spray Operator Relationship Specialty Start Date End Date Jennifer Vaca MD [address] [place] [address] PCP - General Family Medicine 09/25/15
--- OUTSIDE RECORDS SUMMARY | 2025-07-07 11:12 | XMS_ITS | Clinical Summary ---
Author Organization [facility] Address [address] [facility] [place] [address] Care Team Providers Care Balance Bridge Inspector Name Role Phone Hector Sylvester MD Primary Care Provider [phone] Source Comments [facility],non-owned Affiliates and Associated Physician Practices is amultiple site organization consisting of ambulatory clinics and hospital sitesin [place], [place], [place] and [place]. This disclosure is being madepursuant to the Care Everywhere program and may not contain all information available regarding this patient. Last updated 18.[facility] Allergies Active Allergy Reactions Criticality Noted Date [...] confidence in her neurologist and works at [employer] and lives in [place]. She denies being on Percocet currently and doesn't want to try steroids. Her drug screen is positive for opiates. Lisa Villatoro MD Family History Medical History Relation Name Comments Diabetes Brother [place] Father Breast Cancer after age 50 or [...] on file Legal Sex Female 6:52 AM INTERN Gender Identity Not on file Sexual Orientation [...] patient's age to complete this topic Insurance [facility] SELF PAY NO INSURANCE Member Subscriber Plan / Payer (Ef fective for All Dates) Name:Ivonne Olea Member ID:Not on file Relation to Subscriber:Not on file Name:IVONNE OLEA Subscriber ID:Not on file (Home) Address: [address] [place] [id number] Payer ID:Not on file Group ID:Not on file Type:Self Pay Address: [place], [place] [facility] Care Teams Balance Bridge Inspector Relationship Specialty Start Date End Date Hector Sylvester MD [address] [place] [id number] PCP - General Family Medicine 01/23/18
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
[2025-07-07] MEDS: diazePAM INJ (*CRX) 10 MG/2 ML SYRINGE 5 MG IV PUSH (11:17)
--- NOTE | 2025-07-07 11:20 | PC.NURSE ---
VORB for another 50mcg of fentanyl, given from first vial
[2025-07-07] MEDS: PROPOFOL IV EMULSION 200 MG/20 ML VIAL 60 MG IV PUSH (11:45)
[2025-07-07] MEDS: KETOROLAC 15 MG/ML VIAL (*BKC) IV PUSH (12:19)
[2025-07-07] MEDS: ALPRAZolam (*CRX) 0.5 MG TABLET PO (13:24)
== END 2025-07-07 14:36 | disposition home or self-care (01) ==
PROVIDERS: Emergency Provider Physician Assistant; PCP Family Medicine
DX: S43.004A Unspecified dislocation of right shoulder joint, initial encounter (principal); W01.0XXA Fall on same level from slipping, tripping and stumbling without subsequent striking against object, initial encounter; F17.210 Nicotine dependence, cigarettes, uncomplicated
CPT/HCPCS: 23650; 73030; 96374; 96375; 96376; 99285; A9270; J1885; J2270; J2405; J2704; J3010; J3360

== ENCOUNTER 2025-08-02 08:30 | Emergency (ER) | payer MEDICARE, SELFPAY ==
--- OUTSIDE RECORDS SUMMARY | 2024-12-02 08:00 | XMS_ITS ---
Author Organization [facility] Address [address] [place] [address] Care Team Providers Care Agriculture Scientist Name Role Phone Ashley Stringer Primary Care Provider [facility], Adult MATT Unavailabl e [phone] Madisyn Matamoros Unavailable [phone] REASON FOR VISIT Schedule error-mlr 3 Month [...] Female Encounters Encounter Location Date Provider Diagnosis [facility] [address] [place] [address] 12/02/2024 Madisyn Matamoros Plan Of Treatment No Information Progress Notes * Monica OLEADOB:1965 (60 yo F)Acc No.[id number]:12/02/2024 UNLOCKED PROGRESS NOTE Patient: Monica MCCARTHY Provider: KAYLEIGH Davis :1965 A ge:59 Y S ex:Female Date:12/02/2024 Address:[address] [place] [address] [id number] Pcp:Ashley Stringer Subjective: * Chief Complaints: * [...] * Electronic signature of Madisyn Matamoros , [id number] on 08/02/2025 at 08:41 AM CDT Sign off status: Pending * Provider: KAYLEIGH Davis Date: 0 12/02/2024 Generated for Carola cotton/Clark/Doris on: 1 08:41 AM CDT
[2025-08-02] VITALS (9 sets, daily range): BP systolic 120–176; BP diastolic 73–104; PULSE 68–91; RESP 12–17; TEMP 36.1–36.3; O2SAT 97–100
--- NOTE | ~2025-08-02 | XR_ITS ---
Examination: XR shoulder RT min 2V Clinical History: h/o shoulder dislocation, suspect same today Comparison: 07/07/2025 Technique: 3 views right shoulder Findings/impression: 1. Anterior-inferior dislocation of right shoulder. 2. 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 3. Chronic right rib fractures as before. Reviewed, dictated and finalized at location R.
--- NOTE | ~2025-08-02 | XR_ITS ---
Examination: XR shoulder RT 1V Clinical History: post Comparison: Hours earlier Technique: Single view right shoulder Findings/impression: 1. Right humeral head relocated. 2. 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 Reviewed, dictated and finalized at location R.
--- NOTE | 2025-08-02 08:36 | ED.UPPEXIN ---
HPI - Extremity Injury (Upper) General Chief Complaint: Extremity Injury, Upper <Dyan Neumann MD - Last Filed: 08/02/25 11:04> Stated Complaint: Shoulder dislocation <Dyan Neumann MD - Last Filed: 08/02/25 11:04> Time Seen by Provider: 08/02/25 08:31 <Dyan Neumann MD - Last Filed: 08/02/25 11:04> History of Present Illness HPI narrative: Patient history of cataplexy with muscle weakness, had a fall and her her right shoulder feels like it dislocated, has had dislocations multiple times to this same shoulder. Did not hit her head or anywhere else. <Dyan Neumann MD - Last Filed: 08/02/25 11:04> Related Data Home Medications: Home Medications ?Medication ?Instructions ?Recorded ?Confirmed ?Last Taken ?Type estradiol 2 mg tablet 2 mg PO HS 10/22/22 08/01/25 05/20/25 History metoprolol succinate 100 mg 100 mg PO HS 10/22/22 08/01/25 05/20/25 History tablet,extended release 24 hr progesterone micronized 100 mg 100 mg PO HS 10/22/22 08/01/25 05/20/25 History capsule quetiapine 300 mg tablet 300 mg PO HS 10/22/22 08/01/25 05/20/25 History rizatriptan 10 mg tablet 10 mg PO DAILY PRN migraine 10/22/22 08/01/25 04/09/25 History headache temazepam 30 mg capsule 30 mg PO QHS 05/17/23 08/01/25 05/20/25 History kzbjxrnokn-xvnvkejdogekw-zxadtehk 1 tablet PO DAILY PRN pain 01/01/24 08/01/25 Unknown History 50 mg-325 mg-40 mg tablet sertraline 100 mg tablet 100 mg PO HS 04/03/25 08/01/25 05/20/25 History alprazolam 0.5 mg tablet 0.5 mg PO BID PRN anxiety 07/01/25 08/01/25 Unknown History <Dyan Neumann MD - Last Filed: 08/02/25 11:04> Allergies/Adverse Reactions: Allergies Allergy/AdvReac Type Severity Reaction Status Date / Time dihydroergotamine Allergy Intermediate Unknown Verified 08/02/25 08:40 codeine Allergy Mild gets red, Verified 08/02/25 08:40 hives, itchy latex Allergy Mild Unknown Verified 08/02/25 08:40 Sulfa (Sulfonamide Allergy Mild Unknown Verified 08/02/25 08:40 Antibiotics) chlorpromazine Allergy Unknown Dyspnea / Verified 08/02/25 08:40 SOB nickel Allergy Unknown Unknown Verified 08/02/25 08:40 prochlorperazine Allergy Unknown Unknown Verified 08/02/25 08:40 propranolol AdvReac Unknown chest Verified 08/02/25 08:40 tightness metoclopramide (From Reglan) AdvReac Dystonic Verified 08/02/25 08:40 reaction <Dyan Neumann MD - Last Filed: 08/02/25 11:04> Review of Systems Review of Systems: All systems reviewed & are unremarkable except as noted in HPI and below <Dyan Neumann MD - Last Filed: 08/02/25 11:04> PMFSH Past Medical History Medical History: Medical History Recurrent dislocation, right shoulder 05/2025, 02/2025 Compression of thoracic vertebra Fracture of right third rib (~05/2025) Dislocation of right shoulder joint (~02/2025) Essential (primary) hypertension Depression with anxiety Multiple fractures of ribs of right side (~08/2021) Hyperlipidemia, unspecified Positive colorectal cancer screening using Cologuard test IBS (irritable bowel syndrome) Pneumothorax (~08/2021) Cataplexy Migraine <Dyan Neumann MD - Last Filed: 08/02/25 11:04> Surgical History Surgical History: Surgical History History of arthroscopic surgery of shoulder Right Shoulder Biceps Tenotomy. 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, b/l hands and RLE History of ankle surgery (~2014) ORIF right ankle fracture History of chest tube placement (~08/2021) right pneumothorax History of cholecystectomy (~2002) History of (~1993) <Dyan Neumann MD - Last Filed: 08/02/25 11:04> Family History Family History: Family History Father Acute myocardial infarction Sibling Patient's sister is in good health Patient's brother is in good health Patient's sister is Mother Family history of malignant neoplasm of breast in first degree relative Patient's mother is <Dyan Neumann MD - Last Filed: 08/02/25 11:04> Social History Social History: Social History Smoking packs per day: 0.5 Smoking cigarettes per day: 10.0 Years smoked: 30 Smoking pack-years: 15.00 Smoking status: Current every day smoker Tobacco type: cigarettes Alcohol intake: never Substance use: never Lack of Transportation: No Lack of Food: Never True Current Housing: I Have Housing Concerned About Future Housing: No Difficulty Paying Gas/Electric Bills: No Difficulty Paying for Meds: No Currently Unemployed: No Education: Trade/Vocational Certificate Difficulty w/ Childcare or Family Care: No Living arrangements: with family Additional living arrangements comments: Gender identity (if verbalized by the patient): Female Sexual Orientation (if Verbalized by the Patient): Straight or Heterosexual <Dyan Neumann MD - Last Filed: 08/02/25 11:04> Exam Narrative: EXAMINATION OF ORGAN SYSTEMS/BODY AREAS: Constitutional: Vital signs per nursing GENERAL: Appears quite uncomfortable HEAD: Normal with no signs of head trauma. EYES: EOMI, conjunctiva normal ENT: Hearing grossly intact LUNGS: Nonlabored breathing. HEART: [Regular rate and rhythm] ABD: [Soft], [nontender to palpation] EXT: Right shoulder appears dislocated SKIN: [No rashes or lesions.] NEURO: [Alert, slow speech.] PSYCH: Normal affect <Dyan Neumann MD - Last Filed: 08/02/25 11:04> Course Vital Signs Vital signs: Vital Signs Temperature 36.1 C L 08/02/25 08:30 Pulse Rate 74 08/02/25 08:30 Blood Pressure 157/91 H 08/02/25 08:30 Pulse Oximetry 99 08/02/25 08:30 Oxygen Delivery Room Air 08/02/25 08:30 Temperature 36.1 C L 08/02/25 08:30 Pulse Rate 91 08/02/25 10:26 Respiratory Rate 17 08/02/25 10:26 Blood Pressure 120/73 08/02/25 10:26 Pulse Oximetry 100 08/02/25 10:26 Oxygen Delivery Nasal Cannula 08/02/25 10:26 Oxygen Flow Rate 2 08/02/25 10:26 <Dyan Neumann MD - Last Filed: 08/02/25 11:04> Vital Signs Temperature 36.1 C L 08/02/25 08:30 Pulse Rate 74 08/02/25 08:30 Blood Pressure 157/91 H 08/02/25 08:30 Pulse Oximetry 99 08/02/25 08:30 Oxygen Delivery Room Air 08/02/25 08:30 Temperature 36.1 C L 08/02/25 08:30 Pulse Rate 91 08/02/25 10:26 Respiratory Rate 17 08/02/25 10:26 Blood Pressure 120/73 08/02/25 10:26 Pulse Oximetry 100 08/02/25 10:26 Oxygen Delivery Nasal Cannula 08/02/25 10:26 Oxygen Flow Rate 2 08/02/25 10:26 <Shoaib Mendosa MD - Last Filed: 08/02/25 11:07> Procedures EJ/Peripheral Line Arm L: EJ/Peripheral Line Date: 08/02/25 <Dyan Neumann MD - Last Filed: 08/02/25 11:04> Skin Cleansed in Sterile Fashion: Yes <Dyan Neumann MD - Last Filed: 08/02/25 11:04> Ultrasound Guided: Yes <Dyan Neumann MD - Last Filed: 08/02/25 11:04> Size (gauge): 18 <Dyan Neumann MD - Last Filed: 08/02/25 11:04> IV Secured and Dressing Applied: Yes <Dyan Neumann MD - Last Filed: 08/02/25 11:04> Patient Tolerated Procedure: well and no complications <Dyan Neumann MD - Last Filed: 08/02/25 11:04> Orthopedic Joint Reduction Joint #1: Orthopedic Joint Reduction Date: 08/02/25 <Dyan Neumann MD - Last Filed: 08/02/25 11:04> Orthopedic Joint Reduction Time: 10:15 <Dyan Neumann MD - Last Filed: 08/02/25 11:04> Time Out Performed: Yes <Dyan Neumann MD - Last Filed: 08/02/25 11:04> Side: right <Dyan Neumann MD - Last Filed: 08/02/25 11:04> Joint Reduction Location: shoulder <Dyan Neumann MD - Last Filed: 08/02/25 11:04> Analgesia: procedural sedation <Dyan Neumann MD - Last Filed: 08/02/25 11:04> Pre-Procedure Neuro Vascular Exam: normal <Dyan Neumann MD - Last Filed: 08/02/25 11:04> Amount of anesthesic used (mL): 60 <Dyan Neumann MD - Last Filed: 08/02/25 11:04> Shoulder Technique Used (if applicable): traction/counter-traction, external rotation and other <Dyan Neumann MD - Last Filed: 08/02/25 11:04> Technique used: traction/counter-traction and direct manipulation <Dyan Neumann MD - Last Filed: 08/02/25 11:04> Post-reduction neuro exam: intact and no change <Dyan Neumann MD - Last Filed: 08/02/25 11:04> Post-reduction vascular: intact and no change <Dyan Neumann MD - Last Filed: 08/02/25 11:04> Post Reduction X-Ray Obtained: Yes <Dyan Neumann MD - Last Filed: 08/02/25 11:04> Post Reduction X-Ray Results: reduced <Dyan Neumann MD - Last Filed: 08/02/25 11:04> Splint Applied: Yes <Dyan Neumann MD - Last Filed: 08/02/25 11:04> Patient Tolerated Procedure: well and no complications <Dyan Neumann MD - Last Filed: 08/02/25 11:04> Procedural Sedation Procedural Sedation #1: Procedural Sedation Date: 08/02/25 <Shoaib Mendosa MD - Last Filed: 08/02/25 11:07> Procedural Sedation Time: 10:38 <Shoaib Mendosa MD - Last Filed: 08/02/25 11:07> Presedation Evaluation: Mallampati 2, history of intermittent sleep apnea and cataplexy, ASA 2. <Shoaib Mendosa MD - Last Filed: 08/02/25 11:07> Procedure: Shoulder reduction <Shoaib Mendosa MD - Last Filed: 08/02/25 11:07> Provider Performed: sedation only <hSoaib Mendosa MD - Last Filed: 08/02/25 11:07> Time Out: 1021 <Shoaib Mendosa MD - Last Filed: 08/02/25 11:07> Informed Consent Obtained: yes <Shoaib Mendosa MD - Last Filed: 08/02/25 11:07> Equipment in Room: bag and mask, capnography, cardiac cath technician, crash cart, oxygen, pulse oximeter and suction <Shoaib Mendosa MD - Last Filed: 08/02/25 11:07> Plan for Sedation: moderate sedation <Shoaib Mendosa MD - Last Filed: 08/02/25 11:07> ASA Class: II <Shoaib Mendosa MD - Last Filed: 08/02/25 11:07> Mallampati Classification: class II <Shoaib Mendosa MD - Last Filed: 08/02/25 11:07> NPO Status: last solid food (hours ago) and last liquid food (hours ago) <Shoaib Mendosa MD - Last Filed: 08/02/25 11:07> Explanation to Patient/Family: Risk/Benefits/Alternatives and Pt/Family agreed with plan <Shoaib Mendosa MD - Last Filed: 08/02/25 11:07> Pt. Educated on Procedural Sedation: Yes <Shoaib Mendosa MD - Last Filed: 08/02/25 11:07> Re-evaluated immediately prior: Yes <Shoaib Mendosa MD - Last Filed: 08/02/25 11:07> Preparation: cardiac cath technician applied, pulse oximeter, capnometry used, supplemental O2 applied, suction/airway equipment at bedside and IV secured <Shoaib Mendosa MD - Last Filed: 08/02/25 11:07> IV Propofol dose (mg): 60 <Shoaib Mendosa MD - Last Filed: 08/02/25 11:07> Patient Tolerated Procedure: well and no complications <Shoaib Mendosa MD - Last Filed: 08/02/25 11:07> Complications: none <Shoaib Mendosa MD - Last Filed: 08/02/25 11:07> Interventions: airway repositioned <Shoaib Mendosa MD - Last Filed: 08/02/25 11:07> Total Sedation Time (min): 15 <Shoaib Mendosa MD - Last Filed: 08/02/25 11:07> MDM - Extremity Injury (Upper) MDM Narrative Medical decision making narrative: Patient presents shoulder pain after falling on her shoulder will trying to get out of bed, she does have multiple dislocations in the past this feels similar, did not hit her head. No injuries or pain anywhere else. On exam she is quite comfortable, right shoulder does appear dislocated, she has no signs of head trauma or trauma anywhere else X-ray on my independent interpretation does show dislocated shoulder, I did quite appreciate the assistance of Dr. Mendosa who helped with procedural sedation and countertraction to help reduce the shoulder. Patient tolerated this well, repeat x-ray shows reduction successful, discussed with orthopedic follow-up. <Dyan Neumann MD - Last Filed: 08/02/25 11:04> Discharge Plan Discharge Clinical Impression: Anterior shoulder dislocation <Dyan Neumann MD - Last Filed: 08/02/25 11:04> Patient Disposition: Home <Dyan Neumann MD - Last Filed: 08/02/25 11:04> Condition: Stable <Dyan Neumann MD - Last Filed: 08/02/25 11:04> Instructions: Shoulder Dislocation (ED) <Dyan Neumann MD - Last Filed: 08/02/25 11:04> Additional Instructions: Please follow-up with orthopedic surgeon, keep your arm in the sling, and you can always return to the ER for any further issues. <Dyan Neumann MD - Last Filed: 08/02/25 11:04> Patient Language: Telugu <Dyan Neumann MD - Last Filed: 08/02/25 11:04> Prescriptions: New acetaminophen [Tylenol Extra Strength] 500 mg tablet 1,000 mg PO Q6H PRN (Reason: pain) Qty: 50 0RF methocarbamol 750 mg tablet 750 mg PO TID PRN (Reason: muscle spasm) Qty: 30 0RF lidocaine 5 % adhesive patch,medicated 1 patch topical DAILY Qty: 15 0RF Rx Instructions: leave on most painful area for up to 12 hrs No Action quetiapine 300 mg tablet 300 mg PO HS rizatriptan 10 mg tablet 10 mg PO DAILY PRN (Reason: migraine headache) metoprolol succinate 100 mg tablet extended release 24 hr 100 mg PO HS estradiol 2 mg tablet 2 mg PO HS progesterone micronized 100 mg capsule 100 mg PO HS cbpnemjhwc-lhgfmvnunqcok-fkjv 50-325-40 mg tablet 1 tablet PO DAILY PRN (Reason: pain) atorvastatin 10 mg tablet 10 mg PO QHS Qty: 90 0RF temazepam 30 mg capsule 30 mg PO QHS sertraline 100 mg tablet 100 mg PO HS alprazolam 0.5 mg tablet 0.5 mg PO BID PRN (Reason: anxiety) amlodipine 10 mg tablet 10 mg PO DAILY Qty: 90 1RF <Dyan Neumann MD - Last Filed: 08/02/25 11:04> Follow-up/Referrals: Sheng Kruger MD [Primary Care Provider, Family Practice] Willie Ang MD [Physician, Orthopedics] - 2 Days <Dyan Neumann MD - Last Filed: 08/02/25 11:04>
--- OUTSIDE RECORDS SUMMARY | 2025-08-02 08:41 | XMS_ITS | Data Portability ---
Author Organization [facility] HONGNidhi Maguire Address [address] [facility] [place] [address] Care Team Providers Care Night Filler Name Role Phone JAZZY FINCH Primary Care Provider Assessment Encounter Date Assessment Date Assessment LastModified by Organization Details LastModified Time 03/17/2021 03/17/2021 has had both coronavirus shots [email or web address] Not available 03/17/2021 11:26:34 Plan of Treatment Reminders Order Date Submit Date Provider Last Modified By Organization Details Last Modified Time Details Appointments None recorded. Lab noninvasiv e colorectal cancer DNA + occult blood screening, stool 2020 021 [facility], [address], [address], [place], [address], 06:51:14 lipid panel, serum 2018 019 [facility], [facility], [address], [place], [address], 9 12:23:45 CMP, serum or plasma 2018 019 [facility], [address], [address], [place], [address], 9 12:23:45 TSH, ultra-sens itive, serum 2018 019 [facility], [address], [address], [place], [address], 9 12:23:29 Referral colonoscop y referral 2018 019 ivonne Cabrera MD, [address] [facility] [address], [place], [address], 9 17:37:14 Procedures None recorded. Surgeries None recorded. Imaging MAMMO, screening, bilateral 2019 [facility], [address], [address], [place], [address], 1 14:06:55 US, duplex, abdomen, complete 2019 020 [facility]), [address], [place], [address], 0 13:25:27 MAMMO, screening, bilateral 2018 019 [facility], [address], [address], [place], [address], 9 17:45:13 Medication Orders metoprolol succinate ER 100 mg tablet,ext ended release 24 hr 2020 021 [facility], [address] [facility], [place], [place], [id number], 1 11:28:56 metoprolol succinate ER 100 mg tablet,ext ended release 24 hr 2018 019 [facility] [employer] [facility], [address], [place], [place], [id number], 9 12:23:36 Patient TargetsNo targets recorded. Patient Instructions Encounter Date Encounter Id Patient Instructions Last Modified By Organization Details Last Modified Time 02/06/2019 [id number] heart valve disease: care instructions [email or web address] Not available 02/06/2019 12:23:27 mitral valve prolapse: care instructions [email or web address] Not available 02/06/2019 12:23:28 mammogram: about this test [email or web address] Not available 02/06/2019 12:26:22 learning about high blood pressure [email or web address] Not available 02/06/2019 12:23:28 09/02/2020 [id number] mammogram: about this test [email or web address] Not available 09/02/2020 15:03:37 abdominal pain: care instructions [email or web address] Not available 09/02/2020 14:52:43 broken ankle: care instructions [email or web address] Not available 09/06/2020 00:30:11 03/17/2021 [id number] learning about high blood pressure [email or web address] Not available 03/17/2021 11:28:50 Reason for Referral Colonoscopy Referral for Scr eening colonoscopy Referring Physician: Jazzy Finch, Family Medicine, Encounter Date: 02/06/2019 Results Created Date Observation Date Name Description Value Unit Range Abnormal Flag Note LastModifiedBy Organization Detail LastModifiedTime 03/17/20 22 03/17/2022 COLOG UARD cologuard result Cancel led - Order d not applic able Not Available [facility] [address], [place], [address], 03/17/2022 06:51:14 02/25/20 21 02/24/2021 MAMMO , scree chapin, bilat eral No observ ation record ed. [email or web address] [place] [id number] [facility] [address], [place], [address], 03/22/2021 00:36:41 Result Notes None recorded. Problems Name Problem SNOMED Code Status Onset Date Resolution Date Notes Provider Name and Address Organization Details Recorded Time Hypertensive disorder 62920017 Active 2019 Daphney Ordonez RN null, [facility] 0 14:38:38 Problem Notes None recorded. Procedures Surgical History Date Name Laterality Status Provider Name and Address Organization Details Recorded Time delivery completed Aure Aguirre MA [facility] 02/06/2019 11:52:04 cholecystectomy completed Aure Aguirre MA [facility] 02/06/2019 11:52:14 procedure on ankle completed Wally Ordonez RN [facility] 09/02/2020 14:40:13 Imaging Results None recorded. Procedure Notes None recorded. Medical Equipment None Reported. Allergies Allergen ID Allergen Name Allergen Category Reaction Reaction Severity Criticality Documentation Date Start Date Code Code System Note Provider Name and Address Organization Details Recorded Time 344152 Substance with sulfonami de structure and antibacte rial mechanism of action (substanc e) medicatio n Not available Not available Not available 02/06/2019 29703 8003 SNOMED JOVITA Swain, [facility] 9 11:44:58 525371 Reglan medicatio n Not available Not available Not available 02/06/2019 9230 RxNorm JOVITA Swain, [facility] 9 11:45:10 781505 latex environme nt,medica tion Not available Not available Not available 02/06/2019 19920 91 RxGracerm JOVITA Swain, [facility] 9 11:45:19 Medications Name Sig Start Date [...] Pulse oximetry Heart rate Body temperature Systolic And Diastolic Provider Name and Address Organization Details Last Updated DateTime 9 52482.6 6 g 157.48 cm 27.5 kg/m2 97 % 97 % 83 /min 98.2 [degF] 148/90 mm[Hg] Aure Aguirre MA [facility] 9 12:04:24 Date Recorded Body weight Oxygen saturation Oxygen saturation in Arterial blood by Pulse oximetry Heart rate Body temperature Systolic And Diastolic Provider Name and Address Organization Details Last Updated DateTime 1 926776. 04 g 97 % 97 % 81 /min 97.2 [degF] 132/82 mm[Hg] Daphney Ordonez RN [facility] 1 11:10:23 Social History Question Answer Notes LastModified by Organizat ion Details LastModified Time Tobacco Smoking Status Current Every Day Smoker Aure Aguirre MA [facility], [facility] 02/06/2019 11:50:01 Do You Have An Advance [...] 03/17/2021 Are you able to care for yourself independently? Yes Information not available 03/17/2021 What is your exercise level? Occasional Information not available 03/17/2021 Mental Status Question Answer Note LastModified by Organization D etails LastModified Time Do you feel stressed (tense, restless, nervous, or anxious, or unable to sleep at night)? [id number] Information not available 03/17/2021 Family History Relationship Description Onset Age of this Age Resolved Age Notes LastModified by Organization Details LastModified Time Father Harmful pattern of use of alcohol [email or web address] Not available 10/2018 11:49:17 Father Heart disease [email or web address] Not available 10/2018 11:49:55 Mother Malignant neoplasm of breast vlavenderma Not available 10/2018 11:49:30 [...] Skin Problems Y Anemia N Heart Attack (DC) N Anxiety Disorder Y Diabetes N Muscle, [...] dose 12/18/2020 completed Daphney Ordonez RN null, [place] - [facility] 03/17/2021 11:14:24 COVID-19, mRNA, LNP-S, PF, 100 mcg/0.5mL dose or 50 mcg/0.25mL dose 01/08/2021 completed Daphney Ordonez RN null, [place] - [facility] 03/17/2021 11:14:50 Past Encounters Encounter ID Performer Location Encounter Start Date Encounter Closed Date Diagnosis/Indication Diagnosis SNOMED-CT Code Diagnosis ICD10 Code Diagnosis IMO Codes Diagnosis Note [id number] Jazzy Finch MD [facility] [address] [place] [address] 02/06/2019 11:23:16 02/11/2019 09:14:41 Migraine 07242141 G43.909 sees neurologis t for cataplexy and narcolepsy ; takes botox for migraines- -Purnima Patel at [place]. Moderate r ecurrent major depression 39658413 F33.[address]; takes seroquel, viibryd, and prozac. Goes to [place].- -Ely Solorio Essential hypertension 64819997 I10 Patient advised to limit salt and caffeine intake to maintain good blood pressure. Will switch from nadolol to metoprolol . Hyperlipid emia screening 593390100 Z13.220 discussed low fat, low carb diet, and encouraged exercise. Mitral valve prolapse 40 8292592 I34.1 Lipoma of lateral chest wall 277227323 D17.1 2x3 cm soft tissue mass posterior and inferior to the right axilla. Looks and feels like a lipoma. Screening mammography 24 197375 Z12.31 Screening colonoscopy [address] Cabrera for colonoscop y in 2002 [id number] Jazzy Finch MD [facility] [address] [place] [address] 09/02/2020 14:33:38 09/07/2020 06:39:16 Abdominal pain 15375617 R10.9 GB is out. Crampy midline abdominal pain for 2 weeks, no NVADC, no gross melena or hematuria. no fever, but constant pain in the epigastriu m. Screening mammography 24 584276 Z12.31 Fracture of ankle 168106 01 S82.90XG broken ankle in 2 places--hua d to have plates and screws put in--[facility]. Doing better now and using walking boot for support. Moderate r ecurrent major depression 75088216 F33.[address]; takes seroquel, viibryd, and prozac. Goes to [place].- -Ely Solorio [id number] Jazzy Finch MD [facility] [address] [place] [address] 03/17/2021 10:55:13 03/23/2021 13:25:20 Essential hypertension 39341701 I10 Patient advised to limit salt and caffeine intake to maintain good blood pressure. Will continue metoprolol . Screening for malignant neoplasm of colon 709573764 Z12.11 Patient preferred to avoid a colonoscop y at this time; she is aware she will need a colonoscop y if the cologuard test shows blood. Moderate r ecurrent major depression 65865621 F33.1 continue current medication s. Health Concerns Section Related Observation LastModified by Organization Detai ls LastModified Time None Recorded Concern Status LastModified by Organization Details LastModified Time None Recorded Advance Directives Directive N: Payers Insurance Date Sequence Insurance Name Policy Number Policy Machado Covered Member ID Machado Member ID Guarantor Name 03/23/2021 1 [employer] [id number] Monica Olea [id number] Monica Olea 06/21/2021 1 [facility] (PPO) [id number] Don T Parkton [id number] Monica Olea 02/18/2019 1 [facility] (O) [id number] Don T Parkton [id number] Monica Olea Notes Date Note Type Note Provider Name and Address Organization Details Recorded Time 019 text/ht ml Hypertension F/UReported by PatientHPIFor associated symptoms, patient reportspalpitationsbut reportsno dizziness,no lightheadedness,no chest pain,no shortness of breath,no edema, andno calf pain with exertion(patient has a history of mitral valve prolapse, for which she takes metoprolol succinate.). For lifestyle, patient reportsregular exerciseandlimiting/avoiding salt. For medications, patient reportstaking medications as directedandno side effects from medication.ROS as noted in the HPI Jazzy Finch MD Attn: Accounting, [address] [facility], [place], [address], [facility] 02/10/2019 00:05:43 020 text/ht ml Abdominal PainReported by PatientAbdominal PainFor quality, patient reportsbloating,cramping,sharp,stab ximena,fullness, andtender. For location, patient reportsepigastric. For severity, patient reportsmoderate. For onset/timing, patient reportswax/wane. For modifying factors, patient reportseating,drinking,moving bowels, andsleep. For associated symptoms, patient reportsno feverandno blood in the urine(gb is out. crampy midline abdominal pain for 2 weeks, no nvadc, no gross melena or hematuria. no fever, but constant pain in the epigastrium.). For other, patient reportsdenies possible . For duration, (2 weeks ago). For context, (has had cholecystectomy). AnkleReported by PatientHPIFor associated symptoms, patient reportsweakness,swelling,redness,ca tching/locking,popping/clicking,buc audelia,grinding, andinstabilitybut reportsno drainage,no fever,no chills,no weight loss, andno change in bowel/bladder habits. For quality, patient reportsaching,frequent, andimproving. For severity, patient reportsmoderate. For timing, patient reportsacute. For alleviating factors, patient reportssitting,lying down,position change,heat,rest,elevation,limited weight bearing,nsaids, andbrace. For aggravating factors, patient reportsstanding,walking,lifting,car rying,bending/squatting,weightbeari ng,exercise,getting out of bed,going from sit to stand,upstairs,downstairs,cold weather, anddamp weather. For previous surgery, patient reportssurgical procedure:.broken ankle in 2 places--had to have plates and screws put in--[facility] as noted in the [facility] Jazzy Finch MD Attn: Accounting, [address] , [place], [address], [facility] 09/06/2020 00:30:50 021 text/ht ml Hypertension F/UReported by PatientHPIFor associated symptoms, patient reportsno dizziness,no lightheadedness,no chest pain,no shortness of breath,no palpitations,no edema, andno calf pain with exertion. For lifestyle, patient reportsregular exerciseandlimiting/avoiding salt. For medications, patient reportstaking medications as directedandno side effects from medication.continue metoprolol 100 mg daily. Anxiety/DepressionReported by PatientHPIFor context, patient reportsfamily problemsandtrouble at work. For quality, patient reportssymptoms improved. For severity, patient reportsdenies suicidal ideationsanddoes not interfere with activities of daily living. For duration, patient reportsstablizing. For onset/timing, patient reportsgradual. For modifying factors, patient reportscounsellingandmedications as directed. For associated symptoms, patient reportsdenies homicidal ideations,mood good,no crying spells, andsleeping well.ROS as noted in the [facility] Jazzy Finch MD Attn: Accounting, [address] , [place], [address], [facility] 03/22/2021 00:42:24 OBGyn Episode No OBEpisode recorded.
--- OUTSIDE RECORDS SUMMARY | 2025-08-02 08:41 | XMS_ITS | Clinical Summary ---
Author Organization [facility] Address [address] [place] [address] Phone Care Team Providers Care Microbial Specialist Name Role Phone Unavailable Primary Care Provider Unavailabl e Allergies Active Allergy Reactions Criticality Noted Date Comments Adhesive Tape-Silicones Rash Low 12/08/2014 Chlorpromazine Anaphylaxis High 02/06/2016 Codeine Rash Low 01/15/2016 Dhe Shortness of Breath/Wheezing High 12/08/2014 Latex Rash Low 12/08/2014 Metoclopramide Hcl Other (See Comments) 015 Dystonic reaction Propranolol Shortness of Breath/Wheezing High 12/08/2014 Sulfa (Sulfonamide Antibiotics) Rash Low 12/08/2014 Medications ZOLMitriptan (ZOMIG) [place], Non-Aerosol 1 [place] 2 times daily as needed for Migraine [...] Tablet Take 0.25 mg by mouth daily plate painter. Active ondansetron (ZOFRAN) 4 mg Tablet Take [...] . 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
--- OUTSIDE RECORDS SUMMARY | 2025-08-02 08:41 | XMS_ITS | Patient Health Record ---
Author Organization [facility] Address [address] [place] [address] Care Team Providers Care Interpretative Dancer Name Role Phone Ashley Stringer [facility] Unavailabl e [phone] SaturninoMadisyn souza Unavailable [phone] Allergies Allergen (clinical drug ingredient) Drug/Non Drug [...] W/U Status Risk Notes Problem Tobacco user (898514143) Nicotine dependence, unspecified, uncomplicated (F17.200) Active confirmed Problem Severe recurrent major depression without psychotic features (86684233) Major depressive disorder, recurrent severe without psychotic features (F33.2) Active confirmed Problem Tobacco user (062159993) Tobacco dependency (F17.200) Active confirmed Problem Depression (200721734) Depression (F32.9) Active confirmed Problem Anxiety (96572436) Anxiety (F41.9) Active confirmed Encounters Encounter Location Date Provider Diagnosis Count Includes [facility] [address] [place] [address] 09/12/2024 Ashley Stringer Major depressive disorder, recurrent severe without psychotic features F33.2 ; Anxiety F41.9 and Nicotine dependence, unspecified, uncomplicated F17.[address] [place] [address] 12/06/2024 Ashley Stringer Major depressive disorder, recurrent severe without psychotic features F33.2 and Anxiety F41.9 Count Includes [facility] [address] [place] [address] 03/05/2025 Ashley Stringer Major depressive disorder, recurrent severe without psychotic features F33.2 and Anxiety F41.9 Count Includes [facility] [address] [place] [address] 06/04/2025 Ashley Stringer Major depressive disorder, recurrent severe without psychotic features F33.2 and Anxiety F41.9 [facility] [address] [place] [address] [address] 02/07/2025 Ashley Stringer Anxiety F41.9 Assessments Encounter Date Diagnosis (ICD Code) Assessment Notes Treatment Notes Treatment Clinical Notes Section Notes 09/12/2024 Major depressive disorder, 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-10 - F33.2) Continue current medications. Reviewed Prescription Monitoring program. Continue services as scheduled. Labs completed recently. May self-administer medications or be administered own oral medications per [place] protocols. Provided informed consent with understanding of [...] or be administered own oral medications per [place] protocols. Provided informed consent with understanding of [...] or be administered own oral medications per [place] protocols. Provided informed consent with understanding of [...] or be administered own oral medications per [place] protocols. Provided informed consent with understanding of [...] Insured Coverage Start Date Coverage End Date [facility] [address] [address] [place] [address] [id number] Monica Olea Self - patient is the insured 3 3 [facility] [address] [place] [address] [phone] [id number] [phone] Monica Olea Self - patient is the insured 6 1 [facility] [address] [address] [place] [address] [id number] Monica Olea Self - patient is the insured 1 1 [facility] [address] [place] [address] [id number] Monica Olea Self - patient is the insured 1 2 Medical (General) History Medical History History ICD Code Migraines MVP Depression Panic Attacks cataplexy high cholesterol HTN Rotator cuff tear Surgical History Surgery Date(Month/Year) 1993 cholyecystectomy 2002 Hospitalization History Reason Date(Month/Year) [facility] (I&D) 10/2015
--- OUTSIDE RECORDS SUMMARY | 2025-08-02 08:41 | XMS_ITS | Clinical Summary ---
Author Organization [facility] Address [address] [place] [address] Phone Care Team Providers Care Straight Line Press Setter Name Role Phone Jennifer Vaca MD Primary Care Provider [phone] Allergies Active Allergy Reactions Criticality Noted Date [...] of Treatment Not on file Care Teams Straight Line Press Setter Relationship Specialty Start Date End Date Jennifer Vaca MD [address] [place] [address] PCP - General Family Medicine 09/25/15
--- OUTSIDE RECORDS SUMMARY | 2025-08-02 08:41 | XMS_ITS | Clinical Summary ---
Author Organization [facility] Address [address] [facility] [place] [address] Care Team Providers Care Heating And Cooling Systems Engineer Name Role Phone Hector Sylvester MD Primary Care Provider Source Comments [facility],non-owned Affiliates and Associated Physician Practices is amultiple site organization consisting of ambulatory clinics and hospital sitesin [place], [place], [place] and [place]. This disclosure is being madepursuant to the Care Everywhere program and may not contain all information available regarding this patient. Last updated 18.[facility] Allergies Active Allergy Reactions Criticality Noted Date [...] confidence in her neurologist and works at [employer] and lives in [place]. She denies being on Percocet currently and doesn't want to try steroids. Her drug screen is positive for opiates. 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 Gender Identity Not on file Sexual Orientation [...] patient's age to complete this topic Insurance [employer] [facility] MEDICARE SELF PAY NO INSURANCE Member Subscriber Plan / Payer (Ef fective for All Dates) Name:Ivonne Olea Member ID:Not on file Relation to Subscriber:Not on file Name:IVONNE OLEA Subscriber ID:Not on file (Home) Address: [address] [place] [id number] Payer ID:Not on file Group ID:Not on file Type:Self Pay Address: [place], [place] [employer] Care Teams Heating And Cooling Systems Engineer Relationship Specialty Start Date End Date Hector Sylvester MD [address] [place] [phone] PCP - General Family Medicine 01/23/18
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
--- OUTSIDE RECORDS SUMMARY | 2025-08-02 08:42 | XMS_ITS | Data Portability ---
Author Organization [facility] Address [address] [place] [address] Assessment No assessment recorded. Plan of Treatment Reminders Order Date Submit Date Provider Last Modified By Organization Details Last Modified Time Details Appointments None recorded. Lab None recorded. Referral None recorded. Procedures None recorded. Surgeries hysteroscop y, surgical, with biopsy of endometrium and/or polypectomy (SURG) 2024 025 [facility], [address], [place], [address], 13:01:39 Imaging US, pelvis 2024 [address], [address], [place], [address], 23:34:31 US, transvagina l 2024 [address], [address], [place], [address], 23:34:31 Medication Orders hydrocodone 5 mg-acetamin ophen 325 mg tablet 2024 025 [id number], [address], [place], [place], [id number], 12:39:06 Patient TargetsNo targets recorded. Patient InstructionsNo instructions recorded. Reason for Referral None Reported. Results Created Date Observation Date Name Description Value Unit Range Abnormal Flag Note LastModifiedBy Organization Detail LastModifiedTime 04/25/2004/25/2025 US, pelvi s No observ ation record ed. [facility] [address], [place], [address], 04/25/2025 17:49:57 04/25/2004/25/2025 US, trans vagin al No observ ation record ed. [facility] [address], [place], [address], 04/25/2025 17:50:07 04/25/2004/25/2025 US, pelvi s No observ ation record ed. [email or web address], [place], [address], 05/05/2025 12:51:50 Result Notes None recorded. Problems Name Problem SNOMED Code Status Onset Date Resolution Date Notes Provider Name and Address Organization Details Recorded Time Insomnia 885857319 Active 2020 Lynette kemp, [facility] 15:13:49 Depressive disorder 77878094 Active 2020 Lynette kemp, [facility] 15:13:54 Generalized anxiety disorder 53590978 Active 2020 Lynette Mirza [facility], [facility] 15:13:57 Cataplexy 16471988 Active 2020 Lynette kemp, [facility] 15:14:05 Migraine 24856202 Active 2020 Lynette kemp, [facility] 15:14:21 Heart murmur 04550858 Active 2020 Lynette kemp, [facility] 15:14:56 Hypertensive disorder 31804875 Active 2020 [facility] 15:17:18 Mental disorder 96980697 Active 2020 Lynette kemp [facility] 15:17:25 Notes:hbp and mvp for palpit ations Problem Notes None recorded. Procedures Surgical History Date Name Laterality Status Provider Name and Address Organization Details Recorded Time 025 HYSTEROSCOPY, SURGICAL, WITH BIOPSY OF ENDOMETRIUM AND/OR POLYPECTOMY (SURG) completed Madisyn Torres [facility] 07/08/2025 11:43:49 025 repair of musculotendinous cuff of shoulder completed MAIKEL DENNEY NP [address], [place], [address], [facility] 04/24/2025 11:27:50 025 Date of Last Pap Smear completed [facility] 04/24/2025 11:22:48 023 Date of Last Mammogram completed [facility] 08/19/2024 11:24:59 023 Date of Last Colonoscopy completed [facility] 12/25/2024 10:54:22 003 cholecystectomy completed Lynette Hermes [facility] 12/03/2020 15:17:57 994 section completed Lynette Mirza [facility] 12/03/2020 15:18:08 Other completed [facility] 01/07/2021 12:26:09 Colonoscopy completed [facility] 01/07/2021 12:26:09 Caesarean Section completed [facility] 01/07/2021 12:26:09 Orthopedic Surgery completed [facility] 01/07/2021 12:26:09 Imaging Results None recorded. Procedure Notes None recorded. Medical Equipment None Reported. Allergies Allergen ID Allergen Name Allergen Category Reaction Reaction Severity Criticality Documentation Date Start Date Code Code System Note Provider Name and Address Organization Details Recorded Time 90233 Substance with sulfonami de structure and antibacte rial mechanism of action (substanc e) medicatio n Not available Not available Not available 12/03/2020 65644 8003 SNOMED [facility] 15:10:27 84025 codeine medicatio n Not available Not available Not available 12/03/2020 2670 RxNorm [facility] 15:10:33 73659 latex environme nt,medica tion Not available Not available Not available 12/03/2020 41632 91 [facility]Norm [facility] 15:11:17 44136 nickel environme nt Not available Not available Not available 12/03/2020 64324 29 RxNorm [facility] 15:11:22 21780 yellow dye medicatio n Not available Not available Not available 12/03/2020 [facility] 15:12:07 Medications Name Sig Start Date [...] Updated DateTime 04/24/2025 165.1 cm 22.3 kg/m2 93181.66 g 148/83 mm[Hg] Patricia Tao [facility] 04/24/2025 11:21:00 Date Recorded Body height Body mass index (BMI) Body weight Systolic And Diastolic Provider Name and Address Organization Details Last Updated DateTime 05/02/2025 165.1 cm 22.5 kg/m2 14661.97 g 169/89 mm[Hg] Aliyah Acosta [facility] 05/02/2025 12:13:12 Date Recorded Body height Body mass index (BMI) Body weight Systolic And Diastolic Provider Name and Address Organization Details Last Updated DateTime 05/28/2025 165.1 cm 22.5 kg/m2 79056.97 g 141/85 mm[Hg] Patricia Tao [facility] 05/28/2025 14:18:17 Social History Question Answer Notes LastModified by Organizat ion Details LastModified Time Tobacco Smoking Status Current Every Day Smoker [facility] 01/07/2021 12:26:05 Do You Have An [...] Or The Highest Degree You Have Received? [id number] Information not available 01/07/2021 Are There Any [...] anxious, or unable to sleep at night)? [id number] Information not available 01/07/2021 Family History Relationship Description Onset Age of this Age Resolved Age Notes LastModified by Organization Details LastModified Time Mother Malignant neoplasm of breast Not available 2020 15:16:19 Mother Heart disease [email or web address] Not available 2020 15:16:29 Mother Diabetes mellitus [email or web address] Not available 2020 15:16:42 Mother Hypertensive disorder [email or web address] Not available 2020 15:17:02 Father Heart disease [email or web address] Not available 2020 15:16:29 Father Hypertensive disorder [email or web address] Not available 2020 15:17:02 Brother Diabetes mellitus [email or web address] Not available 2020 15:16:42 Brother Heart disease [email or web address] Not available 2020 15:16:48 Brother Hypertensive disorder [email or web address] Not available 2020 15:17:02 Sister Malignant neoplasm of breast 60 BRCA neg - sister [email or web address] Not available 05/28/2025 14:15:12 Sister Malignant neoplasm of breast [email or web address] Not available 2024 11:12:26 Medical History Condition Response Other Y Blood Transfusion N Dermatologic Disorders N Gestational Diabetes N Anxiety Disorder Y Autoimmune disease N Arthritis N Polyps N Infertility N Acid Reflux (GERD) N Cancer N Varicosities N Stroke N Neurologic/Epilepsy N Fibromyalgia N Headaches Y Kidney Disease N Heart Problems Y Kidney or Bladder Problems N Eating Disorder N Art (IVF or FET) N Hepatitis/Liver Disease N No Past Medical History N Urinary Tract Infection N Asthma N Trauma/Violence N Thrombophilias N Allergies (Food, seasonal, environmental ) N Breast Cancer N Drug/Latex Allergies/Reactions Y Lung Disease N Defects or Inherited Disease N Breast Problem N Hematologic disorders N Anesthesia Complications N History of STI N Deep Vein Thrombosis N Polycystic ovary syndrome N History of abnormal pap N Endometriosis N High Cholesterol N Thyroid Problems N GI Problems N Anemia N Psychiatric Illness N Ovarian Cancer N Diabetes N Pulmonary (TB, Asthma) N Eczema Y Abuse/Domestic Violence N Depression/ depression Y Heart Disease N Pre-Eclampsia N Hypertension N Osteoporosis N Gynecological History Statement/Question Response Flow Moderate [...] ICD10 Code Diagnosis IMO Codes Diagnosis Note 01004 Bindu Jimenez CNM [place] [address],[place] [address] 12/03/2020 15:07:50 12/04/2020 15:37:18 Gynecologic examination 41752481 Z01.419 Take Calcium with Vitamin D 12-1500mg daily. Do monthly self breast exams. It is advised to get annual flu shot in the fall and she could obtain at [facility] or [facility]. If you haven't received the Tdap vaccine [...] to this email. Menopausal and postmenopausal disorders 921878034 N95.9 Pt has a very complicate d medical history and medication list. Her menopausal symptoms have definitely intensifie d. I would like her to schedule a consult with Dr Root to discuss options. Dyspareunia 19650883 N94 .10 Consult to be scheduled with Dr Root. [id number] Guillermo Root MD [place] [address],[facility] [place] [address] 01/07/2021 12:10:16 01/07/2021 13:10:58 Menopausal symptom 32194160 N95.1 this patient reports severe symptoms of menopause. She has some severe dyspareuni a and vaginal dryness that she would like treated effectivel y and quickly. We agreed to vaginal estradiol and systemic estradiol. She also take oral Prometrium . The vaginal she will be continued after about a month. She return in 1 month. [id number] Guillermo Root MD [place] [address],[place] [address] 02/04/2021 15:24:32 02/04/2021 16:40:37 Menopausal symptom 13174966 N95.1 This patient is a 55-year-ol d [...] improved. She will follow-up in 6 months. [id number] Guillermo Root MD [place] [address] [address] 03/28/2022 10:56:09 03/28/2022 17:15:14 Eczema 52361055 L30.9 Gynecologi c examination 38519687 Z01.419 Annual gynecologi aniya exam performed. Patient [...] - ordered Pap - today Menopausal symptom 28700 002 N95.1 [id number] Guillermo Root MD [place] [address] [address] 12/17/2024 10:45:36 12/17/2024 11:38:52 Gynecologic examination 98426099 Z01.419 Annual gynecologi aniya exam performed. Patient [...] STI testing - declined Screening mammography 24 883695 Z12.31 Screening for osteoporosis 160658600 Z13.820 Menopausal symptom 36204 002 N95.1 Counseled on the following: Females [...] fits/AEs of HRT and wishes to continue. [id number] Guillermo Root MD [place] [address] [address] 04/24/2025 11:07:12 04/24/2025 12:09:27 Postmenopausal bleeding 11777002 N95.0 43676 The patient and I discussed the various causes of abnormal uterine bleeding, including polyps, fibroids, hyperplasi a, atypia, anovulatio n, etc.We reviewed the typical evaluation with pelvic US and possible endometria l biopsy.Jeni efly discussed the options available for treatment (depending [...] All questions answered to patient satisfacti on. [id number] Guillermo Root MD [place] [address],[place] [address] 04/25/2025 12:24:23 04/25/2025 13:56:45 Postmenopausal bleeding 40017250 N95.0 53386 [id number] Guillermo Root MD [place] [address],[place] [address] 05/02/2025 11:56:00 05/02/2025 13:00:07 Pain in pelvis 49397427 R10.2 85238 Postmenopa usal bleeding 49548074 N95.0 22372 This patient is a 59-year-ol d female [...] 30 minutes on her care in total. [id number] Guillermo Root MD [place] [address],[place] [address] 05/21/2025 08:55:49 05/21/2025 13:34:29 [id number] Guillermo Root MD [place] [address],[place] [address] 05/28/2025 14:06:13 05/28/2025 14:56:08 Postmenopausal bleeding 88517552 N95.0 93013 This patient is a 60-year-ol d female [...] Machado Member ID Guarantor Name 04/24/2025 1 [facility] [id number] Nik Joaquinymer [id number] Monica Birmingham 05/28/2025 2 [place] Monica Joaquinymer [id number] Monica Joaquinymer 05/28/2025 2 [facility] (MEDICARE REPLACEMENT/A DVANTAGE - PPO) [id number] Monica Joaquinymer [id number] Monica Lefty 07/19/2024 1 [facility] [id number] Nik Lefty [id number] Monica Joaquinymer 06/02/2025 1 R [id number] Stanley Adan Lefty [id number] Monica Joaquinymer Notes Date Note Type Note [...] WNL. MAIKEL DENNEY NP [address], [place], [address], [facility] 04/24/2025 11:58:25 05/02/2025 text/html This patient [...] infection. Guillermo Root MD [address], [place], [address], [facility] 05/02/2025 12:54:16 05/28/2025 text/html This patient [...] device. Guillermo Root MD [address], [place], [address], [facility] 05/28/2025 14:55:24 OBGyn Episode Ob Episode Information Episode Created Date Number of Fetuses Patient Bloodtype Patient rh Status Prepregnancy Weight lbs Domestic Partner Domestic Partner Phone Father Name Customer Business Manager Status 12/03/19 21 1 CLOSED Fetus Data [...]
[2025-08-02] MEDS: diazePAM INJ (*CRX) 10 MG/2 ML SYRINGE 5 MG IM (08:44)
[2025-08-02] MEDS: HYDROmorphone HCL INJ (*CRX) 1 MG/ML SYR IM (08:45)
[2025-08-02] MEDS: SODIUM CHLORIDE 0.9% IV 1,000 ML 999 ML (10:20)
--- NOTE | 2025-08-02 10:21 | PC.NURSE ---
gave 60mg Propofol IVP
[2025-08-02] MEDS: MORPHINE SULFATE (*CRX) 4 MG/ML INJ 2 MG IV PUSH (11:46)
== END 2025-08-02 11:50 | disposition home or self-care (01) ==
PROVIDERS: Emergency Provider Emergency Medicine; PCP Family Medicine
DX: M24.411 Recurrent dislocation, right shoulder (principal); W18.30XA Fall on same level, unspecified, initial encounter; I10 Essential (primary) hypertension; E78.5 Hyperlipidemia, unspecified; F41.8 Other specified anxiety disorders; F17.210 Nicotine dependence, cigarettes, uncomplicated
CPT/HCPCS: 23650; 73020; 73030; 96372; 96374; 99285; J1171; J2270; J3360; J7030

== ENCOUNTER 2025-09-29 09:10 | Emergency (ER) | payer MEDICARE, SELFPAY ==
--- OUTSIDE RECORDS SUMMARY | 2024-12-02 13:00 | XMS_ITS ---
Author Organization [facility] Address [address] [place] [address] Phone [phone] Care Team Providers Care Hull Outfit Supervisor Name Role Phone Ashley Stringer Primary Care Provider [phone] [facility], Adult MATT Unavailabl e [phone] Madisyn Matamoros Unavailable [phone] REASON FOR VISIT Schedule error-mlr 3 Month Psych F/U & Med Refill Medications Medication SIG (Take, Route, Frequency, Duration) Notes Start Date End Date Diagnosis (ICD Code) Status ALPRAZolam 0.5 MG Tablet 1 tablet Orally Twice a day; Duration: 30 days 09/12/2024 Major depressi ve disorder, 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_10 - F33.2) Active Sertraline HCl 50 MG Tablet 1 tablet Orally Once a day; Duration: 30 days 04/16/2024 Major depressi ve disorder, 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_10 - F33.2) Active SEROquel 300 MG Tablet 1 tablet at bedtime Orally Once a day; Duration: 30 days Major depressi ve disorder, 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_10 - F33.2) Active ALPRAZolam 0.25 MG Tablet 1 tablet Orally once a day; Duration: 30 days 09/12/2024 Major depressi ve disorder, 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_10 - F33.2) Active Temazepam 30 MG Capsule Oral; Duration: 30 Days Active Atorvastatin Calcium 10 MG Tablet 1 tablet Orally Once a day Active Metoprolol Succinate ER 100 MG Tablet Extended Release 24 Hour Oral; Duration: 30 Days Active Social History Sex Observation Social History Observation Description Sex Observation Female Sexual Orientation Social History Observation Description Sexual Orientation Straight or heterose xual Gender Identity Social History Observation Description Gender Identity Female Encounters Date Time Type Facility Location Provider Diagnosis 12/02/2024 01:00 PM Office Visit [facility] [address] [place] [address] Madisyn Matamoros Plan Of Treatment No Information Medical (General) History Medical History History ICD Code Migraines MVP Depression Panic Attacks cataplexy high cholesterol HTN Rotator cuff tear Surgical History Surgery Date(Month/Year) 1993 cholyecystectomy 2002 Hospitalization History Reason Date(Month/Year) [facility] (I&D) 10/2015 Progress Notes * Monica OLEADOB:1965 (60 yo F)Acc No.[id number]:12/02/2024 UNLOCKED PROGRESS NOTE Patient: Monica MCCARTHY Provider: KAYLEIGH Davis :1965 A ge:59 Y S ex:Female Date:12/02/2024 Address:[address] [place], [place] [id number] Pcp:Ashley Stringer Subjective: * Chief Complaints: * 1 . Schedule error-mlr 3 Month Psych F/U & Med Refill. * Screening: * * Medical History: * Medications: T aking [...] * Electronic signature of Madisyn Matamoros , [id number] on 09/29/2025 at 10:02 AM AUDIT MGR Sign off status: Pending * Provider: MARKUS Davis Date: 0 12/02/2024 Generated for Carola cotton/Clark/Doris on: 1 11/30/2024 10:02 AM AUDIT MGR
[2025-09-29] VITALS (29 sets, daily range): BP systolic 100–152; BP diastolic 68–107; PULSE 88–113; RESP 13–18; TEMP 36.6–36.8; O2SAT 98–100
--- NOTE | ~2025-09-29 | XR_ITS ---
Examination: XR humerus RT, XR shoulder RT min 2V Clinical History: fall with pain Comparison: None Technique: 3 views right shoulder, 2 views right humerus Findings/impression: Right shoulder: 1. Anterior shoulder dislocation, with large Hill-Sachs lesion. 2. No other acute abnormality. Right humerus: 1. Anterior shoulder dislocation, with large Hill-Sachs lesion. 2. Distal humerus intact. Reviewed, dictated and finalized at location R. 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
--- NOTE | ~2025-09-29 | XR_ITS ---
EXAMINATION: XR shoulder RT min 2V DATE: 09/29/2025 11:17 INDICATION: Post reduction right shoulder dislocation TECHNIQUE: AP and transscapular Y views of the right shoulder were obtained. COMPARISON: 09/29/2025, 08/02/2025 and 07/07/2025 FINDINGS: Successful reduction to normal alignment of the previously anteriorly dislocated right glenohumeral joint. There is a chronic large Hill-Sachs fracture trough at the posterior lateral aspect of the humeral head. No other acute fractures identified. Mild acromioclavicular osteoarthritis. A couple unchanged old healed right fracture deformities. Visualized portion of the right lung are clear. IMPRESSION: 1. 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 2. Chronic Hill-Sachs fracture trough at the posterior lateral right femoral head and a couple old healed right rib fractures. No acute osseous abnormality. Reviewed, dictated and finalized at location A. FIC ENGINEER IMPRESSION: 1. 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 2. Chronic Hill-Sachs fracture trough at the posterior lateral right femoral he ad and a couple old healed right rib fractures. No acute osseous abnormality.
--- OUTSIDE RECORDS SUMMARY | 2025-09-29 10:02 | XMS_ITS | Clinical Summary ---
Author Organization [facility] Address [address] [place] [address] Care Team Providers Care Char Puller Name Role Phone Hector Sylvester MD Primary Care Provider [phone] Source Comments [facility],non-owned Affiliates and Associated Physician Practices is amultiple site organization consisting of ambulatory clinics and hospital sitesin [place], [place]. This disclosure is being madepursuant to the Care Everywhere program and may not contain all information available regarding this patient. Last updated 18.[facility] Allergies Active Allergy Reactions Criticality Noted Date [...] confidence in her neurologist and works at [employer] and lives in [place]. She denies being on Percocet currently and doesn't want to try steroids. Her drug screen is positive for opiates. 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 Gender Identity Not on file Sexual [...] DEPRESSION SCREENING 10/09/2024 COVID-19 VACCINE (1 - 2024-2 6 season) 2025 INFLUENZA VACCINE (#1) 2025 Respiratory [...] age to complete this topic Insurance [facility] MEDICARE SELF PAY NO INSURANCE Member Subscriber Plan / Payer (Ef fective for All Dates) Name:Ivonne Olea Member ID:Not on file Relation to Subscriber:Not on file Name:IVONNE OLEA Subscriber ID:Not on file (Home) Address: [address] [place] [address] Payer ID:Not on file Group ID:Not on file Type:Self Pay Address: [place], [place] [facility] Care Teams Char Puller Relationship Specialty Start Date End Date Hector Sylvester MD [address] [place] [id number] PCP - General Family Medicine 01/23/18
--- OUTSIDE RECORDS SUMMARY | 2025-09-29 10:02 | XMS_ITS | Patient Health Record ---
Author Organization [facility] Address [address] [place] [address] Phone [phone] Care Team Providers Care Clerical Receptionist Name Role Phone Evy Stringera Primary Care Provider [phone] [facility], SR Adult MATT Unavailabl e [phone] SaturninoMadisyn souza Unavailable [phone] Allergies Allergen (clinical drug ingredient) Drug/Non Drug [...] Orally Twice a day; Duration: 30 days 09/11/2025 Major depressi ve disorder, 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_10 - F33.2) Active Sertraline HCl 100 MG Tablet 1 tablet Orally Once a [...] Orally once a day; Duration: 30 days 09/11/2025 Major depressi ve disorder, 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_10 - F33.2) Active Temazepam 30 MG Capsule Oral; Duration: 30 Days Active Atorvastatin Calcium 10 MG Tablet 1 tablet Orally Once a day Active Metoprolol Succinate ER 100 MG Tablet Extended Release 24 Hour Oral; Duration: 30 Days Active Social History Tobacco Use: Social History Observation Description Date Details (start date - stop date) Current Smoker NA - NA Sex Observation Social History Observation Description Sex Observation Female Sexual Orientation Social History Observation Description Sexual Orientation Straight or heterose xual Gender Identity Social History Observation Description Gender Identity Female Social History Primary Social History Social Info Question Answer Notes Single Question Alcohol Screening How ma ny times in the past year have you had (4 for women, or 5 for men) or more drinks in a day? 0 Drugs/Alcohol: Social Info Question Answer Notes Alcohol Screen (Audit-C) Did you have a drink containing alcohol in the past year? No Points 0 Interpretation Negative Tobacco Use: Social Info Question Answer Notes Tobacco Control (Standard) Tobacco use: Current smoker How often do you smoke cigarettes? Every day How many cigarettes a day do you smoke? 11-20 Problems Problem Type SNOMED Code ICD Code Dates Problem Status W/U Status Risk Notes Problem Tobacco user (103056306) Nicotine dependence, unspecified, uncomplicated (F17.200) Added On:2022 Active confirmed Problem Severe recurrent major depression without psychotic features (40696365) Major depressive disorder, recurrent severe without psychotic features (F33.2) Added On:2020 Active confirmed Problem Tobacco user (479520239) Tobacco dependency (F17.200) Added On:2015 Active confirmed Problem Depression (537882277) Depression (F32.9) Added On:2015 Active confirmed Problem Anxiety (98152122) Anxiety (F41.9) Added On:2020 Active confirmed Encounters Date Time Type Facility Location Provider Diagnosis 08:40 AM Telehealth Office Visit, Est Pt., Level 4 (12389) [address] [place] [address] Ashley Stringer Major depressive disorder, recurrent severe without psychotic features F33.2 and Anxiety F41.9 5 10:40 AM Telehealth Office Visit, Est Pt., Level 4 (61049) [facility] [place] [address] Ashley Stringer Major depressive disorder, recurrent severe without psychotic features F33.2 and Anxiety F41.9 5 08:40 AM Telehealth Office Visit, Est Pt., Level 4 (91357) [facility] [place] [address] Ashley Stringer Major depressive disorder, recurrent severe without psychotic features F33.2 and Anxiety F41.9 5 05:20 PM NEG SCR D PT NOT ELIG F/U/PLN DOC (G8510) [place] [address] [place] [address] Ashley Stringer Major depressive disorder, recurrent severe without psychotic features F33.2 5 12:00 PM Telephone Encounter [address] [address] Ashley Stringer Anxiety F41.9 5 01:41 PM Telephone Encounter [address] [place] [address] Ashley Stringer Major depressive disorder, recurrent severe without psychotic features F33.2 Assessments Encounter Date Diagnosis (ICD Code) Assessment Notes Treatment Notes Section Notes 12/06/2024 Major depressive disorder, 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-10 - F33.2) 03/05/2025 Major depressive disorder, 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-10 - F33.2) Continue current medications. Reviewed Prescription Monitoring program. Continue services as scheduled. Labs completed recently. May self-administer medications or be administered own oral medications per [facility] protocols. Provided informed consent with understanding of [...] or be administered own oral medications per [employer] protocols. Provided informed consent with understanding of side effects, adverse effects, risks and benefits as well as alternative treatments as previously discussed and with the above recommended medications & other aspects of the treatment program. Agrees to return sooner if symptoms worsen or suicidal or homicidal ideations occur. 08/22/2025 Major depressive disorder, 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-10 - F33.2) 09/11/2025 Major depressive disorder, 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-10 - F33.2) Continue current medications. Labs done recently. Continue services as scheduled. Reviewed SERVICING REP May self-administer medications or be administered own oral medications per [employer] protocols. Provided informed consent with understanding of side effects, adverse effects, risks and benefits as well as alternative treatments as previously discussed and with the above recommended medications & other aspects of the treatment program. Agrees to return sooner if symptoms worsen or suicidal or homicidal ideations occur. 02/07/2025 Anxiety (ICD-10 - F41.9) 03/05/2025 Anxiety (ICD-10 - F41.9) 06/04/2025 Anxiety (ICD-10 - F41.9) 12/06/2024 Anxiety (ICD-10 - F41.9) 12/06/2024 Other Continue curren t medications. Reviewed Prescription Monitoring program. Continue services as scheduled. Labs completed recently. May self-administer medications or be administered own oral medications per [employer] protocols. Provided informed consent with understanding of [...] Insured Coverage Start Date Coverage End Date [employer] Medicare Assure [address] [address] [place] [address] [id number] Monica Olea Self - patient is the insured 5 [facility] [address] [address] [place] [address] [id number] Monica Olea Self - patient is the insured 3 5 Medical (General) History Medical History History ICD Code Migraines MVP Depression Panic Attacks cataplexy high cholesterol HTN Rotator cuff tear Surgical History Surgery Date(Month/Year) 1993 cholyecystectomy 2002 Hospitalization History Reason Date(Month/Year) [facility] ([facility]&D) 10/2015
--- OUTSIDE RECORDS SUMMARY | 2025-09-29 10:02 | XMS_ITS | Clinical Summary ---
Author Organization [facility] [address] Address [address] [place] [address] Care Team Providers Care Book Editor Name Role Phone CarolynSary Kelly AUDIO INSTALLER Primary Care Provider + Allergies Active Allergy [...] Medium 09/02/2014 Yellow Dye Unknown 12/04/2019 Medications acetaminophen- aspirin-caffei ne (EXCEDRIN MIGRAINE) 250-250-65 mg per tablet take [...] (ESTRACE) 2 mg tablet 12/27/19 23 Active rizatriptan (MAXALT) 10 mg tabletIndicati ons:Chronic migraine without aura with status migrainosus, not [...] (two) times a day 02/04/20 25 Active butalbital-radha taminophen-caf feine (ESGIC) 50-325-40 mg per tablet TAKE 1 TABLET BY MOUTH EVERY 4 HOURS NEEDED FOR HEADACHE. 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 She denies being on Percocet currently and doesn't want to try steroids. Her drug screen is positive for opiates. Lisa Villatoro MD Patient insists that only Dilaudid helps her headaches. She has no confidence in her neurologist and works at [employer] and lives in [place]. She denies being on Percocet currently and doesn't want to try steroids. Her drug screen is positive for opiates. 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 Procedure visit [facility] at [address] [place] [address] Purnima Lyons PA Intractable chronic migraine without aura and with status migrainosus (Primary Dx) 08/28/2025 Telephone [facility] at [address] [place] [address] Ting Andre, DO Med Management from Last 3 Months Immunizations Immunization Administration [...] on file Legal Sex Female 11:32 PM 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 Gender Identity Not on file Sexual Orientation [...] , 07/23/2012, 10/27/2006, Additional history exists Insurance [facility] Address: [address] [address] [place] [address] MEDICARE ADVANTAGE [facility] Address: [address] [address] [place] [address] Advance Directives For more information, please contact: [phone] * Full Code (Latest Code Status on File) Date Activated Date Inactivated Comments 08/26/2021 5:38 PM 08/28/2021 7:25 PM Care Teams Book Editor Relationship Specialty Start Date End Date Sary Leon NP [address] [place] [address] [address] PCP - General Nurse Practitioner 11/21/23
--- OUTSIDE RECORDS SUMMARY | 2025-09-29 10:02 | XMS_ITS | Clinical Summary ---
Author Organization [facility] Address [address] [place] [address] Phone Care Team Providers Care Payment Collector Name Role Phone Jennifer Vaca MD Primary Care Provider [phone] Allergies Active Allergy Reactions Criticality Noted Date [...] of Treatment Not on file Care Teams Payment Collector Relationship Specialty Start Date End Date Jennifer Vaca MD [address] [place] [address] PCP - General Family Medicine 09/25/15
--- OUTSIDE RECORDS SUMMARY | 2025-09-29 10:02 | XMS_ITS | Clinical Summary ---
Author Organization [facility] Address [address] [place] [address] Phone Care Team Providers Care Chemical Lab Technician Name Role Phone Unavailable Primary Care Provider Unavailabl e Allergies Active Allergy Reactions Criticality Noted Date Comments Adhesive Tape-Silicones Rash Low 12/08/2014 Chlorpromazine Anaphylaxis High 02/06/2016 Codeine Rash Low 01/15/2016 Dhe Shortness of Breath/Wheezing High 12/08/2014 Latex Rash Low 12/08/2014 Metoclopramide Hcl Other (See Comments) 015 Dystonic reaction Propranolol Shortness of Breath/Wheezing High 12/08/2014 Sulfa (Sulfonamide Antibiotics) Rash Low 12/08/2014 Medications ZOLMitriptan (ZOMIG) [place], Non-Aerosol 1 [place] 2 times daily as needed for Migraine [...] Tablet 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 Active ondansetron (ZOFRAN) 4 mg Tablet Take [...] . 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
--- NOTE | 2025-09-29 10:34 | ED.GENADULT ---
HPI - General Adult General Chief complaint: Extremity Injury, Upper Stated complaint: right shoulder injury Time Seen by Provider: 09/29/25 10:15 History of Present Illness HPI narrative: 60-year-old female presents to the emergency department for evaluation for right shoulder dislocation. Patient does have a significant history of shoulder injury and previous shoulder dislocation. Patient reports that she dislocated her shoulder last night and was unable to get it back in. Patient waited until today to present to the emergency department for evaluation. Patient's primary complaint is right shoulder pain. Related Data Home Medications ?Medication ?Instructions ?Recorded ?Confirmed ?Last Taken ?Type estradiol 2 mg tablet 2 mg PO HS 10/22/22 08/01/25 05/20/25 History metoprolol succinate 100 mg 100 mg PO HS 10/22/22 08/01/25 05/20/25 History tablet,extended release 24 hr progesterone micronized 100 mg 100 mg PO HS 10/22/22 08/01/25 05/20/25 History capsule quetiapine 300 mg tablet 300 mg PO HS 10/22/22 08/01/25 05/20/25 History rizatriptan 10 mg tablet 10 mg PO DAILY PRN migraine 10/22/22 08/01/25 04/09/25 History headache temazepam 30 mg capsule 30 mg PO QHS 05/17/23 08/01/25 05/20/25 History qyohcnmgvu-qjsgpeiqayunl-sfbycixo 1 tablet PO DAILY PRN pain 01/01/24 08/01/25 Unknown History 50 mg-325 mg-40 mg tablet sertraline 100 mg tablet 100 mg PO HS 04/03/25 08/01/25 05/20/25 History alprazolam 0.5 mg tablet 0.5 mg PO BID PRN anxiety 07/01/25 08/01/25 Unknown History Allergies Allergy/AdvReac Type Severity Reaction Status Date / Time dihydroergotamine Allergy Intermediate Unknown Verified 09/29/25 09:41 codeine Allergy Mild gets red, Verified 09/29/25 09:41 hives, itchy latex Allergy Mild Unknown Verified 09/29/25 09:41 Sulfa (Sulfonamide Allergy Mild Unknown Verified 09/29/25 09:41 Antibiotics) chlorpromazine Allergy Unknown Dyspnea / Verified 09/29/25 09:41 SOB nickel Allergy Unknown Unknown Verified 09/29/25 09:41 prochlorperazine Allergy Unknown Unknown Verified 09/29/25 09:41 propranolol AdvReac Unknown chest Verified 09/29/25 09:41 tightness metoclopramide (From Reglan) AdvReac Dystonic Verified 09/29/25 09:41 reaction Review of Systems Review of Systems: All systems reviewed & are unremarkable except as noted in HPI and below PMFSH Past Medical History Medical History Recurrent dislocation, right shoulder 05/2025, 02/2025 Compression of thoracic vertebra Fracture of right third rib (~05/2025) Dislocation of right shoulder joint (~02/2025) Essential (primary) hypertension Depression with anxiety Multiple fractures of ribs of right side (~08/2021) Hyperlipidemia, unspecified Positive colorectal cancer screening using Cologuard test IBS (irritable bowel syndrome) Pneumothorax (~08/2021) Cataplexy Migraine Surgical History Surgical History History of arthroscopic surgery of shoulder Right Shoulder Biceps Tenotomy. 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, b/l hands and RLE History of ankle surgery (~2014) ORIF right ankle fracture History of chest tube placement (~08/2021) right pneumothorax History of cholecystectomy (~2002) History of (~1993) Family History Family History Father Acute myocardial infarction Sibling Patient's sister is in good health Patient's brother is in good health Patient's sister is Mother Family history of malignant neoplasm of breast in first degree relative Patient's mother is Social History Social History Smoking packs per day: 0.5 Smoking cigarettes per day: 10.0 Years smoked: 30 Smoking pack-years: 15.00 Smoking status: Current every day smoker Tobacco type: cigarettes Alcohol intake: never Substance use: never Lack of Transportation: No Lack of Food: Never True Current Housing: I Have Housing Concerned About Future Housing: No Difficulty Paying Gas/Electric Bills: No Difficulty Paying for Meds: No Currently Unemployed: No Education: Trade/Vocational Certificate Difficulty w/ Childcare or Family Care: No Living arrangements: with family Additional living arrangements comments: Gender identity (if verbalized by the patient): Female Sexual Orientation (if Verbalized by the Patient): Straight or Heterosexual Exam Narrative: APPEARANCE: Uncomfortable appearing HEAD: normocephalic, atraumatic. EYES: PERRLA/EOMI, conjunctivae clear. NOSE: Normal no drainage EARS:TMS clear with good light reflex. THROAT: Pharynx clear, no exudate. NECK: Supple. No adenopathy, no masses. RESPIRATORY: Airway patent, respirations nonlabored. Clear to auscultation bilaterally, no rales, rhonchi, wheezing. CARDIOVASCULAR: Regular rate and rhythm without murmurs rubs or gallops. ABDOMINAL: Soft, nontender, nondistended, normal bowel sounds MUSCULOSKELETAL: right shoulder pain NEURO: Alert. Cranial nerves II through XII intact. Good gait. Good coordination SKIN: Warm, dry. Normal Color Course Vital Signs Vital signs: Vital Signs Temperature 98.2 F 09/29/25 09:36 Pulse Rate 113 H 09/29/25 09:36 Respiratory Rate 14 09/29/25 09:36 Blood Pressure 152/107 H 09/29/25 09:36 Pulse Oximetry 99 09/29/25 09:36 Oxygen Delivery Room Air 09/29/25 09:36 Temperature 98.0 F 09/29/25 12:13 Pulse Rate 90 09/29/25 12:21 Respiratory Rate 13 09/29/25 12:21 Blood Pressure 124/74 09/29/25 12:21 Pulse Oximetry 100 09/29/25 12:21 Oxygen Delivery Room Air 09/29/25 12:13 Oxygen Flow Rate 2 09/29/25 11:28 Procedures Orthopedic Joint Reduction Joint #1: Orthopedic Joint Reduction Date: 09/29/25 Time Out Performed: Yes Side: right Joint Reduction Location: shoulder Analgesia: procedural sedation Pre-Procedure Neuro Vascular Exam: normal Shoulder Technique Used (if applicable): traction/counter-traction Technique used: traction/counter-traction Post-reduction neuro exam: intact Post-reduction vascular: intact Post Reduction X-Ray Obtained: Yes Post Reduction X-Ray Results: reduced Splint Applied: Yes Patient Tolerated Procedure: well and no complications Procedural Sedation Procedural Sedation #1: Procedural Sedation Date: 09/29/25 Presedation Evaluation: APPEARANCE: Uncomfortable appearing. HEAD: normocephalic, atraumatic. EYES: PERRLA/EOMI, conjunctivae clear. NOSE: Normal no drainage THROAT: Pharynx clear, no exudate. NECK: Supple. No adenopathy, no masses. RESPIRATORY: Airway patent, respirations nonlabored. Clear to auscultation bilaterally, no rales, rhonchi, wheezing. CARDIOVASCULAR: Regular rate and rhythm without murmurs rubs or gallops. ABDOMINAL: Soft, nontender, nondistended, normal bowel sounds MUSCULOSKELETAL: right shoulder dislocation NEURO: Alert. Cranial nerves II through XII intact. Good gait. Good coordination SKIN: Warm, dry. Normal Color PSYCHIATRIC: Normal affect/mood. Procedure: procedure sedation using propofol for reduction of the right anterior shoulder dislocation Time Out: time-out was performed Informed Consent Obtained: yes Equipment in Room: bag and mask, capnography, ointment mill tender, crash cart, oxygen, pulse oximeter and suction Plan for Sedation: moderate sedation ASA Class: II NPO Status: last solid food (hours ago) Explanation to Patient/Family: Risk/Benefits/Alternatives Pt. Educated on Procedural Sedation: Yes Re-evaluated immediately prior: Yes Preparation: ointment mill tender applied, pulse oximeter, capnometry used, supplemental O2 applied, reversal agents at bedside, suction/airway equipment at bedside and IV secured IV Propofol dose (mg): 100 (60+40) Patient Tolerated Procedure: well Complications: none Interventions: oxygen applied Total Sedation Time (min): 10 MDM [facility] Narrative Medical decision making narrative: 60-year-old female presents emergency department for evaluation for shoulder dislocation. Patient does have a chronic Hill-Sachs deformity. No other acute fracture. Patient was treated with probable fall for procedural sedation for the right shoulder dislocation. Repeat imaging does show successful reduction. Patient did feel improved with treatment. Patient states she has had a previous follow-up with Orthopedics and patient was encouraged to continue have close follow-up with Orthopedics. Patient was well-appearing at time of discharge. Differential Diagnosis Differential Diagnosis: shoulder fracture, shoulder dislocation, vascular injury Imaging Data Attestation: I personally reviewed and interpreted this imaging study as follows: My impression: shoulder x-ray post reduction: successful reduction Radiologist's impression: ITS Impressions Shoulder X-Ray 09/29/25 11:33 IMPRESSION: 1. 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 2. Chronic Hill-Sachs fracture trough at the posterior lateral right femoral head and a couple old healed right rib fractures. No acute osseous abnormality. Discharge Plan Discharge Clinical Impression: Anterior shoulder dislocation, Hill Sachs deformity, right Patient Disposition: Home Condition: Stable Instructions: Antibiotic Form, Procedural Sedation (ED), Closed Reduction (ED), Shoulder Immobilizer (ED) Additional Instructions: shoulder immobilizer as directed. Tylenol and ibuprofen for pain control. Have close follow-up with Orthopedics. Patient Language: Arabic Prescriptions: No Action quetiapine 300 mg tablet 300 mg PO HS rizatriptan 10 mg tablet 10 mg PO DAILY PRN (Reason: migraine headache) metoprolol succinate 100 mg tablet extended release 24 hr 100 mg PO HS estradiol 2 mg tablet 2 mg PO HS progesterone micronized 100 mg capsule 100 mg PO HS tagssdqvpp-agzhtitwdbixp-ozsd 50-325-40 mg tablet 1 tablet PO DAILY PRN (Reason: pain) atorvastatin 10 mg tablet 10 mg PO QHS Qty: 90 0RF temazepam 30 mg capsule 30 mg PO QHS sertraline 100 mg tablet 100 mg PO HS alprazolam 0.5 mg tablet 0.5 mg PO BID PRN (Reason: anxiety) amlodipine 10 mg tablet 10 mg PO DAILY Qty: 90 1RF acetaminophen [Tylenol Extra Strength] 500 mg tablet 1,000 mg PO Q6H PRN (Reason: pain) Qty: 50 0RF methocarbamol 750 mg tablet 750 mg PO TID PRN (Reason: muscle spasm) Qty: 30 0RF lidocaine 5 % adhesive patch,medicated 1 patch topical DAILY Qty: 15 0RF Rx Instructions: leave on most painful area for up to 12 hrs Follow-up/Referrals: Sheng Kruger MD [Primary Care Provider, Family Practice] Willie Ang MD [Physician, Orthopedics]
[2025-09-29] MEDS: HYDROmorphone HCL INJ (*CRX) 1 MG/ML SYR 0.5 MG IV PUSH (10:44)
[2025-09-29] MEDS: PROPOFOL IV EMULSION 200 MG/20 ML VIAL 60 MG IV PUSH (10:55)
--- NOTE | 2025-09-29 11:23 | PC.NURSE ---
second dose of 40mg of Propofol given for Moderate sedation for right shoulder dislocation
--- NOTE | 2025-09-29 11:35 | PC.NURSE ---
clarifications second dose of 40mg Propofol given at 1058
--- OUTSIDE RECORDS SUMMARY | 2025-09-29 12:04 | XMS_ITS | Clinical Summary ---
Author Organization [facility] Address [address] [place] [address] Phone Care Team Providers Care Final Inspector Movement Assembly Name Role Phone Jennifer Vaca MD Primary Care Provider [phone] Allergies Active Allergy Reactions Criticality Noted Date [...] of Treatment Not on file Care Teams Final Inspector Movement Assembly Relationship Specialty Start Date End Date Jennifer Vaca MD [address] [place] [address] PCP - General Family Medicine 09/25/15
--- OUTSIDE RECORDS SUMMARY | 2025-09-29 12:04 | XMS_ITS | Clinical Summary ---
Author Organization [facility] Address [address] [place] [address] Phone Care Team Providers Care Clinical Administrative Coordinator Name Role Phone Unavailable Primary Care Provider Unavailabl e Allergies Active Allergy Reactions Criticality Noted Date Comments Adhesive Tape-Silicones Rash Low 12/08/2014 Chlorpromazine Anaphylaxis High 02/06/2016 Codeine Rash Low 01/15/2016 Dhe Shortness of Breath/Wheezing High 12/08/2014 Latex Rash Low 12/08/2014 Metoclopramide Hcl Other (See Comments) 015 Dystonic reaction Propranolol Shortness of Breath/Wheezing High 12/08/2014 Sulfa (Sulfonamide Antibiotics) Rash Low 12/08/2014 Medications ZOLMitriptan (ZOMIG) [place], Non-Aerosol 1 [place] 2 times daily as needed for Migraine [...] Tablet 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 Active ondansetron (ZOFRAN) 4 mg Tablet Take [...] . 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
--- OUTSIDE RECORDS SUMMARY | 2025-09-29 12:04 | XMS_ITS | Clinical Summary ---
Author Organization [facility] Address [facility] [place] [address] Care Team Providers Care Insurance Processing Clerk Name Role Phone Kailee Kruger MD Primary Care Provider Allergies Active Allergy Reactions Criticality Noted Date Comments Aspirin Nausea and Vomiting Low 03/26/2019 *FIORINAL* Chlorpromazine Anaphylaxis,Swell ing,Unknown High 09/25/2015 I can' breathe Swelling Codeine Rash Low 11/15/2019 Dhea Anaphylaxis,Short ness of Breath,Unknown High 09/02/2014 Dihydroergotamine Chest pressure,Shortnes s of Breath High 01/27/2015 Chest pain Chest pain Breathing Difficulty Ergotamine Unknown 09/02/2014 Latex Rash Low 11/15/2019 Nickel Rash,Swelling Medium 11/01/2015 Phenylpropanolamine Unknown 02/21/2024 Promethazine Unknown 12/28/2022 Propranolol Anaphylaxis,Other (see comment),Shortnes s of Breath High 09/02/2014 Chest pain Chest pain Breathing Difficulty Metoclopramide Other (see comment) High 11/15/2019 Her jaw shifts to one side and cannot talk Sulfa Antibiotics Rash Low 09/02/2014 Yellow Dye #6 (Vernon Yellow) Unknown 12/04/2019 Medications metoprolol succinate ER 100 MG Capsule ER 24 Hour Sprinkle 24 hr sprinkle capsule TK 1 T PO QD 09/21/20 19 Active QUEtiapine 200 MG tablet Take 200 mg by mouth daily. 01/27/20 18 Active fluoxetine 40 MG capsule 10/23/19 20 Active ksuweln-emjklmlb-p utalbital 50-325-40 MG Cap capsule Take 1 [...] mg by mouth daily. 09/30/20 19 Active naloxone (NARCAN) 4 MG/0.1ML nasal spray 1 spray by Nasal route as needed for Opioid reversal. may repeat every 2 to 3 minutes in alternating nostrils until medical assistance becomes available 1 each 02/23/20 25 026 Active ondansetron (ZOFRAN-ODT) 4 MG disintegrating tablet Take 1 tablet (4 mg total) by mouth every 8 (eight) hours as needed for Nausea. 20 tablet 05/06/20 25 Active oxyCODONE-acetamin ophen (PERCOCET) 5-325 MG tabletIndications: Acute Pain < 7 Day Supply Take 1 tablet by mouth every 4 (four) hours as needed for Pain. 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 Gender Identity Female 04/04/2025 7:31 PM CDT Sexual Orientation Straight 04/04/2025 7: 31 PM CDT Last Filed Vital Signs Vital Sign Reading Time Taken Comments Blood Pressure 189/96 06/08/2025 11:31 PM CDT Pulse 81 06/08/2025 10:29 PM CDT Temperature 36.9 C (98.4 F) 06/08/2025 9:10 PM CDT Respiratory Rate 20 06/08/2025 11:31 PM CDT Oxygen Saturation 98% 06/08/2025 11:31 PM CDT Inhaled Oxygen Concentration - - Weight 63 kg (139 lb) 06/08/2025 9:10 PM CDT Height 157.5 cm (5' 2) 06/08/2025 9:10 PM CDT Body Mass Index 25.42 06/08/2025 9:10 PM CDT Plan of Treatment Health Maintenance Due Date Last Done Comments Colorectal Cancer Screening Colonoscopy (10 Years) 1965 Annual Physical 1968 Hepatitis C 1983 Pneumococcal Vaccine: 50+ Years (1 of 2 - PCV) 1984 Cervical Cancer Screening Pap with HPV Testing (Age 30 to 64) Every 5 Years 1995 DTaP, Tdap and Td Vaccines (1 - Tdap) 08/09/1997 08/08/1997 Mammogram Screening 2005 Zoster Vaccines (1 of 2) 2015 COVID-19 Vaccine (3 - season) 2025 01/08/2021, 01/08/2021, 12/18/2020, Additional history exists Influenza Adult (#1) 2025 08/28/2021, 07/23/2012, 10/27/2006, Additional history exists Cervical Cancer Screening Pap Smear (Age 30 to 64) Every 3 Years 12/18/2027 12/17/2024, 03/28/2022 Cervical Cancer Screening with HPV 12/18/2027 RSV Immunization or 60+ Years (1 - 1-dose 75+ series) 2040 Hepatitis A Vaccines Aged Out No long er eligible based on patient's age to complete this topic Meningococcal B Vaccine Aged Out No l onger eligible based on patient's age to complete this topic Meningococcal Vaccine Aged Out No galileo sabi eligible based on patient's age to complete this topic RSV Immunizations Under 20 Months Aged Out No longer eligible based on patient's age to complete this topic Additional Health Concerns Infection Onset Date Last Indicated MRSA 05/17/2017 05/17/2017 Insurance [facility] MEDICARE Advance Directives Documents on File Type Date Recorded 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
--- OUTSIDE RECORDS SUMMARY | 2025-09-29 12:04 | XMS_ITS | Encounter Summary ---
Author Organization [facility] Address [address] [place] [address] Care Team Providers Care Clerk Checker Name Role Phone None, Provider Primary Care Provider Nisha maynard None, Provider Primary Care Provider Unavaila Kailee Valderrama MD Primary Care Provider Encounter Details Date Type Department Care Team (Late st Contact Info) Description 03/16/2019 Abstract SFL CONVERSION [address] [place] [address] , Generic Conversion, Social History Tobacco Use Types Packs/Day Years Used Date Smoking Tobacco: Never Assessed Comments Unknown Sex and Gender Information Value Date Recorded Sex Assigned at Female 04/04/2025 7:31 PM CDT 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 Gender Identity Female 04/04/2025 7:31 PM CDT Sexual Orientation Straight 04/04/2025 7: 31 PM CDT documented as of this encounter Plan of Treatment Not on file documented as of this encounter Visit Diagnoses Not on filedocumented in this encounter Additional Health Concerns Infection Onset Date Last Indicated Resolved Time MRSA 05/17/2017 05/17/2017 documented as of this encounter Care Teams Clerk Checker Relationship Specialty Start Date End Date None, ProviderMD PCP - General 11/15/19 02/20/24 None, ProviderMD PCP - General UNKNOWN PHYSICIAN SPECIALTY 02/21/24 02/21/25 Kailee Kruger MD [address] [facility] [address] [place] [address] PCP - General FAMILY PRACTICE 02/22/25 documented as of this encounter
--- OUTSIDE RECORDS SUMMARY | 2025-09-29 12:04 | XMS_ITS | Clinical Summary ---
Author Organization [facility] [address] Address [address] [place] [address] Care Team Providers Care District Gauger Name Role Phone CarolynSary Kelly SEALER SANDER Primary Care Provider + Allergies Active Allergy [...] confidence in her neurologist and works at [employer] and lives in [place]. She denies being on Percocet currently and doesn't want to try steroids. Her drug screen is positive for opiates. Lisa Villatoro MD Patient insists that only Dilaudid helps her headaches. She has no confidence in her neurologist and works at [employer] and lives in [place]. She denies being on Percocet currently and doesn't want to try steroids. Her drug screen is positive for opiates. Lisa Villatoro MD Closed Colles' fracture 11/04/2010 Encounters Date Type Department Care Team Description 09/22/2025 1:00 PM TURKEY PINNER Procedure visit [facility] at [address] [place] [address] Purnima Lyons PA Intractable chronic migraine without aura and with status migrainosus (Primary Dx) 08/28/2025 Telephone [facility] at [address] [place] [address] Ting Andre, DO Med Management [...] on file Legal Sex Female 11:32 PM TURKEY PINNER Gender Identity Not on file Sexual Orientation [...] , 07/23/2012, 10/27/2006, Additional history exists Insurance [facility] MEDICARE ADVANTAGE MEDICARE ADVANTAGE Advance Directives For more information, please contact: [phone] * Full Code (Latest Code Status on File) Date Activated Date Inactivated Comments 08/26/2021 5:38 PM 08/28/2021 7:25 PM Care Teams District Gauger Relationship Specialty Start Date End Date Sary Leon NP [address] [place] [address] [address] PCP - General Nurse Practitioner 11/21/23
--- OUTSIDE RECORDS SUMMARY | 2025-09-29 12:04 | XMS_ITS | Clinical Summary ---
Author Organization [facility] Address [address] [facility] [place] [address] Care Team Providers Care Contracts Administrator Name Role Phone Hector Sylvester MD Primary Care Provider [phone] Source Comments [facility],non-owned Affiliates and Associated Physician Practices is amultiple site organization consisting of ambulatory clinics and hospital sitesin [place], [place], [place] and [place]. This disclosure is being madepursuant to the Care Everywhere program and may not contain all information available regarding this patient. Last updated 18.[facility] Allergies Active Allergy Reactions Criticality Noted Date [...] confidence in her neurologist and works at [employer] and lives in [place]. She denies being on Percocet currently and doesn't want to try steroids. Her drug screen is positive for opiates. Lisa Villatoro MD Family History Medical History Relation Name Comments Diabetes Brother MA Father Breast Cancer after age 50 or [...] on file Legal Sex Female 6:52 AM [employer] Gender Identity Not on file Sexual Orientation [...] patient's age to complete this topic Insurance [facility] AET [facility] MEDICARE SELF PAY NO INSURANCE Member Subscriber Plan / Payer (Ef fective for All Dates) Name:Ivonne Olea Member ID:Not on file Relation to Subscriber:Not on file Name:IVONNE OLEA Subscriber ID:Not on file (Home) Address: [address] [place] [id number] Payer ID:Not on file Group ID:Not on file Type:Self Pay Address: [place], [place] [facility] AET Care Teams Contracts Administrator Relationship Specialty Start Date End Date Hector Sylvester MD [address] [place] [id number] PCP - General Family Medicine 01/23/18
--- OUTSIDE RECORDS SUMMARY | 2025-09-29 12:04 | XMS_ITS | Data Portability ---
Author Organization [facility] Address [address] [place] [address] Assessment No assessment recorded. Plan of Treatment Reminders Order Date Submit Date Provider Last Modified By Organization Details Last Modified Time Details Appointments None recorded. Lab None recorded. Referral None recorded. Procedures None recorded. Surgeries hysteroscop y, surgical, with biopsy of endometrium and/or polypectomy (SURG) 2024 025 [facility], [address], [place], [address], 13:01:39 Imaging US, pelvis 2024 [address]25 [address], [address], [place], [address], 23:34:31 US, transvagina l 2024 [address], [address], [place], [address], 23:34:31 Medication Orders hydrocodone 5 mg-acetamin ophen 325 mg tablet 2024 025 [id number], [address], [place], [place], [id number], 12:39:06 Patient TargetsNo targets recorded. Patient InstructionsNo instructions recorded. Reason for Referral None Reported. Results Created Date Observation Date Name Description Value Unit Range Abnormal Flag Note LastModifiedBy Organization Detail LastModifiedTime 04/25/20 25 04/25/2025 US, pelvi s No observ ation record ed. [facility] [address], [place], [address], 04/25/2025 17:49:57 04/25/2004/25/2025 US, trans vagin al No observ ation record ed. [facility] [address], [place], [address], 04/25/2025 17:50:07 04/25/2004/25/2025 US, pelvi s No observ ation record ed. [email or web address] Aissatou [address] [place] [address] 58, [place], [address], 05/05/2025 12:51:50 Result Notes None recorded. Problems Name Problem SNOMED Code Status Onset Date Resolution Date Notes Provider Name and Address Organization Details Recorded Time Insomnia 705126276 Active 2020 Lynette kemp, [facility] 15:13:49 Depressive disorder 89772921 Active 2020 Lynette Mirza [facility], [facility] 15:13:54 Generalized anxiety disorder 65221726 Active 2020 Lynette Mirza [facility], [facility] 15:13:57 Cataplexy 85543356 Active 2020 Lynette kemp, [facility] 15:14:05 Migraine 37082591 Active 2020 Lynette kemp, [facility] 15:14:21 Heart murmur 56985223 Active 2020 Lynette kemp, [facility] 15:14:56 Hypertensive disorder 23576352 Active [address] [facility] 15:17:18 Mental disorder 00686123 Active [address] [facility] 15:17:25 Notes:hbp and mvp for palpit ations Problem Notes None recorded. Procedures Surgical History Date Name Laterality Status Provider Name and Address Organization Details Recorded Time 025 HYSTEROSCOPY, SURGICAL, WITH BIOPSY OF ENDOMETRIUM AND/OR POLYPECTOMY (SURG) completed Madisyn Torres [facility] 07/08/2025 11:43:49 025 repair of musculotendinous cuff of shoulder completed MAIKEL DENNEY NP [address], [place], [address], [facility] 04/24/2025 11:27:50 025 Date of Last Pap Smear completed [facility] 04/24/2025 11:22:48 023 Date of Last Mammogram completed [facility] 08/19/2024 11:24:59 023 Date of Last Colonoscopy completed [facility] 12/25/2024 10:54:22 003 cholecystectomy completed Lynette Hermes [facility] 12/03/2020 15:17:57 994 section completed Lynette Mirza [facility] 12/03/2020 15:18:[address] [facility] 01/07/2021 12:26:[address] [facility] 01/07/2021 12:26:09 Caesarean Section completed [facility] 01/07/2021 12:26:09 Orthopedic Surgery completed [facility] 01/07/2021 12:26:09 Imaging Results None recorded. Procedure Notes None recorded. Medical Equipment None Reported. Allergies Allergen ID Allergen Name Allergen Category Reaction Reaction Severity Criticality Documentation Date Start Date Code Code System Note Provider Name and Address Organization Details Recorded Time 15071 Substance with sulfonami de structure and antibacte rial mechanism of action (substanc e) medicatio n Not available Not available Not available 12/03/2020 29672 8003 [facility] 15:10:27 26675 codeine medicatio n Not available Not available Not available 12/03/2020 2670 RxNorm Lynette Mirza [facility] 15:10:33 08581 latex environme nt,medica tion Not available Not available Not available 12/03/2020 51252 91 RxNorm Lynette Mirza [facility] 15:11:17 16523 nickel environme nt Not available Not available Not available 12/03/2020 29228 29 RxNorm Lynette Mirza [facility] 15:11:22 72404 yellow dye medicatio n Not available Not available Not available 12/03/2020 [facility] 15:12:07 80930 Adhesive agent (substanc e) environme nt,medica tion other Not available low 08/28/2025 73091 0007 SNOMED React ion: Not Available gertrude - External Data Service - prod 18:51:33 88079 aspirin medicatio n Not available Not available low 08/28/20252018 1191 RxNorm *HUBERT INAL* unrec ogniz ed react ion (text : Nause a & Vomit ing, code: 15122 000) (from exter nal sourc e) unrec ogniz ed react ion (text : Nause a And Vomit ing, code: 68572 000) (from exter nal sourc e) Not Available gertrude - External Data Service - prod 18:51:33 22808 calcium carbonate medicatio n Not available Not available Not available 08/28/2025 1897 RxNorm unrec ogniz ed react ion (text : Unkno wn, code: 41905 5006) (from exter nal sourc e) Not Available gertrude - External Data Service - prod 18:51:33 07019 dicalcium phosphate medicatio n Not available Not available Not available 08/28/2025 80746 3 RxNorm unrec ogniz ed react ion (text : Unkno wn, code: 20732 5006) (from exter nal sour e) Not Available gertrude - External Data Service - prod 18:51:33 03169 chlorphen iramine medicatio n Not available Not available Not available 08/28/2025 2400 RxNorm unrec ogniz ed react ion (text : Unkno wn, code: 76340 5006) (from exter nal sour e) Not Available gertrude - External Data Service - prod 18:51:33 88055 chlorprom azine medicatio n anaphylax is swelling Not available Not available high 08/28/20252014 2403 RxNorm Swell ing unrec ogniz ed react ion (text : Unkno wn, code: 35145 5006) (from exter nal sour e) Not Available gertrude - External Data Service - prod 18:51:33 28642 prasteron e medicatio n anaphylax is Not available high 08/28/20252014 3143 RxNorm unrec ogniz ed react ion (text : Unkno wn, code: 21588 5006) (from exter nal sour e) Not Available gertrude - External Data Service - prod 18:51:33 78386 dihydroer gotamine medicatio n dyspnea other Not available Not available high 08/28/20252014 3418 RxNorm Chest pain Breat jeane Diffi culty Chest pain Chest pain Breat jeane Diffi culty unrec ogniz ed react ion (text : Chest tight ness, code: 08050 001) (from exter nal sour e) Not Available gertrude - External Data Service - prod 18:51:33 14441 ergotamin e Not available Not available Not available Not available 08/28/20252013 4025 RxNorm unrec ogniz ed react ion (text : Unkno wn, code: 63877 5006) (from exter [facility] e) Not Available gertrude - External Data Service - prod 18:51:33 94729 metoclopr amide Not available other swelling Not available Not available high 08/28/20252014 6915 RxNorm Pushe s side of face over. Cant swall ow or talk Swell ing unrec ogniz ed react ion (text : Unkno wn, code: 40000 5006) (from exter [facility] e) Not Available gertrude - External Data Service - prod 18:51:33 15614 metoclopr amide hydrochlo ride medicatio n other Not available low 08/28/20252014 78146 6 RxNorm Dysto gill react ion Not Available gertrude - External Data Service - prod 18:51:33 02986 promethaz ine medicatio n Not available Not available Not available 08/28/20252022 8745 RxNorm unrec ogniz ed react ion (text : Unkno wn, code: 16263 5006) (from exter [facility] sour e) Not Available gertrude - External Data Service - prod 18:51:33 92067 phenyleph rine medicatio n Not available Not available Not available 08/28/2025 8163 RxNorm unrec ogniz ed react ion (text : Unkno wn, code: 21395 5006) (from exter [facility] sour e) Not Available gertrude - External Data Service - prod 18:51:33 11916 phenylpro panolamin e medicatio n Not available Not available Not available 08/28/2025 8175 RxNorm unrec ogniz ed react ion (text : Unkno wn, code: 26559 5006) (from exter nal sourc e) Not Available gertrude - External Data Service - prod 18:51:33 75999 prochlorp erazine medicatio n swelling Not available high 08/28/20252016 8704 RxNorm Swell ing Not Available gertrude - External Data Service - prod 18:51:33 06035 propranol ol medicatio n anaphylax is dyspnea other Not available Not available Not available high 08/28/20252014 8787 RxNorm Chest pain Breat jeane Diffi culty Not Available gertrude - External Data Service - prod 18:51:33 54720 sulfameth oxazole / trimethop rim medicatio n rash Not available high 08/28/20252019 17689 RxNorm Not Available gertrude - External Data Service - prod 18:51:33 91581 Reglan medicatio n Not available Not available Not available 08/28/2025 9230 RxNorm Not Available gertrude - External Data Service - prod 18:51:34 99164 aluminum aspirin Not available Not available Not available low 08/28/20252018 611 RxNorm *HUBERT INAL* unrec ogniz ed react ion (text : Nause a and Vomit ing, code: 52943 000) (from exter nal sourc e) Not Available gertrdue - External Data Service - prod 18:52:54 07706 Latex (substanc e) environme nt,medica tion rash Not available low 08/28/20252019 49703 8007 SNOMED Not Available gertrude - External Data Service - prod 18:52:54 65517 nickel sulfate Not available rash swelling Not available Not available high 08/28/20252015 09622 RxNorm Not Available gertrude - External Data Service - prod 18:52:54 62033 phenylpro panolamin e hydrochlo ride Not available Not available Not available Not available 08/28/20252023 3266 RxNorm unrec ogniz ed react ion (text : Unkno wn, code: 29178 5006) (from exter [facility]) Not Available [place] - External Data Service - prod 18:52:54 Medications Name Sig Start Date Stop Date [...] completed Not Available Not Available Not Available Diflucan 150 mg tablet Take 1 tablet every 72 hours by oral route for 1 day. 2024 active Not Available Not Available Not Avai lable hydrocodon e 10 mg-acetami nophen 325 mg [...] Updated DateTime 04/24/2025 165.1 cm 22.3 kg/m2 90299.66 g 148/83 mm[Hg] [facility] 04/24/2025 11:21:00 Date Recorded Body height Body mass index (BMI) Body weight Systolic And Diastolic Provider Name and Address Organization Details Last Updated DateTime 05/02/2025 165.1 cm 22.5 kg/m2 58177.97 g 169/89 mm[Hg] Aliyah Acosta [facility] 05/02/2025 12:13:12 Date Recorded Body height Body mass index (BMI) Body weight Systolic And Diastolic Provider Name and Address Organization Details Last Updated DateTime 05/28/2025 165.1 cm 22.5 kg/m2 19146.97 g 141/85 mm[Hg] [facility] 05/28/2025 14:18:17 Social History Question Answer Notes LastModified by Organizat ion Details LastModified Time Tobacco Smoking Status Current Every Day [facility] 01/07/2021 12:26:05 Do You Have An [...] Or The Highest Degree You Have Received? [id number] Information not available 01/07/2021 Are There Any [...] anxious, or unable to sleep at night)? AB03516-5 Information not available 01/07/2021 Family History Relationship Description Onset Age of this Age Resolved Age Notes LastModified by Organization Details LastModified Time Mother Malignant neoplasm of breast Not available 2020 15:16:19 Mother Heart disease [email or web address] Not available 2020 15:16:29 Mother Diabetes mellitus [email or web address] Not available 2020 15:16:42 Mother Hypertensive disorder Not available 2020 15:17:02 Father Heart disease Not available 2020 15:16:29 Father Hypertensive disorder [email or web address] Not available 2020 15:17:02 Brother Diabetes mellitus [email or web address] Not available 2020 15:16:42 Brother Heart disease Not available 2020 15:16:48 Brother Hypertensive disorder [email or web address] Not available 2020 15:17:02 Sister Malignant neoplasm of breast 60 BRCA neg - sister Not available 05/28/2025 14:15:12 Sister Malignant neoplasm of breast [email or web address] Not available 2024 11:12:26 Medical History Condition [...] ICD10 Code Diagnosis IMO Codes [id number] [address] [address] 12/03/2020 15:07:50 12/04/2020 15:37:18 Gynecologic examination 99212888 Z01.419 Take Calcium with Vitamin D 12-1500mg daily. Do monthly self breast exams. It is advised to get annual flu shot in the fall and she could obtain at [facility] or [facility] care clinic. If you haven't received the Tdap vaccine [...] to this email. Menopausal and postmenopausal disorders 863267037 N95.9 Pt has a very complicate d medical history and medication list. Her menopausal symptoms have definitely intensifie d. I would like her to schedule a consult with Dr Root to discuss options. Dyspareunia 58390512 N94 .10 Consult to be scheduled with Dr Root. [id number] Guillermo Root MD [place] [address],[place] [address] 01/07/2021 12:10:16 01/07/2021 13:10:58 Menopausal symptom 57849207 N95.1 this patient reports severe symptoms of menopause. She has some severe dyspareuni a and vaginal dryness that she would like treated effectivel y and quickly. We agreed to vaginal estradiol and systemic estradiol. She also take oral Prometrium . The vaginal she will be continued after about a month. She return in 1 month. [id number] Guillermo Root MD [place] [address],[place] [address] 02/04/2021 15:24:32 02/04/2021 16:40:37 Menopausal symptom 42332856 N95.1 This patient is a 55-year-ol d [...] improved. She will follow-up in 6 months. [id number] Guillermo Root MD [place] [address],[facility] [place] [address] 03/28/2022 10:56:09 03/28/2022 17:15:14 Eczema 61795157 L30.9 Gynecologi c examination 74024181 Z01.419 Annual gynecologi aniya exam performed. Patient [...] - ordered Pap - today Menopausal symptom 17249 002 N95.1 [id number] Guillermo Root MD [place] [address] [address] 12/17/2024 10:45:36 12/17/2024 11:38:52 Gynecologic examination 43071561 Z01.419 Annual gynecologi aniya exam performed. Patient [...] STI testing - declined Screening mammography 24 846215 Z12.31 Screening for osteoporosis 830652439 Z13.820 Menopausal symptom 05572 002 N95.1 Counseled on the following: Females [...] fits/AEs of HRT and wishes to continue. [id number] Guillermo Root MD [place] [address] [address] 04/24/2025 11:07:12 04/24/2025 12:09:27 Postmenopausal bleeding 81357213 N95.0 68633 The patient and I discussed the various [...] endometria l biopsy (pending results) scheduled with MD. ER precaution s provided. Patient is to contact office or go to nearest ED/Urgent care if fever >/= 100.1, pain, excessive bleeding, unusual drainage or swelling in area of concern; or experienci ng worsening sx's or new onset of concerning sx's. Understand ing verbalized . All questions answered to patient satisfacti on. [id number] Guillermo Root MD [place] [address],[place] [address] 04/25/2025 12:24:23 04/25/2025 13:56:45 Postmenopausal bleeding 55068112 N95.0 63030 [id number] Guillermo Root MD [place] [address],[facility] [place] [address] 05/02/2025 11:56:00 05/02/2025 13:00:07 Pain in pelvis 51051834 R10.2 79362 Postmenopa usal bleeding 48538028 N95.0 06883 This patient is a 59-year-ol d female [...] 30 minutes on her care in total. [id number] Guillermo Root MD [place] [address] [address] 05/21/2025 08:55:49 05/21/2025 13:34:29 [id number] Guillermo Root MD [place] [address] [address] 05/28/2025 14:06:13 05/28/2025 14:56:08 Postmenopausal bleeding 61668773 N95.0 04569 This patient is a 60-year-ol d female [...] Machado Member ID Guarantor Name 04/24/2025 1 [facility] [id number] Nik Olea [id number] Monica Olea 05/28/2025 2 [place] Monica Ferrarier [id number] Monica Olea 08/28/2025 1 [facility] (MEDICARE REPLACEMENT/A DVANTAGE - PPO) [id number] Monica Olea [id number] Monica Olea 07/19/2024 1 JAIME [id number] Nik Olea [id number] Monica Olea 08/28/2025 1 R [id number] Stanley Olea [id number] Monica Olea Notes Date Note Type Note [...] WNL. MAIKEL DENNEY NP [address], [place], [address], [facility] 04/24/2025 11:58:25 05/02/2025 text/html This patient [...] infection. Guillermo Root MD [address], [place], [address], [facility] 05/02/2025 12:54:16 05/28/2025 text/html This patient [...] device. Guillermo Root MD [address], [place], [address], [facility] 05/28/2025 14:55:24 OBGyn Episode Ob Episode Information Episode Created Date Number of Fetuses Patient Bloodtype Patient rh Status Prepregnancy Weight lbs Domestic Partner Domestic Partner Phone Father Name Documentation Nurse Status 12/03/19 21 1 CLOSED Fetus Data [...]
[2025-09-29] MEDS: LORazepam INJ (*CRX) 2 MG/ML VIAL 0.5 MG IV PUSH (12:08)
[2025-09-29] MEDS: CYCLOBENZAPRINE HCL 10 MG TABLET PO (12:13)
[2025-09-29] MEDS: HYDROcodone/acetaminophen (*CRX) 5-325 MG TABLET 1 TAB PO (12:14)
== END 2025-09-29 13:19 | disposition home or self-care (01) ==
PROVIDERS: Emergency Provider Emergency Medicine; PCP Family Medicine
DX: S43.014A Anterior dislocation of right humerus, initial encounter (principal); M93.811 Other specified osteochondropathies, right shoulder; I10 Essential (primary) hypertension; E78.5 Hyperlipidemia, unspecified; K58.9 Irritable bowel syndrome, unspecified; F41.8 Other specified anxiety disorders; Z90.49 Acquired absence of other specified parts of digestive tract; F17.210 Nicotine dependence, cigarettes, uncomplicated; Z79.899 Other long term (current) drug therapy; Z79.890 Hormone replacement therapy; W19.XXXA Unspecified fall, initial encounter
CPT/HCPCS: 23650; 73030; 73060; 96374; 96375; 99285; A9270; J1171; J2060; J2704